=== PATIENT | female | born 1965 | race Two or more races ===

== ENCOUNTER 2020-01-09 18:14 | Outpatient (REF) | payer MEDICAID, SELFPAY | END 2020-01-09 18:15 | disposition home or self-care (01) | LOC: HO.LAB 18:14 | PROVIDERS: Visit Provider Internal Medicine | DX: Z20.828 Contact with and (suspected) exposure to other viral communicable diseases (principal) | CPT/HCPCS: C9803; U0003 ==

== ENCOUNTER 2020-01-19 16:46 | Outpatient (REF) | payer MEDICAID, SELFPAY | END 2020-01-19 16:47 | disposition home or self-care (01) | LOC: HO.LAB 16:46 | PROVIDERS: Visit Provider Internal Medicine | DX: Z20.828 Contact with and (suspected) exposure to other viral communicable diseases (principal) | CPT/HCPCS: C9803; U0003 ==

== ENCOUNTER → 2020-05-08 15:04 | Outpatient (BNVA) | payer MEDICAID, SELFPAY | PROVIDERS: Visit Provider Obstetrics & Gynecology | DX: N90.89 Other specified noninflammatory disorders of vulva and perineum (principal) | CPT/HCPCS: 99212 ==

== ENCOUNTER 2020-09-13 15:35 | Outpatient (REF) | payer MEDICAID, SELFPAY ==
--- NOTE | ~2020-09-13 | MM_ITS ---
EXAMINATION: MM SCREENING DIGITAL BREAST TOMOSYNTHESIS, BILATERAL CLINICAL INFORMATION: Screening. Asymptomatic. The lifetime risk of breast cancer based on the Tyrer-Cuzick Model is 9%. COMPARISON: Mammography: 12/23/2016, 03/29/2015, 03/20/2015 TECHNIQUE: Digital breast tomosynthesis is performed in both the craniocaudal and mediolateral oblique views along with computer-aided detection (CAD). Synthesized 2D images are generated from the tomosynthesis. Additional right MLO view is provided. FINDINGS: The breasts are heterogeneously dense, which may obscure small masses (ACR BI-RADS breast composition Category c). Breast tissue composition borders on extremely dense. Parenchymal pattern is similar to prior studies. No developing density. There are no significant masses, abnormal calcifications, or other abnormalities. No significant changes. MM/MM tomosynthesis screening BI IMPRESSION: No mammographic evidence of malignancy. ASSESSMENT: BI-RADS 1: Negative RECOMMENDATION: Routine annual mammography screening. This patient's information was entered into a reminder system with a target due date for their next mammogram.
== END 2020-09-13 15:36 | disposition home or self-care (01) ==
LOC: HO.MAMMO 15:35
PROVIDERS: Visit Provider Nurse Practitioner Family
DX: Z12.31 Encounter for screening mammogram for malignant neoplasm of breast (principal)
CPT/HCPCS: 77063; 77067

== ENCOUNTER 2022-04-09 11:44 | Emergency (ER) | payer MEDICAID, SELFPAY ==
[2022-04-09 12:33] VITALS: BP 169/86; PULSE 103; RESP 20; TEMP 36.9; O2SAT 98; BMI 33.3
--- NOTE | 2022-04-09 12:36 | ED_ITS ---
HPI - General Adult General Chief complaint: Eye Problems <Yasmani Pan - Last Filed: 04/09/22 12:36> Stated complaint: swollen/pain L eye <Yasmani Pan - Last Filed: 04/09/22 12:36> Time Seen by Provider: 04/09/22 14:34 <Yasmani Pan - Last Filed: 04/09/22 12:36> Source: patient <JAMIL Hua - Last Filed: 04/09/22 16:02> Mode of arrival: ambulatory <JAMIL Hua - Last Filed: 04/09/22 16:02> Limitations: no limitations <JAMIL Hua Last Filed: 04/09/22 16:02> History of Present Illness HPI narrative: 56 yo female presents to the ER for evaluation of left eye redness, pain, swelling x 2 days. Patient reports that she was sweeping at her brother's house and noticed later on that day her left eye became red, irritated, and painful. She denies any crusting to her eyes. She denies any eye itching. Patient reports that ever since the onset of the symptoms her left eye has become more red and irritated. She otherwise denies any visual changes, headaches, dizziness, fevers, or chills. Denies any facial pain, body pain or rashes. She does not wear contact lenses or glasses. She does not have an eye doctor. <JAMIL Hua - Last Filed: 04/09/22 16:02> MD complaint: Left eye redness/pain <JAMIL Hua - Last Filed: 04/09/22 16:02> Onset (ago): day(s) <JAMIL Hua Last Filed: 04/09/22 16:02> Location: eyes <JAMIL Hua Last Filed: 04/09/22 16:02> Radiation: non-radiation <JAMIL Hua Last Filed: 04/09/22 16:02> Severity: moderate <JAMIL Hua Last Filed: 04/09/22 16:02> Quality: aching <JAMIL Hua Last Filed: 04/09/22 16:02> Pain Consistency: constant <JAMIL Hua - Last Filed: 04/09/22 16:02> Relieving factors: none <JAMIL Hua - Last Filed: 04/09/22 16:02> Exacerbating factors: none <JAMIL Hua - Last Filed: 04/09/22 16:02> Associated symptoms: denies other symptoms <JAMIL Hua - Last Filed: 04/09/22 16:02> Treatments prior to arrival: none <JAMIL Hua - Last Filed: 04/09/22 16:02> Related Data Home medications: Home Medications Medication Instructions Recorded Confirmed amlodipine 5 mg tablet 5 mg PO DAILY 05/08/20 escitalopram oxalate 10 mg tablet 10 mg PO DAILY 05/08/20 hydrochlorothiazide 25 mg tablet 25 mg PO DAILY 05/08/20 lisinopril 40 mg tablet 40 mg PO DAILY 05/08/20 trazodone 50 mg tablet 50 mg PO BEDTIME PRN 05/08/20 Previous Rx's Medication Instructions Recorded sulfacetamide sodium 10 % eye drops 1 drp ophthalmic-Left Q3H 7 days 04/09/22 #15 mL <Yasmani Pan - Last Filed: 04/09/22 12:36> Allergies/adverse reactions: Allergies Allergy/AdvReac Type Severity Reaction Status Date / Time No Known Allergies Allergy Verified 05/08/20 15:20 <Yasmani Pan - Last Filed: 04/09/22 12:36> Review of Systems Review of Systems: Yes all other systems are reviewed and are negative <JAMIL Hua - Last Filed: 04/09/22 16:02> [facility] Past Medical History Surgical History: Surgical History History of delivery History of ovarian cystectomy History of umbilical hernia repair (~2008) <Yasmani Pan - Last Filed: 04/09/22 12:36> Family History Family History: Family History Father History of hypertension Mother History of hypertension <Yasmani Pan - Last Filed: 03/02/23 12:36> Social History Social History: Social History Advance Directives: No <Yasmani Pan - Last Filed: 04/09/22 12:36> Physical Exam ED Vital Signs: Vital Signs - 24 hr 04/09/22 12:33 04/09/22 15:23 Temperature 98.5 F Pulse Rate 103 H 86 Respiratory Rate 20 16 Blood Pressure 169/86 H 176/82 H Pulse Oximetry 98 96 Oxygen Delivery Method Room Air Room Air BMI result Body Mass Index 33.3 <Yasmani Pan - Last Filed: 04/09/22 12:36> Vital Signs - 24 hr 04/09/22 12:33 04/09/22 15:23 Temperature 98.5 F Pulse Rate 103 H 86 Respiratory Rate 20 16 Blood Pressure 169/86 H 176/82 H Pulse Oximetry 98 96 Oxygen Delivery Method Room Air Room Air BMI result Body Mass Index 33.3 <JAMIL Hua - Last Filed: 04/09/22 16:02> Appearance: Alert. Oriented X3. No acute distress. HEENT: normal inspection, left eye is conjunctiva injected, with no drainage. There is a visible 2mm oval shaped deformity noted at the 5 o'clock position overlying the edge of the iris. Fluorosceine uptake overlying this region, with 1mm black pinpoint ?foreign body easily irrigated off with saline. No dentritic lesions noted. Pupils are equal and reactive. EOMI. right eye with normal conjunctiva, no drainage. CVS: Normal heart rate and rhythm. Pulses normal. Respiratory: No respiratory distress. Skin: Skin warm and dry. Normal skin color. Normal skin turgor. No rashes. Extremities: Moving all extremities well bilaterally. Neuro: Oriented X 3. No motor deficit. No sensory deficit. <JAMIL Hua - Last Filed: 04/09/22 16:02> Course Course Course Narrative: 56-year-old female presents for 2 days of swollen, red, painful left eye. Denies getting anything in the eye, denies any history of glaucoma. There is no discharge from the eye. Patient endorses light sensitivity and blurry vision <Yasmani Pan - Last Filed: 04/09/22 12:36> Medications Administered Discontinued Medications Generic Name Dose Route Start Last Admin Trade Name Charles PRN Reason Stop Dose Admin Fluorescein Sodium 1 strip 04/09/22 14:48 04/09/22 15:04 Fluorescein Sodium Strip EYE-LEFT 04/09/22 14:49 1 strip ONCE ONE Administration Tetracaine HCl 1 drop 04/09/22 14:48 04/09/22 15:03 Tetracaine Hcl/Pf 0.5% Oph Netta 4 Ml Drops EYE-LEFT 04/09/22 14:49 1 drop ONCE ONE Administration <Yasmani Pan - Last Filed: 04/09/22 12:36> Medications Administered Discontinued Medications Generic Name Dose Route Start Last Admin Trade Name Charles PRN Reason Stop Dose Admin Fluorescein Sodium 1 strip 04/09/22 14:48 04/09/22 15:04 Fluorescein Sodium Strip EYE-LEFT 04/09/22 14:49 1 strip ONCE ONE Administration Tetracaine HCl 1 drop 04/09/22 14:48 04/09/22 15:03 Tetracaine Hcl/Pf 0.5% Oph Netta 4 Ml Drops EYE-LEFT 04/09/22 14:49 1 drop ONCE ONE Administration <JAMIL Hua - Last Filed: 04/09/22 16:02> Procedures Procedure Narrative Procedure Narrative: 2 drops of tetracaine instilled in left eye. Fluoresceine stain strip applied to left eye. +Fluoresceine uptake noted at the 5 o'clock position with black pinpoint ?foreign body, easily removed with saline irrigation. Patient tolerated procedure well without complications or concerns. <JAMIL Hua - Last Filed: 04/09/22 16:02> FB Removal Eye Time Out performed: Yes <JAMIL Hua - Last Filed: 04/09/22 16:02> Location: eye (L) <JAMIL Hua - Last Filed: 04/09/22 16:02> Topical anesthetic used: tetracaine <JAMIL Hua - Last Filed: 04/09/22 16:02> Foreign body: other (?unknown, black pinpoint object/dust) <JAMIL Hua - Last Filed: 04/09/22 16:02> Evidence of corneal penetration: Yes <JAMIL Hua - Last Filed: 04/09/22 16:02> Technique: irrigation <JAMIL Hua - Last Filed: 04/09/22 16:02> Procedure performed under: direct visualization with magnification <JAMIL Hua - Last Filed: 04/09/22 16:02> Post-procedure medication: ophthalmic antibiotic <JAMIL Hua - Last Filed: 04/09/22 16:02> Patient tolerated procedure: well <JAMIL Hua - Last Filed: 04/09/22 16:02> Medical Decision Making Medical Decision Making MDM Narrative: [id number] presenting today with complaints of left eye redness, irritation, found to have corneal abrasion in her left eye. Will cover with Bleph-10 and given referral to ophthalmology to follow up with. <JAMIL Hua - Last Filed: 04/09/22 16:02> Differential Diagnosis Differential Diagnoses: The differential diagnosis associated with the presentation includes <JAMIL Hua - Last Filed: 04/09/22 16:02> corneal abrasion, uvetitis, iritis, conjunctivitis, foreign body, corneal laceration, HSV epithelial keratitis <JAMIL Hua - Last Filed: 04/09/22 16:02> Prescription Management I considered prescription management with: Antibiotic <JAMIL Hua - Last Filed: 04/09/22 16:02> Discharge Plan Discharge Clinical Impression: Abrasion, corneal <Yasmani Pan - Last Filed: 04/09/22 12:36> Patient Disposition: Home, Self-Care <Yasmani Pan - Last Filed: 04/09/22 12:36> Instructions: Corneal Abrasion (ED) <Yasmani Pan - Last Filed: 04/09/22 12:36> Additional Instructions: Use prescribed antibiotic drop as directed for 1 week. Please follow up with Dr. Reece Webb, call today to make an appointment. If you develop new or worsening symptoms call 911 or come back to the ER for further evaluation. <Yasmani Pan - Last Filed: 04/09/22 12:36> Prescriptions: New sulfacetamide sodium 10 % drops 1 drp ophthalmic-Left Q3H 7 Days Qty: 15 0RF No Action lisinopril 40 mg tablet 40 mg PO DAILY hydrochlorothiazide 25 mg tablet 25 mg PO DAILY escitalopram oxalate 10 mg tablet 10 mg PO DAILY trazodone 50 mg tablet 50 mg PO BEDTIME PRN amlodipine 5 mg tablet 5 mg PO DAILY <Yasmani Pan - Last Filed: 04/09/22 12:36> Referrals: Moy Webb [Physician] - (corneal abrasion) <Yasmani Pan - Last Filed: 04/09/22 12:36> Interventions: ED Discharge Assessment Last Done: 04/09/22 15:50 <Yasmani Pan - Last Filed: 04/09/22 12:36> Discharge Date/Time: 04/09/22 15:51 <Yasmani Pan - Last Filed: 04/09/22 12:36>
[2022-04-09] MEDS: Tetracaine HCl/PF 0.5% Oph Sol 4 ML DROPS 1 DROP EYE-LEFT (15:03)
[2022-04-09] MEDS: Fluorescein Sodium STRIP 1 STRIP EYE-LEFT (15:04)
[2022-04-09 15:23] VITALS: BP 176/82; PULSE 86; RESP 16; O2SAT 96
== END 2022-04-09 15:51 | disposition home or self-care (01) ==
PROVIDERS: Emergency Provider Student in an Organized Health Care Education/Training Program
DX: S05.02XA Injury of conjunctiva and corneal abrasion without foreign body, left eye, initial encounter (principal); X58.XXXA Exposure to other specified factors, initial encounter; Y93.9 Activity, unspecified; Y92.9 Unspecified place or not applicable; Y99.9 Unspecified external cause status
CPT/HCPCS: 99283

== ENCOUNTER 2022-04-28 09:34 | Outpatient (REF) | payer MEDICAID, SELFPAY ==
--- NOTE | ~2022-04-28 | XR_ITS ---
EXAMINATION: XR KNEE, RIGHT CLINICAL INFORMATION: Right knee pain COMPARISON: 11/28/2011 TECHNIQUE: Four views of the right knee. FINDINGS: No fracture or joint effusion. Alignment is anatomic. Joint space narrowing and osteophyte formation is seen within the medial and lateral compartments of the femoral-tibial joint and patellofemoral joint consistent with moderate osteoarthritis. Findings increased compared to prior exam. No abnormal soft tissue calcification. XR/XR knee RT 3V IMPRESSION: Moderate tricompartmental osteoarthritis. Findings have significantly progressed compared to 2012
--- NOTE | ~2022-04-28 | XR_ITS ---
EXAMINATION: XR BILATERAL HIPS WITH AP PELVIS CLINICAL INFORMATION: Bilateral hip pain COMPARISON: 01/03/2018 TECHNIQUE: AP view of the pelvis and single views of each hip were obtained. FINDINGS: No fracture. Joint space narrowing and osteophyte formation is seen within the bilateral hip joints consistent with moderate osteoarthritis. Findings have increased compared to the prior exam. Sacroiliac joints are normal. Pubic symphysis is normal. No abnormal soft tissue calcifications. XR/XR hip BI w PEL1V IMPRESSION: Bilateral hip osteoarthritis with interval progression compared to 2018
--- NOTE | ~2022-04-28 | XR_ITS ---
EXAMINATION: XR LUMBOSACRAL SPINE CLINICAL INFORMATION: Back pain COMPARISON: None available. TECHNIQUE: Three views of the lumbosacral spine. FINDINGS: The vertebral bodies are normal in height. Severe multilevel degenerative changes with disc space narrowing and osteophyte formation is seen at L2/3, L4/5 and L5/S1. Mild to moderate degenerative disc disease is also seen at T11/12, T12/L1, L1/L2, L3/L4. Posterior facet joint arthropathy is seen at L5/S1. Posterior retrolisthesis is seen at L2/3 and L3/4. The paraspinal soft tissues are normal. XR/XR lumbar spine 2-3V IMPRESSION: Multilevel degenerative disc disease as described above
== END 2022-04-28 09:35 | disposition home or self-care (01) ==
LOC: HO.XRAY 09:34
PROVIDERS: Visit Provider Registered Nurse
DX: M54.9 Dorsalgia, unspecified (principal); M25.552 Pain in left hip; M25.551 Pain in right hip; M25.562 Pain in left knee; M25.561 Pain in right knee
CPT/HCPCS: 72100; 73521; 73562

== ENCOUNTER 2022-05-18 09:26 | Outpatient (REF) | payer MEDICAID, SELFPAY ==
--- NOTE | ~2022-05-18 | XR_ITS ---
EXAMINATION: XR KNEE AP STANDING CLINICAL INFORMATION: Pain. COMPARISON: Prior radiographs, most recently 04/28/2022. TECHNIQUE: AP bilateral standing view of the knees was obtained. FINDINGS: Bony alignment and mineralization are normal. The bilateral lateral and medial joint space compartments are well-maintained and show mild peripheral osteophyte formation. No fracture or dislocation is seen. There is no significant varus or valgus configuration. No focal soft tissue swelling, gas or foreign body is seen. XR/XR knee standing BI IMPRESSION: There is mild osteoarthritic change of the lateral and medial joint space compartments of the bilateral knees. No fracture or dislocation is seen. There is no significant varus or valgus configuration noted bilaterally.
== END 2022-05-18 09:27 | disposition home or self-care (01) ==
LOC: HO.HOSX 09:26
PROVIDERS: Visit Provider Orthopaedic Surgery
DX: M17.11 Unilateral primary osteoarthritis, right knee (principal); M16.0 Bilateral primary osteoarthritis of hip
CPT/HCPCS: 20610; 73565; 99202; J1100

== ENCOUNTER 2022-07-13 09:48 | Outpatient (REF) | payer MEDICAID, SELFPAY ==
[2022-07-13 10:14] LABS: MANUAL DIFF FLAG NO
[2022-07-13 11:28] LABS: Basophils Absolute Auto 0.1 X10*3/uL (0.0-0.2); Basophils Percent Auto 0.9 % (0-2); Eosinophils Absolute Auto 0.2 X10*3/uL (0.0-0.4); Eosinophils Percent Auto 2.8 % (0-4); Hematocrit 40.6 % (37.0-47.0); Hemoglobin 12.8 g/dl (12.0-16.0); Imm Gran Abs Auto 0.03 X10*3/uL (0.00-0.03); Imm Gran Pct Auto 0.4 % (0.0-0.4); Lymphocytes Absolute Auto 1.9 X10*3/uL (1.2-4.9); Mean Corpuscular HGB Conc 31.5 g/dl (31.0-35.0); Mean Corpuscular Hemoglobin 27.8 pg (27.0-33.0); Mean Corpuscular Volume 88.1 fL (80.0-98.0); Monocytes Absolute Auto 0.6 X10*3/uL (0.1-1.2); Monocytes Percent Auto 7.8 % (2-11); Neutrophils Absolute Auto 5.1 x10*3/uL (2.0-8.3); Neutrophils Percent Auto 64.1 % (45-73); Platelet Count 317 X10*3/uL (160-400); Red Blood Count 4.61 X10*6/uL (4.20-5.50); Red Cell Distribution Width 14.2 % (11.0-16.0); White Blood Count 7.9 X10*3/uL (4.8-10.8)
[2022-07-13 12:00] LABS: Alanine Aminotransferase 21 U/L (0-31); Albumin Level 4.5 g/dL (3.5-5.0); Alkaline Phosphatase 80 U/L (39-117); Anion Gap 15 (12-20); Aspartate Amino Transferase 16 U/L (5-31); Bilirubin Total 0.9 mg/dL (0.0-1.0); Blood Urea Nitrogen 18 mg/dL (9-16); C Reactive Protein 1.96 mg/dL (< or = 0.50); Calcium 10.3 mg/dL (8.4-10.2); Carbon Dioxide 27 mmol/L (22-29); Chloride 103 mmol/L (96-108); Estimated Glomerular Filt Rate > 60; Glucose Random 115 mg/dL (60-115); Potassium 4.4 mmol/L (3.3-5.1); Sodium 141 mmol/L (135-145); Total Protein 8.2 g/dL (6.5-8.0)
[2022-07-13 12:05] LABS: Erythrocyte Sedimentation Rate 21 MM/HR (0-20)
[2022-07-13 13:00] LABS: Creatinine Urine 124.21 mg/dL; Protein/Creatinine Ratio, Ur 0.09 (<0.2); Total Protein Urine Random 11 mg/dL (<12)
[2022-07-15 05:13] LABS: Anti DNA DS Antibody 1 IU/mL; Antibody to SS-A Antigen <1.0 NEG AI (<1.0 NEG); Antibody to SS-B Antigen <1.0 NEG AI (<1.0 NEG); SM/Ribonucleoprotein Ab <1.0 NEG AI (<1.0 NEG); Smith Protein <1.0 NEG AI (<1.0 NEG)
[2022-07-15 09:38] LABS: Complement C3 166 mg/dL (83-193)
== END 2022-07-13 09:49 | disposition home or self-care (01) ==
LOC: HO.LAB 09:48
PROVIDERS: PCP Internal Medicine Rheumatology; Visit Provider Internal Medicine Rheumatology
DX: R76.8 Other specified abnormal immunological findings in serum (principal)
CPT/HCPCS: 36415; 80053; 84156; 85025; 85652; 86140; 86160; 86225; 86235

== ENCOUNTER 2022-07-13 10:00 | Outpatient (RCR) | payer MEDICAID, SELFPAY ==
[2022-06-01 09:54] VITALS: BP 164/86; PULSE 97
== END 2022-08-13 15:39 | disposition home or self-care (01) ==
LOC: HO.PT 10:00
PROVIDERS: PCP Registered Nurse; Visit Provider Registered Nurse
DX: M17.11 Unilateral primary osteoarthritis, right knee (principal); M16.0 Bilateral primary osteoarthritis of hip
CPT/HCPCS: 97110; 97162

== ENCOUNTER 2022-07-15 08:05 | Emergency (ER) | payer MEDICAID, SELFPAY ==
[2022-07-15 08:30] VITALS: BP 165/88; PULSE 96; RESP 16; TEMP 36.6; O2SAT 97; BMI 35.1
[2022-07-15 08:41] LABS: MANUAL DIFF FLAG NO
[2022-07-15 08:44] LABS: Basophils Absolute Auto 0.1 X10*3/uL (0.0-0.2); Basophils Percent Auto 0.8 % (0-2); Eosinophils Absolute Auto 0.2 X10*3/uL (0.0-0.4); Eosinophils Percent Auto 2.8 % (0-4); Hematocrit 39.4 % (37.0-47.0); Hemoglobin 12.6 g/dl (12.0-16.0); Imm Gran Abs Auto 0.03 X10*3/uL (0.00-0.03); Imm Gran Pct Auto 0.4 % (0.0-0.4); Lymphocytes Absolute Auto 1.9 X10*3/uL (1.2-4.9); Mean Corpuscular Hemoglobin 27.9 pg (27.0-33.0); Mean Corpuscular Volume 87.4 fL (80.0-98.0); Mean Platelet Volume 10.2 fL (9.4-12.3); Monocytes Absolute Auto 0.7 X10*3/uL (0.1-1.2); Monocytes Percent Auto 9.7 % (2-11); Neutrophils Absolute Auto 4.5 x10*3/uL (2.0-8.3); Neutrophils Percent Auto 60.3 % (45-73); Platelet Count 291 X10*3/uL (160-400); Red Blood Count 4.51 X10*6/uL (4.20-5.50); White Blood Count 7.5 X10*3/uL (4.8-10.8)
[2022-07-15 09:07] LABS: Anion Gap 13 (12-20); Blood Urea Nitrogen 14 mg/dL (9-16); Calcium 10.2 mg/dL (8.4-10.2); Carbon Dioxide 26 mmol/L (22-29); Chloride 108 mmol/L (96-108); Creatinine Clr Calc Pharmacy 100.8; Estimated Glomerular Filt Rate > 60; Glucose Random 108 mg/dL (60-115); Potassium 4.6 mmol/L (3.3-5.1); Sodium 142 mmol/L (135-145)
[2022-07-15 09:09] LABS: B Type Natriuretic Peptide < 10 pg/mL (<100)
--- NOTE | 2022-07-15 09:50 | ED_ITS ---
HPI - General Adult General Chief complaint: Extremity Problem Stated complaint: swollen feet Time Seen by Provider: 07/15/22 09:48 Source: patient Mode of arrival: ambulatory Limitations: no limitations History of Present Illness HPI narrative: Patient is a 56-year-old female with history of osteoarthritis, HTN, FRANTZ positive presenting with 1 month of bilateral ankle and foot swelling, worse at night. She denies any calf pain, chest pain, dyspnea. Denies any fevers. Denies any discharge or drainage. Denies any injury or trauma. Denies known history of CHF, however, is seeing film process operator tomorrow. Denies headaches. Denies blurred vision, double vision, any other visual changes. MD complaint: Bilateral lower extremity edema Onset (ago): month(s) Location: lower extremity Radiation: non-radiation Severity scale (1-10): 7 Quality: burning Pain Consistency: constant Relieving factors: rest Exacerbating factors: movement Associated symptoms: denies other symptoms Treatments prior to arrival: none Related Data Home Medications Medication Instructions Recorded Confirmed amlodipine 5 mg tablet 5 mg PO DAILY 05/08/20 escitalopram oxalate 10 mg tablet 10 mg PO DAILY 05/08/20 hydrochlorothiazide 25 mg tablet 25 mg PO DAILY 05/08/20 lisinopril 40 mg tablet 40 mg PO DAILY 05/08/20 trazodone 50 mg tablet 50 mg PO BEDTIME PRN 05/08/20 Previous Rx's Medication Instructions Recorded sulfacetamide sodium 10 % eye drops 1 drp ophthalmic-Left Q3H 7 days 04/09/22 #15 mL Allergies Allergy/AdvReac Type Severity Reaction Status Date / Time No Known Allergies Allergy Verified 05/08/20 15:20 Review of Systems Review of Systems: As per HPI. Yes all other systems are reviewed and are negative Constitutional: Constitutional: Reports as per HPI PMF Past Medical History Surgical History History of delivery History of ovarian cystectomy History of umbilical hernia repair (~2008) Family History Family History Father History of hypertension Mother History of hypertension Social History Social History (Updated 05/18/22 @ 10:57 by Kristy Becker CMA) Advance Directives: No Advance Directives Information Provided: Yes Current occupational status: unemployed Physical Exam ED Vital Signs: Vital Signs - 24 hr 07/15/22 08:30 07/15/22 09:54 Temperature 98 F 98.6 F Pulse Rate 96 90 Respiratory Rate 16 16 Blood Pressure 165/88 H 180/94 H Pulse Oximetry 97 96 Oxygen Delivery Method Room Air Room Air BMI result Body Mass Index 35.1 Vital signs have been reviewed and appear to be correct. Blood pressure elevated. Heart rate normal. Respiratory rate normal. Temperature normal. Oxygen saturation normal. Const General: cooperative, healthy appearing and no acute distress Orientation/consciousness: oriented to person, oriented to place, oriented to time and patient oriented x3 Limitations: no limitations HENMT Head: Yes normocephalic and Yes atraumatic Ears: external ears normal General nose exam: Normal external nose present Face and sinus: Yes face symmetric Mouth: oropharynx normal and moist mucous membranes Throat: Yes uvula midline Eyes Pupils: Equal, round and reactive pupils present Neck Neck: Yes normal visual inspection and Yes supple Resp Effort & Inspection: normal respiratory effort and able to speak in complete sentences Auscultation: clear to auscultation bilaterally Cardio Rate: regular rate Rhythm: regular rhythm Heart sounds: S1 normal heart sound present and S2 normal heart sound present GI Palpation (GI): Soft to palpation and nontender Auscultation: normoactive bowel sounds General: Yes no CVA tenderness Back/Spine/Pelvis Back: no CVA tenderness Skin General skin exam: elasticity normal and turgor normal Neuro General: oriented to person, oriented to place, oriented to time, patient oriented x3, moves all extremities, no focal motor deficits and CN's II-XI intact bilaterally Cranial nerves: Yes Equal, round and reactive pupils present Cognition (Neuro): normal cognition Extrem General: Yes full ROM and Yes no calf tenderness Right upper extremity: normal to inspection, full ROM and normal capillary refill; no edema Left upper extremity: normal to inspection, full ROM and normal capillary refill; no edema Right lower extremity: full ROM, normal capillary refill, edema Details: pitting and 1+ and foot Details: vascular exam Details: dorsalis pedis pulse present and posterior tibial pulse present Left lower extremity: full ROM, normal capillary refill, edema Details: pitting and 1+, ankle Details: other (1.5cm area of erythema to medial distal lower leg without calor, dng) and foot Details: vascular exam Details: dorsalis pedis pulse present and posterior tibial pulse present Psych Mental Status: mental status grossly normal Affect: normal affect Thought process: Normal thought process present Medical Decision Making Medical Decision Making MDM Narrative: Patient is a 56-year-old female with history of osteoarthritis, HTN, FRANTZ positive presenting with 1 month of bilateral ankle and foot swelling, worse at night. On exam patient is awake, A+Ox3, hypertensive, VS otherwise WNL, LS CTA throughout, abd SNT, bilateral 1+ pitting edema to ankles and feet, 1.5cm circular area of erythema to medial aspect of distal left lower leg without fluctuance, calor, discharge or drainage. Labs unremarkable. Differential includes venous stasis dermatitis, adverse effect of amlodipine, fluid overload, acute heart failure. Unlikely DVT, low risk Wells. Instructed patient to discuss symptoms with film process operator tomorrow and PCP, as she may benefit from change in antihypertensive medication. Return precautions discussed at bedside. Differential Diagnosis Differential Diagnoses: The differential diagnosis associated with the presentation includes As above. Lab Data MDM Lab Attestation statement: I reviewed the patient's lab results. 07/15/22 08:37 07/15/22 08:37 Labs: Lab Results 07/15/22 07/15/22 07/15/22 Range/Units 08:37 08:37 08:37 WBC 7.5 (4.8-10.8) X10*3/uL RBC 4.51 (4.20-5.50) X10*6/uL Hgb 12.6 (12.0-16.0) g/dl Hct 39.4 (37.0-47.0) % MCV 87.4 (80.0-98.0) fL MCH 27.9 (27.0-33.0) pg MCHC 32.0 (31.0-35.0) g/dl RDW 14.0 (11.0-16.0) % Plt Count 291 (160-400) X10*3/uL MPV 10.2 (9.4-12.3) fL Immature Gran % (Auto) 0.4 (0.0-0.4) % Neut % (Auto) 60.3 (45-73) % Lymph % (Auto) 26.0 (20-40) % [place] % (Auto) 9.7 (2-11) % Eos % (Auto) 2.8 (0-4) % Baso % (Auto) 0.8 (0-2) % Lymph # (Auto) 1.9 (1.2-4.9) X10*3/uL [place] # (Auto) 0.7 (0.1-1.2) X10*3/uL Eos # (Auto) 0.2 (0.0-0.4) X10*3/uL Baso # (Auto) 0.1 (0.0-0.2) X10*3/uL Abs Immat Gran (auto) 0.03 (0.00-0.03) X10*3/uL Absolute Neuts (auto) 4.5 (2.0-8.3) x10*3/uL Absolute Nucleated RBC 0.000 (0.0-0.012) X10*3/uL Nucleated RBC % (auto) 0.0 (0.0-0.2) /100WBC Sodium 142 (135-145) mmol/L Potassium 4.6 (3.3-5.1) mmol/L Chloride 108 (96-108) mmol/L Carbon Dioxide 26 (22-29) mmol/L Anion Gap 13 (12-20) BUN 14 (9-16) mg/dL Creatinine 0.67 (0.5-1.4) mg/dL Estim Creat Clear Calc 100.8 Estimated GFR > 60 Random Glucose 108 (60-115) mg/dL Calcium 10.2 (8.4-10.2) mg/dL B-Natriuretic Peptide < 10 (<100) pg/mL External Record Review External record reviewed: Inpatient record, Office record and Outpatient record Chronic Conditions Patient?s care impacted by: Hypertension Discharge Plan Discharge Clinical Impression: Acute venous stasis dermatitis, Dependent edema Patient Disposition: Home, Self-Care Instructions: Peripheral Vascular Disease (ED) Additional Instructions: Please keep your appointment with cardiology tomorrow and mention your lower leg swelling while there. You should also discuss your symptoms with your primary care provider, as they may be related to your blood pressure medication, amlodipine. Prescriptions: No Action sulfacetamide sodium 10 % drops 1 drp ophthalmic-Left Q3H 7 Days Qty: 15 0RF lisinopril 40 mg tablet 40 mg PO DAILY hydrochlorothiazide 25 mg tablet 25 mg PO DAILY escitalopram oxalate 10 mg tablet 10 mg PO DAILY trazodone 50 mg tablet 50 mg PO BEDTIME PRN amlodipine 5 mg tablet 5 mg PO DAILY
[2022-07-15 09:54] VITALS: BP 180/94; PULSE 90; RESP 16; TEMP 37; O2SAT 96
--- NOTE | 2022-07-15 10:28 | PC.NURSE ---
b/l le swelling and some pain in l leg worse at night , nad, skin wpd, sr on monitor
== END 2022-07-15 13:18 | disposition home or self-care (01) ==
PROVIDERS: Emergency Provider Internal Medicine; PCP Internal Medicine Rheumatology
DX: I87.8 Other specified disorders of veins (principal); R60.0 Localized edema; I10 Essential (primary) hypertension; Z79.899 Other long term (current) drug therapy
CPT/HCPCS: 36415; 80048; 83880; 85025; 99283

== ENCOUNTER 2022-07-21 09:25 | Outpatient (REF) | payer MEDICAID, SELFPAY ==
[2022-07-21 16:23] LABS: CT PCR NOT DETECTED (Not Detect.); NG PCR NOT DETECTED (Not Detect.)
[2022-07-22 10:05] LABS: BV Int Neg Control Negative (Negative); BV Int Pos Control Positive (Positive)
[2022-07-28 22:13] LABS: HPV mRNA E6/E7 rflx Not Detected (Not Detected)
== END 2022-07-21 09:26 | disposition home or self-care (01) ==
LOC: HO.LNP 09:25
PROVIDERS: PCP Registered Nurse; Visit Provider Advanced Practice Midwife
DX: Z01.419 Encounter for gynecological examination (general) (routine) without abnormal findings (principal); Z11.51 Encounter for screening for human papillomavirus (HPV); M16.0 Bilateral primary osteoarthritis of hip; M17.11 Unilateral primary osteoarthritis, right knee; R03.0 Elevated blood-pressure reading, without diagnosis of hypertension; R60.9 Edema, unspecified
CPT/HCPCS: 0353U; 87480; 87510; 87624; 87660; 88142

== ENCOUNTER 2022-08-04 06:02 | Outpatient (REF) | payer MEDICAID, SELFPAY ==
[2022-08-04 07:41] LABS: Anion Gap 15 (12-20); Blood Urea Nitrogen 12 mg/dL (9-16); Carbon Dioxide 26 mmol/L (22-29); Chloride 105 mmol/L (96-108); Estimated Glomerular Filt Rate > 60; Glucose Random 100 mg/dL (60-115); Potassium 4.6 mmol/L (3.3-5.1); Sodium 141 mmol/L (135-145)
[2022-08-04 07:48] LABS: B Type Natriuretic Peptide 14 pg/mL (<100)
== END 2022-08-04 06:03 | disposition home or self-care (01) ==
LOC: HO.LAB 06:02
PROVIDERS: Visit Provider Internal Medicine Cardiovascular Disease
DX: R60.9 Edema, unspecified (principal)
CPT/HCPCS: 36415; 80048; 83880

== ENCOUNTER → 2022-08-17 12:38 | Outpatient (BNVA) | payer MEDICAID, SELFPAY | PROVIDERS: Visit Provider Physician Assistant Surgical ==

== ENCOUNTER 2022-08-25 12:42 | Outpatient (REF) | payer MEDICAID, SELFPAY ==
--- NOTE | ~2022-08-25 | MM_ITS ---
EXAMINATION: MM SCREENING DIGITAL BREAST TOMOSYNTHESIS, BILATERAL CLINICAL INFORMATION: Screening. Asymptomatic. The lifetime risk of breast cancer based on the Tyrer-Cuzick Model is 8.1%. COMPARISON: Mammography: 09/13/2020, 12/23/2016, and dating back to 2012. TECHNIQUE: Digital breast tomosynthesis is performed in both the craniocaudal and mediolateral oblique views along with computer-aided detection (CAD). Synthesized 2D images are generated from the tomosynthesis. FINDINGS: The breasts are heterogeneously dense, which may obscure small masses (ACR BI-RADS breast composition Category c). Within the right breast, anterior one third, slightly medial to the nipple line and best seen on the tomographic images is a 1 view asymmetry only seen on the right CC projection, without definite right MLO correlate. This is most likely superimposition artifact, however 3-D spot compression view recommended. Otherwise, no suspicious masses, calcifications, or areas of architectural distortion in either breast which can be distinguished from the heterogeneously dense breast tissue. MM/MM tomosynthesis screening BI IMPRESSION: 1 view asymmetry right breast cc view anterior one third, just medial to the nipple line, for which 3-D spot compression view recommended with scheduled breast ultrasound showed the finding persist. Would also include a full-field digital right 90 degree mediolateral view. No suspicious abnormality in the left breast. ASSESSMENT: BI-RADS BI-RADS 0 - Incomplete: Needs additional Imaging. RECOMMENDATION: 1. Additional views of the right breast as detailed. 2. Targeted ultrasound if warranted after review of the additional views. 3. Radiology department staff will contact the patient for additional imaging. Additional Imaging required
== END 2022-08-25 12:43 | disposition home or self-care (01) ==
LOC: HO.MAMMO 12:42
PROVIDERS: Visit Provider Advanced Practice Midwife
DX: Z12.31 Encounter for screening mammogram for malignant neoplasm of breast (principal)
CPT/HCPCS: 77063; 77067

== ENCOUNTER → 2022-08-25 13:00 | Outpatient (BNV) | payer MEDICAID, SELFPAY | PROVIDERS: Visit Provider Radiology Diagnostic Radiology | DX: Z12.31 Encounter for screening mammogram for malignant neoplasm of breast (principal) | CPT/HCPCS: 77063; 77067 ==

== ENCOUNTER 2022-09-10 09:20 | Outpatient (REF) | payer MEDICAID, SELFPAY ==
[2022-09-13 11:42] LABS: H Pylori Breath Test Negative (Negative)
== END 2022-09-10 09:21 | disposition home or self-care (01) ==
LOC: HO.LNP 09:20
PROVIDERS: PCP Registered Nurse; Visit Provider Physician Assistant Surgical
DX: Z11.2 Encounter for screening for other bacterial diseases (principal); E66.9 Obesity, unspecified; R03.0 Elevated blood-pressure reading, without diagnosis of hypertension
CPT/HCPCS: 83013; 99211; 99215

== ENCOUNTER 2022-09-10 09:20 | Outpatient (AMB) | payer MEDICAID, SELFPAY ==
--- NOTE | 2022-09-10 09:22 | A.OFFVIS_ITS ---
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 Her goal is to lose weight and achieve a healthy lifestyle as well as to improve, if not resolve, obesity related medical conditions, including MAYRA and HTN. She reports first being concerned about her weight over the last 5 years, highest weight to date was 200 pounds. Current weight is 196 pounds with a BMI of 35.9. Her initial weight on presentation to the [facility] [place] SWL program on 08/17/22 was 197.2 pounds with a BMI of 35.5. She has tried multiple methods of weight loss including fad diets without permanent results. She lives with her and son. She does not work. She wakes at:?6 am, and goes to bed at?10 pm. Dinner is at 6 pm. Breakfast: skip or bread or eggs, cereal AM snack: skip or granola bar Lunch: salad or leftovers PM snack: chips, chicharones Dinner: rice, beans, meat After dinner: cupcakes Other snacks: as above Liquids: 32 oz water, 2 liter coke daily, 8 oz juice daily Alcohol/marijuana/tobacco intake: rare etoh, no cannabis or tobacco Exercise: none, treadmill at home GERD score: 9 DALJIT score: 0 ESS score: 10 QOL score: 107 PFSH Surgical History History of delivery History of ovarian cystectomy History of umbilical hernia repair (~2008) Family History Father History of hypertension Mother History of hypertension Social History Alcohol intake: current Alcohol intake frequency: holidays/special occasions only Patient Tobacco Use Status: Never used Tobacco Current occupational status: unemployed Review of Systems Const All systems reviewed & are unremarkable except as noted in HPI and below Physical Exam Vital Signs: Last Vital Signs Temp 97.5 F 09/10/22 09:33 Pulse 72 09/10/22 09:33 BP 180/90 H 09/10/22 09:33 Pulse Ox 96 09/10/22 09:33 Oxygen Delivery Method Room Air 09/10/22 09:33 BMI result Body Mass Index 35.3 Const General: cooperative, healthy appearing and no acute distress Orientation/consciousness: patient oriented x3 HEENT Head: Yes normal to inspection Ears: hearing grossly normal bilaterally General nose exam: Normal external nose present Face and sinus: Yes normal facial exam Eyes General: appearance normal, both eyes and all related structures Resp Effort & Inspection: normal respiratory effort Auscultation: clear to auscultation bilaterally Cardio Rate: regular rate Rhythm: regular rhythm Heart sounds: S1 normal heart sound present and S2 normal heart sound present GI Inspection: Yes normal to inspection, No distended and Yes obesity Palpation (GI): Soft to palpation, nontender and no guarding Auscultation: normal bowel sounds Skin General skin exam: no rashes or lesions noted Neuro General: patient oriented x3 Extrem General: No edema Psych Appearance: grossly normal Mental Status: mental status grossly normal Speech and movement: Normal speech and movement present Affect: normal affect Attitude: cooperative Assessment & Plan Assessment & Plan (1) Obesity (BMI 30-39.9): Code(s): E66.9 - Obesity, unspecified Plan: This is a?56 yo female who will start our SWL program to prepare for bariatric surgery.? Blood work, h pylori , CXR, ECG, Abd US and UGI have been ordered. She is being scheduled for RD and BH initial consultations. She will start SWL clas ses and watch the first three videos before her next appointment. ? Adequate sleep of 7-8 hours per night discussed, awakening at 6 am and going to bed at 10 pm ? Purchase body composition analyzer scale (Christiano courtney or Mukund recommended) and check weight weekly. The best time to do this is first thing in the morning after going to the bathroom. 1. Nutritional counseling: Be sure to careful read the number of scoops per shake Start with 2 Premier Protein shakes ([employer], [employer], [employer]) First shake, (1 scoop in 8 oz low fat unsweetened almond milk or water) at 8am-1 0am, Second shake, (1/2 scoop in 8 oz low fat unsweetened almond milk or water) at 12pm-2pm 1 protein bar (Fulfil bars at [employer], [employer], or [employer]) at 3pm-5pm. Dinner at 6pm (8 forks of protein and 8 forks of salad/vegetables). Meal to include lean meat (beef, fish, pork, turkey, chicken), cooked vegetables or a salad with olive oil and/or fruits (berries, pears, apples, kiwi). Avoid salt, breads, potatoes, rice, pasta, desserts. Another shake with 1/2 scoop in 8 oz unsweetened almond milk at 8pm-10pm. Try to drink 64 oz of water daily and avoid soda and juices. ?2. Each shake would be drunk slowly, like coffee in a period of 2 hours. ?3. Cut each bar in 4 pieces and eat each piece in 30 min ?to make each bar last 2 hours. ?4. I emphasized the importance of measuring accurately the food portion and measure it carefully when serving the food on the plate ?5. The meal portions include 8 full-size forks of meat and 8 full-size forks of salad. You always eat the meat portion but you can replace up to half of the forks of salad/vegetables with rice, potatoes or pasta, or a fruit ?if you like. The less you do it the better weight loss will be. ?6. One full-size fork is what can be scooped on the fork without falling aside and not what can be bit with the fork. Use regular forks like those you find in a typical restaurant. ?7.? Please send me weight measurements as soon as possible and then once a week. Always include your diet and exercise plan. Alternatively come weekly at the office for weight checks and send me the measurements. ?8. Exercise counseling: Begin by watching a stretching for beginners video. Start slowly and begin to stretch your muscles. You should do this before and after each exercise session to prevent injury. Please join [facility] gym near your home. Ask the artist manager or one of the trainers how to use the machines if you are unfamiliar with them. Start elliptical with a resistance of 2. Increase resistance by 1 every 3 min to your most comfortable resistance with a max resistance of 8. Reduce the resistance by 1 every 3 minutes back down to 2 and repeat cycles for 300 calories. Alternatively, start treadmill in your home with a speed of 3.0 and incline of 0, increasing incline by 1 every 3 minutes to the highest comfortable level (max 6 for now) then decrease in the same fashion. Repeat process to a goal of 300 calories. Goal of 2000 calories burned or more weekly. You may also consider use of the stationary bike. The easiest would be to chose the fat-burn or interval training program on the machine and do this until you reach the 300 calorie goal. Alternatively, you can manually adjust the resistance in a similar fashion as mentioned above, (resistance of 2-8 with a goal speed of 12 mph). Tracking calories is essential. 9. Alternatively start walking outside daily, tracking calories with a goal of 300 calories per day, daily. You can download the mae [employer] which can track your time, distance and calories while walking outside. You press start in the mae when you start and then stop when you are finished. 10.? It is important to communicate by text weekly your weight and if you are having an 11. Please get labs, EKG and chest X-Ray within 1 week. 12. Discussed and answered all questions regarding?obtained consent to participate in the [facility]?Registry. 13. Please follow the diet plan exactly, without any change. If you do not like something about the plan or you feel hungry, you need to communicate with me so I can help you revise the plan. You should not change the plan yourself. Text me at [phone] 14. Goal is to lose at least 12 pounds in the first month 15. Goal is to lose 10% of your weight before surgery, which is about 19 lbs. Ultimate weight goal: 177 lbs before surgery Patient is morbidly obese and is not considered stable at this time.?I spent a total of 70 minutes reviewing/updating records, examining the patient and counseling the patient on weight management as detailed above. Orders: Orders Vitamin B12 and Folate Today E66.9 - Obesity, unspecified, R03.0 - Elevated blood-pressure reading, without diagnosis of hypertension Comprehensive Met. Panel Today E66.9 - Obesity, unspecified, R03.0 - Elevated blood-pressure reading, without diagnosis of hypertension C Reactive Protein Today E66.9 - Obesity, unspecified, R03.0 - Elevated blood- pressure reading, without diagnosis of hypertension Ferritin Today E66.9 - Obesity, unspecified, R03.0 - Elevated blood-pressure reading, without diagnosis of hypertension Hemoglobin A1c Today E66.9 - Obesity, unspecified, R03.0 - Elevated blood- pressure reading, without diagnosis of hypertension Insulin Today E66.9 - Obesity, unspecified, R03.0 - Elevated blood-pressure reading, without diagnosis of hypertension IRON PROFILE Today E66.9 - Obesity, unspecified, R03.0 - Elevated blood-pressure reading, without diagnosis of hypertension Lipid Panel Today E66.9 - Obesity, unspecified, R03.0 - Elevated blood-pressure reading, without diagnosis of hypertension PTHI Today E66.9 - Obesity, unspecified, R03.0 - Elevated blood-pressure reading, without diagnosis of hypertension TSH reflex Free T4 Today E66.9 - Obesity, unspecified, R03.0 - Elevated blood- pressure reading, without diagnosis of hypertension Vitamin A Today E66.9 - Obesity, unspecified, R03.0 - Elevated blood-pressure reading, without diagnosis of hypertension Vitamin B1 Today E66.9 - Obesity, unspecified, R03.0 - Elevated blood-pressure reading, without diagnosis of hypertension Vitamin D 25-OH Total Today E66.9 - Obesity, unspecified, R03.0 - Elevated blood-pressure reading, without diagnosis of hypertension Zinc Today E66.9 - Obesity, unspecified, R03.0 - Elevated blood-pressure reading, without diagnosis of hypertension ECG 12 lead EKG Today E66.9 - Obesity, unspecified, R03.0 - Elevated blood- pressure reading, without diagnosis of hypertension FL upper GI w air Today E66.9 - Obesity, unspecified, R03.0 - Elevated blood- pressure reading, without diagnosis of hypertension Complete Blood Count Auto Diff Today E66.9 - Obesity, unspecified, R03.0 - Elevated blood-pressure reading, without diagnosis of hypertension H Pylori Breath Test Today E66.9 - Obesity, unspecified, R03.0 - Elevated blood- pressure reading, without diagnosis of hypertension US abdomen comp w elastography Today E66.9 - Obesity, unspecified, R03.0 - Elevated blood-pressure reading, without diagnosis of hypertension XR chest 2V Today E66.9 - Obesity, unspecified, R03.0 - Elevated blood-pressure reading, without diagnosis of hypertension Referrals Behavioral Health Referral E66.9 - Obesity, unspecified, R03.0 - Elevated blood-pressure reading, without diagnosis of hypertension Nutrition/Dietitian Referral E66.9 - Obesity, unspecified, R03.0 - Elevated blood-pressure reading, without diagnosis of hypertension Coding Level of Care Code New Pt Level 5 (45574) Diagnoses Obesity (BMI 30-39.9) E66.9 Time Spent (min) 70
[2022-09-10 09:33] VITALS: BP 180/90; PULSE 72; TEMP 36.4; O2SAT 96; BMI 35.3
== END 2022-09-10 11:07 | disposition home or self-care (01) ==
PROVIDERS: PCP Registered Nurse; Visit Provider Physician Assistant Surgical
DX: E66.9 Obesity, unspecified (principal)
CPT/HCPCS: 99215

== ENCOUNTER 2022-09-29 12:13 | Outpatient (REF) | payer MEDICAID, SELFPAY ==
--- NOTE | ~2022-09-29 | MM_ITS ---
EXAMINATION: MM DIAGNOSTIC DIGITAL BREAST TOMOSYNTHESIS, RIGHT CLINICAL INFORMATION: Follow-up one view asymmetry right breast seen on CC projection only. COMPARISON: Mammography: 08/25/2022. TECHNIQUE: Digital breast tomosynthesis is performed. 2D images are generated from the tomosynthesis. The following views are obtained: Full-field digital 3-D right mediolateral view, full field 3-D digital right CC rolled lateral and rolled medial views, as well as a 3-D right spot compression CC view. FINDINGS: The breasts are heterogeneously dense, which may obscure small masses (ACR BI-RADS breast composition Category c). The 1 view asymmetry completely effaces on rolled views, as well as spot compression view, consistent with superimposition artifact of normal overlapping breast tissue. No persistent mass or suspicious abnormality. MM/MM tomosynthesis added views R IMPRESSION: No mammographic evidence of malignancy. Findings consistent with superimposition artifact of normal tissues. Recommend the patient resume routine annual screening. ASSESSMENT: BI-RADS BI-RADS 1 - Negative RECOMMENDATION: 1 year F/U Results were provided to the patient at time of visit by the technologist. This patient's information was entered into a reminder system with a target due date for their next mammogram.
== END 2022-09-29 12:14 | disposition home or self-care (01) ==
LOC: HO.MAMMO 12:13
PROVIDERS: PCP Registered Nurse; Visit Provider Advanced Practice Midwife
DX: N64.89 Other specified disorders of breast (principal)
CPT/HCPCS: 77061; 77065

== ENCOUNTER → 2022-09-29 12:30 | Outpatient (BNV) | payer MEDICAID, SELFPAY | PROVIDERS: PCP Registered Nurse; Visit Provider Radiology Diagnostic Radiology | DX: R92.8 Other abnormal and inconclusive findings on diagnostic imaging of breast (principal) | CPT/HCPCS: 77065 ==

== ENCOUNTER 2022-10-01 13:39 | Outpatient (AMB) | payer MEDICAID, SELFPAY ==
--- NOTE | 2022-10-01 13:08 | A.OFFVIS_ITS ---
Intake Intake Visit Reasons: (TV) Initial Nutrition SWL Desktop Publishing Associate Required: Yes Desktop Publishing Associate Name: Racheal [id number] Information Interpreted: non-clinical & clinical Allergies No Known Allergies Allergy (Verified 09/10/22 09:28) HPI Nutrition Presentation Reason for consult elevated BMI Diet Assmnt Details 2 Premier protein premade shakes 2 protein bars fullfill Dinner: eats mostly hamburger, lettuce, potatoes. last night ate salad with chicken , prepared herself . dressing olive oil and vinegar Exercise: none Dietary counseling reduction Meal frequency regular: snacks and irregular: breakfast (very sporadic eating schedule ), lunch and dinner Lifestyle Eating out 1-3 times/week Reads food labels No Exercise No Food frequency Dairy: daily (does not drink milk . eats cheese, yogurt ), Frui t: daily, Vegetables: daily, Grains/pasta/breads/cereal (carbs): daily, Meats/poultry/fish (protein): daily, Meat substitutes/nuts/seeds/legumes: daily, Water: daily, Soda: daily, Juice: daily and Coffee: several times weekly ([employer] iced coffee ) Diagnosis Nutrition problem #1 overweight/obesity As related to (etiology) #1 excess energy intake and physical inactivity As evidenced by (sign/symptom) #1 high BMI Monitoring/Goals Nutrition problem monitoring total energy intake, level of knowledge/skill, total PRO intake, total CHO intake and weight Outcome progress progressing Learning/Education Readiness to learn good Stages of change action Educational materials provided Yes (MD recipes, macros, labels, post op expectations ) Most Recent Diabetes Results: Creatinine 0.66 mg/dL (0.5-1.4) 08/04/22 Blood Urea Nitrogen 12 mg/dL (9-16) 08/04/22 Sodium 141 mmol/L (135-145) 08/04/22 Potassium 4.6 mmol/L (3.3-5.1) 08/04/22 Chloride 105 mmol/L (96-108) 08/04/22 Carbon Dioxide 26 mmol/L (22-29) 08/04/22 Calcium 10.0 mg/dL (8.4-10.2) 08/04/22 [facility] Surgical History History of delivery History of ovarian cystectomy History of umbilical hernia repair (~2008) Family History Father History of hypertension Mother History of hypertension Social History Alcohol intake: current Alcohol intake frequency: holidays/special occasions only Patient Tobacco Use Status: Never used Tobacco Current occupational status: unemployed Assessment & Plan Assessment & Plan (1) Obesity (BMI 30-39.9): Code(s): E66.9 - Obesity, unspecified Patient Instructions: At this point, it seems as though pt is not interested in having bariatric surgery anymore. She thought she would be coming to the program for weight loss with diet and lifestyle intervention, not surgical intervention. Will have office staff confirm this with patient. If she is not interested in SWL, recommend referral to [facility] Telehealth Telehealth Location of provider rendering services: practice address Location of patient: address on file Patient Identification confirmed using: Name, : Yes Telehealth method: voice only Patient verbally consented to treatment: Yes Patient verbally consented to billing insurance company: Yes Patient informed of any privacy concerns related to visit: Yes Minutes spent on Phone/Video with Pt.: 45 Coding Level of Care Code Nutr Indiv Intake (81216) Diagnoses Obesity (BMI 30-39.9) E66.9 Time Spent (min) 45
== END 2022-10-01 13:43 | disposition home or self-care (01) ==
LOC: HO.HBS 13:39
PROVIDERS: PCP Registered Nurse; Visit Provider Dietitian, Registered
DX: E66.9 Obesity, unspecified (principal)

== ENCOUNTER → 2022-10-01 13:39 | Outpatient (BNVA) | payer MEDICAID, SELFPAY | PROVIDERS: PCP Registered Nurse; Visit Provider Dietitian, Registered | DX: E66.9 Obesity, unspecified (principal) | CPT/HCPCS: 97802 ==

== ENCOUNTER 2022-10-05 10:53 | Outpatient (AMB) | payer MEDICAID, SELFPAY ==
--- NOTE | 2022-10-05 11:08 | MHC.OFFVIS ---
Intake Vital Signs 10/05/22 11:09 Height 5 ft 2.5 in Weight 193 lb 1.999 oz BMI 34.8 BP 166/92 H Blood Pressure Location Rt brachial Position Sitting Pulse 60 Pulse Source Pulse Oximeter Temp 97.3 F Temp Source Skin Pulse Oximetry (%) 96 Oxygen Delivery Method Room Air Intake Visit Reasons: polyarthralgia Intake Note: New patient here for polyarthralgia. 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 c/o jennifer hand finger swelling Board Finisher Required: Yes Board Finisher Language: Bulgarian Information Interpreted: clinical only Accompanied by: Self / Same As Patient Allergies No Known Allergies Allergy (Verified 10/05/22 11:09) Medication List - Last Reconciled 10/05/22 by Juancho Prabhakar MD celecoxib 200 mg PO BID escitalopram oxalate 10 mg PO DAILY hydrochlorothiazide 25 mg PO DAILY lisinopril 40 mg PO DAILY trazodone 50 mg PO BEDTIME PRN HPI HPI Comments History of Present Illness Details The patient presents for evaluation of multiple areas of pain and a positive FRANTZ. Winnie, our associate medical director assists with the visit through translating. Patient believe she has had these pains for 5-10 years. Areas of pain include the knees, hips, feet, hands, and neck. She notes most of the pain on the radial side of the wrist at the base of the thumbs. Those pains are worse with more physical activity. She does not recall any injury to the hands. There is also some stiffness in the fingers, more so in the right hand. She gets lower back pain and neck pain. These are worse with more physical activity. She has the lower back pain that radiates to the lateral hips and groin area. She has known osteoarthritis in the hips and is planning surgery on them later on this fall. She also has been told she has bad knees and they are more painful on the right with more standing or walking. The feet hurt over the 1st MTP joints. She is on Celebrex and sometimes supplements this with acetaminophen or topical analgesics. These are somewhat helpful. [facility] Surgical History History of delivery History of ovarian cystectomy History of umbilical hernia repair (~2008) Family History (Updated 10/05/22 @ 11:15 by YAW Lamb) Father History of hypertension Mother History of hypertension Rheumatoid arthritis Social History (Updated 10/05/22 @ 11:15 by YAW Lamb) Household Members: Significant Other and Children Alcohol intake: current Alcohol intake frequency: holidays/special occasions only Patient Tobacco Use Status: Never used Tobacco Current occupational status: unemployed Review of Systems Const Details: Negative for appetite change, weight change, fever, chills, malaise and fatigue Eyes Details: Some ocular dryness and itching. She uses some [id number] eyedrops they are helpful. There is occasional headache. Negative for vision change and dizziness ENT Details: Negative for hearing change, tinnitus, oral ulcer, nose bleeds and oral dryness. Card Details: She has fleeting, nonexertional chest pains. She says cardiac workup in the past was negative. Negative palpitations, edema and syncope Resp Details: Negative for SOB, cough and wheezing GI Details: Some constipation at times. Negative indigestion/heartburn, nausea, abdominal pain, bowel changes, diarrhea and bloody stool. Details: Nocturia x1. Negative for dysuria, hematuria, decreased force/flow and genital discharge Skin/Breast Details: Some hair thinning but no scalp rashes. Negative for itching, rash, hives, Raynaud's symptoms, sun sensitivity, and skin cancer Neuro Details: Occasional tingling in the fingers. She was once told she needed cervical disc surgery for neck pain that radiated to the arms but decided against it. Negative for epilepsy, palsy, stroke, changes in speech, and weakness Psych Details: Negative for anxiety, depression and stress Endo Details: Negative for polyuria and polydypsia Dima/Lymph Details: Negative for excessive bruising or bleeding. Physical Exam Vital Signs: Last Vital Signs Temp 97.3 F 10/05/22 11:09 Pulse 60 10/05/22 11:09 BP 166/92 H 10/05/22 11:09 Pulse Ox 96 10/05/22 11:09 Oxygen Delivery Method Room Air 10/05/22 11:09 BMI result Body Mass Index 34.8 APPEARANCE: Patient in no acute distress EYES no redness, pupils equal and reactive to light, eyelids normal. No temporal artery tenderness, redness or swelling EARS: External ear normal, canal clear and tympanic membrane normal. NOSE/SINUS: Airflow through both nares, no nasal discharge, no bleeding THROAT: Oral mucosa moist, no ulcerations NECK: No thyromegaly or masses, no adenopathy, trachea midline. HEART: Regulrar rhythm, S1-S2 heard, no murmurs, rubs or gallops. LUNG: Clear to percussion and auscultation ABD: Normal bowel sounds, no organomegaly, masses or tenderness. EXTREMITIES: No edema, no calf tenderness, normal peripheral pulses. NEURO: Oriented and alert x3. No focal weakness. Reflexes symmetric. Gait normal. SKIN: No inflammatory or neoplastic lesions. Normal color and turgor JOINT EXAM:?? Cervical Spine: Mild pain with lateral rotation at 45 degrees of lateral flexion at 15 degrees. There is some mild cervical muscle tenderness. Thoracic Spine:.? No scoliosis.? No tenderness on palpation. Lumbar Spine:.? Alignment normal.? Lumbar pain with flexion at 60 degrees with some paraspinal muscle tenderness. Chest Wall:.? No tenderness, swelling, increased warmth or erythema. Hands: Right: There is mild tenderness without swelling at the base of the thumb. There is no MCP swelling or tenderness. There is some nontender bony enlargement at the thumb IP and the 2nd 3rd PIP joints have mild tenderness with mild bony enlargement. No thenar atrophy or sensory loss. Left: No swelling or tenderness in the thumb CMC or MCP joints. Slight bony enlargement at the 2nd 3rd PIP without tenderness. Elsewhere no swelling or tenderness. No thenar atrophy or sensory loss.? Wrists:.? Right: Normal pain-free range of motion without tenderness, swelling, increased warmth or erythema. Negative Phalen's and Tinel signs. Left: Mild pain with 80 degrees flexion extension and mild dorsal tenderness but no swelling. Negative Phalen's and Tinel signs. Elbows:. Normal pain-free range of motion without tenderness, swelling, increased warmth or erythema. Shoulders:.?? Full range of motion without pain. No tenderness, weakness, swelling, increased warmth or erythema. Hips: Right: There is groin and lateral pain with more than 10 degrees of internal rotation or 15 degrees of external rotation and abduction. Left: She has similar groin and lateral pain with 5-10 degrees of internal or 10 degrees of external rotation. Hip bursa:.? Slight trochanteric tenderness. Knees:.??Mild pains with extremes of normal flexion or extension. There is mild patellofemoral crepitus and medial compartment tenderness bilaterally, a bit more tenderness is evident on the right. No effusion, redness or warmth. No popliteal swelling or tenderness. Ankles:.? Normal pain-free range of motion without tenderness, swelling, increased warmth or erythema. Feet:.? Both feet have some mild instep tenderness but no soft tissue swelling or redness. There is 1st MTP bony enlargement and mild tenderness. No soft tissue swelling, increased warmth or erythema. Tender points:.? Mild tenderness to digital palpation at the trapezius, icondyle, knees, greater trochanterl area bilaterally. ? Results Reviewed Results Reviewed: Laboratory Tests 07/13/22 07/13/22 07/15/22 10:12 10:12 08:37 WBC 7.5 Hgb 12.6 ESR 21 H Creatinine AST 16 ALT 21 C-Reactive Protein 1.96 H 08/04/22 06:17 WBC Hgb ESR Creatinine 0.66 AST ALT C-Reactive Protein Laboratory Tests 07/13/22 10:12 SS-A/Ro Antibody <1.0 NEG SS-B/La Antibody <1.0 NEG Sm ([place]) Antibody <1.0 NEG SM/LANDSCAPE ARTIST IgG Antibody <1.0 NEG Double Strand DNA Ab 1 Complement C3 166 Complement C4 16 Laboratory Tests 03/08/18 16:36 Urine Protein NEG [address] [address] XRay Report Signed Patient: Winnie Ramirez MR#: [id number] : 1965 Acct:[id number] Age/Sex: 56 / F ADM Date: 04/28/[address]: Elizabeth OLVERA Ordering Physician: Elizabeth Hanna Date of Service: 04/28/22 Procedure(s): XR knee RT 3V Accession Number(s): [id number] cc: Elizabeth Hanna~ EXAMINATION: XR KNEE, RIGHT? CLINICAL INFORMATION: Right knee pain? COMPARISON: 11/28/2011? TECHNIQUE: Four views of the right knee. FINDINGS: No fracture or joint effusion. Alignment is anatomic. Joint space narrowing and osteophyte formation is seen within the medial and lateral compartments of the femoral-tibial joint and patellofemoral joint consistent with moderate osteoarthritis. Findings increased compared to prior exam. No abnormal soft tissue calcification.? XR/XR knee RT 3V IMPRESSION: Moderate tricompartmental osteoarthritis. Findings have significantly progressed compared to 2012 ? Dictated By: Joshua Benjamin MD [address] [address] XRay Report Signed Patient: Winnie Ramirez MR#: [id number] : 1965 Acct:[id number] Age/Sex: 56 / F ADM Date: 04/28/[address]: Elizabeth OLVERA Ordering Physician: Elizabeth Hanna Date of Service: 04/28/22 Procedure(s): XR hip BI w PEL1V Accession Number(s): [id number] cc: Elizabeth Hanna~ EXAMINATION: XR BILATERAL HIPS WITH AP PELVIS CLINICAL INFORMATION: Bilateral hip pain COMPARISON: 01/03/2018 TECHNIQUE: AP view of the pelvis and single views of each hip were obtained. FINDINGS: No fracture. Joint space narrowing and osteophyte formation is seen within the bilateral hip joints consistent with moderate osteoarthritis. Findings have increased compared to the prior exam. Sacroiliac joints are normal. Pubic symphysis is normal. No abnormal soft tissue calcifications. XR/XR hip BI w PEL1V IMPRESSION: Bilateral hip osteoarthritis with interval progression compared to 2018 Dictated By: Joshua Benjamin MD Assessment & Plan Assessment & Plan (1) FRANTZ positive: Code(s): R76.8 - Other specified abnormal immunological findings in serum (2) Bilateral primary osteoarthritis of hip: Code(s): M16.0 - Bilateral primary osteoarthritis of hip (3) Osteoarthritis of right knee: Code(s): M17.11 - Unilateral primary osteoarthritis, right knee (4) Foot pain, bilateral: Code(s): M79.671 - Pain in right foot; M79.672 - Pain in left foot (5) Bilateral hand pain: Code(s): M79.641 - Pain in right hand; M79.642 - Pain in left hand Plan The patient has low titer positive FRANTZ but no signs on exam of an active inflammatory arthritis. Other serologies including rheumatoid factor, Sjogren's antibodies, anti VITALY and anti DNA antibody were all negative. I think it is most likely she has some osteoarthritis in the hands and feet. This is in conjunction with the known osteoarthritis she has in the cervical spine, lumbar spine, hips, and knees. Symptomatic measures were reviewed with her. We will check some hand and foot x-rays to see if alternative pathology is evident. She is encouraged to follow through with the hip replacement as planned. She may need other joint replacement surgeries in the future. At this point I do not think further rheumatology follow-up is needed. Orders: Orders XR hand LT min 3V Today M79.641 - Pain in right hand, M79.642 - Pain in left hand XR hand RT min 3V Today M79.641 - Pain in right hand, M79.642 - Pain in left hand XR foot LT min 3V Today M79.671 - Pain in right foot, M79.672 - Pain in left foot XR foot RT min 3V Today M79.671 - Pain in right foot, M79.672 - Pain in left foot Coding Level of Care Code New Pt Level 3 (74393) Diagnoses FRANTZ positive R76.8 Bilateral primary osteoarthritis of hip M16.0 Osteoarthritis of right knee M17.11 Foot pain, bilateral M79.671; M79.672 Bilateral hand pain M79.641; M79.642
[2022-10-05 11:09] VITALS: BP 166/92; PULSE 60; TEMP 36.3; O2SAT 96; BMI 34.8
== END 2022-10-05 12:28 | disposition home or self-care (01) ==
PROVIDERS: PCP Registered Nurse; Visit Provider Internal Medicine Rheumatology
DX: R76.8 Other specified abnormal immunological findings in serum (principal); M16.0 Bilateral primary osteoarthritis of hip; M17.11 Unilateral primary osteoarthritis, right knee; M79.671 Pain in right foot; M79.672 Pain in left foot; M79.641 Pain in right hand; M79.642 Pain in left hand
CPT/HCPCS: 99203

== ENCOUNTER → 2022-10-05 10:53 | Outpatient (BNVA) | payer MEDICAID, SELFPAY | PROVIDERS: PCP Registered Nurse; Visit Provider Internal Medicine Rheumatology | DX: R76.8 Other specified abnormal immunological findings in serum (principal); M16.0 Bilateral primary osteoarthritis of hip; M17.11 Unilateral primary osteoarthritis, right knee; M79.671 Pain in right foot; M79.672 Pain in left foot; M79.641 Pain in right hand; M79.642 Pain in left hand | CPT/HCPCS: 99202 ==

== ENCOUNTER 2022-10-27 09:49 | Outpatient (REF) | payer MEDICAID, SELFPAY ==
--- NOTE | ~2022-10-27 | XR_ITS ---
EXAMINATION: XR HANDS, BILATERAL XR FEET, BILATERAL CLINICAL INFORMATION: Pain in bilateral hands and feet. COMPARISON: None available. TECHNIQUE: 3 views of each hand. 3 views of each foot. FINDINGS: Right Hand: Advanced degenerative changes 1st carpometacarpal joint with joint space narrowing and hypertrophic change. Mild degenerative changes with hypertrophic change in scattered interphalangeal joints, most notable in the 2nd and 3rd DIP joints. Left Hand: Advanced degenerative changes 1st carpometacarpal joint with joint space narrowing and hypertrophic change. Mild degenerative changes with hypertrophic change in scattered interphalangeal joints, most notable in the DIP joints. Right Foot: Small plantar calcaneal spur. Degenerative change with hypertrophic change at the tarsometatarsal joints. Moderate degenerative changes 1st metatarsophalangeal joint with metatarsus adductus, hallux valgus and medial soft tissue bunion. No displaced fracture. Recommend followup imaging in 10-14 days if fracture is suspected. Left Foot: Small plantar calcaneal spur. Degenerative change with hypertrophic change at the tarsometatarsal joints. Moderate degenerative changes 1st metatarsophalangeal joint with metatarsus adductus, hallux valgus and medial soft tissue bunion. XR/XR foot RT min 3V IMPRESSION: 1. Advanced degenerative changes in the bilateral 1st carpometacarpal joints. 2. Mild degenerative changes in scattered bilateral distal interphalangeal joints. 3. Moderate degenerative changes in the bilateral feet. 4. No displaced fracture. Recommend followup imaging in 10-14 days if fracture is suspected. Additional imaging with CT scan or MRI should be considered for better visualization as these modalities are much more sensitive for detection of fracture or other underlying pathology.
--- NOTE | ~2022-10-27 | XR_ITS ---
EXAMINATION: XR HANDS, BILATERAL XR FEET, BILATERAL CLINICAL INFORMATION: Pain in bilateral hands and feet. COMPARISON: None available. TECHNIQUE: 3 views of each hand. 3 views of each foot. FINDINGS: Right Hand: Advanced degenerative changes 1st carpometacarpal joint with joint space narrowing and hypertrophic change. Mild degenerative changes with hypertrophic change in scattered interphalangeal joints, most notable in the 2nd and 3rd DIP joints. Left Hand: Advanced degenerative changes 1st carpometacarpal joint with joint space narrowing and hypertrophic change. Mild degenerative changes with hypertrophic change in scattered interphalangeal joints, most notable in the DIP joints. Right Foot: Small plantar calcaneal spur. Degenerative change with hypertrophic change at the tarsometatarsal joints. Moderate degenerative changes 1st metatarsophalangeal joint with metatarsus adductus, hallux valgus and medial soft tissue bunion. No displaced fracture. Recommend followup imaging in 10-14 days if fracture is suspected. Left Foot: Small plantar calcaneal spur. Degenerative change with hypertrophic change at the tarsometatarsal joints. Moderate degenerative changes 1st metatarsophalangeal joint with metatarsus adductus, hallux valgus and medial soft tissue bunion. XR/XR hand LT min 3V IMPRESSION: 1. Advanced degenerative changes in the bilateral 1st carpometacarpal joints. 2. Mild degenerative changes in scattered bilateral distal interphalangeal joints. 3. Moderate degenerative changes in the bilateral feet. 4. No displaced fracture. Recommend followup imaging in 10-14 days if fracture is suspected. Additional imaging with CT scan or MRI should be considered for better visualization as these modalities are much more sensitive for detection of fracture or other underlying pathology.
--- NOTE | ~2022-10-27 | XR_ITS ---
EXAMINATION: XR HANDS, BILATERAL XR FEET, BILATERAL CLINICAL INFORMATION: Pain in bilateral hands and feet. COMPARISON: None available. TECHNIQUE: 3 views of each hand. 3 views of each foot. FINDINGS: Right Hand: Advanced degenerative changes 1st carpometacarpal joint with joint space narrowing and hypertrophic change. Mild degenerative changes with hypertrophic change in scattered interphalangeal joints, most notable in the 2nd and 3rd DIP joints. Left Hand: Advanced degenerative changes 1st carpometacarpal joint with joint space narrowing and hypertrophic change. Mild degenerative changes with hypertrophic change in scattered interphalangeal joints, most notable in the DIP joints. Right Foot: Small plantar calcaneal spur. Degenerative change with hypertrophic change at the tarsometatarsal joints. Moderate degenerative changes 1st metatarsophalangeal joint with metatarsus adductus, hallux valgus and medial soft tissue bunion. No displaced fracture. Recommend followup imaging in 10-14 days if fracture is suspected. Left Foot: Small plantar calcaneal spur. Degenerative change with hypertrophic change at the tarsometatarsal joints. Moderate degenerative changes 1st metatarsophalangeal joint with metatarsus adductus, hallux valgus and medial soft tissue bunion. XR/XR foot LT min 3V IMPRESSION: 1. Advanced degenerative changes in the bilateral 1st carpometacarpal joints. 2. Mild degenerative changes in scattered bilateral distal interphalangeal joints. 3. Moderate degenerative changes in the bilateral feet. 4. No displaced fracture. Recommend followup imaging in 10-14 days if fracture is suspected. Additional imaging with CT scan or MRI should be considered for better visualization as these modalities are much more sensitive for detection of fracture or other underlying pathology.
--- NOTE | ~2022-10-27 | XR_ITS ---
EXAMINATION: XR HANDS, BILATERAL XR FEET, BILATERAL CLINICAL INFORMATION: Pain in bilateral hands and feet. COMPARISON: None available. TECHNIQUE: 3 views of each hand. 3 views of each foot. FINDINGS: Right Hand: Advanced degenerative changes 1st carpometacarpal joint with joint space narrowing and hypertrophic change. Mild degenerative changes with hypertrophic change in scattered interphalangeal joints, most notable in the 2nd and 3rd DIP joints. Left Hand: Advanced degenerative changes 1st carpometacarpal joint with joint space narrowing and hypertrophic change. Mild degenerative changes with hypertrophic change in scattered interphalangeal joints, most notable in the DIP joints. Right Foot: Small plantar calcaneal spur. Degenerative change with hypertrophic change at the tarsometatarsal joints. Moderate degenerative changes 1st metatarsophalangeal joint with metatarsus adductus, hallux valgus and medial soft tissue bunion. No displaced fracture. Recommend followup imaging in 10-14 days if fracture is suspected. Left Foot: Small plantar calcaneal spur. Degenerative change with hypertrophic change at the tarsometatarsal joints. Moderate degenerative changes 1st metatarsophalangeal joint with metatarsus adductus, hallux valgus and medial soft tissue bunion. XR/XR hand RT min 3V IMPRESSION: 1. Advanced degenerative changes in the bilateral 1st carpometacarpal joints. 2. Mild degenerative changes in scattered bilateral distal interphalangeal joints. 3. Moderate degenerative changes in the bilateral feet. 4. No displaced fracture. Recommend followup imaging in 10-14 days if fracture is suspected. Additional imaging with CT scan or MRI should be considered for better visualization as these modalities are much more sensitive for detection of fracture or other underlying pathology.
== END 2022-10-27 09:50 | disposition home or self-care (01) ==
LOC: HO.XRAY 09:49
PROVIDERS: PCP Registered Nurse; Visit Provider Internal Medicine Rheumatology
DX: M79.641 Pain in right hand (principal); M79.642 Pain in left hand; M79.671 Pain in right foot; M79.672 Pain in left foot
CPT/HCPCS: 73130; 73630

== ENCOUNTER 2023-01-04 08:38 | Outpatient (REF) | payer MEDICAID, SELFPAY ==
[2023-01-04 11:44] LABS: Alanine Aminotransferase 18 U/L (0-31); Albumin Level 4.1 g/dL (3.5-5.0); Alkaline Phosphatase 64 U/L (39-117); Anion Gap 11 (12-20); Aspartate Amino Transferase 16 U/L (5-31); Bilirubin Total 0.5 mg/dL (0.0-1.0); Blood Urea Nitrogen 18 mg/dL (9-16); Carbon Dioxide 29 mmol/L (22-29); Chloride 105 mmol/L (96-108); Cholesterol 190 mg/dL (<200); Estimated Glomerular Filt Rate > 60; Glucose Random 107 mg/dL (60-115); HDL Cholesterol 59 mg/dL (>40); LDL Cholesterol Calculated 115 mg/dL (<100); Sodium 141 mmol/L (135-145); Total Protein 8.1 g/dL (6.5-8.0); Triglycerides 84 mg/dL (<150)
[2023-01-04 11:59] LABS: HIV AB/AG Nonreactive (Nonreactive); HIV Num 1 0.07 S/CO (0.00-0.99)
[2023-01-04 13:11] LABS: CT PCR NOT DETECTED (Not Detect.); NG PCR NOT DETECTED (Not Detect.)
[2023-01-05 13:43] LABS: HCV Log PCR <1.18 NOT DETECTED Log IU/mL (NOT DETECTED); HepC Viral Load <15 NOT DETECTED IU/mL (NOT DETECTED)
[2023-01-05 16:28] LABS: RPR Rapid Plasma Reagin NON-REACTIVE (NON-REACTIVE)
== END 2023-01-04 08:39 | disposition home or self-care (01) ==
LOC: HO.HHCL 08:38
PROVIDERS: Visit Provider Registered Nurse
DX: Z00.00 Encounter for general adult medical examination without abnormal findings (principal)
CPT/HCPCS: 0353U; 36415; 80053; 80061; 86592; 87389; 87522

== ENCOUNTER 2023-06-09 11:45 | Outpatient (REF) | payer MEDICAID, SELFPAY ==
[2023-06-09 13:19] LABS: C Reactive Protein 1.75 mg/dL (< or = 0.50)
[2023-06-09 13:21] LABS: Rheumatoid Factor < 13.0 IU/mL (<15.0)
[2023-06-09 13:44] LABS: Erythrocyte Sedimentation Rate 21 MM/HR (0-20)
[2023-06-14 12:38] LABS: Anti Nuclear Antibody Screen POSITIVE (NEGATIVE)
== END 2023-06-09 11:46 | disposition home or self-care (01) ==
LOC: HO.HHCL 11:45
PROVIDERS: Visit Provider Registered Nurse
DX: M25.50 Pain in unspecified joint (principal)
CPT/HCPCS: 36415; 85652; 86038; 86039; 86140; 86431

== ENCOUNTER 2023-07-26 09:13 | Outpatient (REF) | payer MEDICAID, SELFPAY ==
[2023-07-26 11:43] LABS: Basophils Absolute Auto 0.1 X10*3/uL (0.0-0.2); Basophils Percent Auto 0.7 % (0-2); Eosinophils Absolute Auto 0.2 X10*3/uL (0.0-0.4); Eosinophils Percent Auto 2.4 % (0-4); Hematocrit 40.9 % (37.0-47.0); Hemoglobin 13.5 g/dl (12.0-16.0); Imm Gran Abs Auto 0.01 X10*3/uL (0.00-0.03); Imm Gran Pct Auto 0.1 % (0.0-0.4); Lymphocytes Absolute Auto 1.6 X10*3/uL (1.2-4.9); Lymphocytes Percent Auto 22.3 % (20-40); Mean Corpuscular Volume 84.9 fL (80.0-98.0); Mean Platelet Volume 11.4 fL (9.4-12.3); Monocytes Absolute Auto 0.7 X10*3/uL (0.1-1.2); Monocytes Percent Auto 9.7 % (2-11); NRBC Pct Auto 0.3 /100WBC (0.0-0.2); Neutrophils Absolute Auto 4.6 x10*3/uL (2.0-8.3); Neutrophils Percent Auto 64.8 % (45-73); Platelet Count 261 X10*3/uL (160-400); Red Blood Count 4.82 X10*6/uL (4.20-5.50); Red Cell Distribution Width 14.6 % (11.0-16.0)
[2023-07-26 12:11] LABS: Erythrocyte Sedimentation Rate 15 MM/HR (0-20)
[2023-07-26 12:15] LABS: Alanine Aminotransferase 16 U/L (0-31); Albumin Level 4.3 g/dL (3.5-5.0); Alkaline Phosphatase 63 U/L (39-117); Anion Gap 10 (12-20); Aspartate Amino Transferase 15 U/L (5-31); Bilirubin Total 0.6 mg/dL (0.0-1.0); Blood Urea Nitrogen 16 mg/dL (9-16); C Reactive Protein 2.05 mg/dL (< or = 0.50); Calcium 10.1 mg/dL (8.4-10.2); Carbon Dioxide 29 mmol/L (22-29); Chloride 106 mmol/L (96-108); Estimated Glomerular Filt Rate > 60; Glucose Random 95 mg/dL (60-115); Potassium 3.9 mmol/L (3.3-5.1); Sodium 141 mmol/L (135-145); Total Protein 8.1 g/dL (6.5-8.0)
[2023-07-28 14:33] LABS: Cyclic Citrullinated Peptide <16 UNITS
[2023-07-29 01:53] LABS: TS Negative Control Passed; TS Panel A 3; TS Panel B 1; TS Positive Control Passed; TSpotTB Negative (Negative)
== END 2023-07-26 09:14 | disposition home or self-care (01) ==
LOC: HO.LAB 09:13
PROVIDERS: Absent Provider Physician Assistant Surgical; PCP Registered Nurse; Visit Provider Student in an Organized Health Care Education/Training Program
DX: M06.9 Rheumatoid arthritis, unspecified (principal); Z11.7 Encounter for testing for latent tuberculosis infection
CPT/HCPCS: 36415; 80053; 85025; 85652; 86140; 86200; 86481; 99212

== ENCOUNTER 2023-07-26 09:13 | Outpatient (AMB) | payer MEDICAID, SELFPAY ==
[2023-07-26 09:15] VITALS: BP 140/88; PULSE 90; O2SAT 97; BMI 34.1
--- NOTE | 2023-07-26 09:15 | MHC.OFFVIS ---
Vital Signs 07/26/23 09:15 Height 5 ft 2.5 in Weight 189 lb 9.561 oz BMI 34.1 BP 140/88 H Blood Pressure Location Rt brachial Position Sitting Pulse 90 Pulse Source Pulse Oximeter Pulse Oximetry (%) 97 Oxygen Delivery Method Room Air Intake Visit Reasons: polyarthralgia Intake Note: Patient last seen 10/05/[address] Prabhakar, presents today for follow up and test results. 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 She states that over the last few months she has been having more pain and swelling of her hands, shoulders, feet, morning stiffness lasts 1-2 hours. She takes Celebrex Twice daily. She mentions that her mother had rheumatoid arthritis Most recent history by Dr. Prabhakar 09/2022: The patient presents for evaluation of multiple areas of pain and a positive FRANTZ. Winnie, our hospital medical assistant assists with the visit through translating. Patient believe she has had these pains for 5-10 years. Areas of pain include the knees, hips, feet, hands, and neck. She notes most of the pain on the radial side of the wrist at the base of the thumbs. Those pains are worse with more physical activity. She does not recall any injury to the hands. There is also some stiffness in the fingers, more so in the right hand. She gets lower back pain and neck pain. These are worse with more physical activity. She has the lower back pain that radiates to the lateral hips and groin area. She has known osteoarthritis in the hips and is planning surgery on them later on this fall. She also has been told she has bad knees and they are more painful on the right with more standing or walking. The feet hurt over the 1st MTP joints. She is on Celebrex and sometimes supplements this with acetaminophen or topical analgesics. These are somewhat helpful. [facility]LY [facility], [facility] Surgical History History of delivery History of ovarian cystectomy History of umbilical hernia repair (~2008) Family History (Updated 10/05/22 @ 11:15 by YAW Garnett) Father History of hypertension Mother History of hypertension Rheumatoid arthritis Social History (Updated 10/05/22 @ 11:15 by YAW Garnett) Household Members: Significant Other and Children Alcohol intake: current Alcohol intake frequency: holidays/special occasions only Patient Tobacco Use Status: Never used Tobacco Current occupational status: unemployed Female Reproductive History Menstrual Total pregnancies: 3 Number of Living Children: 2 Ab spontaneous: 1 Date of last pap smear: 11/01/19 (WNL) History of abnormal pap smear: Yes (2016 ANA I) Review of Systems Const Reports weight gain Musc Reports arthralgias, Reports joint swelling and Reports stiffness Physical Exam Vital Signs: Last Vital Signs Pulse 90 07/26/23 09:15 BP 140/88 H 07/26/23 09:15 Pulse Ox 97 07/26/23 09:15 Oxygen Delivery Method Room Air 07/26/23 09:15 BMI result Body Mass Index 34.1 Const General: cooperative, healthy appearing and comfortable Nutritional Appearance: obese Orientation/consciousness: patient oriented x3 Limitations: no limitations HEENT Head: Yes normocephalic and Yes atraumatic Mouth: moist mucous membranes Resp Effort & Inspection: normal respiratory effort and able to speak in complete sentences Skin General skin exam: no rashes or lesions noted Neuro General: patient oriented x3 Extrem Other: Bilateral wrist tenderness and pain with flexion and extension Multiple swollen MCPs and fingers bilaterally Multiple tender MCPs, PIP is bilaterally Normal range of motion of shoulders painful Bilateral knee pain with full flexion-extension Bilateral diffusely tender MTPs Bilateral ankle tenderness without swelling Results Reviewed Results Reviewed: Laboratory Tests 07/13/22 07/13/22 07/15/22 10:12 10:12 08:37 WBC 7.5 Hgb 12.6 ESR 21 H Creatinine AST 16 ALT 21 C-Reactive Protein 1.96 H 08/04/22 06:17 WBC Hgb ESR Creatinine 0.66 AST ALT C-Reactive Protein Laboratory Tests 07/13/22 10:12 SS-A/Ro Antibody <1.0 NEG SS-B/La Antibody <1.0 NEG Sm (Townsend) Antibody <1.0 NEG SM/MARKETING GRAPHICS SPECIALIST IgG Antibody <1.0 NEG Double Strand DNA Ab 1 Complement C3 166 Complement C4 16 Laboratory Tests 03/08/18 16:36 Urine Protein NEG [address] [address] XRay Report Signed Patient: Winnie Ramirez MR#: [id number] : 1965 Acct:[id number] Age/Sex: 56 / F ADM Date: 04/28/[address]: Elizabeth OLVERA Ordering Physician: Elizabeth Hanna Date of Service: 04/28/22 Procedure(s): XR knee RT 3V Accession Number(s): [id number] cc: Elizabeth Hanna~ EXAMINATION: XR KNEE, RIGHT? CLINICAL INFORMATION: Right knee pain? COMPARISON: 11/28/2011? TECHNIQUE: Four views of the right knee. FINDINGS: No fracture or joint effusion. Alignment is anatomic. Joint space narrowing and osteophyte formation is seen within the medial and lateral compartments of the femoral-tibial joint and patellofemoral joint consistent with moderate osteoarthritis. Findings increased compared to prior exam. No abnormal soft tissue calcification.? XR/XR knee RT 3V IMPRESSION: Moderate tricompartmental osteoarthritis. Findings have significantly progressed compared to 2011 ? Dictated By: Joshua Benjamin MD [address] [address] XRay Report Signed Patient: Winnie Ramirez MR#: [id number] : 1965 Acct:[id number] Age/Sex: 56 / F ADM Date: 04/28/[address]: Elizabeth OLVERA Ordering Physician: Elizabeth Hanna Date of Service: 04/28/22 Procedure(s): XR hip BI w PEL1V Accession Number(s): [id number] cc: Elizabeth Hanna~ EXAMINATION: XR BILATERAL HIPS WITH AP PELVIS CLINICAL INFORMATION: Bilateral hip pain COMPARISON: 01/03/2018 TECHNIQUE: AP view of the pelvis and single views of each hip were obtained. FINDINGS: No fracture. Joint space narrowing and osteophyte formation is seen within the bilateral hip joints consistent with moderate osteoarthritis. Findings have increased compared to the prior exam. Sacroiliac joints are normal. Pubic symphysis is normal. No abnormal soft tissue calcifications. XR/XR hip BI w PEL1V IMPRESSION: Bilateral hip osteoarthritis with interval progression compared to 2018 Dictated By: Joshua Benjamin MD XR HANDS, BILATERAL XR FEET, BILATERAL CLINICAL INFORMATION: Pain in bilateral hands and feet. COMPARISON: None available. TECHNIQUE: 3 views of each hand. 3 views of each foot. FINDINGS: Right Hand: Advanced degenerative changes 1st carpometacarpal joint with joint space narrowing and hypertrophic change. Mild degenerative changes with hypertrophic change in scattered interphalangeal joints, most notable in the 2nd and 3rd DIP joints. Left Hand: Advanced degenerative changes 1st carpometacarpal joint with joint space narrowing and hypertrophic change. Mild degenerative changes with hypertrophic change in scattered interphalangeal joints, most notable in the DIP joints. Right Foot: Small plantar calcaneal spur. Degenerative change with hypertrophic change at the tarsometatarsal joints. Moderate degenerative changes 1st metatarsophalangeal joint with metatarsus adductus, hallux valgus and medial soft tissue bunion. No displaced fracture. Recommend followup imaging in 10-14 days if fracture is suspected. Left Foot: Small plantar calcaneal spur. Degenerative change with hypertrophic change at the tarsometatarsal joints. Moderate degenerative changes 1st metatarsophalangeal joint with metatarsus adductus, hallux valgus and medial soft tissue bunion. XR/XR hand LT min 3V IMPRESSION: 1. Advanced degenerative changes in the bilateral 1st carpometacarpal joints. 2. Mild degenerative changes in scattered bilateral distal interphalangeal joints. 3. Moderate degenerative changes in the bilateral feet. 4. No displaced fracture. Recommend followup imaging in 10-14 days if fracture is suspected. Assessment & Plan Assessment & Plan (1) Rheumatoid arthritis: Code(s): M06.9 - Rheumatoid arthritis, unspecified Category: Medical Qualifiers: Rheumatoid arthritis location: multiple sites Rheumatoid factor presence: without rheumatoid factor Qualified Code(s): M06.09 - Rheumatoid arthritis without rheumatoid factor, multiple sites Plan: This is a 57-year-old female presents for follow-up. She was evaluated previously by Rheumatology and no evidence of an autoimmune rheumatic disease was found. On exam today patient has multiple swollen and tender joints. Her mother has RA. Clinical picture consistent with rheumatoid arthritis. Discussed with patient that we will need to do further blood testing, check an anti CCP antibody, repeat inflammatory markers, start prednisone for a few weeks discussed DMARDs next visit in a few weeks. Patient states that she has doubts about my diagnosis. Advised patient to return to clinic as needed Plan I spent 21 minutes reviewing patient's chart, evaluating patient, ordering diagnostic workup, counseling patient and documenting in the chart Orders: Orders Complete Blood Count Auto Diff Today M06.9 - Rheumatoid arthritis, unspecified Comprehensive Met. Panel Today M06.9 - Rheumatoid arthritis, unspecified Erythrocyte Sedimentation Rate Today M06.9 - Rheumatoid arthritis, unspecified Cyclic Citrullinated Peptide Today M06.9 - Rheumatoid arthritis, unspecified C Reactive Protein Today M06.9 - Rheumatoid arthritis, unspecified T Spot TB Today Z11.7 - Encounter for testing for latent tuberculosis infection Coding Level of Care Code Est Pt Level 3 (00748) Diagnoses Rheumatoid arthritis of multiple sites with negative rheumatoid factor M06.09 Rheumatoid arthritis location: multiple sites Rheumatoid factor presence: without rheumatoid factor
== END 2023-07-26 09:34 | disposition home or self-care (01) ==
LOC: HO.RHE 09:13
PROVIDERS: PCP Registered Nurse; Referring Provider Registered Nurse; Visit Provider Student in an Organized Health Care Education/Training Program
DX: M06.09 Rheumatoid arthritis without rheumatoid factor, multiple sites (principal)
CPT/HCPCS: 99213

== ENCOUNTER 2023-08-31 08:20 | Outpatient (AMB) | payer MEDICAID, SELFPAY ==
[2023-08-31 08:26] VITALS: BP 138/84; PULSE 84; BMI 34.7
--- NOTE | 2023-08-31 08:26 | MHC.OFFVIS ---
Vital Signs 08/31/23 08:26 Height 5 ft 2.5 in Weight 192 lb 10.944 oz BMI 34.7 BP 138/84 Blood Pressure Location Lt brachial Position Sitting Pulse 84 Pulse Source Pulse Oximeter Intake Visit Reasons: RA/cm Intake Note: Patient last seen on 07/26/23 presents today for follow up and test results. Vein Access Technician Required: No Vein Access Technician Services: Vein Access Technician Offered & Declined Accompanied by: Spouse Allergies No Known Allergies Allergy (Verified 08/31/23 08:29) Medication List - Last Reconciled 08/31/23 by Walt Liu MD celecoxib 200 mg PO BID duloxetine 30 mg PO DAILY escitalopram oxalate 10 mg PO DAILY hydrochlorothiazide 25 mg PO DAILY lisinopril 40 mg PO DAILY prednisone Take 4 tabs daily for 1 week, 3 tabs daily for 1 week, 2 tabs daily for 1 week, 1 tab daily for 1 week then stop trazodone 50 mg PO BEDTIME PRN HPI Comments Details: 57-year-old female with new onset inflammatory arthritis returns for follow-up. She took prednisone taper as prescribed and she stated that it provided if can not relief. She ran out a few days ago. She presents today with her . FORMERLY [facility], [facility] Surgical History History of umbilical hernia repair (~2008) History of ovarian cystectomy History of delivery Family History Father History of hypertension Mother History of hypertension Rheumatoid arthritis Social History Household Members: Significant Other and Children Alcohol intake: current Alcohol intake frequency: holidays/special occasions only Patient Tobacco Use Status: Never used Tobacco Current occupational status: unemployed Review of Systems [facility] Reports arthralgias, Reports joint swelling and Reports stiffness Physical Exam Vital Signs: BMI result Body Mass Index 34.7 Const General: cooperative, healthy appearing and comfortable Nutritional Appearance: obese Orientation/consciousness: patient oriented x3 Limitations: no limitations HEENT Head: Yes normocephalic and Yes atraumatic Mouth: moist mucous membranes Resp Effort & Inspection: normal respiratory effort and able to speak in complete sentences Skin General skin exam: no rashes or lesions noted Neuro General: patient oriented x3 Extrem Other: No wrist tenderness or pain with flexion and extension bilaterally Puffiness of MCPs bilaterally but no tenderness today Right index [place] node tender Results Reviewed Results Reviewed: Laboratory Tests 07/13/22 07/13/22 07/15/22 10:12 10:12 08:37 WBC 7.5 Hgb 12.6 ESR 21 H Creatinine AST 16 ALT 21 C-Reactive Protein 1.96 H 08/04/22 06:17 WBC Hgb ESR Creatinine 0.66 AST ALT C-Reactive Protein Laboratory Tests 07/13/22 10:12 SS-A/Ro Antibody <1.0 NEG SS-B/La Antibody <1.0 NEG Sm (Townsend) Antibody <1.0 NEG SM/ENGINEER INTERNSHIP IgG Antibody <1.0 NEG Double Strand DNA Ab 1 Complement C3 166 Complement C4 16 Laboratory Tests 03/08/18 16:36 Urine Protein NEG [address] [address] XRay Report Signed Patient: Winnie Ramirez MR#: [id number] : 1965 Acct:[id number] Age/Sex: 56 / F ADM Date: 04/28/[address]: Elizabeth OLVERA Ordering Physician: Elizabeth Hanna Date of Service: 04/28/22 Procedure(s): XR knee RT 3V Accession Number(s): [id number] cc: Elizabeth Hanna~ EXAMINATION: XR KNEE, RIGHT? CLINICAL INFORMATION: Right knee pain? COMPARISON: 11/28/2011? TECHNIQUE: Four views of the right knee. FINDINGS: No fracture or joint effusion. Alignment is anatomic. Joint space narrowing and osteophyte formation is seen within the medial and lateral compartments of the femoral-tibial joint and patellofemoral joint consistent with moderate osteoarthritis. Findings increased compared to prior exam. No abnormal soft tissue calcification.? XR/XR knee RT 3V IMPRESSION: Moderate tricompartmental osteoarthritis. Findings have significantly progressed compared to 2011 ? Dictated By: Joshua Benjamin MD [address] [address] XRay Report Signed Patient: Winnie Ramirez MR#: [id number] : 1965 Acct:[id number] Age/Sex: 56 / F ADM Date: 04/28/[address]: Elizabeth OLVERA Ordering Physician: Elizabeth Hanna Date of Service: 04/28/22 Procedure(s): XR hip BI w PEL1V Accession Number(s): [id number] cc: Elizabeth Hanna~ EXAMINATION: XR BILATERAL HIPS WITH AP PELVIS CLINICAL INFORMATION: Bilateral hip pain COMPARISON: 01/03/2018 TECHNIQUE: AP view of the pelvis and single views of each hip were obtained. FINDINGS: No fracture. Joint space narrowing and osteophyte formation is seen within the bilateral hip joints consistent with moderate osteoarthritis. Findings have increased compared to the prior exam. Sacroiliac joints are normal. Pubic symphysis is normal. No abnormal soft tissue calcifications. XR/XR hip BI w PEL1V IMPRESSION: Bilateral hip osteoarthritis with interval progression compared to 2018 Dictated By: Joshua Benjamin MD XR HANDS, BILATERAL XR FEET, BILATERAL CLINICAL INFORMATION: Pain in bilateral hands and feet. COMPARISON: None available. TECHNIQUE: 3 views of each hand. 3 views of each foot. FINDINGS: Right Hand: Advanced degenerative changes 1st carpometacarpal joint with joint space narrowing and hypertrophic change. Mild degenerative changes with hypertrophic change in scattered interphalangeal joints, most notable in the 2nd and 3rd DIP joints. Left Hand: Advanced degenerative changes 1st carpometacarpal joint with joint space narrowing and hypertrophic change. Mild degenerative changes with hypertrophic change in scattered interphalangeal joints, most notable in the DIP joints. Right Foot: Small plantar calcaneal spur. Degenerative change with hypertrophic change at the tarsometatarsal joints. Moderate degenerative changes 1st metatarsophalangeal joint with metatarsus adductus, hallux valgus and medial soft tissue bunion. No displaced fracture. Recommend followup imaging in 10-14 days if fracture is suspected. Left Foot: Small plantar calcaneal spur. Degenerative change with hypertrophic change at the tarsometatarsal joints. Moderate degenerative changes 1st metatarsophalangeal joint with metatarsus adductus, hallux valgus and medial soft tissue bunion. XR/XR hand LT min 3V IMPRESSION: 1. Advanced degenerative changes in the bilateral 1st carpometacarpal joints. 2. Mild degenerative changes in scattered bilateral distal interphalangeal joints. 3. Moderate degenerative changes in the bilateral feet. 4. No displaced fracture. Recommend followup imaging in 10-14 days if fracture is suspected. Assessment & Plan Assessment & Plan (1) Rheumatoid arthritis: Comment: -ve RF -ve CCP dx 08/2023 Code(s): M06.9 - Rheumatoid arthritis, unspecified Category: Medical Qualifiers: Rheumatoid arthritis location: multiple sites Rheumatoid factor presence: without rheumatoid factor Qualified Code(s): M06.09 - Rheumatoid arthritis without rheumatoid factor, multiple sites Plan: This is a 57-year-old female with new onset seronegative RA who presents for follow-up. Prednisone taper provided good relief. We will need to start DMARDs Discussed risks and benefits of methotrexate. Patient agreed to proceed. 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 Patient drinks 1-2 folic beverages per week (3) FRANTZ positive: Code(s): R76.8 - Other specified abnormal immunological findings in serum Category: Medical Plan: With negative sub serologies. Can be seen in RA Plan I spent 25 minutes reviewing patient's chart, evaluating patient, ordering diagnostic workup, counseling patient & and documenting in the chart Orders: Orders Complete Blood Count Auto Diff 2 Months M06.09 - Rheumatoid arthritis without rheumatoid factor, multiple sites Comprehensive Met. Panel 2 Months M06.09 - Rheumatoid arthritis without rheumatoid factor, multiple sites C Reactive Protein 2 Months M06.09 - Rheumatoid arthritis without rheumatoid factor, multiple sites Erythrocyte Sedimentation Rate 2 Months M06.09 - Rheumatoid arthritis without rheumatoid factor, multiple sites Hepatitis B Core Antibody 2 Months Z11.59 - Encounter for screening for other viral diseases Hepatitis B Surface Antibody 2 Months Z11.59 - Encounter for screening for other viral diseases Hepatitis B Surface Antigen 2 Months Z11.59 - Encounter for screening for other viral diseases Medications: New methotrexate sodium take 6 tabs by mouth once weekly for 2 weeks then 8 tabs once weekly 64 tabs 0RF celecoxib 200 mg PO BID 30 caps 1RF folic acid 1 mg PO DAILY 90 tabs 1RF Changed From prednisone Take 4 tabs daily for 1 week, 3 tabs daily for 1 week, 2 tabs daily for 1 week, 1 tab daily for 1 week then stop 70 tabs 0RF To prednisone 5 - 10 mg (1 - 2 x 5 mg) PO DAILY PRN 30 tabs 1RF pain Coding Level of Care Code Est Pt Level 4 (95513) Diagnoses Rheumatoid arthritis of multiple sites with negative rheumatoid factor M06.09 Rheumatoid arthritis location: multiple sites Rheumatoid factor presence: without rheumatoid factor [facility] methotrexate user Z79.631 FRANTZ positive R76.8
== END 2023-08-31 09:00 | disposition home or self-care (01) ==
PROVIDERS: PCP Registered Nurse; Referring Provider Registered Nurse; Visit Provider Student in an Organized Health Care Education/Training Program
DX: M06.09 Rheumatoid arthritis without rheumatoid factor, multiple sites (principal); Z79.631 Long term (current) use of antimetabolite agent; R76.8 Other specified abnormal immunological findings in serum
CPT/HCPCS: 99214

== ENCOUNTER 2023-08-31 12:25 | Outpatient (REF) | payer MEDICAID, SELFPAY ==
--- NOTE | ~2023-08-31 | MM_ITS ---
EXAMINATION: BONE DENSITOMETRY CLINICAL INDICATION: Encounter for screening for osteoporosis. COMPARISON: This is the patient's baseline examination. TECHNIQUE: Using a [employer] DXA System (software version: 13.1) manufactured by [employer], dual-energy x-ray absorptiometry was performed of the lumbar spine and left hip. The images are of good technical quality. Summary results are attached. FINDINGS: LEFT FEMUR, NECK: BMD 1.088 g/cm2, Z-score 0.9, T-score 0.4, normal. LEFT FEMUR, TOTAL: BMD 1.113 g/cm2, Z-score 1.0, T-score 0.8, normal. AP SPINE L1-L4: BMD 1.374 g/cm2, Z-score 1.7, T-score 1.6, normal. IDENTIFIED RISK FACTORS: Menopause, rheumatoid arthritis. HISTORY OF FRACTURE: None listed. MEDICATIONS: None listed. MM/XR DEXA axial skeleton IMPRESSION: 1. DIAGNOSIS: Normal bone density based on the lowest T-score value of 0.4 in the femoral neck applying World Health Organization criteria. 2. 10-YEAR FRACTURE RISK PREDICTION, FRAX: According to the guidelines, FRAX calculation should only be performed on patients in the osteopenia bone density category. Therefore, FRAX was not performed on this patient. 3. Treatment Recommendations: NOF guidelines recommend consideration for treatment in postmenopausal women and men age 50 and older presenting with the following: -A hip or vertebral (clinical or morphometric) fracture. -T-score less than or equal to -2.5 at the femoral neck or spine after appropriate evaluation to exclude secondary causes. -Low bone mass at the hip or spine and a 10-year fracture probability by FRAX of greater than or equal to 3% for hip fracture or greater than or equal to 20% for major osteoporotic fracture based on the [place] adapted WHO algorithm. 4. Other Recommendations: All treatment decisions require clinical judgment and consideration of individual patient factors, including patient preferences, comorbidities, previous drug use, risk factors not captured in the FRAX model (e.g. frailty, falls, vitamin D deficiency, increased bone turnover, interval significant decline in bone density) and possible under or overestimation of fracture risk by FRAX. FUTURE SCAN RECOMMENDATION: People with diagnosed cases of osteoporosis or at high risk for fracture should have regular bone mineral density tests. For patients eligible for Medicare, routine testing is allowed once every 2 years. The testing frequency can be increased to one year for patients who have rapidly progressing disease, those who are receiving or discontinuing medical therapy to restore bone mass, or have additional risk factors.
--- NOTE | ~2023-08-31 | MM_ITS ---
EXAMINATION: MM SCREENING DIGITAL BREAST TOMOSYNTHESIS, BILATERAL CLINICAL INFORMATION: Screening. Asymptomatic. COMPARISON: Mammography: This study is compared with prior exams dating back to 2020. TECHNIQUE: Digital breast tomosynthesis is performed in both the craniocaudal and mediolateral oblique views along with computer-aided detection (CAD). Synthesized 2D images are generated from the tomosynthesis. FINDINGS: The breasts are heterogeneously dense, which may obscure small masses (ACR BI-RADS breast composition Category c). There are no significant masses, abnormal calcifications, or other abnormalities. MM/MM tomosynthesis screening BI IMPRESSION: No mammographic evidence of malignancy. ASSESSMENT: BI-RADS BI-RADS 1 - Negative RECOMMENDATION: Routine annual mammography screening. 1 year F/U This examination should not preclude the clinical evaluation of a suspicious palpable abnormality. This patient's information was entered into a reminder system with a target due date for their next mammogram.
== END 2023-08-31 12:26 | disposition home or self-care (01) ==
LOC: HO.MAMMO 12:25
PROVIDERS: PCP Registered Nurse; Visit Provider Registered Nurse
DX: Z12.31 Encounter for screening mammogram for malignant neoplasm of breast (principal); Z13.820 Encounter for screening for osteoporosis; Z78.0 Asymptomatic menopausal state
CPT/HCPCS: 77063; 77067; 77080; 99212

== ENCOUNTER → 2023-08-31 12:45 | Outpatient (BNV) | payer MEDICAID, SELFPAY | PROVIDERS: PCP Registered Nurse; Visit Provider Radiology Diagnostic Radiology | DX: Z12.31 Encounter for screening mammogram for malignant neoplasm of breast (principal) | CPT/HCPCS: 77063; 77067 ==

== ENCOUNTER 2023-10-25 09:01 | Outpatient (REF) | payer MEDICAID, SELFPAY ==
[2023-10-25 09:20] LABS: MANUAL DIFF FLAG NO
[2023-10-25 09:46] LABS: Basophils Absolute Auto 0.1 X10*3/uL (0.0-0.2); Basophils Percent Auto 0.9 % (0-2); Eosinophils Absolute Auto 0.3 X10*3/uL (0.0-0.4); Eosinophils Percent Auto 3.6 % (0-4); Hematocrit 39.2 % (37.0-47.0); Imm Gran Abs Auto 0.03 X10*3/uL (0.00-0.03); Imm Gran Pct Auto 0.4 % (0.0-0.4); Lymphocytes Absolute Auto 2.2 X10*3/uL (1.2-4.9); Lymphocytes Percent Auto 32.2 % (20-40); Mean Corpuscular HGB Conc 33.2 g/dl (31.0-35.0); Mean Corpuscular Hemoglobin 28.5 pg (27.0-33.0); Mean Platelet Volume 10.5 fL (9.4-12.3); Monocytes Absolute Auto 0.7 X10*3/uL (0.1-1.2); Monocytes Percent Auto 10.1 % (2-11); Neutrophils Absolute Auto 3.6 x10*3/uL (2.0-8.3); Neutrophils Percent Auto 52.8 % (45-73); Platelet Count 269 X10*3/uL (160-400); Red Blood Count 4.56 X10*6/uL (4.20-5.50); Red Cell Distribution Width 14.8 % (11.0-16.0); White Blood Count 6.9 X10*3/uL (4.8-10.8)
[2023-10-25 10:28] LABS: Erythrocyte Sedimentation Rate 17 MM/HR (0-20)
[2023-10-25 10:29] LABS: Alanine Aminotransferase 16 U/L (0-31); Albumin Level 4.2 g/dL (3.5-5.0); Alkaline Phosphatase 64 U/L (39-117); Anion Gap 10 (12-20); Aspartate Amino Transferase 13 U/L (5-31); Bilirubin Total 0.5 mg/dL (0.0-1.0); Blood Urea Nitrogen 14 mg/dL (9-16); C Reactive Protein 1.44 mg/dL (< or = 0.50); Calcium 10.2 mg/dL (8.4-10.2); Carbon Dioxide 28 mmol/L (22-29); Chloride 105 mmol/L (96-108); Estimated Glomerular Filt Rate > 60; Glucose Random 102 mg/dL (60-115); Potassium 4.4 mmol/L (3.3-5.1); Sodium 139 mmol/L (135-145); Total Protein 7.8 g/dL (6.5-8.0)
[2023-10-25 13:36] LABS: HBS Num1 0.15 mIU/mL (0-7.99); HBc Num1 0.23 S/CO (0.00-0.79); HBsAGNum1 0.33 S/CO (0.00-0.99); Hepatitis B Core Antibody Nonreactive (Nonreactive); Hepatitis B Surface Antigen Negative (Negative); ~Hepatitis B Surface Antibody NONREACTIVE (Nonreactive)
== END 2023-10-25 09:02 | disposition home or self-care (01) ==
LOC: HO.LAB 09:01
PROVIDERS: PCP Registered Nurse; Visit Provider Student in an Organized Health Care Education/Training Program
DX: M06.09 Rheumatoid arthritis without rheumatoid factor, multiple sites (principal); Z11.59 Encounter for screening for other viral diseases
CPT/HCPCS: 36415; 80053; 85025; 85652; 86140; 86704; 86706; 87340

== ENCOUNTER 2023-10-26 11:13 | Outpatient (AMB) | payer MEDICAID, SELFPAY ==
[2023-10-26 11:21] VITALS: BP 136/84; PULSE 76; O2SAT 97; BMI 34.5
--- NOTE | 2023-10-26 11:21 | A.OFFVIS_ITS ---
Vital Signs 10/26/23 11:21 Height 5 ft 3 in Weight 194 lb 14.218 oz BMI 34.5 BP 136/84 Blood Pressure Location Rt brachial Position Sitting Pulse 76 Pulse Source Pulse Oximeter Pulse Oximetry (%) 97 Oxygen Delivery Method Room Air Intake Visit Reasons: Colonoscopy screening Intake Note: Winnie presents in office today for a scheduled colo consult CC; Pt reports that this will be her first colonoscopy. Pt reports family hx of lung and breast cancer, no colon cancer. Pt reports that they have been taking new medications for RA over the course of the last month. Pt has been having some GI upset as a result. Pt is taking methotrexate and prednisone. Title Clerk Required: Yes Title Clerk Name: [facility] [place] Title Clerk Information Interpreted: non-clinical & clinical Accompanied by: Self / Same As Patient Allergies No Known Allergies Allergy (Verified 10/26/23 11:23) HPI HPI Colonoscopy screening: Details: 57 year old? female with past medical history of MAYRA, hypertension, rheumatoid arthritis, obesity, hypertension is here today for pre colonoscopy screening.? Patient was sent to us by her PCP.? This is her first colonoscopy screening.? Patient denies any gastrointestinal symptoms in the past or at present.? Denies any personal or family history of gastrointestinal disease, colon polyps, or CRC.? Denies history of difficulty with sedation or anesthesia in the past.? Negative for history of sleep apnea.? Denies any history of cardiac, renal, pulmonary, or hepatic disease.?? No history of infectious? diseases like hepatitis A, B, C, HIV or tuberculosis.? Patient is not on any anticoagulation [facility] Surgical History History of umbilical hernia repair (~2008) History of ovarian cystectomy History of delivery Family History (Updated 10/26/23 @ 11:26 by ALICE Pepe) Father History of hypertension Mother History of hypertension Rheumatoid arthritis Lung cancer Breast cancer Social History Household Members: Significant Other and Children Alcohol intake: current Alcohol intake frequency: holidays/special occasions only Patient Tobacco Use Status: Never used Tobacco Current occupational status: unemployed Review of Systems Const Denies weight gain and Denies weight loss ENT Reports no additional complaints, Denies dysphagia and Denies odynophagia Card Reports no additional complaints Resp Reports no additional complaints GI Denies abdominal pain, Denies belching, Denies melena, Denies bloating, Denies change in bowel habits, Reports constipation, Denies dysphagia, Denies excessive flatus, Denies dyspepsia, Reports heartburn, Denies diarrhea, Denies loose stools, Denies nausea, Denies odynophagia and Denies vomiting Reports no additional complaints Musc Reports no additional complaints Neuro Reports no additional complaints Psych Reports no additional complaints Endo Reports no additional complaints Physical Exam Vital Signs: Last Vital Signs Pulse 76 10/26/23 11:21 BP 136/84 10/26/23 11:21 Pulse Ox 97 10/26/23 11:21 Oxygen Delivery Method Room Air 10/26/23 11:21 BMI result Body Mass Index 34.5 Const General: healthy appearing and no acute distress Nutritional Appearance: obese Orientation/consciousness: patient oriented x3 Resp Effort & Inspection: normal respiratory effort, able to speak in complete sentences, no tracheal deviation and symmetric chest movement Auscultation: clear to auscultation bilaterally Cardio Rate: regular rate GI Inspection: Yes normal to inspection, No distended and Yes obesity Palpation (GI): Soft to palpation, not firm, nontender and No hepatosplenomegaly present Auscultation: normal bowel sounds General: Yes no CVA tenderness Back/Spine/Pelvis Back: no CVA tenderness Skin General skin exam: elasticity normal, turgor normal and dry skin Neuro General: patient oriented x3 Psych Appearance: grossly normal Mental Status: mental status grossly normal Assessment & Plan Assessment & Plan (1) Screen for colon cancer: Code(s): Z12.11 - Encounter for screening for malignant neoplasm of colon (2) Constipation: Code(s): K59.00 - Constipation, unspecified Qualifiers: Constipation type: slow transit constipation Qualified Code(s): K59.01 - Slow transit constipation (3) GERD (gastroesophageal reflux disease): Code(s): K21.9 - Gastro-esophageal reflux disease without esophagitis Qualifiers: Esophagitis presence: esophagitis presence not specified Qualified Code(s): K21.9 - Gastro-esophageal reflux disease without esophagitis Plan Patient denies any GI, cardiac or respiratory symptoms.? Denies any issues with anesthesia in the past.? History of sleep apnea on CPAP very good unless just going? No history infectious diseases in the past or present.? Not on any anticoagulation therapy.? No family or personal history of colon cancer or polyps.? Patient denies melena, hematochezia, unintentional weight loss or ribbon like stools.? Discussed at length the pre-procedure,? prep, diet & medications as well as what to expect prior, during and after the procedure.?? Stressed the importance of good bowel prep.? Recommended the use of Vaseline or Calmoseptine OTC & baby wipes with bowel movements to promote comfort.? ? Patient will return in 3 months to make sure that she is moving his bowels better. Patient will start taking Metamucil in the morning and senna in the evening. Symptoms of acid reflux in the past few months. Patient will start taking omeprazole in the morning. Patient is agreeable to plan of care and verbalizes understanding of instructions. She was given the opportunity to ask questions and all questions answered. Medications: New bisacodyl (Dulcolax (bisacodyl)) take 4 tabs at noon the day before your colonoscopy 20 mg (4 x 5 mg) PO ONCE 4 tabs 0RF 1 day Z12.11 - Encounter for screening for malignant neoplasm of colon sennosides (Natural Senna Laxative) 17.2 mg (2 x 8.6 mg) PO BEDTIME 60 tabs 3RF constipation K59.00 - Constipation, unspecified omeprazole 20 mg PO DAILY 30 caps 3RF K21.9 - Gastro-esophageal reflux disease without esophagitis polyethylene glycol 3350 (Miralax) As directed by gastroenterology department at [facility] 238 grams PO ONCE 238 grams 0RF Z12.11 - Encounter for screening for malignant neoplasm of colon psyllium husk 0.52 grams PO DAILY 30 caps 4RF K59.00 - Constipation, unspecified Coding Level of Care Code New Pt Level 3 (21929) Diagnoses Screen for colon cancer Z12.11 Slow transit constipation K59.01 Constipation type: slow transit constipation Gastroesophageal reflux disease, unspecified whether esophagitis present K21.9 Esophagitis presence: esophagitis presence not specified Time Spent (min) 40 Comment 30 minutes spent with patient and additional 10 minutes spent reviewing her records
== END 2023-10-26 12:30 | disposition home or self-care (01) ==
PROVIDERS: PCP Registered Nurse; Visit Provider Nurse Practitioner Family
DX: Z12.11 Encounter for screening for malignant neoplasm of colon (principal); K59.01 Slow transit constipation; K21.9 Gastro-esophageal reflux disease without esophagitis; Z01.818 Encounter for other preprocedural examination
CPT/HCPCS: 99203

== ENCOUNTER → 2023-10-26 11:13 | Outpatient (BNVA) | payer MEDICAID, SELFPAY | PROVIDERS: PCP Registered Nurse; Visit Provider Nurse Practitioner Family | DX: Z01.818 Encounter for other preprocedural examination (principal); K59.01 Slow transit constipation; K21.9 Gastro-esophageal reflux disease without esophagitis | CPT/HCPCS: 99212 ==

== ENCOUNTER 2023-11-01 11:20 | Outpatient (AMB) | payer MEDICAID, SELFPAY ==
[2023-11-01 11:24] VITALS: BP 130/80; PULSE 80; O2SAT 96; BMI 34.3
--- NOTE | 2023-11-01 11:24 | A.OFFVIS_ITS ---
Vital Signs 11/01/23 11:24 Height 5 ft 3 in Weight 193 lb 12.581 oz BMI 34.3 BP 130/80 Blood Pressure Location Lt brachial Position Sitting Pulse 80 Pulse Source Pulse Oximeter Pulse Oximetry (%) 96 Oxygen Delivery Method Room Air Intake Visit Reasons: RA Intake Note: Patient last seen by Doctor Walt Liu on 08/31/23. Patient presents today for RA follow up and test results. 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 Allergies methotrexate Adverse Reaction (Intermediate, Verified 11/01/23 12:35) gerd Medication List - Last Reconciled 11/01/23 by Walt Liu MD bisacodyl (Dulcolax (bisacodyl)) 20 mg (4 x 5 mg) PO ONCE 1 day celecoxib 200 mg PO BID duloxetine 30 mg PO DAILY escitalopram oxalate 10 mg PO DAILY hydrochlorothiazide 25 mg PO DAILY lisinopril 40 mg PO DAILY omeprazole 20 mg PO DAILY polyethylene glycol 3350 (Miralax) 238 grams PO ONCE prednisone 5 - 10 mg (1 - 2 x 5 mg) PO DAILY PRN psyllium husk 0.52 grams PO DAILY sennosides (Natural Senna Laxative) 17.2 mg (2 x 8.6 mg) PO BEDTIME trazodone 50 mg PO BEDTIME PRN HPI Comments Details: 57-year-old female with seronegative RA who returns for follow-up. She has been taking methotrexate 20 mg weekly regularly for the last 2 months without relief. She continues to take prednisone 5-10 mg daily. About 4 days a week she takes 10 mg daily. She states that methotrexate causes GI upset and GERD the day after she she takes it. [facility] Surgical History History of umbilical hernia repair (~2008) History of ovarian cystectomy History of delivery Family History Father History of hypertension Mother History of hypertension Rheumatoid arthritis Lung cancer Breast cancer Social History Household Members: Significant Other and Children Alcohol intake: current Alcohol intake frequency: holidays/special occasions only Patient Tobacco Use Status: Never used Tobacco Current occupational status: unemployed Female Reproductive History Menstrual Total pregnancies: 3 Number of Living Children: 2 Ab spontaneous: 1 Date of last pap smear: 11/01/19 (WNL) History of abnormal pap smear: Yes (2016 ANA I) Review of Systems [facility] [place] arthralgias, Reports joint swelling and Reports stiffness Physical Exam Vital Signs: Last Vital Signs Pulse 80 11/01/23 11:24 BP 130/80 11/01/23 11:24 Pulse Ox 96 11/01/23 11:24 Oxygen Delivery Method Room Air 11/01/23 11:24 BMI result Body Mass Index 34.3 Const General: cooperative, healthy appearing and comfortable Nutritional Appearance: obese Orientation/consciousness: patient oriented x3 Limitations: no limitations HEENT Head: Yes normocephalic and Yes atraumatic Mouth: moist mucous membranes Resp Effort & Inspection: normal respiratory effort and able to speak in complete sentences Skin General skin exam: no rashes or lesions noted Neuro General: patient oriented x3 Extrem Other: No wrist swelling or tenderness but pain with flexion and extension bilaterally Right 3rd and 4th MCP swelling and tenderness Right 2nd 3rd and 4th PIP tenderness Left 3rd and 4th MCP tenderness Left 3rd and 4th PIP tenderness Bilateral dorsal foot swelling and tenderness Multiple tender MTPs bilaterally Assessment & Plan Assessment & Plan (1) Rheumatoid arthritis: Comment: -ve RF -ve CCP dx 08/2023 MTX 08/2023 DC 10/2023 ineffective and caused GERD Code(s): M06.9 - Rheumatoid arthritis, unspecified Category: Medical Qualifiers: Rheumatoid arthritis location: multiple sites Rheumatoid factor presence: without rheumatoid factor Qualified Code(s): M06.09 - Rheumatoid arthritis without rheumatoid factor, multiple sites Plan: This is a 57-year-old female with seronegative RA who presents for follow-up. She has been taking methotrexate 20 mg once weekly regularly for the last 2 months without relief. Also caused significant GI upset and GERD symptoms. On exam she continues to have multiple swollen and tender joints. Inflammatory markers remain elevated. Continues to require prednisone 10 mg daily. We will need to change DMARDs. Discussed risks and benefits of TNF inhibitors. Patient agreed to proceed. Will start prior authorization for Enbrel Can use prednisone 5-10 mg once daily as needed for pains Labs before next visit in 2 months (2) FRANTZ positive: Code(s): R76.8 - Other specified abnormal immunological findings in serum Category: Medical Plan: With negative sub serologies. 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 Patient fully aware. Advised patient to seek medical care CLYDE if patient has an infection and advised patient to stop the medication until the infection is resolved. Plan I spent 25 minutes reviewing patient's chart, evaluating patient, ordering diagnostic workup, counseling patient and documenting in the chart Medications: Discontinued methotrexate sodium Discontinued Reason: Doctor's Order 20 mg (8 x 2.5 mg) PO QWEEK 96 tabs 0RF folic acid Discontinued Reason: Duplicate 1 mg PO DAILY 90 tabs 1RF Coding Level of Care Code Est Pt Level 4 (91247) Diagnoses Rheumatoid arthritis of multiple sites with negative rheumatoid factor M06.09 Rheumatoid arthritis location: multiple sites Rheumatoid factor presence: without rheumatoid factor FRANTZ positive R76.8 High risk medication use Z79.899
== END 2023-11-01 12:37 | disposition home or self-care (01) ==
PROVIDERS: PCP Registered Nurse; Referring Provider Registered Nurse; Visit Provider Student in an Organized Health Care Education/Training Program
DX: M06.09 Rheumatoid arthritis without rheumatoid factor, multiple sites (principal); R76.8 Other specified abnormal immunological findings in serum; Z79.899 Other long term (current) drug therapy
CPT/HCPCS: 99214

== ENCOUNTER → 2023-11-01 11:20 | Outpatient (BNVA) | payer MEDICAID, SELFPAY | PROVIDERS: PCP Registered Nurse; Visit Provider Student in an Organized Health Care Education/Training Program | DX: M06.09 Rheumatoid arthritis without rheumatoid factor, multiple sites (principal); R76.8 Other specified abnormal immunological findings in serum; Z79.899 Other long term (current) drug therapy | CPT/HCPCS: 99212 ==

== ENCOUNTER 2023-12-03 13:47 | Outpatient (REF) | payer MEDICAID, SELFPAY ==
--- NOTE | 2023-12-03 13:53 | EMG_ITS ---
Chief complaint: Bilateral hand numbness, especially in the morning. History of RA. Reason for referral: Evaluate for Carpal Tunnel Syndrome Referred by: Dr. Liu Procedure done: Bilateral upper extremities NCS/EMG Precautions and/or limitations: None The limb temperature was monitored continuously and remained between 32-36 degrees C during the performance of the NCS. Nerve Conduction Studies Anti Sensory Summary Table ?Stim Site NR Onset (ms) Norm Onset (ms) Peak (ms) Norm Peak (ms) O-P Amp (?V) Norm O-P Amp Site1 Site2 Delta-0 (ms) Dist (cm) Gurwinder (m/s) Norm Gurwinder (m/s) Left Median Anti Sensory (2nd Digit) Wrist ? 3.5 4.4 <3.6 37.9 >10 Wrist 2nd Digit 3.5 14.0 40 Right Median Anti Sensory (2nd Digit) Wrist ? 3.3 4.5 <3.6 36.2 >10 Wrist 2nd Digit 3.3 14.0 42 Right Radial Anti Sensory (Thumb) Forearm ? 1.5 1.9 <3.1 11.6 Forearm Thumb 1.5 0.0 Left Ulnar Anti Sensory (5th Digit) Wrist ? 2.3 3.1 <3.7 24.2 >15.0 Wrist 5th Digit 2.3 14.0 61 Right Ulnar Anti Sensory (5th Digit) Wrist ? 2.2 3.0 <3.7 30.7 >15.0 Wrist 5th Digit 2.2 14.0 64 Motor Summary Table ?Stim Site NR Onset (ms) Norm Onset (ms) O-P Amp (mV) Norm O-P Amp iAmp (mV) Amp (1st) (%) Site1 Site2 Delta-0 (ms) Dist (cm) Gurwinder (m/s) Norm Gurwinder (m/s) Left Median Motor (Abd Poll Brev) Wrist ? 5.5 <3.9 9.5 >4.5 11.4 100.0 Elbow Wrist 3.9 21.0 54 >45 Elbow ? 9.4 9.0 10.7 94.7 Right Median Motor (Abd Poll Brev) Wrist ? 4.8 <3.9 9.4 >4.5 10.8 100.0 Elbow Wrist 3.6 20.5 57 >45 Elbow ? 8.4 8.7 10.1 92.6 Left Ulnar Motor (Abd Dig Minimi) Wrist ? 2.4 <3.0 12.4 >5 14.4 100.0 B Elbow Wrist 3.0 18.0 60 >45 B Elbow ? 5.4 11.9 13.9 96.0 A Elbow B Elbow 1.6 10.0 63 >45 A Elbow ? 7.0 9.9 11.5 79.8 Right Ulnar Motor (Abd Dig Minimi) Wrist ? 2.4 <3.0 12.4 >5 13.9 100.0 B Elbow Wrist 3.1 19.0 61 >45 B Elbow ? 5.5 11.8 13.8 95.2 A Elbow B Elbow 1.2 10.0 83 >45 A Elbow ? 6.7 11.2 13.1 90.3 EMG ?Side Muscle Nerve Root Ins Act Fibs Psw Amp Dur Poly Recrt Int Pat Comment Right 1stDorInt Ulnar C8-T1 Nml Nml Nml Nml Nml 0 Nml Complete Right FlexCarRad Median C6-7 Nml Nml Nml Nml Nml 0 Nml Complete Right Biceps Musculocut C5-6 Nml Nml Nml Nml Nml 0 Nml Complete Right Triceps Radial C6-7-8 Nml Nml Nml Nml Nml 0 Nml Complete Right Deltoid Axillary C5-6 Nml Nml Nml Nml Nml 0 Nml Complete Left 1stDorInt Ulnar C8-T1 Nml Nml Nml Nml Nml 0 Nml Complete Left FlexCarRad Median C6-7 Nml Nml Nml Nml Nml 0 Nml Complete Left Biceps Musculocut C5-6 Nml Nml Nml Nml Nml 0 Nml Complete Left Triceps Radial C6-7-8 Nml Nml Nml Nml Nml 0 Nml Complete Left Deltoid Axillary C5-6 Nml Nml Nml Nml Nml 0 Nml Complete FINDINGS: Bilateral median motor nerves showed prolonged distal latency, normal amplitude and normal conduction velocity. Bilateral median sensory nerves showed prolonged peak latency. All other nerves tested were within normal. Concentric needle EMG was performed in selected muscles of the bilateral upper extremities. Study did not reveal signs of electric abnormalities as shown in the table above. IMPRESSION: 1. This is an abnormal study. 2. There is electrodiagnostic evidence for bilateral moderate-severe median neuropathy at the wrist, consistent with carpal tunnel syndrome. 3. There is no electrodiagnostic evidence for ulnar neuropathy, brachial plexopathy, or cervical radiculopathy. Thank you for your kind referral. Kita Allen MD, CALVIN Board Certified, [place] [employer] and [employer] (ABPMR) Board Certified, [place] Board of Electrodiagnostic Medicine (ABEM) CODIN [phone] x 2 MTDD
== END 2023-12-03 13:48 | disposition home or self-care (01) ==
LOC: HO.NEURO 13:47
PROVIDERS: PCP Registered Nurse; Visit Provider Student in an Organized Health Care Education/Training Program
DX: R20.0 Anesthesia of skin (principal)
CPT/HCPCS: 95886; 95911

== ENCOUNTER → 2023-12-03 13:53 | Outpatient (BNV) | payer MEDICAID, SELFPAY | PROVIDERS: PCP Registered Nurse; Visit Provider Physical Medicine & Rehabilitation | DX: G56.03 Carpal tunnel syndrome, bilateral upper limbs (principal) | CPT/HCPCS: 95886; 95911 ==

== ENCOUNTER 2023-12-17 10:44 | Outpatient (AMB) | payer MEDICAID, SELFPAY ==
--- NOTE | 2023-12-17 10:46 | MHC.OFFVIS ---
Vital Signs 12/17/23 10:52 Height 5 ft 3 in Weight 192 lb 7.417 oz BMI 34.1 BP 134/82 Blood Pressure Location Rt brachial Position Sitting Pulse 66 Pulse Source Pulse Oximeter Pulse Oximetry (%) 97 Oxygen Delivery Method Room Air Intake Visit Reasons: RA/cm Intake Note: Patient presents for RA. 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 Operator Present Sewage Screen Operator Name: Consuelo [id number] Information Interpreted: non-clinical & clinical Allergies methotrexate Adverse Reaction (Intermediate, Verified 12/17/23 10:52) gerd Medication List - Last Reconciled 12/17/23 by Walt Liu MD bisacodyl (Dulcolax (bisacodyl)) 20 mg (4 x 5 mg) PO ONCE 1 day celecoxib 200 mg PO BID PRN duloxetine 30 mg PO DAILY Enbrel SureClick (etanercept) 50 mg subcut QWEEK NS escitalopram oxalate 10 mg PO DAILY hydrochlorothiazide 25 mg PO DAILY lisinopril 40 mg PO DAILY omeprazole 20 mg PO DAILY polyethylene glycol 3350 (Miralax) 238 grams PO ONCE psyllium husk 0.52 grams PO DAILY sennosides (Natural Senna Laxative) 17.2 mg (2 x 8.6 mg) PO BEDTIME trazodone 50 mg PO BEDTIME PRN [wrist splint wear nightly and as much as possible throughout the day] HPI Comments Details: 57-year-old female with seronegative RA who returns for follow-up. Enbrel was approved. Patient was worried about starting it due to tingling and numbness in her hands. I ordered bilateral upper extremity EMG/NCV and it showed bilateral carpal tunnel syndrome. I referred patient to hand surgeon. Patient states that she continues to have alternating and migratory joint pain, mostly at night, involving her hands, wrists, knees and feet. She takes prednisone once daily 2 to 3 times a week. It provides some relief. She states that Celebrex was more helpful as prednisone causes some generalized swelling. [facility] Surgical History History of umbilical hernia repair (~2008) History of ovarian cystectomy History of delivery Family History Father History of hypertension Mother History of hypertension Rheumatoid arthritis Lung cancer Breast cancer Social History Household Members: Significant Other and Children Alcohol intake: current Alcohol intake frequency: holidays/special occasions only Patient Tobacco Use Status: Never used Tobacco Current occupational status: unemployed Female Reproductive History Menstrual Total pregnancies: 3 Number of Living Children: 2 Ab spontaneous: 1 Review of Systems Musc Reports arthralgias, Reports joint swelling and Reports stiffness Physical Exam Vital Signs: Last Vital Signs Pulse 66 12/17/23 10:52 BP 134/82 12/17/23 10:52 Pulse Ox 97 12/17/23 10:52 Oxygen Delivery Method Room Air 12/17/23 10:52 BMI result Body Mass Index 34.1 Const General: cooperative, healthy appearing and comfortable Nutritional Appearance: obese Orientation/consciousness: patient oriented x3 Limitations: no limitations HEENT Head: Yes normocephalic and Yes atraumatic Mouth: moist mucous membranes Resp Effort & Inspection: normal respiratory effort and able to speak in complete sentences Skin General skin exam: no rashes or lesions noted Neuro General: patient oriented x3 Extrem Other: No wrist swelling or tenderness but pain with flexion and extension bilaterally Multiple tender MCPs and PIP is bilaterally. No significant swelling today Right elbow pain with full extension Able to fully abduct her shoulders but with significant stiffness Bilateral knee crepitus and pain with full flexion and extension No knee warmth or swelling today Prominent Right foot bunion Assessment & Plan Assessment & Plan (1) Rheumatoid arthritis: Comment: -ve RF -ve CCP dx 08/2023 MTX 08/2023 DC 10/2023 ineffective and caused GERD Code(s): M06.9 - Rheumatoid arthritis, unspecified Category: Medical Qualifiers: Rheumatoid arthritis location: multiple sites Rheumatoid factor presence: without rheumatoid factor Qualified Code(s): M06.09 - Rheumatoid arthritis without rheumatoid factor, multiple sites Plan: This is a 57-year-old female with seronegative RA who presents for follow-up. Enbrel was approved. Patient that no want to started as she was having tingling and numbness in her hands. Bilateral upper extremity EMG/NCV confirmed bilateral carpal tunnel syndrome. Advised patient start her Enbrel. Celebrex more helpful than prednisone as prednisone caused some generalized swelling Celebrex refilled. Advised patient to try not to take it every day Labs before next visit in 3 months (2) FRANTZ positive: Code(s): R76.8 - Other specified abnormal immunological findings in serum Category: Medical Plan: With negative sub serologies. Can be seen in RA (3) High risk medication use: Code(s): Z79.899 - Other terminal carman (current) drug therapy Category: Medical Plan: Side effects of Enbrel were discussed with the patient in detail including increased risk of infection, demyelinating disease, reactivation of latent TB, possible increased risk of solid and skin tumors. Patient fully aware. Advised patient to seek medical care CLYDE if patient has an infection and advised patient to stop the medication until the infection is resolved. (4) Bilateral carpal tunnel syndrome: Code(s): G56.03 - Carpal tunnel syndrome, bilateral upper limbs Category: Medical Plan: Ordered bilateral wrist splints. Patient has an appointment with hand surgeon next month Plan I spent 25 minutes reviewing patient's chart, evaluating patient, ordering diagnostic workup, counseling patient and documenting in the chart Orders: Orders Complete Blood Count Auto Diff 3 Months M06.09 - Rheumatoid arthritis without rheumatoid factor, multiple sites Comprehensive Met. Panel 3 Months M06.09 - Rheumatoid arthritis without rheumatoid factor, multiple sites C Reactive Protein 3 Months M06.09 - Rheumatoid arthritis without rheumatoid factor, multiple sites Erythrocyte Sedimentation Rate 3 Months M06.09 - Rheumatoid arthritis without rheumatoid factor, multiple sites Medications: New [wrist splint] wear nightly and as much as possible throughout the day 2 ea 0RF G56.03 - Carpal tunnel syndrome, bilateral upper limbs Changed From celecoxib 200 mg PO BID 30 caps 1RF To celecoxib 200 mg PO BID PRN 30 caps 1RF pain Discontinued prednisone Discontinued Reason: Doctor's Order 5 - 10 mg (1 - 2 x 5 mg) PO DAILY PRN 30 tabs 1RF pain Coding Level of Care Code Est Pt Level 4 (68920) Complex EM visit Add On G2211 Diagnoses Rheumatoid arthritis of multiple sites with negative rheumatoid factor M06.09 Rheumatoid arthritis location: multiple sites Rheumatoid factor presence: without rheumatoid factor FRANTZ positive R76.8 High risk medication use Z79.899 Bilateral carpal tunnel syndrome G56.03
[2023-12-17 10:52] VITALS: BP 134/82; PULSE 66; O2SAT 97; BMI 34.1
== END 2023-12-17 11:09 | disposition home or self-care (01) ==
PROVIDERS: PCP Registered Nurse; Visit Provider Student in an Organized Health Care Education/Training Program
DX: M06.09 Rheumatoid arthritis without rheumatoid factor, multiple sites (principal); R76.8 Other specified abnormal immunological findings in serum; Z79.899 Other long term (current) drug therapy; G56.03 Carpal tunnel syndrome, bilateral upper limbs
CPT/HCPCS: 99214

== ENCOUNTER → 2023-12-17 10:44 | Outpatient (BNVA) | payer MEDICAID, SELFPAY | PROVIDERS: PCP Registered Nurse; Visit Provider Student in an Organized Health Care Education/Training Program | DX: M06.09 Rheumatoid arthritis without rheumatoid factor, multiple sites (principal); R76.8 Other specified abnormal immunological findings in serum; G56.03 Carpal tunnel syndrome, bilateral upper limbs; Z79.899 Other long term (current) drug therapy | CPT/HCPCS: 99212 ==

== ENCOUNTER 2023-12-29 09:10 | Outpatient (REF) | payer MEDICAID, SELFPAY ==
[2023-12-29] MEDS: gadobutroL 10 ML VIAL IVPUSH (10:01)
== END 2023-12-29 09:11 | disposition home or self-care (01) ==
LOC: HO.MRI 09:10
PROVIDERS: PCP Registered Nurse; Visit Provider Registered Nurse
DX: M25.50 Pain in unspecified joint (principal); G72.9 Myopathy, unspecified; R68.89 Other general symptoms and signs
CPT/HCPCS: 70553; A9585

== ENCOUNTER 2024-01-11 10:43 | Outpatient (AMB) | payer MEDICAID, SELFPAY ==
[2024-01-11 11:02] VITALS: BMI 34.0
--- NOTE | 2024-01-11 11:02 | MHC.OFFVIS ---
Vital Signs 01/11/24 11:02 Height 5 ft 3 in Weight 192 lb BMI 34.0 Intake Visit Reasons: New prob- B/L hand CTS, EMG done 12/02 Intake Note: Winnie is a 58 year old right hand dominant Chinese speaking female who presents today with a new problem of bilateral carpal tunnel syndrome. States her right is worse. Patient reports numbness and tingling that occurs daily especially in the morning or when she is holding her phone for too long. Symptoms are constant. She has difficulty picking up a gallon of milk due to weakness feeling in hands. Denies finger locking. She is also having locking of her right index finger that has worsen over time. Denies injuries or surgeries to the hands. EMG done. Hx of RA-takes medication and also sees her rhuematologist. States she is not sure if she would like to have surgical intervention if needed at this time. 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 She complains of numbness in the median nerve distribution bilaterally, R>L. Symptoms intermittent, but daily, worse at night, and becoming more constant. She also complains of weakness in her hands and says she drops objects. She also complains of some pain in the right index finger PIP joint. She thinks that she might get some locking, but also reports that she has rheumatoid arthritis. She takes Enbrel and methotrexate for her rheumatoid arthritis. She has RA and follows with Dr. Liu. 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 Review of Systems Const All systems reviewed & are unremarkable except as noted in HPI and below Physical Exam Vital Signs: BMI result Body Mass Index 34.0 Const General: cooperative, healthy appearing and no acute distress Orientation/consciousness: patient oriented x3 HEENT Head: Yes normocephalic and Yes atraumatic Eyes EOM: EOMs intact bilaterally Resp Effort & Inspection: normal respiratory effort and able to speak in complete sentences Cardio Jugular venous distension: no JVD Skin General skin exam: turgor normal Rashes: no rashes Neuro General: patient oriented x3 Extrem Other: Evaluation of Bilateral Upper Extremity: The patient is alert, oriented, and in no acute distress Neuro: Median, Ulnar, Radial nerves motor and sensory intact to the tips of all digits No thenar or intrinsic wasting Good APB muscle belly firing and good finger cross Vascular: Cap refill brisk ROM: She can make a fist and extend all her digits No locking or catching. Mild tenderness over the index finger PIP joint, but no tenderness over the A1 patsy of the index finger Skin: No lacerations or abrasions. General: No Ecchymosis. No Erythema or evidence of infection. Nerve Conduction Study: IMPRESSION: 1. This is an abnormal study. 2. There is electrodiagnostic evidence for bilateral moderate-severe median neuropathy at the wrist, consistent with carpal tunnel syndrome. 3. There is no electrodiagnostic evidence for ulnar neuropathy, brachial plexopathy, or cervical radiculopathy. Kita Allen MD, [facility] 12/03/23 Psych Appearance: grossly normal Affect: normal affect Attitude: cooperative Assessment & Plan Assessment & Plan (1) Bilateral carpal tunnel syndrome: Code(s): G56.03 - Carpal tunnel syndrome, bilateral upper limbs Category: Medical (2) Rheumatoid arthritis: Comment: -ve RF -ve CCP dx 08/2023 MTX 08/2023 DC 10/2023 ineffective and caused GERD Code(s): M06.9 - Rheumatoid arthritis, unspecified Category: Medical Qualifiers: Rheumatoid arthritis location: multiple sites Rheumatoid factor presence: without rheumatoid factor Qualified Code(s): M06.09 - Rheumatoid arthritis without rheumatoid factor, multiple sites Plan Assessment & Plan: 1. Right carpal tunnel syndrome, moderate-severe Symptoms intermittent but daily, worse at night This is her primary complaint today 2. Left carpal tunnel syndrome, moderate-severe Symptoms intermittent but daily, worse at night I educated her about this condition I discussed operative and non-operative treatment options The patient would like to proceed with surgery, beginning with her right hand. We can discuss treatment for her left hand when she has recovered from surgery The risks and benefits of operative treatment were discussed with the patient and the patient wishes to proceed with surgery. These risks include, but are not limited to risk of damage to blood vessels, nerves, tendons, infection, recurrence, incomplete relief of preoperative symptoms, persistent pain, possible need for further surgery and the risks associated with regional blocks and anesthesia. The plan is to take the patient to the operating room sometime in the next few weeks for the following procedures: 1. Right carpal tunnel release, under local All of the preoperative paperwork including the consent was reviewed today. All the patient's questions were answered. The patient understands that they will be contacted by our home health scheduler soon to schedule this procedure She denies Diabetes, blood thinners, asthma, heart, lung, kidney issues She has Rheumatoid arthritis and is on Enbrel. She follows with Dr. Liu, and she will need to speak with Dr. Liu concerning when she needs to stop taking her Enbrel prior to surgery. Restarting this medication should wait until after her 1st postop visit. Scribed for Shayy Miranda MD by Hamilton Sutherland, medical sales associate, on 01/11/24 at 11:20 AM, EST. Coding Level of Care Code New Pt Level 4 (63293) Diagnoses Bilateral carpal tunnel syndrome G56.03 Rheumatoid arthritis of multiple sites with negative rheumatoid factor M06.09 Rheumatoid arthritis location: multiple sites Rheumatoid factor presence: without rheumatoid factor
== END 2024-01-11 11:44 | disposition home or self-care (01) ==
PROVIDERS: PCP Registered Nurse; Visit Provider Orthopaedic Surgery
DX: G56.03 Carpal tunnel syndrome, bilateral upper limbs (principal); M06.09 Rheumatoid arthritis without rheumatoid factor, multiple sites
CPT/HCPCS: 99204

== ENCOUNTER → 2024-01-11 10:43 | Outpatient (BNVA) | payer MEDICAID, SELFPAY | PROVIDERS: PCP Registered Nurse; Visit Provider Orthopaedic Surgery | DX: G56.03 Carpal tunnel syndrome, bilateral upper limbs (principal); M06.09 Rheumatoid arthritis without rheumatoid factor, multiple sites | CPT/HCPCS: 99202 ==

== ENCOUNTER 2024-01-26 12:55 | Outpatient (AMB) | payer MEDICAID, SELFPAY ==
--- NOTE | 2024-01-26 13:09 | A.OFFVIS_ITS ---
Vital Signs 01/26/24 13:10 Height 5 ft 3 in Weight 192 lb BMI 34.0 BP 158/90 H Blood Pressure Location Lt brachial Position Sitting Pulse 84 Intake Visit Reasons: 3 months f/u Intake Note: Patient 3 month follow up Constipation Patient cc: constipation is better with new medication, some diarrhea, abdominal pain with bloating, acid reflex with burning sensation. Denies any other GI issues. Burrer Hand Required: Yes Burrer Hand Name: Drea Keith [id number] Accompanied by: Self / Same As Patient Allergies methotrexate Adverse Reaction (Intermediate, Verified 01/26/24 13:08) gerd HPI HPI 3 months f/u: Details: LAST VISIT: Screen for colon cancer Constipation GERD (gastroesophageal reflux disease) Plan Patient denies any GI, cardiac or respiratory symptoms.? Denies any issues with anesthesia in the past.? History of sleep apnea on CPAP very good unless just going? No history infectious diseases in the past or present.? Not on any anticoagulation therapy.? No family or personal history of colon cancer or polyps.? Patient denies melena, hematochezia, unintentional weight loss or ribbon like stools.? Discussed at length the pre-procedure,? prep, diet & medications as well as what to expect prior, during and after the procedure.?? Stressed the importance of good bowel prep.? Recommended the use of Vaseline or Calmoseptine OTC & baby wipes with bowel movements to promote comfort.? ? Patient will return in 3 months to make sure that she is moving his bowels better. Patient will start taking Metamucil in the morning and senna in the evening. Symptoms of acid reflux in the past few months. Patient will start taking omeprazole in the morning. Patient is agreeable to plan of care and verbalizes understanding of instructions. She was given the opportunity to ask questions and all questions answered. Medications New bisacodyl (Dulcolax (bisacodyl)) take 4 tabs at noon the day before your colonoscopy 20 mg (4 x 5 mg) PO ONCE 4 tabs 0RF 1 day Z12.11 sennosides (Natural Senna Laxative) 17.2 mg (2 x 8.6 mg) PO BEDTIME 60 tabs 3RF constipation K59.00 omeprazole 20 mg PO DAILY 30 caps 3RF K21.9 polyethylene glycol 3350 (Miralax) As directed by gastroenterology department at [facility] 238 grams PO ONCE 238 grams 0RF Z12.11 psyllium husk 0.52 grams PO DAILY 30 caps 4RF K59.00 TODAY'S VISIT Patient is here today for follow-up and to discuss prep. Colonoscopy scheduled for 02/24/2024. Patient reports that she is currently moving her bowels better now that she is taking Senokot. Patient states that her symptoms of acid reflux have improved, however she continues to have acid reflux occasionally. Currently taking omeprazole. Patient states that she is trying to avoid dietary triggers. Patient is going for orthopedic surgery in March and will have her Enbrel held. We probably should hold that for 1 week before procedure just in case we will be doing biopsy. Patient denies any melena, hematochezia, unintentional weight loss or ribbon like stools. 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 Review of Systems Const Denies weight gain and Denies weight loss ENT Reports no additional complaints, Denies dysphagia and Denies odynophagia Card Reports no additional complaints Resp Reports no additional complaints GI Denies abdominal pain, Denies belching, Denies melena, Denies bloating, Denies change in bowel habits, Reports constipation (Improved), Denies dysphagia, Denies excessive flatus, Denies dyspepsia, Reports heartburn (Improved), Denies diarrhea, Denies loose stools, Denies nausea, Denies odynophagia and Denies vomiting Reports no additional complaints Musc Reports no additional complaints Neuro Reports no additional complaints Psych Reports no additional complaints Endo Reports no additional complaints Physical Exam Vital Signs: Last Vital Signs Pulse 84 01/26/24 13:10 BP 158/90 H 01/26/24 13:10 BMI result Body Mass Index 34.0 Const General: healthy appearing and no acute distress Nutritional Appearance: obese Orientation/consciousness: patient oriented x3 Resp Effort & Inspection: normal respiratory effort, able to speak in complete sentences, no tracheal deviation and symmetric chest movement Auscultation: clear to auscultation bilaterally Cardio Rate: regular rate GI Inspection: Yes normal to inspection, No distended and Yes obesity Palpation (GI): Soft to palpation, not firm, nontender and No hepatosplenomegaly present Auscultation: normal bowel sounds General: Yes no CVA tenderness Back/Spine/Pelvis Back: no CVA tenderness Skin General skin exam: elasticity normal, turgor normal and dry skin Neuro General: patient oriented x3 Psych Appearance: grossly normal Mental Status: mental status grossly normal Assessment & Plan Assessment & Plan (1) Screen for colon cancer: Code(s): Z12.11 - Encounter for screening for malignant neoplasm of colon (2) Constipation: Code(s): K59.00 - Constipation, unspecified Qualifiers: Constipation type: slow transit constipation Qualified Code(s): K59.01 - Slow transit constipation (3) GERD (gastroesophageal reflux disease): Code(s): K21.9 - Gastro-esophageal reflux disease without esophagitis Qualifiers: Esophagitis presence: esophagitis presence not specified Qualified Code(s): K21.9 - Gastro-esophageal reflux disease without esophagitis Plan Will change PPI to pantoprazole. Patient was also encouraged to avoid dietary triggers and late night snacking. Will send patient for upper endoscopy to rule out gastritis, esophagitis, duodenitis, gastric or peptic ulcer, Tolliver's, H pylori. Patient reports that she has her instructions at home, however went over the instructions again. The importance of good bowel prep discussed with patient. Stressed following clear liquid diet day before procedure. Patient should probably hold Enbrel 1 week before procedure to prevent infections. Message sent to Cinthya TRIPATHI to follow-up with patient on this. Patient has appointment with us after the procedure. She is agreeable to current plan of care and verbalizes understanding of instructions. She was given the opportunity to ask questions and all questions answered. Thank you for allowing me to participate in her care Medications: New pantoprazole take one tablet half an hour before breakfast 40 mg PO DAILY 30 tabs 2RF K21.9 - Gastro-esophageal reflux disease without esophagitis Refilled bisacodyl (Dulcolax (bisacodyl)) take 4 tabs at noon the day before your colonoscopy 20 mg (4 x 5 mg) PO ONCE 1 day 4 tabs 0RF Z12.11 - Encounter for screening for malignant neoplasm of colon polyethylene glycol 3350 (Miralax) As directed by gastroenterology department at [facility] 238 grams PO ONCE 238 grams 0RF Z12.11 - Encounter for screening for malignant neoplasm of colon Discontinued omeprazole Discontinued Reason: Doctor's Order 20 mg PO DAILY 90 caps 1RF K21.9 - Gastro-esophageal reflux disease without esophagitis Coding Level of Care Code Est Pt Level 3 (77968) Diagnoses Screen for colon cancer Z12.11 Slow transit constipation K59.01 Constipation type: slow transit constipation Gastroesophageal reflux disease, unspecified whether esophagitis present K21.9 Esophagitis presence: esophagitis presence not specified Time Spent (min) 30 Comment 20 minutes spent with patient and additional 10 minutes spent reviewing her records
[2024-01-26 13:10] VITALS: BP 158/90; PULSE 84; BMI 34.0
== END 2024-01-26 14:22 | disposition home or self-care (01) ==
PROVIDERS: PCP Registered Nurse; Visit Provider Nurse Practitioner Family
DX: K21.9 Gastro-esophageal reflux disease without esophagitis (principal); Z12.11 Encounter for screening for malignant neoplasm of colon; K59.01 Slow transit constipation
CPT/HCPCS: 99213

== ENCOUNTER → 2024-01-26 12:55 | Outpatient (BNVA) | payer MEDICAID, SELFPAY | PROVIDERS: PCP Registered Nurse; Visit Provider Nurse Practitioner Family | DX: Z12.11 Encounter for screening for malignant neoplasm of colon (principal); K59.01 Slow transit constipation; K21.9 Gastro-esophageal reflux disease without esophagitis | CPT/HCPCS: 99212 ==

== ENCOUNTER 2024-02-24 08:08 | Day surgery (SDC) | payer MEDICAID, SELFPAY ==
[2024-02-22 15:12] VITALS: BMI 35.1
--- NOTE | 2024-02-23 09:46 | HO.ANESPROP2 ---
Documented by User: Shawna Martines NP 02/23/24 09:47 HPI - Anesthesia Eval Consult details Narrative: 58yo F for Upper Endoscopy and Colonoscopy [facility] Active Problems Active Problems: All Active Problems Bilateral carpal tunnel syndrome (Acute) High risk medication use (Acute) Rheumatoid arthritis (Acute) Foot pain, bilateral (Acute) Bilateral hand pain (Acute) MAYRA (obstructive sleep apnea) (Acute) Obesity (BMI 30-39.9) (Acute) Hx of abnormal cervical Pap smear (Acute) Edema (Acute) Obesity (BMI 35.0-39.9 without comorbidity) (Acute) Elevated blood pressure reading (Acute) FRANTZ positive (Acute) Bilateral primary osteoarthritis of hip (Acute) Osteoarthritis of right knee (Acute) Family History Family History Father History of hypertension Mother History of hypertension Rheumatoid arthritis Lung cancer Breast cancer Surgical History Surgical History History of umbilical hernia repair (~2008) History of ovarian cystectomy History of delivery Social History Social History (Updated 02/22/24 @ 15:14 by Delfina Lerner RN) Household Members: Significant Other and Children Alcohol intake: current Alcohol intake frequency: does not drink Patient Tobacco Use Status: Never used Tobacco e-Cigarette/Vaping Use: Never Used Use of substances other than those prescribed or required for medical reasons: No Have you been hit, kicked, punched, or otherwise hurt by someone within the past year? 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 Meds Allergies Allergy/AdvReac Type Severity Reaction Status Date / Time methotrexate AdvReac Intermediate gerd Verified 01/26/24 13:08 Home Medications ?Medication ?Instructions ?Recorded ?Confirmed ?Last Taken ?Type escitalopram oxalate 10 mg tablet 10 mg PO DAILY 05/08/20 02/22/24 Unknown History hydrochlorothiazide 25 mg tablet 25 mg PO DAILY 05/08/20 02/22/24 Unknown History lisinopril 40 mg tablet 40 mg PO DAILY 05/08/20 02/22/24 Unknown History trazodone 50 mg tablet 50 mg PO BEDTIME PRN Insomnia 05/08/20 02/22/24 Unknown History duloxetine 30 mg capsule,delayed 30 mg PO DAILY 07/26/23 02/22/24 Unknown History release Exam Height,Weight and Vital Signs: Height 5 ft 3 in Weight 89.811 kg Assessment and Plan Assessment Anesthesia Assessment: Chart Reviewed Documented by User: Shmuel Hooper MD 02/24/24 10:54 PMFSH Family History Family History Father History of hypertension Mother History of hypertension Rheumatoid arthritis Lung cancer Breast cancer Family history of problems with anesthesia: No Surgical History Surgical History History of umbilical hernia repair (~2008) History of ovarian cystectomy History of delivery History of Problems with Anesthesia: No Social History Social History (Updated 02/22/24 @ 15:14 by Delfina Lerner RN) Household Members: Significant Other and Children Alcohol intake: current Alcohol intake frequency: does not drink Patient Tobacco Use Status: Never used Tobacco e-Cigarette/Vaping Use: Never Used Use of substances other than those prescribed or required for medical reasons: No Have you been hit, kicked, punched, or otherwise hurt by someone within the past year? 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 Meds Allergies Allergy/AdvReac Type Severity Reaction Status Date / Time methotrexate AdvReac Intermediate gerd Verified 01/26/24 13:08 Home Medications ?Medication ?Instructions ?Recorded ?Confirmed ?Last Taken ?Type escitalopram oxalate 10 mg tablet 10 mg PO DAILY 05/08/20 02/22/24 Unknown History hydrochlorothiazide 25 mg tablet 25 mg PO DAILY 05/08/20 02/22/24 Unknown History lisinopril 40 mg tablet 40 mg PO DAILY 05/08/20 02/22/24 Unknown History trazodone 50 mg tablet 50 mg PO BEDTIME PRN Insomnia 05/08/20 02/22/24 Unknown History duloxetine 30 mg capsule,delayed 30 mg PO DAILY 07/26/23 02/22/24 Unknown History release Exam Airway Mallampati Class: III TM Dist: >3cm Neck ROM: Full Assessment and Plan Assessment Anesthesia Assessment: Anesthesia Plan Discussed Final Anesthetic Review Family History of Problems with Anesthesia: No History of Problems with Anesthesia: No NPO: Yes ASA Class: III Final Preanesthetic Review: No Changes in Pt Med Stat, Meds/Allgs Chart Reviewed, Consent Obtained/Reviewed, Anes Risks/Benef Reviewed and DNR Form (If Appl.) Patient Risk: Intermediate Procedure Risk: Low Anesthetic Plan Anesthetic Plan: TIVA Disposition: Standard PACU
[2024-02-24 08:39] VITALS: BP 177/92; PULSE 78; RESP 19; TEMP 36.1; O2SAT 98
[2024-02-24] MEDS: Lactated Ringers 1,000 ML 100 ML IVCONT (08:55)
--- NOTE | 2024-02-24 09:24 | MHC.SHP ---
Pre-Procedural Eval Section A - 24 Hr Update-Section A only Date of Service: 02/24/24 Section B - Complete if H&P > 30 days Chief Complaint: Gastro-esophageal reflux disease without esophagit Details of Present Illness: colon screening Relevant Family History (Specify if Yes): No Relevant Social History: None Present Medications: see Short Stay Collaborative assessment Medical History: Significant History (carlos, RA, obesity, OA) History of Previous Operations: Relevant previous surgery/procedure and date(s) (History of umbilical hernia repair (~2008) History of ovarian cystectomy History of delivery) Allergies: Allergies Allergy/AdvReac Type Severity Reaction Status Date / Time methotrexate AdvReac Intermediate gerd Verified 01/26/24 13:08 Review of Systems Sugical H&P ROS: Negative: Constitution, Cardiovascular, Respiratory, Neurological, Psychiatric, Hem-Onc, Allergic/Immunologic, Gastrointestinal, Genitourinary, Musculoskeletal, Integumentary, Endocrine and Eyes/Ears/Nose/Throat Exam Surgical H&P Exam: Normal: HEENT, Normal: Heart, Normal: Lungs, Normal: Extremities, Normal: Abdomen, Normal: Skin and Normal: Neurological Plan Diagnosis/Plan: Unchanged I have reviewed the history and physical and performed a pertinent physical examination on my patient. No changes have occurred unless specified. Time Spent With Patient Time: Total time managing care of this patient today ____ minutes.
--- NOTE | 2024-02-24 10:43 | P.OPN-COLO_ITS ---
Colonoscopy Operative Note Operative Note Date of Service: 02/24/24 Narrative: Operative Information Procedure Description: EGD, Colonoscopy Indication: GERD and colon screening Anesthesia: MAC FLEXIBLE TRANSORAL UPPER GASTROINTESTINAL ENDOSCOPY AND COLONOSCOPY PROCEDURE NOTE UPPER ENDOSCOPY Consent: Indications for the procedure and potential complications of bleeding, perforation, reaction to medications and missed diagnosis were discussed with the patient and informed consent was obtained. Instrument: Olympus GIF H 190 J mid size upper endoscope Monitoring: Vital signs and clinical assessment, continuous EKG monitoring, Pulse oximetry, Carbon Dioxide monitoring and blood pressure monitoring were done throughout the procedure. Procedure: The patient was placed in the left lateral decubitis position and pre-procedure medications were administered and a bite block was placed. The endoscope was inserted into the mouth and advanced under direct vision to the third part of duodenum. A careful inspection was made as the upper endoscope was withdrawn including a retroflexed examination of the proximal stomach; Findings and interventions are described below. Findings: Larynx:normal Esophagus: GE junction at 35 cm, diaphragm hiatus at 37 cm, consistent with 2 cm sliding hiatal hernia, boggy mucosa with friable tissue, bx taken but due to persistent oozing x 2 clips applied. Schatzki ring noted as well, bx from distal and proximal esophagus as well, slightly nodular tissue in the distal esophagus Stomach: Patchy erythema and atrophy. Biopsies were obtained. Grade 2 flap valve on retroflexed examination of the cardia. Duodenum: bulbar duodenitis, bx taken Intervention: Biopsies as noted above, clips applied COLONOSCOPY Instrument: Olympus variable stiffness pediatric scope 190L Colonoscopy Monitoring: Vital signs and clinical assessment, continuous EKG monitoring, Pulse oximetry, Carbon Dioxide monitoring and blood pressure monitoring were done throughout the procedure. Colon withdrawal time was 9 minutes. Procedure: The patient was placed in the left lateral decubitis position and pre-procedure medications were administered. After a digital rectal examination of the ano-rectum, the video colonoscope was inserted into the rectum and advanced through the colon to the cecum/TI. The colonoscope was slowly withdrawn in a retrograde panoramic fashion and the colon mucosa was carefully examined including a retroflexed view of the rectum. Findings and interventions are described below. Procedure Difficulty:moderate Findings: Terminal Ileum-not intubated Cecum:normal Ascending Colon: 7-8 mm sessile polyp removed with cold snare Transverse Colon -normal Descending Colon:normal Sigmoid Colon: mild diverticulosis Rectum: Retroflexion with small internal hemorrhoids, grade I, 4-5 mm sessile polyp removed with cold forceps Anorectum - normal Colon preparation: [place] Bowel Preparation Scale Right colon; 2 Transverse colon: 2 Left colon; 2 (0 = Unprepared colon segment with mucosa not seen due to solid stool that cannot be cleared. 1 = Portion of mucosa of the colon segment seen, but other areas of the colon segment not well seen due to staining, residual stool and/or opaque liquid. 2 = Minor amount of residual staining, small fragments of stool and/or opaque liquid, but mucosa of colon segment seen well. 3 = Entire mucosa of colon segment seen well with no residual staining, small fragments of stool or opaque liquid) Impression and Post Procedure Diagnosis: Endoscopy Findings: gastritis hiatal hernia duodenitis esophagitis Colonoscopy Findings: diverticulosis colon polyps internal hemorrhoids Plan: Await Pathology results Repeat Colonoscopy in 5 years due to polyps or earlier if clinically indicated High fiber diet leaflet avoid straining at stool, epsom salts and sitz bath, anusol supps or cream if h pylori pos then treat Above findings were reviewed with the patient and relevant handouts were provided if indicated.
[2024-02-24 10:53] VITALS: BP 134/69; PULSE 102; RESP 18; TEMP 36.6; O2SAT 98
[2024-02-24 11:08] VITALS: BP 126/67; PULSE 92; RESP 16; O2SAT 98
[2024-02-24 11:24] VITALS: BP 156/71; PULSE 88; RESP 16; O2SAT 98
[2024-02-24 11:39] VITALS: BP 150/109; PULSE 81; RESP 16; O2SAT 98
[2024-02-24] MEDS: Acetaminophen 325 MG TABLET 975 MG PO (11:44)
[2024-02-24 12:00] VITALS: BP 153/85; PULSE 88; RESP 16; TEMP 36.6; O2SAT 98
== END 2024-02-24 12:24 | disposition home or self-care (01) ==
PROVIDERS: PCP Registered Nurse; Visit Provider Internal Medicine Gastroenterology
PROC: (CPT 45385; principal; 2024-02-24 10:50)
DX: Z12.11 Encounter for screening for malignant neoplasm of colon (principal); D12.2 Benign neoplasm of ascending colon; K62.1 Rectal polyp; K57.30 Diverticulosis of large intestine without perforation or abscess without bleeding; K64.0 First degree hemorrhoids; K59.01 Slow transit constipation; K21.9 Gastro-esophageal reflux disease without esophagitis; K29.80 Duodenitis without bleeding; K20.80 Other esophagitis without bleeding; K29.50 Unspecified chronic gastritis without bleeding; K22.2 Esophageal obstruction; K44.9 Diaphragmatic hernia without obstruction or gangrene; M06.9 Rheumatoid arthritis, unspecified; G47.33 Obstructive sleep apnea (adult) (pediatric); M19.90 Unspecified osteoarthritis, unspecified site; E66.9 Obesity, unspecified; Z68.34 Body mass index [BMI] 34.0-34.9, adult; Z79.899 Other long term (current) drug therapy; Z99.89 Dependence on other enabling machines and devices; Z88.8 Allergy status to other drugs, medicaments and biological substances; Z98.890 Other specified postprocedural states; Z56.0 Unemployment, unspecified
CPT/HCPCS: 45385; 45380; 43239; 88305; 88313; 88342

== ENCOUNTER → 2024-02-24 08:08 | Outpatient (BNV) | payer MEDICAID, SELFPAY | PROVIDERS: PCP Registered Nurse; Visit Provider Internal Medicine Gastroenterology | DX: Z12.11 Encounter for screening for malignant neoplasm of colon (principal); D12.2 Benign neoplasm of ascending colon; K62.1 Rectal polyp; K64.0 First degree hemorrhoids; K21.9 Gastro-esophageal reflux disease without esophagitis; K29.80 Duodenitis without bleeding; K22.2 Esophageal obstruction | CPT/HCPCS: 43239; 45380; 45385 ==

== ENCOUNTER 2024-03-06 13:14 | Outpatient (AMB) | payer MEDICAID, SELFPAY ==
[2024-03-06 13:19] VITALS: BP 152/84; PULSE 74; O2SAT 97; BMI 34.6
--- NOTE | 2024-03-06 13:19 | MHC.OFFVIS ---
Vital Signs 03/06/24 13:19 Height 5 ft 3 in Weight 195 lb 5.273 oz BMI 34.6 BP 152/84 H Blood Pressure Location Lt brachial Position Sitting Pulse 74 Pulse Source Pulse Oximeter Pulse Oximetry (%) 97 Oxygen Delivery Method Room Air Intake Visit Reasons: s/p egd/colon Intake Note: ESTABLISHED PATIENT Reason; s/p duo. Changes/concerns? No new concerns at this time. Chamfering Machine Operator Required: Yes Chamfering Machine Operator Services: Chamfering Machine Operator Present Chamfering Machine Operator Name: Jeannette Fernandez [id number] Information Interpreted: non-clinical & clinical Accompanied by: Self / Same As Patient Allergies methotrexate Adverse Reaction (Intermediate, Verified 03/06/24 13:19) gerd HPI HPI s/p egd/colon: Details: LAST VISIT: Screen for colon cancer Constipation GERD (gastroesophageal reflux disease) Plan Will change PPI to pantoprazole. Patient was also encouraged to avoid dietary triggers and late night snacking. Will send patient for upper endoscopy to rule out gastritis, esophagitis, duodenitis, gastric or peptic ulcer, Tolliver's, H pylori. Patient reports that she has her instructions at home, however went over the instructions again. The importance of good bowel prep discussed with patient. Stressed following clear liquid diet day before procedure. Patient should probably hold Enbrel 1 week before procedure to prevent infections. Message sent to Cinthya TRIPATHI to follow-up with patient on this. Patient has appointment with us after the procedure. She is agreeable to current plan of care and verbalizes understanding of instructions. She was given the opportunity to ask questions and all questions answered. ? Thank you for allowing me to participate in her care Medications New pantoprazole take one tablet half an hour before breakfast 40 mg PO DAILY 30 tabs 2RF K21.9 Refilled bisacodyl (Dulcolax (bisacodyl)) take 4 tabs at noon the day before your colonoscopy 20 mg (4 x 5 mg) PO ONCE 1 day 4 tabs 0RF Z12.11 polyethylene glycol 3350 (Miralax) As directed by gastroenterology department at [facility] 238 grams PO ONCE 238 grams 0RF Z12.11 Discontinued omeprazole Discontinued Reason: Doctor's Order 20 mg PO DAILY 90 caps 1RF K21.9 UPPER ENDOSCOPY AND COLONOSCOPY Findings: Larynx:normal Esophagus: GE junction at 35 cm, diaphragm hiatus at 37 cm, consistent with 2 cm sliding hiatal hernia, boggy mucosa with friable tissue, bx taken but due to persistent oozing x 2 clips applied. Schatzki ring noted as well, bx from distal and proximal esophagus as well, slightly nodular tissue in the distal esophagus Stomach: Patchy erythema and atrophy. Biopsies were obtained. Grade 2 flap valve on retroflexed examination of the cardia. Duodenum: bulbar duodenitis, bx taken Intervention: Biopsies as noted above, clips applied COLONOSCOPY Instrument: Olympus variable stiffness pediatric scope 190L Colonoscopy Monitoring: Vital signs and clinical assessment, continuous EKG monitoring, Pulse oximetry, Carbon Dioxide monitoring and blood pressure monitoring were done throughout the procedure. Colon withdrawal time was 9 minutes. Procedure: The patient was placed in the left lateral decubitis position and pre-procedure medications were administered. After a digital rectal examination of the ano-rectum, the video colonoscope was inserted into the rectum and advanced through the colon to the cecum/TI. The colonoscope was slowly withdrawn in a retrograde panoramic fashion and the colon mucosa was carefully examined including a retroflexed view of the rectum. Findings and interventions are described below. Procedure Difficulty:moderate Findings: Terminal Ileum-not intubated Cecum:normal Ascending Colon: 7-8 mm sessile polyp removed with cold snare Transverse Colon -normal Descending Colon:normal Sigmoid Colon: mild diverticulosis Rectum: Retroflexion with small internal hemorrhoids, grade I, 4-5 mm sessile polyp removed with cold forceps Anorectum - normal Colon preparation: [place] Bowel Preparation Scale Right colon; 2 Transverse colon: 2 Left colon; 2 (0 = Unprepared colon segment with mucosa not seen due to solid stool that cannot be cleared. 1 = Portion of mucosa of the colon segment seen, but other areas of the colon segment not well seen due to staining, residual stool and/or opaque liquid. 2 = Minor amount of residual staining, small fragments of stool and/or opaque liquid, but mucosa of colon segment seen well. 3 = Entire mucosa of colon segment seen well with no residual staining, small fragments of stool or opaque liquid) Impression and Post Procedure Diagnosis: Endoscopy Findings: gastritis hiatal hernia duodenitis esophagitis Colonoscopy Findings: diverticulosis colon polyps internal hemorrhoids Plan: Await Pathology results Repeat Colonoscopy in 5 years due to polyps or earlier if clinically indicated High fiber diet leaflet avoid straining at stool, epsom salts and sitz bath, anusol supps or cream if h pylori pos then treat PATHOLOGY RESULTS Diagnosis A. Duodenum biopsy: Chronic inactive duodenitis. B. Stomach, biopsy: Oxyntic mucosa with mild chronic inactive inflammation; no Helicobacter organisms seen. C. GE junction, biopsy: - Cardiofundic-type mucosa with moderate chronic active inflammation; no intestinal metaplasia seen. - Active erosive esophagitis (few neutrophils and eosinophils). D. Esophagus, distal, biopsy: - Cardiac-type mucosa with moderate chronic inactive inflammation; no intestinal metaplasia seen. - Active esophagitis (maximum eosinophil count 3 per high powered field). E. Esophagus, proximal, biopsy: Squamous epithelium within normal limits; no inflammation seen. F. Colon, ascending, polypectomy: Tubular adenoma; negative for high-grade dysplasia or carcinoma. G. Rectum, polypectomy: Hyperplastic mucosal polyp. TODAY'S VISIT Patient is here today for follow-up and to discuss upper endoscopy and colonoscopy results. Patient denies any ill effects from the prep, anesthesia or procedure itself. Patient reports that she has been doing well. Upper endoscopy showed chronic inactive duodenitis mild chronic inflammation in the stomach and active esophagitis. Patient reports that she has been doing well office started taking pantoprazole. Patient reports that her acid reflux is suppressed for the most part. Patient also changed some of the food that she is eating. Patient denies any melena, hematochezia. Denies dyspepsia, dysphagia or odynophagia colonoscopy showed tubular adenoma without high-grade dysplasia or carcinoma. Colonoscopy recommended in 5 years. Patient reports that she has been feeling fairly well denies any abdominal pain or discomfort. Denies any GI concerning symptoms today. [facility] Medical History (Updated 03/06/24 @ 19:38 by Mary Unger [facility]-) Erosive esophagitis Tubular adenoma of colon Surgical History History of umbilical hernia repair (~2008) History of ovarian cystectomy History of delivery Family History Father History of hypertension Mother History of hypertension Rheumatoid arthritis Lung cancer Breast cancer Social History Household Members: Significant Other and Children Alcohol intake: current Alcohol intake frequency: does not drink Patient Tobacco Use Status: Never used Tobacco e-Cigarette/Vaping Use: Never Used Current occupational status: unemployed 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 Review of Systems Const Denies weight gain and Denies weight loss ENT Reports no additional complaints, Denies dysphagia and Denies odynophagia Card Reports no additional complaints Resp Reports no additional complaints GI Denies abdominal pain, Denies belching, Denies melena, Denies bloating, Denies change in bowel habits, Denies dysphagia, Denies excessive flatus, Denies dyspepsia, Denies heartburn, Denies diarrhea, Denies loose stools, Denies nausea, Denies odynophagia and Denies vomiting Musc Reports no additional complaints Neuro Reports no additional complaints Psych Reports no additional complaints Endo Reports no additional complaints Physical Exam Vital Signs: Last Vital Signs Pulse 74 03/06/24 13:19 BP 152/84 H 03/06/24 13:19 Pulse Ox 97 03/06/24 13:19 Oxygen Delivery Method Room Air 03/06/24 13:19 BMI result Body Mass Index 34.6 Const General: healthy appearing and no acute distress Nutritional Appearance: obese Orientation/consciousness: patient oriented x3 Resp Effort & Inspection: normal respiratory effort, able to speak in complete sentences, no tracheal deviation and symmetric chest movement Auscultation: clear to auscultation bilaterally Cardio Rate: regular rate GI Inspection: Yes normal to inspection, No distended and Yes obesity Palpation (GI): Soft to palpation, not firm, nontender and No hepatosplenomegaly present Auscultation: normal bowel sounds General: Yes no CVA tenderness Back/Spine/Pelvis Back: no CVA tenderness Skin General skin exam: elasticity normal, turgor normal and dry skin Neuro General: patient oriented x3 Psych Appearance: grossly normal Mental Status: mental status grossly normal Assessment & Plan Assessment & Plan (1) Tubular adenoma of colon: Code(s): D12.6 - Benign neoplasm of colon, unspecified Category: Medical (2) Erosive esophagitis: Code(s): K22.10 - Ulcer of esophagus without bleeding Category: Medical (3) Constipation: Code(s): K59.00 - Constipation, unspecified Qualifiers: Constipation type: slow transit constipation Qualified Code(s): K59.01 - Slow transit constipation (4) GERD (gastroesophageal reflux disease): Code(s): K21.9 - Gastro-esophageal reflux disease without esophagitis Qualifiers: Esophagitis presence: with esophagitis Esophagitis bleeding: without hemorrhage Qualified Code(s): K21.00 - Gastro-esophageal reflux disease with esophagitis, without bleeding (5) Diverticulosis: Code(s): K57.90 - Diverticulosis of intestine, part unspecified, without perforation or abscess without bleeding Plan Continue pantoprazole daily. Avoid dietary triggers and late night snacking. Staying upright for minimum 3 hours after meals discussed with patient. Patient reports occasional postprandial abdominal bloating depending on what she eats. Low FODMAP diet discussed with patient. List of food recommended as well as list of food to avoid given to patient. Increase fluid intake and activity to promote better bowel motility. Colonoscopy in 5 years, sooner if clinically necessary. Follow-up in 6 months, sooner on as needed basis. Patient is agreeable to this plan and verbalizes understanding of instructions. She was given the opportunity to ask questions and all questions answered. Thank you for allowing me to participate in her care Coding Level of Care Code Est Pt Level 3 (56898) Diagnoses Tubular adenoma of colon D12.6 Erosive esophagitis K22.10 Slow transit constipation K59.01 Constipation type: slow transit constipation Gastroesophageal reflux disease with esophagitis without hemorrhage K21.00 Esophagitis presence: with esophagitis Esophagitis bleeding: without hemorrhage Diverticulosis K57.90 Time Spent (min) 30 Comment 20 minutes spent with patient and additional 10 minutes spent reviewing her records
--- OUTSIDE RECORDS SUMMARY | 2024-03-06 17:55 | XMS_ITS | Encounter Summary ---
Author Organization [employer] Address [address] [place] [address] Care Team Providers Care Operations Controller Name Role Phone Elizabeth Hanna Primary Care Provider [phone] Kalpana Liu MD Unavailable Good Sinclair MD Unavailable [phone] Mary Unger Unavailable James Hull Unavailable Reason for Visit * Reason Onset Date Comments Nurse Triage 02/11/2024 Encounter Details Date Type Department Care Team (Late st Contact Info) Description 02/11/2024 Telephone [facility] [address] [place] [address] Elizabeth Hanna FNP [address] [place], [place] [id number] Nurse Triage Social History Tobacco Use Types Packs/Day Years Used Date Smoking Tobacco: Never Smokeless Tobacco: Never Alcohol Use Standard Drinks/Week Comments Yes 0 (1 standard drink = 0.6 oz pur e alcohol) occasionally Depression Answer Date Recorded Patient Health Questionnaire-9 Score 8 12/23/2022 Patient Health Questionnaire-9 Score 8 12/23/2022 Last PHQ-9: Questionnaire Data Not on file 1 02/22/2022 Housing Stability Answer Date Recorded What is your housing situation today? I have scott preciado 12/07/[address] you li ve. Do you have problems with any of the following? None of the above 12/07/2022 Food Insecurity Answer Date Recorded Within the past 12 months, y ou worried that your food would run out before you got money to buy more: Never True 12/07/2022 Within the past 12 months,th e food you bought just didn't last and you didn't have enough money to get more: Never True Transportation Answer Date Recorded In the past 12 months, has l ack of transportation kept you from medical appts, meetings, work or from getting things needed for daily living? No 12/07/2022 Utilities Answer Date Recorded In the past 12 months, has t he electric, gas, oil or water company threatened to shut off services in your home? I am not sure 12/23/2022 Depression Answer Date Recorded Patient Health Questionnaire-2 Score 2 12/23/2022 Comments Unknown Sex and Gender Information Value Date Recorded Sex Assigned at Female 12/08/2021 10:20 AM EDT Legal Sex Female 10:20 AM EDT Gender Identity Female 12/08/2021 10:20 AM EDT Sexual Orientation Straight 12/08/2021 10 :20 AM EDT documented as of this encounter Miscellaneous Notes * Telephone Encounter - Seble Cox RN - 02/11/2024 11:21 AM EST Called pt. She states that she has been having a hoarse cough x 5-6 days. Pt sounds hoarse on phon.Pt states cough worse at night. Pt has low immune system and states I just got an Enbrel injectionand that lowers my immune system. No fever noted. Cough congested but gets stuck in throat. Protocol Used: Cough (Adult) Protocol-Based Disposition: See in Office or Video Visit Today or Tomorrow-appt. Setup for 340pm ion [facility]. Uber ride provided for pt to be picked up at 320pm. Video visit not offered Positive Triage Questions: * Continuous (nonstop) coughing interferes with work or school and no improvement using cough treatment per Care Advice * Patient wants to be seen * All higher-acuity triage questions were negative Care Advice Discussed: * Reassurance and Education - Cough * Cough Medicines * Coughing Spells * Prevent Dehydration * Avoid Tobacco Smoke * Humidifier * Telephone Encounter - Sundeep Melendez - 02/11/2024 10:54 AM EST Symptom: Cough Outcome: Talk to a nurse or provider within 15 minutes Reason: Any trouble breathing through the mouth The caller accepted this outcome. documented in this encounter Plan of Treatment Not on file documented as of this encounter Visit Diagnoses Not on filedocumented in this encounter Additional Health Concerns Assessment Noted Time PHQ-9 Depression Total Score: 8 12/24/19 23 9:19 AM EST documented as of this encounter Care Teams Operations Controller Relationship Specialty Start Date End Date Elizabeth Hanna FNP [address] [place] [address] PCP - General Family Medicine 08/12/21 Kalpana Liu MD [address] [place] [address] Rheumatology 12/15/23 Good Sinclair MD [address] [place] [address] Cardiology 12/15/23 Mary Unger [address] [place] [address] [address] [place], [place] Gastroenterology 12/15/23 James Hull [address] [facility] [address] [place] [address] Sleep Medicine 12/21/23 documented as of this encounter
--- OUTSIDE RECORDS SUMMARY | 2024-03-06 17:55 | XMS_ITS | Encounter Summary ---
Author Organization [employer] Address 75 [facility] 7t [place] [address] Care Team Providers Care Cdl Team Truck Driver Name Role Phone Elizabeth Hanna DOT ETCHER Primary Care Provider [phone] Kalpana Liu MD Unavailable Good Sinclair MD Unavailable [phone] Mary Unger Unavailable James Hull Unavailable Reason for Visit * Reason Comments Cough Encounter Details Date Type Department Care Team (Late st Contact Info) Description 02/11/2024 3:40 PM EST Office Visit [facility] [address] [place], [place] [id number] Elsa Saavedra MD [address] [place], [place] [phone] Laryngitis (Primary Dx); Sinus congestion Social History Tobacco Use Types Packs/Day Years [...] the past 12 months, has t he [employer], gas, oil or water company threatened to [...] AM EDT documented as of this encounter Last Filed Vital Signs Vital Sign Reading Time Taken Comments Blood Pressure 142/70 02/11/2024 3:47 PM EST Pulse 100 02/11/2024 3:47 PM EST Temperature 36.1 ??C (97 ??F) 02/11/2024 3:47 PM EST Respiratory Rate 20 02/11/2024 3:47 PM EST Oxygen Saturation 98% 02/11/2024 3:47 PM EST Inhaled Oxygen Concentration - - Weight 89.8 kg (198 lb) 02/11/2024 3:47 PM EST Height 160 cm (5' 3 ) 02/11/2024 3:47 PM EST Body Mass Index 35.07 02/11/2024 3:47 PM EST documented in this encounter Progress Notes * Elsa Saavedra MD - 02/11/2024 3:40 PM EST Subjective Patient ID: Winnie Shields is a 58 y.o. female who presents for Cough. Cough This is a new problem. The current episode started 1 to 4 weeks ago. The cough is Non-productive. Pertinent negatives include no chest pain, chills, ear congestion, ear pain, fever, headaches, heartburn, hemoptysis, myalgias, nasal congestion, postnasal drip, rash, rhinorrhea, sore throat, shortness of breath, sweats, weight loss or wheezing. Complaining of a cough for over 1 week associated with nasal congestion and hoarseness. Home remedies have been ineffective in controlling the symptoms. Patient Active Problem List Diagnosis Anxiety state Essential hypertension Migraine Obesity Obstructive sleep apnea syndrome Recurrent major depression in partial remission ([facility]) Vitamin D deficiency Cervical myopathy TIA (transient ischemic attack) Palpitations Heart murmur, systolic Lumbar radiculopathy Polyarthralgia Skin lesion Healthcare maintenance Constipation Pure hypercholesterolemia Rheumatoid arthritis of multiple sites with negative rheumatoid factor ([facility]) GERD (gastroesophageal reflux disease) Current Outpatient Medications on File Prior to Visit Medication Sig Dispense Refill Calcium Carb-Cholecalciferol (Calcium+D3) 600-20 MG-MCG tablet Take 1 tablet by mouth Once daily. 90 tablet 3 chlorthalidone (Hygroton) 25 MG tablet TAKE 1 TABLET (25 MG) BY MOUTH ONCE DAILY. (FOR BLOOD PRESSURE) 90 tablet 3 cholecalciferol (Vitamin D-3) 25 MCG (1000 UT) tablet Take 1 tablet (25 mcg) by mouth Once per day.90 tablet 3 Diclofenac Sodium 1 % gel APPLY ONCE A DAY TO AFFECTED JOINT 100 g 3 escitalopram (Lexapro) 10 MG tablet Take 10 mg by mouth in the morning. [facility] provider famotidine (Famotidine Orig St) 10 MG tablet TAKE 1-2 TABLETS BY ORAL ROUTE EVERY 12 HOURS NEEDED FOR ACID REFLUX 360 tablet 1 lisinopril 20 MG tablet TAKE 1 TABLET BY MOUTH EVERY DAY IN THE MORNING 90 tablet 3 lisinopril 40 MG tablet Take 1 tablet (40 mg) by mouth Once per day. 90 tablet 3 metoprolol succinate XL (Toprol XL) 25 MG 24 hr tablet Take 1 tablet (25 mg) by mouth in the morning. Do not crush or chew. 30 tablet 11 SUMAtriptan (Imitrex) 50 MG tablet take 1 Tablet by oral route once with fluids as early as possible after the onset of a migraine attack topiramate (Topamax) 25 MG tablet Take 1 tablet (25 mg) by mouth at bedtime. (For Migraines) 90 tablet 3 traZODone (Desyrel) 50 MG tablet Take by mouth at bedtime. N Provider No current facility-administered medications on file prior to visit. Review of Systems Constitutional: Negative for chills, fever and weight loss. HENT: Negative for ear pain, postnasal drip, rhinorrhea and sore throat. Respiratory: Positive for cough. Negative for hemoptysis, shortness of breath and wheezing. Cardiovascular: Negative for chest pain. Gastrointestinal: Negative for heartburn. Musculoskeletal: Negative for myalgias. Skin: Negative for rash. Neurological: Negative for headaches. Objective BP (!) 142/70 (BP Location: Left arm, Patient Position: Sitting, BP Cuff Size: Adult) Pulse 100 Temp 97 ??F (36.1 ??C) (Oral) Resp 20 Ht 5' 3 (1.6 m) Wt 198 lb (89.8 kg) SpO2 98% BMI 35.07 kg/m?? Physical Exam Constitutional: General: She is not in acute distress. Appearance: Normal appearance. She is obese. She is not ill-appearing, toxic- appearing or diaphoretic. HENT: Nose: Congestion present. Mouth/Throat: Pharynx: Posterior oropharyngeal erythema present. Cardiovascular: Rate and Rhythm: Normal rate. Pulmonary: Effort: Pulmonary effort is normal. Neurological: Mental Status: She is alert. Assessment/Plan Diagnoses and all orders for this visit: Laryngitis Comments: Advised to avoid talking Medication as recommendedGargle with warm salt water Call the office if no improvement in the next week or so. Orders: - dextromethorphan-guaiFENesin (Tussin DM) 10-100 MG/5ML liquid; Take 5 mL by mouth every 4 (four) hours if needed for cough for up to 10 days. - amoxicillin-clavulanate (Augmentin) 875-125 MG tablet; Take 1 tablet by mouth 2 times daily for 10 days. - predniSONE (Deltasone) 20 MG tablet; Take 1 tablet (20 mg) by mouth Once per day for 3 doses. Sinus congestion Comments: Supportive care Meds as recommended Advised to increase fluid intake Orders: - POCT Rapid Influenza A OSOM - POCT Rapid Influenza B OSOM - POCT Rapid Covid-19 BinaxNOW - POCT Rapid Strep A OSOM - dextromethorphan-guaiFENesin (Tussin DM) 10-100 MG/5ML liquid; Take 5 mL by mouth every 4 (four) hours if needed for cough for up to 10 days. - amoxicillin-clavulanate (Augmentin) 875-125 MG tablet; Take 1 tablet by mouth 2 times daily for 10 days. - predniSONE (Deltasone) 20 MG tablet; Take 1 tablet (20 mg) by mouth Once per day for 3 doses. Has elevated blood pressure. Advised to continue with the low sodium diet and her current medication and to follow-up with PCP as scheduled documented in this encounter Plan of Treatment Not on file documented as of this encounter Procedures Procedure Name Priority Date/Time Associated Diagnosis Comments POCT RAPID COVID ANTIGEN Routine 02/11/2024 4:04 PM EST Sinus congestion POCT RAPID STREP A Routine 02/11/2024 4: 04 PM EST Sinus congestion POCT INFLUENZA B Routine 02/11/2024 4:03 PM EST Sinus congestion POCT INFLUENZA A Routine 02/11/2024 4:02 PM EST Sinus congestion documented in this encounter Results * POCT Rapid Strep A OSOM (02/11/2024 4:04 PM EST) Pathologist [facility] Rapid Strep A Screen Negative Negative, None Detected QC Media Lot # [id number] Lot# Expiration Date [id number] Swab 02/11/2024 4:04 PM EST Elsa Saavedra MD POINT OF CARE TEST ENTER/ED IT ORDERABLES Final Result * POCT Rapid Covid-19 BinaxNOW (02/11/2024 4:04 PM EST) Pathologist [facility] Rapid COVID Ag Negative QC Media Lot # [id number] Lot# Expiration Date [id number] Swab 02/11/2024 4:04 PM EST Elsa Saavedra MD POINT OF CARE TEST ENTER/ED IT ORDERABLES Final Result * POCT Rapid Influenza B OSOM (02/11/2024 4:03 PM EST) Rapid Influenza B Ag Negative Negative, Indeterminate QC Media Lot # [id number] Lot# Expiration Date Swab 02/11/2024 4:03 PM EST Elsa Saavedra MD POINT OF CARE TEST ENTER/ED IT ORDERABLES Final Result * POCT Rapid Influenza A OSOM (02/11/2024 4:02 PM EST) Rapid Influenza A Ag Negative Negative, Indeterminate QC Media Lot # [id number] Lot# Expiration Date Swab Nasopharyngeal structure / Unknown 02/11/2024 4:02 PM EST Elsa Saavedra MD POINT OF CARE TEST ENTER/ED IT ORDERABLES Final Result documented in this encounter Visit Diagnoses Diagnosis Laryngitis- Primary Acute laryngitis, without mention of obstruction Sinus congestion Other diseases of nasal cavity and sinuses documented in this encounter Additional Health Concerns Assessment Noted Time PHQ-9 Depression Total Score: 8 12/24/19 23 9:19 AM EST documented as of this encounter Care Teams Cdl Team Truck Driver Relationship Specialty Start Date End Date Elizabeth Hanna FNP [address] [place] [address] PCP - General Family Medicine 08/12/21 Kalpana Liu MD [address] [place] [address] Rheumatology 12/15/23 Good Sinclair MD [address] [place] [address] Cardiology 12/15/23 Mary Unger [address] [place] [address] Dr 3rd Floor [place], [place] Gastroenterology 12/15/23 James Hull [address] [address] Sleep Medicine 12/21/23 documented as of this encounter
--- OUTSIDE RECORDS SUMMARY | 2024-03-06 17:55 | XMS_ITS | Encounter Summary ---
Author Organization [employer] Address 75 [facility] 7t [place] [address] Care Team Providers Care Dental Coordinator Name Role Phone Elizabeth Hanna MAY Primary Care Provider [phone] Kalpana Liu MD Unavailable Good Sinclair MD Unavailable [phone] Mary Unger Unavailable James Hull Unavailable Encounter Details Date Type Department Care Team (Late st Contact Info) Description 02/24/2024 Orders Only GENERIC EXTERNAL DATA DEPARTMENT Provider, Generic External Data Social History Tobacco Use Types Packs/Day Years [...] AM EDT documented as of this encounter Plan of Treatment Not on file documented as of this encounter Procedures Procedure Name Priority Date/Time Associated Diagnosis Comments HEMATOXYLIN AND EOSIN STAIN Routine 02/24/2024 10:11 AM EST documented in this encounter Results * Hematoxylin and Eosin Stain (02/24/2024 10:11 AM EST) 02/24/2024 10:1 1 AM EST 02/24/2024 11:02 AM EST [facility] - 02/28/2024 12:01 PM EST ----- ------- Name: Winnie Ramirez ? Age/Sex: 58/F ? : 1965 Unit#: [id number] ?? Attend Dr: Giovanny Nuñez MD ?Re02/24/24 ?Status: DEP [facility] ? Location: HO.SSS ?Disch: ? ----- ------- SPEC : [id number] ?RECD: 02/24/24-2 ? STATUS: ??SOUT ? REQ NUM: [id number] ? BRIE: 02/24/24-1011 ? SUBM DR: Giovanny Nuñez MD ? ENTERED: ??02/24/24-1112 ?SP TYPE: Surgical ? OTHR DR: Elizabeth Hanna BUILDING CLEANING SUPERVISOR ? ORDERED: ??HE Stain/21, Gross Micro L4/7, IHC, Special st. 2/3, H. pylori, AB/PAS/3 ? Diagnosis ?? A. ??Duodenum biopsy: ??Chronic inactive duodenitis. ? B. ??Stomach, biopsy: ??Oxyntic mucosa with mild chronic inactive inflammation; no ?? Helicobacter organisms seen. ? C. ??GE junction, biopsy: ?- Cardiofundic-type mucosa with moderate chronic active inflammation; no intestinal ?? metaplasia seen. ?- Active erosive esophagitis (few neutrophils and eosinophils). ? D. ??Esophagus, distal, biopsy: ?- Cardiac-type mucosa with moderate chronic inactive inflammation; no intestinal ?? metaplasia seen. ?- Active esophagitis (maximum eosinophil count 3 per high powered field). ? E. ??Esophagus, proximal, biopsy: ??Squamous epithelium within normal limits; no ?? inflammation seen. ? F. ??Colon, ascending, polypectomy: ??Tubular adenoma; negative for high- grade dysplasia or ?? carcinoma. ? G. ??Rectum, polypectomy: ??Hyperplastic mucosal polyp. ?Clinical History Pre-Op Dx: ??Gastro-esophageal reflux disease without esophagitis Post-Op Dx: Esophagitis; duodenitis; gastritis; hiatal hernia; Schatzki's ring; colon polyp; diverticulosis; hemorrhoids. ?Microscopic Description A-G. ??Microscopic sections examined. ??No metaplastic changes are seen, supported by AB/PAS stains (B, C and D); no Helicobacter organisms are seen, supported by H. pylori immunostain (B). ? Material Received ?? A. Duodenal bx ?? B. Stomach bx ?? C. TO junction bx ?? D. Distal esophagus ?? E. Proximal esophagus ? CONTINUED ON NEXT PAGE ----- ------- Name: Winnie Ramirez ? Age/Sex: 58/F ? : 1965 Unit#: [id number] ?? Attend Dr: Giovanny Nuñez MD ?Re02/24/24 ?Status: DEP [facility] ? Location: HO.SSS ?Disch: ? ----- ------- SPEC : [id number] ?RECD: 02/24/24-1101 ? STATUS: ??SOUT ? REQ NUM: [id number] ? BRIE: 02/24/24-1011 ? SUBM DR: Giovanny Nuñez MD ? ENTERED: ??02/24/24-1111 ?SP TYPE: Surgical ? OTHR DR: Elizabeth Hanna BUILDING CLEANING SUPERVISOR ? ORDERED: ??HE Stain/21, Gross Micro L4/7, IHC, Special st. 2/3, H. pylori, AB/PAS/3 ? Material Received ?(Continued) ?? F. Ascending colon polyp ?? G. Rectal polyp ? Gross Description Received in seven parts. Part A: ??Received in formalin labeled ?duodenal bx? are 3 stern-pink irregular tissue fragments ranging from 0.2-0.25 cm, submitted in toto in a cassette labeled A. Part B: ??Received in formalin labeled ?stomach bx? are 3 stern-white and stern-pink irregular tissue fragments ranging from 0.1 to 0.25 cm, submitted in toto in a cassette labeled B. Part C: ??Received in formalin labeled ?EG junction bx? are 2 stern-pink irregular tissue fragments measuring 0.25 and 0.3 cm, submitted in toto in a cassette labeled C. Part D: ??Received in formalin labeled ?distal esophagus bx? are 3 goetz-pink irregular tissue fragments ranging from 0.1-0.2 cm, submitted in toto in a cassette labeled D. Part E: ??Received in formalin labeled ?proximal esophagus bx? are 3 goetz-white irregular tissue fragments ranging from minute to 0.15 cm, submitted in toto in a cassette labeled E. Part F: ??Received in formalin labeled ?ascending colon polyp? is a 0.3 cm stern-pink papular tissue fragment, submitted in toto in a cassette labeled F. Part G: ??Received in formalin labeled ?rectal polyp? is a 0.2 cm stern- pink irregular tissue fragment, submitted in toto in a cassette labeled G. ??CEDS Special studies ordered and performed: Immunostain for H. pylori on B; AB/PAS stains on B, C and G Copies To: ?? Giovanny Nuñez MD ?? [facility] ?? [address] ?? [place] [address] ?? [phone] ?? Elizabeth Hanna [facility] ?? [address] [facility] ?? [place] [address] ?? [phone] ? CONTINUED ON NEXT PAGE ----- ------- Name: Winnie Ramirez ? Age/Sex: 58/F ? : 1965 Unit#: [id number] ?? Attend Dr: Giovanny Nuñez MD ?Re02/24/24 ?Status: DEP [facility] ? Location: HO.SSS ?Disch: ? ----- ------- SPEC : [id number] ?RECD: 02/24/24-2 ? STATUS: ??SOUT ? REQ NUM: [id number] ? BRIE: 02/24/24-1011 ? SUBM DR: Giovanny Nuñez MD ? ENTERED: ??02/24/24-1112 ?SP TYPE: Surgical ? OTHR DR: Elizabeth Hanna ? ORDERED: ??HE /21, Gross Micro L4/7, IHC, Special st. 2/3, H. pylori, AB/PAS/3 ? ----- ------- Signed (signature on file) Alvaro Carrasco MD 02/28/24 1201 ? ----- ------- ? END OF REPORT ? us Generic External Data Provider LAB BLOOD ORDERAB LES Final Result [facility] [address] [place] [address] [phone] documented in this encounter Visit Diagnoses Not on filedocumented in this encounter Additional Health Concerns Assessment Noted Time PHQ-9 Depression Total Score: 8 12/24/19 23 9:19 AM EST documented as of this encounter Care Teams Dental Coordinator Relationship Specialty Start Date End Date Elizabeth Hanna FNP [address] [place] [address] PCP - General Family Medicine 08/12/21 Kalpana Liu MD [address] [place] [address] Rheumatology 12/15/23 Good Sinclair MD [address] [place] [address] Cardiology 12/15/23 Mary Unger [address] [place] [address] 3rd Floor [place], [place] Gastroenterology 12/15/23 James Hull [address] [address] Sleep Medicine 12/21/23 documented as of this encounter
--- OUTSIDE RECORDS SUMMARY | 2024-03-06 17:55 | XMS_ITS | Encounter Summary ---
Author Organization [employer] Address 75 [facility] 7t [place] [address] Care Team Providers Care Power Plant Supervisor Name Role Phone Elizabeth Hanna Primary Care Provider Kalpana Liu MD Unavailable Good Sinclair MD Unavailable [phone] Mary Unger Unavailable James Hull Unavailable Encounter Details Date Type Department Care Team (Late st Contact Info) Description 03/20/2022 Telephone [facility] [address] [place] [address] Elizabeth Hanna FNP [address] [place] [address] Social History Tobacco Use Types Packs/Day Years Used Date Smoking Tobacco: Never Assessed Comments Unknown Sex and Gender Information Value Date Recorded Sex Assigned at Female 12/08/2021 10:20 AM EDT Legal Sex Female 10:20 AM EDT Gender Identity Female 12/08/2021 10:20 AM EDT Sexual Orientation Straight 12/08/2021 10 :20 AM EDT COVID-19 Exposure Response Date Recorded In the last 10 days, have yo u been in contact with someone who was confirmed or suspected to have Coronavirus/COVID-19? No / Unsure 03/18/2022 1:23 PM EST documented as of this encounter Miscellaneous Notes * Telephone Encounter - Manuela Henry - 03/20/2022 1:58 PM EST Tc from pt would like update on referral for cardiology . documented in this encounter Plan of Treatment Not on file documented as of this encounter Visit Diagnoses Not on filedocumented in this encounter Care Teams Power Plant Supervisor Relationship Specialty Start Date End Date Elizabeth Hanna FNP [address] [place] [address] PCP - General Family Medicine 08/12/21 Kalpana Liu MD [address] [place] [address] Rheumatology 12/15/23 Good Sinclair MD [address] [place] [address] Cardiology 12/15/23 Mary Unger [address] [place] [address] 3rd Floor [place], [place] Gastroenterology 12/15/23 James Hull [address] [facility] [address] [place] [address] Sleep Medicine 12/21/23 documented as of this encounter
--- OUTSIDE RECORDS SUMMARY | 2024-03-06 17:55 | XMS_ITS | Encounter Summary ---
Author Organization [employer] [facility] Address 75 [facility] 7t [place] [address] Care Team Providers Care Weather Algorithm Scientist Name Role Phone Elizabeth Hanna Primary Care Provider [phone] Kalpana Liu MD Unavailable Good Sinclair MD Unavailable [phone] Mary Unger Unavailable James Hull Unavailable Reason for Visit * Reason Onset Date Comments triage 07/02/2022 Encounter Details Date Type Department Care Team (Late st Contact Info) Description 07/02/2022 Telephone [facility] [address] [place] [address] Elizabeth Hanna FNP [address] [place], [place] [phone] triage Social History Tobacco Use Types Packs/Day Years Used Date Smoking Tobacco: Never Smokeless Tobacco: Never Alcohol Use Standard Drinks/Week Comments Yes 0 (1 standard drink = 0.6 oz pur e alcohol) Rarely Comments Unknown Sex and Gender Information Value [...] suspected to have Coronavirus/COVID-19? No / Unsure 06/04/2022 1:46 PM EDT documented as of this encounter Miscellaneous Notes * Telephone Encounter - Malena Garcia RN - 07/02/2022 2:48 PM EDT Triage call with [place] Patient Account Liaison ID [id number] Pt reports feet, ankles, hands get swollen and has increased more and more. Pt reports dx of RA. Ptreports difficulty walking and has a 2 story house, bedrooms are on the second story. Pt denies difficulty breathing. Pt reports it is difficult to climb the stairs due to foot and ankle pain. Pt hasbeen going to PT as ordered. Pt has a preop apt 07/31 for future hip surgery. Apt with Dr. Mcfarland 07/07@ 1100am and Home care concerns reviewed. Protocol Used: Leg Swelling and Edema (Adult) Protocol-Based Disposition: See in Office or Video Visit within 2 Weeks Video visit not offered Positive Triage Question: * Mild swelling of both ankles and chronic (unchanged) * All higher-acuity triage questions were negative Care Advice Discussed: * Reasons To Call Back - Swelling becomes worse - Swelling becomes red or painful to the touch - Calf pain occurs and becomes constant - You become worse * Telephone Encounter - Manuela Henry - 07/02/2022 1:27 PM EDT Symptom: Foot or Ankle Swelling Outcome: Schedule an urgent appointment (within 4 hours) or talk to a nurse or provider soon Reason: Getting worse The caller accepted this outcome documented in this encounter Plan of Treatment Not on file documented as of this encounter Visit Diagnoses Not on filedocumented in this encounter Care Teams Weather Algorithm Scientist Relationship Specialty Start Date End Date Elizabeth Hanna FNP [address] [place] [address] PCP - General Family Medicine 08/12/21 Kalpana Liu MD [address] [place] [address] [address] [place] [address] Rheumatology 12/15/23 Good Sinclair MD [address] [place] [address] Cardiology 12/15/23 Mary Unger [address] [place] [address] [address] [place], [place] Gastroenterology 12/15/23 James Hull [address] [address] Sleep Medicine 12/21/23 documented as of this encounter
--- OUTSIDE RECORDS SUMMARY | 2024-03-06 17:55 | XMS_ITS | Encounter Summary ---
Author Organization [employer] Address [address] [facility] [address] 7t [place] [address] Care Team Providers Care Java Swing Developer Name Role Phone Elizabeth Hanna MAY Primary Care Provider [phone] Kalpana Liu MD Unavailable Good Sinclair MD Unavailable [phone] Mary Unger Unavailable James Hull Unavailable Encounter Details Date Type Department Care Team (Latest Contact Info) Description 02/14/2024 Travel Social History Tobacco Use Types Packs/Day Years [...] documented as of this encounter Care Teams Java Swing Developer Relationship Specialty Start Date End Date Elizabeth Hanna FNP 230 [place] [address] PCP - General Family Medicine 08/12/21 Kalpana Liu MD [address] [place] [address] Rheumatology 12/15/23 Good Sinclair MD 5[address] [place] [address] Cardiology 12/15/23 Mary Unger [address] [place] [address] Dr 3rd Floor [place], [place] Gastroenterology 12/15/23 James Hull 22 [facility] [address] [place] [address] Sleep Medicine 12/21/23 documented as of this encounter
--- OUTSIDE RECORDS SUMMARY | 2024-03-06 17:55 | XMS_ITS | Encounter Summary ---
Author Organization [employer] Address 75 [facility] 7t [place] [address] Care Team Providers Care Net Mvc Developer Name Role Phone Elizabeth Hanna MAY Primary Care Provider Kalpana Liu MD Unavailable Good Sinclair MD Unavailable [phone] Mary Unger Unavailable James Hull Unavailable Encounter Details Date Type Department Care Team (Late st Contact Info) Description 06/17/2023 Orders Only [facility] [address] [place] [address] [place], [place] [address] [address] Social History Tobacco Use Types Packs/Day Years [...] Procedure Name Priority Date/Time Associated Diagnosis Comments MAMMOGRAPHY SCREENING Routine 09/29/2022 2:52 PM EDT documented in this encounter Results * MAMMOGRAPHY SCREENING (09/29/2022 2:52 PM EDT) Anatomical Region Laterality Modality Breast Left Mammography [place] IMG BI PROCEDURES Final Result documented in this encounter Visit Diagnoses Not on filedocumented in this encounter Additional Health Concerns Assessment Noted Time PHQ-9 Depression Total Score: 8 12/24/19 23 9:19 AM EST documented as of this encounter Care Teams Net Mvc Developer Relationship Specialty Start Date End Date Elizabeth Hanna FNP [address] [place] [address] PCP - General Family Medicine 08/12/21 Kalpana Liu MD [address] [address] Rheumatology 12/15/23 Good Sinclair MD [address] [place] [address] Cardiology 12/15/23 Mary Unger [address] [place] [address] Dr 3rd Floor [place] Gastroenterology 12/15/23 James Hull [address] [address] Sleep Medicine 12/21/23 documented as of this encounter
--- OUTSIDE RECORDS SUMMARY | 2024-03-06 17:55 | XMS_ITS | Encounter Summary ---
Author Organization [employer] Address [address] [facility] 7t [place] [address] Care Team Providers Care Corporate Director Talent Assessment Name Role Phone Elizabeth Hanna Primary Care Provider Kalpana Liu MD Unavailable Good Sinclair MD Unavailable [phone] Mary Unger Unavailable James Hull Unavailable Reason for Visit * Reason Onset Date Comments Referral 03/26/2022 Encounter Details Date Type Department Care Team (Late st Contact Info) Description 03/26/2022 Telephone [facility] MEDICINE [address] [place] [address] Elizabeth Hanna FNP [address] [place], [place] [phone] Referral Social History Tobacco Use Types Packs/Day Years Used Date Smoking Tobacco: Never Assessed Depression Answer Date Recorded Patient Health Questionnaire-9 Score 8 12/23/2022 Patient Health Questionnaire-9 Score 8 12/23/2022 Last PHQ-9: Questionnaire Data Not on file 1 02/22/2022 Housing Stability Answer Date Recorded What is your housing situation today? I have scottsilvio preciado 12/07/[address] you [...] suspected to have Coronavirus/COVID-19? 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 Please contact at [phone] documented in this encounter Plan of Treatment Not on file documented as of this encounter Visit Diagnoses Not on filedocumented in this encounter Care Teams Corporate Director Talent Assessment Relationship Specialty Start Date End Date Elizabeth Hanna FNP [address] [place] [address] PCP - General Family Medicine 08/12/21 Kalpana Liu MD [address] [place] [address] Rheumatology 12/15/23 Good Sinclair MD [address] [place] [address] Cardiology 12/15/23 Mary nUger [address] [place] [address] Dr 3rd Floor [place] Gastroenterology 12/15/23 James Hull [address] [address] Sleep Medicine 12/21/23 documented as of this encounter
--- OUTSIDE RECORDS SUMMARY | 2024-03-06 17:55 | XMS_ITS | Encounter Summary ---
Author Organization [employer] Address [address] [facility] 7t [place] [address] Care Team Providers Care Prison Guard Name Role Phone Elizabeth Hanna Primary Care Provider [phone] Kalpana Liu MD Unavailable Good Sinclair MD Unavailable [phone] Mary Unger Unavailable James Hull Unavailable Reason for Visit * Reason Onset Date Comments Referral 07/10/2022 rheumatology Encounter Details Date Type Department Care Team (Late st Contact Info) Description 07/10/2022 Telephone [facility] MEDICINE [address] [place] [address] Elizabeth Hanna FNP [address] [place], [place] [phone] Referral (rheumatology) Social History Tobacco Use Types Packs/Day Years Used Date Smoking Tobacco: Never Smokeless Tobacco: Never Alcohol Use Standard Drinks/Week Comments Yes 0 (1 standard drink = 0.6 oz pur e alcohol) occasionally Depression Answer Date Recorded Patient Health Questionnaire-9 Score 0 07/07/2022 Depression Answer Date Recorded Patient Health Questionnaire-2 Score 0 07/07/2022 Comments Unknown Sex and Gender Information Value [...] suspected to have Coronavirus/COVID-19? No / Unsure 07/07/2022 10:37 AM EDT documented as of this encounter Miscellaneous Notes * Telephone Encounter - Scarlett Sullivan - 07/14/2022 2:49 PM EDT Line Walker printed and refaxed referral, notes, and labs and faxed it to [facility] Rheumatology. Line Walker called and spoke with pt and informed her. She stated she was given an appt for October 05 and felt it was to late. Line Walker explained she could be placed on a wait list incase there is a cancellation. Pt agreed to call and ask to be placed on a waitlist. * Telephone Encounter - Celeste More - 07/10/2022 12:13 PM EDT Tc from patient calling on the status of rheumatology referral. Patient states office states they have the referral but not the notes for referral. documented in this encounter Plan of Treatment Not on file documented as of this encounter Visit Diagnoses Not on filedocumented in this encounter Additional Health Concerns Assessment Noted Time PHQ-9 Depression Total Score: 0 07/08/19 23 10:51 AM EDT documented as of this encounter Care Teams Prison Guard Relationship Specialty Start Date End Date Elizabeth Hanna FNP [address] [place] [address] PCP - General Family Medicine 08/12/21 Kalpana Liu MD [address] [address] Rheumatology 12/15/23 Good Sinclair MD [address] [place] [address] Cardiology 12/15/23 Mary Unger [address] [place] [address] Dr 3rd Floor [place] Gastroenterology 12/15/23 James Hull [address] [address] Sleep Medicine 12/21/23 documented as of this encounter
--- OUTSIDE RECORDS SUMMARY | 2024-03-06 17:55 | XMS_ITS | Encounter Summary ---
Author Organization [employer] Address [address] [facility] 7t [place] [address] Care Team Providers Care Senior Game Designer Name Role Phone Elizabeth Hanna Primary Care Provider [phone] Kalpana Liu MD Unavailable Good Sinclair MD Unavailable [phone] Mary Unger Unavailable James Hull Unavailable Encounter Details Date Type Department Care Team (Late st Contact Info) Description 02/14/2024 11:00 AM EST Telemedicine [facility] MED & PEDS [address] [place], [place] [phone] Elizabeth Hanna FNP [address] [place], [place] [phone] Brain fog (Primary Dx); Essential hypertension Social History Tobacco Use Types Packs/Day Years [...] AM EDT documented as of this encounter Progress Notes * Elizabeth Hanna, MAY - 02/14/2024 11:00 AM EST Subjective: Winnie Shields is a 58 y.o. female w/ PMH hypertension, GERD, seronegative RA, and migraines who presents via telehealth to review results of MRI imaging. Interim History: Last PCP visit: 12/15/23 01/11/24: [facility] Ortho - Dr. Miranda. Plan for surgery right hand for carpal tunnel syndrome. Scheduled for upcoming colonoscopy/EGD on 02/24/24 at [facility] HPI: - MRI brain w/ and w/o contrast completed on 12/29/23 for further eval of brain fog, heat sensitivity, memory disturbance, and new diagnosis of seronegative RA: FINDINGS: No focal restricted diffusion is demonstrated to suggest acute or subacute cerebral ischemia. No evidence of acute or chronic hemorrhagic products on heme-sensitive imaging. Few nonspecific scattered foci of T2 FLAIR hyperintensity within the frontoparietal lobes. No additionalparenchymal signal abnormalities. The ventricles are normal in morphology and size. No abnormal mass effect. No midline shift. Normal appearance of the pituitary gland. Normal positioning of the cerebellar tonsils. Normal arterial and venous vascular flow voids are present. No abnormal contrast enhancement. Normal, homogeneous marrow signal. Mild mucosal thickening of the paranasal sinuses. No signal abnormalities within the mastoids. MR/MR head/brain wo/w con IMPRESSION: 1. No acute intracranial abnormalities. No abnormal intracranial enhancement. 2. Minimal nonspecific white matter changes. Telehealth: Patient gave verbal consent to be seen in this manner. A complete assessment and plan is detailed in the note, all of which were conducted remotely using virtual technology. Patient identity was verbally confirmed with 2 identifiers at the start of the visit. Patient verbalized being located in the [facility] during the televisit. Provider was located in an Ambulatory examroom/outside the office at a secure location during the visits. Patient Care Team: MAY Weiner as PCP - General (Family Medicine) Kalpana Liu MD (Rheumatology) Good Sinclair MD (Cardiology) aMry Unger (Gastroenterology) James Hull (Sleep Medicine) Review of Systems Constitutional: Negative for chills and fever. Respiratory: Negative for cough and wheezing. Cardiovascular: Negative for chest pain and palpitations. Gastrointestinal: Negative for diarrhea, nausea and vomiting. Neurological: Negative for dizziness and syncope. No Known Allergies Objective: Telehealth - No Physical Exam Psych: Alert & oriented x 3. Normal mood and affect. Assessment/Plan: Problem List Items Addressed This Visit Circulatory Essential hypertension Overview Established with [facility] (Dr. Sinclair) Echo 05/22/22: EF 60-65%, mild pulm hypertension Echo 05/25/23: EF 65-70%, trace mitral regurg and mild pulm hypertension Med regimen: Lisinopril 40 mg daily Metoprolol 25 mg nightly Chlorthalidone 25 mg daily Previous med trials: -Amlodipine discontinued due to leg swelling. -Losartan discontinued due to palpitation -hydrochlorothiazide discontinued excessive urination Relevant Medications metoprolol succinate XL (Toprol XL) 25 MG 24 hr tablet Other Visit Diagnoses Brain fog - Primary - Reviewed results with Ms. Easton - No acutely concerning findings on brain MRI - Suspect may be related to RA or KRISTIE - Encouraged to follow-up with any worsening or persistence of symptoms Follow up: 2-3 months, sooner as needed documented in this encounter Plan of Treatment Not on file documented as of this encounter Visit Diagnoses Diagnosis Brain fog- Primary Essential hypertension Unspecified essential hypertension documented in this encounter Additional Health Concerns Assessment Noted Time PHQ-9 Depression Total Score: 8 12/24/19 23 9:19 AM EST documented as of this encounter Care Teams Senior Game Designer Relationship Specialty Start Date End Date Elizabeth Hanna FNP [address] [place] [address] PCP - General Family Medicine 08/12/21 Kalpana Liu MD [address] [place] [address] Rheumatology 12/15/23 Good Sinclair MD [address] [place] [address] Cardiology 12/15/23 Mary Unger [address] [place] [address] 3rd Floor [place], [place] Gastroenterology 12/15/23 James Hull 22 [facility] [address] [place] [address] Sleep Medicine 12/21/23 documented as of this encounter
--- OUTSIDE RECORDS SUMMARY | 2024-03-06 17:55 | XMS_ITS | Encounter Summary ---
Author Organization [employer] Address 75 [facility] 7t [place] [address] Care Team Providers Care Global Account Manager Name Role Phone Elizabeth Hanna Primary Care Provider [phone] Kalpana Liu MD Unavailable DottieGood larsen MD Unavailable [phone] Mary Unger Unavailable James Hull Unavailable Reason for Visit * Reason Comments Med Refill Encounter Details Date Type Department Care Team (Late st Contact Info) Description 08/04/2022 Refill [facility] MEDICINE [address] [place] [address] Elizabeth Hanna FNP [address] [place], [place] [phone] Social History Tobacco Use Types Packs/Day Years [...] Time PHQ-9 Depression Total Score: 0 07/08/19 10:51 AM EDT documented as of this encounter Care Teams Global Account Manager Relationship Specialty Start Date End Date Elizabeth Hanna FNP [address] [place] [address] PCP - General Family Medicine 08/12/21 Kalpana Liu MD [address] [place] [address] Rheumatology 12/15/23 Good Sinclair MD 5[address] [place] [address] Cardiology 12/15/23 Mary Unger [address] [place] [address] 3rd Floor [place], [place] Gastroenterology 12/15/23 James Hull 22 [facility] [address] [place] [address] Sleep Medicine 12/21/23 documented as of this encounter
--- OUTSIDE RECORDS SUMMARY | 2024-03-06 17:55 | XMS_ITS | Encounter Summary ---
Author Organization [employer] Address [address] [facility] [address] 7t [place] [address] Care Team Providers Care Spouting Installer Name Role Phone Elizabeth Hanna MAY Primary Care Provider [phone] Kalpana Liu MD Unavailable DottieGood larsen MD Unavailable [phone] Mary Unger Unavailable James Hull Unavailable Reason for Visit * Reason Onset Date Comments Chart Prep 02/10/2024 Encounter Details Date Type Department Care Team (Late st Contact Info) Description 02/10/2024 Telephone [facility] MED & PEDS [address] [place], [place] [phone] Arely Wray MA Chart Prep Social History Tobacco Use Types Packs/Day Years [...] encounter Miscellaneous Notes * Telephone Encounter - Arely Hayes [place] - 02/10/2024 10:37 AM EST Chart Prep Labs: done Images: done Vaccines due: yes Referrals: complete Screenings: colonoscopy Overdue care gaps: Sbirt, SDOH, PHQ-9 documented in this encounter Plan of Treatment Not on file documented as of this encounter Visit Diagnoses Not on filedocumented in this encounter Additional Health Concerns Assessment Noted Time PHQ-9 Depression Total Score: 8 12/24/19 23 9:19 AM EST documented as of this encounter Care Teams Spouting Installer Relationship Specialty Start Date End Date Elizabeth Hanna FNP [address] [place] [address] PCP - General Family Medicine 08/12/21 Kalpana Liu MD [address] [place] [address] Rheumatology 12/15/23 Good Sinclair MD [address] [place] [address] Cardiology 12/15/23 Mary Unger [address] [place] [address] Dr 3rd Floor [place] Gastroenterology 12/15/23 James Hull [address] [address] Sleep Medicine 12/21/23 documented as of this encounter
--- OUTSIDE RECORDS SUMMARY | 2024-03-06 17:55 | XMS_ITS | Encounter Summary ---
Author Organization [employer] Address [address] [facility] [address] 7t [place] [address] Care Team Providers Care Zipper Setter Lockstitch Name Role Phone Elizabeth Hanna MAY Primary Care Provider [phone] Kalpana Liu MD Unavailable Good Sinclair MD Unavailable [phone] Mary Unger Unavailable James Hull Unavailable Encounter Details Date Type Department Care Team (Latest Contact Info) Description 02/11/2024 Travel Social History Tobacco Use Types Packs/Day [...] documented as of this encounter Care Teams Zipper Setter Lockstitch Relationship Specialty Start Date End Date Elizabeth Hanna FNP [address] [place] [address] PCP - General Family Medicine 08/12/21 Kalpana Liu MD [address] [place] [address] Rheumatology 12/15/23 Good Sinclair MD 596 [place] [address] Cardiology 12/15/23 Mary Unger [address] [place] [address] Dr 3rd Floor [place], [place] Gastroenterology 12/15/23 James Hull 22 [facility] [address] [place] [address] Sleep Medicine 12/21/23 documented as of this encounter
--- OUTSIDE RECORDS SUMMARY | 2024-03-06 17:55 | XMS_ITS | Clinical Summary ---
Author Organization [employer] Address [address] [facility] [address] [place] [address] Care Team Providers Care Regional Production Manager Name Role Phone Elizabeth Hanna MAY Primary Care Provider [phone] Kalpana Liu MD Unavailable DottieGood larsen MD Unavailable [phone] Mary Unger Unavailable James Hull Unavailable Allergies No known active allergies Medications SUMAtriptan (Imitrex) 50 MG tablet take 1 Tablet by oral route once with fluids as early as possible after the onset of a migraine attack 05/06/19 22 Active escitalopram (Lexapro) 10 MG tablet Take 10 mg by mouth in the morning. N provider Active traZODone (Desyrel) 50 MG tablet Take by mouth at bedtime. BANNER Provider Active Diclofenac Sodium 1 % gel APPLY ONCE A DAY TO AFFECTED JOINT 100 g 3 01/08/20 23 Active topiramate (Topamax) 25 MG tabletIndication s:Chronic migraine without aura without status migrainosus, not intractable Take 1 tablet (25 mg) by mouth at bedtime. (For Migraines) 90 tablet 3 01/14/20 23 Active chlorthalidone (Hygroton) 25 MG tabletIndication s:Essential hypertension TAKE 1 TABLET (25 MG) BY MOUTH ONCE DAILY. (FOR BLOOD PRESSURE) 90 tablet 3 03/22/19 24 025 Active lisinopril 20 MG tablet TAKE 1 TABLET BY MOUTH EVERY DAY IN THE MORNING 90 tablet 3 06/07/19 24 Active famotidine (Famotidine Orig St) 10 MG tabletIndication s:Gastroesophage al reflux disease, unspecified whether esophagitis present TAKE 1-2 TABLETS BY ORAL ROUTE EVERY 12 HOURS NEEDED FOR ACID REFLUX 360 tablet 1 09/13/19 24 Active lisinopril 40 MG tablet Take 1 tablet (40 mg) by mouth Once per day. 90 tablet 3 12/15/19 24 025 Active cholecalciferol (Vitamin D-3) 25 MCG (1000 UT) tablet Take 1 tablet (25 mcg) by mouth Once per day. 90 tablet 3 12/15/19 24 Active Calcium Carb-Cholecalcif cata (Calcium+D3) 600-20 MG-MCG tabletIndication s:Vitamin D deficiency Take 1 tablet by mouth Once daily. 90 tablet 3 12/15/19 24 Active metoprolol succinate XL (Toprol XL) 25 MG 24 hr tabletIndication s:Essential hypertension Take 1 tablet (25 mg) by mouth Once per day. Do not crush or chew. 90 tablet 3 02/13/19 25 026 Active metoprolol succinate XL (Toprol XL) 25 MG 24 hr tablet Take 1 tablet (25 mg) by mouth in the morning. Do not crush or chew. 30 tablet 11 09/24/19 23 025 Discontinued(Re order (will not trigger notification to Pharmacy)) dextromethorphan -guaiFENesin (Tussin DM) 10-100 MG/5ML liquidIndication s:Sinus congestion,Laryn gitis Take 5 mL by mouth every 4 (four) hours if needed for cough for up to 10 days. 180 mL 02/10/19 25 025 amoxicillin-clav ulanate (Augmentin) 875-125 MG tabletIndication s:Sinus congestion,Laryn gitis Take 1 tablet by mouth 2 times daily for 10 days. 20 tablet 02/10/19 25 025 Discontinued( erapy completed) predniSONE (Deltasone) 20 MG tabletIndication s:Sinus congestion,Laryn gitis Take 1 tablet (20 mg) by mouth Once per day for 3 doses. 3 tablet 02/10/19 25 025 Discontinued(Th erapy completed) Active Problems Problem Noted Date Diagnosed Date Rheumatoid arthritis of the [facility] sites with negative rheumatoid factor 12/15/2023 Overview (12/21/2023): Diagnosed 2023 - seronegative RA. Following with [facility] Rheum - Dr. Liu August 2023: Methotrexate started, folic acid daily Oct 2023: Methotrexate DC d/t lack of response and SE. PA for Enbrel initiated through Rheum. Dec 2023: Enbrel approved GERD (gastroesophageal reflux disease) Overview (12/15/2023): Followed by [facility] GI - DRILLER HELPER Cornel Omeprazole PRN Constipation 01/13/2023 Overview (12/21/2023): [facility] GI consult Sep 2023 Cont metamucil in the morning Cont senna in the evening Assessment & Plan (12/21/2023 5:34 PM EST): Well controlled with current regimen Pure hypercholesterolemia 01/13/2023 Overview (01/13/2023): Lab Results Component Value Date TRIG 84 01/04/2023 TRIG 83 04/28/2022 CHOL 190 01/04/2023 LDLCHOLCAL 115 (H) 01/04/2023 HDL 59 01/04/2023 -ASCVD risk 2.1% (PCE '18) Dec 2022 -Pharmacotherapy intervention not recommended at this time -Encouraged lifestyle modifications Healthcare maintenance 12/23/2022 Overview (12/21/2023): Pap: 07/21/22 by [facility] CNM NILM HPV neg. Hx of abnormal. Following with specialist Mammo: BIRADS 1 in August 2023 Colonoscopy: scheduled Feb 2024 at [facility] Last PE: 12/23/22 ASCVD Risk: 2.1% (PCE '18) Dec 2022 Bone density: normal August 2023 Skin lesion 09/23/2022 Assessment & Plan (09/23/2022 10:48 AM EDT): Non painful new onset skin lesion, unclear how long it has been there. It may have been an abcess that exploded leaving a scar but given Hx and characteristic need to rule out neoplasm. Pt already scheduled with dermatology 10/23/22 for a seperate lesion on her left leg. Polyarthralgia 08/24/2022 Overview (12/21/2023): Component Date Value FRANTZ Screen, IFA 06/04/2022 POSITIVE (A) Sed Rate By Modified Scott* 06/04/2022 31 (H) C-Reactive Protein 06/04/2022 22.0 (H) RHEUMATOID FACTOR 06/04/2022 <14 FRANTZ Titer 06/04/2022 1:40 (H) FRANTZ Pattern 06/04/2022 Cytoplasmic, Reticular/AMA (A) Office Visit on 06/09/2023 Component Date Value Anti Nuclear Antibody Sc* 06/09/2023 POSITIVE (A) FRANTZ Titer 06/09/2023 1:80 (A) FRANTZ Pattern 06/09/2023 (A) FRANTZ TITER 2 (REF LAB) 06/09/2023 TNP FRANTZ Pattern 2 06/09/2023 TNP FRANTZ TITER 3 06/09/2023 TNP FRANTZ PATTERN 3 06/09/2023 TNP C Reactive Protein 06/09/2023 1.75 (H) Erythrocyte Sedimentatio* 06/09/2023 21 (H) Rheumatoid Factor 06/09/2023 <13.0 Med trials: Celebrex, ibuprofen, topical voltaren Initial [facility] Rhuem consult Sep 2022, suspected OA. July 2023: Eval for diagnosis of seronegative RA Assessment & Plan (07/18/2023 5:25 PM EDT): - Ddx: autoimmune (rheum) vs fibromyalgia vs RF vs other - Start cymbalta 30mg nightly, reviewed med safety and SE. Pt will plan to hold SSRI and trazodone as she had only been using sporadically Assessment & Plan (06/09/2023 4:29 PM EDT): - Recent flare of symptoms - Ddx: autoimmune (rheum) vs fibromyalgia vs RF vs other - Plan to repeat lab work to see if labs stable - Start cymbalta 30mg nightly, reviewed med safety and SE. Pt will plan to hold SSRI and trazodone as she had only been using sporadically Assessment & Plan (12/23/2022 6:37 AM EST): -Per Rheum consult, suspected OA in hands and feet, plan to check XR hands and feet Lumbar radiculopathy 03/22/2022 Palpitations 03/20/2022 Assessment & Plan (12/21/2023 5:36 PM EST): Holter completed fall 2023 through Cards w/o significant findings Consult note from Dr. Sinclair Nov 2023: less than half a percent of PACs and PVCs Heart murmur, systolic 03/20/2022 Overview (12/15/2023): [facility] - Dr. Sinclair. Holter completed in fall 2023 - no significant findings per consult note Plan: annual echo through Cards Cervical myopathy 03/18/2022 Overview (03/18/2022): Evaluated Neurosurgery 03/14/2018, recommended surgery due to disc pathology and spinal cord compression, Unclear if surgery was performed TIA (transient ischemic attack) 03/18/2022 Overview (03/18/2022): TIA per patient report around 2007 in [place] Also mentioned as possible hx in Cardiology note from 2011 with potential carotid artery dissection Obesity 04/14/2021 Overview (12/24/2022): ?? Previously following with [facility] Weight Management (H. Pylori breath test negat 09/10/22) ?? Referral to RD 12/24/22 w/o goal for bariatric surgery at this time ?? Cont lifestyle interventions Wt Readings from Last 5 Encounters: 12/23/22 184 lb (83.5 kg) 09/28/22 194 lb 2 oz (88.1 kg) 09/23/22 196 lb (88.9 kg) 08/24/22 200 lb 6 oz (90.9 kg) 07/31/22 197 lb 3.2 oz (89.4 kg) Assessment & Plan (12/24/2022 11:14 AM EST): Pt has lost approx 15 lbs over the past 4 months through intentional changes in healthy lifestyle interventions Essential hypertension 08/16/2017 Overview (07/14/2023): Established with H[facility] (Dr. Sinclair) Echo 05/22/22: EF 60-65%, mild pulm hypertension Echo 05/25/23: EF 65-70%, trace mitral regurg and mild pulm hypertension Med regimen: Lisinopril 40 mg daily Metoprolol 25 mg nightly Chlorthalidone 25 mg daily Previous med trials: -Amlodipine discontinued due to leg swelling. -Losartan discontinued due to palpitation -hydrochlorothiazide discontinued excessive urination Assessment & Plan (12/21/2023 5:42 PM EST): -Elevated in office, although reports home BP readings well controlled (<140/90 mmHg) -Cont checking home BP readings, follow up parameters reviewed -Encouraged lifestyle interventions Assessment & Plan (07/18/2023 5:28 PM EDT): -Elevated in office, although reports home BP readings well controlled -Cont checking home BP readings, follow up parameters reviewed -Encouraged lifestyle interventions Assessment & Plan (01/13/2023 7:45 PM EST): -Elevated in office, unclear home BP numbers -Plan to start checking home BP readings, follow up parameters reviewed -Encouraged lifestyle interventions Assessment & Plan (12/24/2022 11:22 AM EST): -Reports home readings with diastolic BP elevated in the 90s-low 100s. Asymptomatic. Not always taking hydrochlorothiazide as makes her urinate frequently. -STOP hydrochlorothiazide -START chlorthalidone 25mg daily. Reviewed med safety and SE -Lifestyle interventions recommended -Follow up precautions Assessment & Plan (09/28/2022 7:55 PM EDT): -Continue with current regimen -Lifestyle interventions recommended -Follow up precautions Assessment & Plan (09/23/2022 10:48 AM EDT): Although Pt did not take hydrochlorothiazide today she reports her BP is still not at goal at home with lisinopril and hydrochlorothiazide, she is agreeable to add medications today. -Continue lisinopril. -Continue hydrochlorothiazide -Amlodipine discontinued due to leg swelling. -Losartan discontinued due to palpitation. -Metoprolol 25mg daily started 09/23/2022. -Pt has a follow up scheduled for BP 09/28/2022. Assessment & Plan (08/24/2022 5:08 PM EDT): Initial and repeat BP elevated in office BP goal <140/90 mmHg, variable control at home Multiple recent med changes, plan to continue with regimen above, monitor BP readings at home With 3+ readings above goal, plan to increase lisinopril to 40mg daily. Reviewed lifestyle interventions including low salt diet and routine physical activity Assessment & Plan (07/31/2022 9:43 AM EDT): Will discontinue amlodipine 10 mg d/t leg swelling Due to increased BP at home and at clinic today will change Lisinopril 20 mg to Olmesartan 20 mg for better BP control. Followup with PCP PRN Assessment & Plan (04/26/2022 5:33 PM EDT): -BP elevated in office, 150s/90s on initial and repeat -Reports better controlled at home, no home readings available. Asymptomatic -BP log provided to record readings over the next 2 weeks and bring to follow up appt (with PCP or [employer]) -ED precautions reviewed Follow up in 2-4 weeks for HTN, sooner as needed. Will also need TP. Pt in agreement with plan. Obstructive sleep apnea syndrome 08/16/2017 Vitamin D deficiency 07/02/2016 Overview (01/13/2023): ?? Vit D 04/28/22: 11ng/mL ?? Initiated on ergocalciferol 50,000 units weekly x 8 weeks starting 06/04/22 ?? Repeat Vit D 40ng/mL on 07/31/22 ?? Cont daily prevention dose of Calcium 600mg + Vit D 20 mcg (800 units) Assessment & Plan (07/31/2022 9:41 AM EDT): Will check Vit D level again today 07/31/22 If still low, will continue daily supplementation Followup PRN Assessment & Plan (06/14/2022 9:22 AM EDT): ?? Vit D 04/28/22: 11ng/mL ?? Initiated on ergocalciferol 50,000 units weekly x 8 weeks starting 06/04/22 Recurrent major depression in partial remission 12/27/2014 Migraine 09/12/2014 Overview (12/24/2022): -Cont Topamax 25mg 1 tablet nightly for migraine prevention -Well controlled Anxiety state 04/13/2014 Encounters Date Type Department Care Team Description 02/24/2024 Orders Only GENERIC EXTERNAL DATA DEPARTMENT Provider, Generic External Data 02/14/2024 11:00 AM EST Telemedicine [facility] [address] [place] [address] Elizabeth Hanna FNP Brain fog (Primary Dx); Essential hypertension 02/14/2024 Travel 02/11/2024 3:40 PM EST Office Visit [facility] [address] [place] [address] Elsa Saavedra MD Laryngitis (Primary Dx); Sinus congestion 02/11/2024 Travel 02/11/2024 Telephone [facility] [address] [place] [phone] Elizabeth Hanna FNP Nurse Triage 02/10/2024 Telephone [facility] [address] [place] [address] Arely Wray MA Chart Prep 02/01/2024 Telephone [facility] [address] [place] [address] Elizabeth Hanna FNP Appointment 12/15/2023 9:45 AM EST Office Visit [facility] [address] [place] [address] Elizabeth Hanna FNP Rheumatoid arthritis of multiple sites with negative rheumatoid factor (CMS/HCC) (Primary Dx); Healthcare maintenance; Gastroesophageal reflux disease, unspecified whether esophagitis present; Heart murmur, systolic; Palpitations; Encounter for immunization; Vitamin D deficiency; Polyarthralgia; Cervical myopathy; Sensitivity to heat; Constipation, unspecified constipation type; Essential hypertension; Memory disturbance 12/15/2023 Travel 12/14/2023 Telephone [facility] [address] [place] [address] Arely Wray MA Chart Prep from Last 3 Months Immunizations Name Administration Dates Next Due Hep B, adult 12/15/2023 Influenza injectable quadriv alent IIV4 with preservative 12/27/2014 Influenza injectable quadrivalent preservative f ree 05/02/2020 Influenza, IIV3, injectable 12/19/2013 Influenza, Split (incl. purified surface antigen ) 12/09/2012 Influenza, seasonal, injectable, preservative fr ee 12/15/2023 TD (adult), 2 Lf tetanus tox oid, preservative free, adsorbed 09/28/2022 Tdap 07/20/2012 Family History Medical History Relation Name Comments Arrhythmia Brother Hypertension Father chronic kidney disease Father Heart attack Mother Heart disease Mother Rheum arthritis Mother Lung cancer Mother's Brother Skin cancer Mother's Sister Relation Name Status Comments Brother Father Mother Mother's Brother Mother's Sister Social History Tobacco Use Types Packs/Day Years Used Date Smoking Tobacco: Never Smokeless Tobacco: Never Tobacco Cessation:Counseling Given: Not Answered Alcohol Use Standard Drinks/Week Comments Yes 0 [...] Orientation Straight 12/08/2021 10 :20 AM EDT Last Filed Vital Signs Vital Sign Reading [...] Mass Index 35.07 02/11/2024 3:47 PM EST Plan of Treatment Health Maintenance Due Date Last Done Comments CT Colonography 1965 Colonoscopy 1965 Colorectal Cancer Screening 1965 FIT DNA/Cologuard 1965 FIT 1965 FOBT 1965 Sigmoidoscopy 1965 Alcohol/Substance Use Screening 1978 Zoster Vaccines (1 of 2) 2016 COVID-19 Vaccine ( season) 2023 11/13/2020, 10/23/2020 Depression Screening 12/24/2023 12/23/2022, 12/24/19 23 SDOH Screening 12/24/2023 12/23/2022 Hepatitis B Vaccines (2 of 3 - 19+ 3-dose series) 01/12/2024 12/15/2023 Mammogram 08/30/2024 08/31/2023, 09/13/2020 Tobacco Screening 02/13/2025 02/14/2024 Cervical Cancer Screening 07/22/2027 HPV/Cotest 07/22/2027 07/21/2022, 04/09, 12/18/2016 Pap Smear 07/22/2027 07/21/2022 Lipid Panel 01/05/2028 01/04/2023, 04/09, 04/10/2021, Additional history exists DTaP/Tdap/Td Vaccines (3 - Td or Tdap) 09/28/2032 09/28/2022, 07/20/2012 RSV Patients and Patients Aged 60 years or older (1 - 1-dose 75+ series) 2041 HIV Screening Completed 01/04/2023, 04/28/2022 Hepatitis C Screening Completed 01/04/2023, 023 Influenza Vaccine Completed 12/15/2023, , 12/27/2014, Additional history exists HIB Vaccines Aged Out No longer eligi ble based on patient's age to complete this topic HPV Vaccines Aged Out No longer eligi ble based on patient's age to complete this topic Hepatitis A Vaccines Aged Out No long er eligible based on patient's age to complete this topic IPV Vaccines Aged Out No longer eligi ble based on patient's age to complete this topic Meningococcal Vaccine Aged Out No arabella to eligible based on patient's age to complete this topic Pneumococcal Vaccine: Pediatrics (0 to 5 Years) and At-Risk Patients (6 to 64 Years) Aged Out No longer eligible based on patient's age to complete this topic RSV under 20 months Aged Out No longe r eligible based on patient's age to complete this topic Rotavirus Vaccines Aged Out No longer eligible based on patient's age to complete this topic Procedures Procedure Name Priority Date/Time Associated Diagnosis Comments HEMATOXYLIN AND EOSIN STAIN Routine 02/24/2024 10:11 AM EST POCT RAPID STREP A Routine 02/11/2024 4: 04 PM EST Sinus congestion POCT RAPID COVID ANTIGEN Routine 02/11/2024 4:04 PM EST Sinus congestion POCT INFLUENZA B Routine 02/11/2024 4:03 PM EST Sinus congestion POCT INFLUENZA A Routine 02/11/2024 4:02 PM EST Sinus congestion MR BRAIN W AND WO CONTRAST Routine 12/29/2023 9:30 AM EST Polyarthralgia Cervical myopathy Sensitivity to heat BI MAMMOGRAM SCREENING TOMOSYNTHESIS BILATERAL Routine 08/31/2023 12:55 PM EDT HEPATITIS C VIRAL RNA, QUANTITATIVE, REAL-TIME PCR Routine 01/04/2023 8:42 AM EST Encounter for routine history and physical examination of adult HIV 1/2 ANTIGEN/ANTIBODY, FOURTH GENERATION W/RFL Routine 01/04/2023 8:42 AM EST Encounter for routine history and physical examination of adult LIPID PANEL, STANDARD Routine 01/04/2023 8:42 AM EST Encounter for routine history and physical examination of adult HPV MRNA E6/E7 REFLEX TO HPV 16, 18/45 Routine 07/21/2022 10:20 AM EDT PAP SMEAR Routine 07/21/2022 10:20 AM EDT from Last 3 Months or Most Recently Relevant to Health Maintenance Results * Hematoxylin and Eosin Stain (02/24/2024 10:11 AM EST) 02/24/2024 10:1 1 AM EST 02/24/2024 11:02 AM EST [facility] - 02/28/2024 12:01 PM EST ----- ------- Name: Rustam ShieldsWinnie ? Age/Sex: 58/F ? : 1965 Unit#: [id number] ?? Attend Dr: Giovanny Nuñez MD ?Re02/24/24 ?Status: DEP SDC ? Location: HO.SSS ?Disch: ? ----- ------- SPEC : [id number] ?RECD: 02/24/24-2 ? STATUS: ??SOUT ? REQ NUM: [id number] ? BRIE: 02/24/24-1011 ? SUBM DR: Giovanny Nuñez MD ? ENTERED: ??02/24/24-1112 ?SP TYPE: Surgical ? OTHR DR: Elizabeth HannaP ? ORDERED: ??HE Stain/21, Gross Micro L4/7, [...] ? Age/Sex: 58/F ? : 1965 Unit#: [id number] ?? Attend Dr: Giovanny Nuñez MD ?Re02/24/24 ?Status: DEP SDC ? Location: HO.SSS ?Disch: ? ----- ------- SPEC : [id number] ?RECD: 02/24/24-2 ? STATUS: ??SOUT ? REQ NUM: [id number] ? BRIE: 02/24/24-1011 ? SUBM DR: Giovanny Nuñez MD ? ENTERED: ??02/24/24-1112 ?SP TYPE: Surgical ? OTHR DR: Elizabeth Hanna PLASTIC FRAME INSERTER ? ORDERED: ??HE Stain/21, Gross Micro L4/7, [...] Copies To: ?? Giovanny Nuñez MD ?? [facility] ?? [address] ?? [place] ?? [phone] ?? Elizabeth HannaP ?? [address] ?? [place] ?? [phone] ? CONTINUED ON NEXT PAGE ----- ------- Name: Winnie Ramirez ? Age/Sex: 58/F ? : 1965 Unit#: [id number] ?? Attend Dr: Giovanny Nuñez MD ?Re02/24/24 ?Status: DEP SDC ? Location: HO.SSS ?Disch: ? ----- ------- SPEC : [id number] ?RECD: 02/24/24-1101 ? STATUS: ??SOUT ? REQ NUM: [id number] ? BRIE: 02/24/24-1011 ? SUBM DR: Giovanny Nuñez MD ? ENTERED: ??02/24/24-1112 ?SP TYPE: Surgical ? OTHR DR: Elizabeth HannaP ? ORDERED: ??HE Stain/21, Gross Micro L4/7, IHC, Special st. 2/3, H. pylori, AB/PAS/3 ? ----- ------- Signed (signature on file) Alvaro Carrasco MD 02/28/24 1202 ? ----- ------- ? END OF REPORT ? us Generic External Data Provider LAB BLOOD ORDERAB LES Final Result [facility] [address] [place] [phone] * POCT Rapid Covid-19 BinaxNOW (02/11/2024 4:04 PM EST) Rapid COVID Ag Negative QC Media Lot # [id number] Lot# Expiration Date [id number] Swab 02/11/2024 4:04 PM EST us Elsa Saavedra MD POINT OF CARE TEST ENTER/ED IT ORDERABLES Final Result * POCT Rapid Strep A OSOM (02/11/2024 4:04 PM EST) Pathologist [facility] Rapid Strep A Screen Negative Negative, None Detected QC Media Lot # [id number] Lot# Expiration Date Swab 02/11/2024 4:04 PM EST Elsa Saavedra MD POINT OF CARE TEST ENTER/ED IT ORDERABLES Final Result * POCT Rapid Influenza B OSOM (02/11/2024 4:03 PM EST) [facility] Rapid Influenza B Ag Negative Negative, Indeterminate QC Media Lot # [id number] Lot# Expiration Date Swab 02/11/2024 4:03 PM EST Elsa Saavedra MD POINT OF CARE TEST ENTER/ED IT ORDERABLES Final Result * POCT Rapid Influenza A OSOM (02/11/2024 4:02 PM EST) [facility] Rapid Influenza A Ag Negative Negative, Indeterminate QC Media Lot # [id number] Lot# Expiration Date Swab Nasopharyngeal structure / Unknown 02/11/2024 4:02 PM EST Elsa Saavedra MD POINT OF CARE TEST ENTER/ED IT ORDERABLES Final Result * Mr Brain w/ and w/o Contrast (12/29/2023 9:30 AM EST) Anatomical Region Laterality Modality Brain Magnetic Resonan ce 12/29/2023 9:30 AM EST Narrative 01/23/2024 5:45 PM EST ? [facility] ?[address] ?[place] [address] ? Magnetic Resonance Report ? Signed ? Patient: Rustam Shields,Winnie ?MR#: [id number] ?? [id number] ? : 1965 ?Acct:[id number] ? Age/Sex: 57 / F ?ADM Date: 11/20/24 ? Loc: HO.MRI ? Attending Dr: Elizabeth OLVERA ? Ordering Physician: Elizabeth Hanna ?? Date of Service: 12/29/23 ?? Procedure(s): MR head/brain wo/w con ?? Accession Number(s): [id number] ? cc: Elizabeth Hanna ? EXAMINATION: ?? MR BRAIN WITHOUT AND WITH CONTRAST ? CLINICAL INFORMATION: ?? Polyarthralgia. Intermittent numbness and tingling. ? COMPARISON: ?? None available. ? TECHNIQUE: ?? MRI of the brain was obtained using routine sequences without and ?? following the administration of 9 mL of Gadavist intravenous contrast. ? FINDINGS: ?? No focal restricted diffusion is demonstrated to suggest acute or ?? subacute cerebral ischemia. No evidence of acute or chronic hemorrhagic ?? products on heme-sensitive imaging. Few nonspecific scattered foci of ?? T2 FLAIR hyperintensity within the frontoparietal lobes. No additional ?? parenchymal signal abnormalities. The ventricles are normal in ?? morphology and size. No abnormal mass effect. No midline shift. ? Normal appearance of the pituitary gland. Normal positioning of the ?? cerebellar tonsils. Normal arterial and venous vascular flow voids are ?? present. No abnormal contrast enhancement. ? Normal, homogeneous marrow signal. Mild mucosal thickening of the ?? paranasal sinuses. No signal abnormalities within the mastoids. ? MR/MR head/brain wo/w con ?? IMPRESSION: ?? 1. ??No acute intracranial abnormalities. No abnormal intracranial ?? enhancement. ?? 2. ??Minimal nonspecific white matter changes. ? Electronically signed by: ??Tayo Hernandez DO ??01/23/2024 05:42 PM EST RP ? Dictated By: ?Daniel Hernandez DO ? Signed By: ?<Electronically signed by Daniel Hernandez, DO in OV> ? 01/23/24 1742 ? DD/ 0930 ? TD/TT: 12/29/23 0952 ? Senior Controller: JL ? Procedure Note Ab Tovar - 01/23/[address] [address] Magnetic Resonance Report Signed Patient: Winnie Ramirez#: [id number] : 1965Acct:[id number] Age/Sex: 57 / FADM Date: 12/29/23 Loc: HO.MRI Attending Dr: Elizabeth OLVERA Ordering Physician: Elizabeth Hanna Date of Service: 12/29/23 Procedure(s): MR head/brain wo/w con Accession Number(s): [id number] cc: Elizabeth Hanna EXAMINATION: MR BRAIN WITHOUT AND WITH CONTRAST CLINICAL INFORMATION: Polyarthralgia. Intermittent numbness and tingling. COMPARISON: None available. TECHNIQUE: MRI of the brain was obtained using routine sequences without and following the administration of 9 mL of Gadavist intravenous contrast. FINDINGS: No focal restricted diffusion is demonstrated to suggest acute or subacute cerebral ischemia. No evidence of acute or chronic hemorrhagic products on heme-sensitive imaging. Few nonspecific scattered foci of T2 FLAIR hyperintensity within the frontoparietal lobes. No additional parenchymal signal abnormalities. The ventricles are normal in [...] enhancement. 2. Minimal nonspecific white matter changes. Electronically signed by: Tayo Hernandez DO 01/23/2024 05:42 PM [facility] Dictated By: Daniel Hernandez DO Signed By: <Electronically signed by Daniel Hernandez DO in OV> 01/23/24 1742 DD/ 0930 TD/TT: 12/29/23 0952 Senior Controller: LUPILLO Elizabeth OLVERA IM MRI PROCEDURES Edited Resu lt - Final * BI Mammogram Screening Tomosynthesis Bilateral (08/31/2023 12:55 PM EDT) Anatomical Region Laterality Modality Breast Bilateral Mammography 08/31/2023 12:5 5 PM EDT Narrative 09/22/2023 10:57 PM EDT ? [facility] ? [address] ?[place] [address] ? Mammography Report ? Signed ? Patient: Rustam Shields,Winnie ?MR#: [id number] ?? [id number] ? : 1965 ?Acct:[id number] ? Age/Sex: 57 / F ?ADM Date: 08/31/23 ? Loc: HO.MAMMO ? Attending Dr: Elizabeth Hanna PLASTIC FRAME INSERTER ? Ordering Physician: Elizabeth Hanna PLASTIC FRAME INSERTER ?Results: 1Negat ?? charlene ? Date of Service: 08/31/23 ?Follow Up: 1 Year From Orig ?? inal Mammogram ? Procedure(s): MM tomosynthesis screening BI ?? Accession Number(s): [id number] ? cc: Elizabeth Hanna PLASTIC FRAME INSERTER ? EXAMINATION: ?? MM SCREENING DIGITAL BREAST TOMOSYNTHESIS, BILATERAL ? CLINICAL INFORMATION: ? Screening. Asymptomatic. ? COMPARISON: ?? Mammography: This study is compared with prior exams dating back to ?? 2020. ? TECHNIQUE: ?? Digital breast tomosynthesis is performed in both the craniocaudal and ?? mediolateral oblique views along with computer-aided detection (CAD). ?? Synthesized 2D images are generated from the tomosynthesis. ? FINDINGS: ?? The breasts are heterogeneously dense, which may obscure small masses ?? (ACR BI-RADS breast composition Category c). ? There are no significant masses, abnormal calcifications, or other ?? abnormalities. ? MM/MM tomosynthesis screening BI ?? IMPRESSION: ?? No mammographic evidence of malignancy. ? ASSESSMENT: ? BI-RADS BI-RADS 1 - Negative ? RECOMMENDATION: ?? Routine annual mammography screening. ? 1 year F/U ? This examination should not preclude the clinical evaluation of a ?? suspicious palpable abnormality. ? This patient's information was entered into a reminder system with a ?? target due date for their next mammogram. ? Dictated By: ?Vivian Emmanuel MD ? Signed By: ?<Electronically signed by Vivian Emmanuel MD in OV> ? 09/22/23 2254 ? DD/ 1255 ? TD/TT: ? Senior Controller: ? Procedure Note Donotmartinezter, Image - 09/22/2023 [facility] [address] [place] [address] Mammography Report Signed Patient: Winnie RamirezMR#: [id number] : 1965Acct:[id number] Age/Sex: 57 / FADM Date: 08/31/23 Loc: [facility] Attending Dr: Elizabeth OLVERA Ordering Physician: Elizabeth HannaPResults: 1Negat charlene Date of Service: 08/31/23Follow Up: 1 Year From Orig inal Mammogram Procedure(s): MM tomosynthesis screening BI Accession Number(s): [id number] cc: Elizabeth Hanna EXAMINATION: MM SCREENING DIGITAL BREAST TOMOSYNTHESIS, BILATERAL CLINICAL INFORMATION: Screening. Asymptomatic. COMPARISON: Mammography: This study is compared with prior exams dating back to 2020. TECHNIQUE: Digital breast tomosynthesis is performed in both the craniocaudal and mediolateral oblique views along with computer-aided detection (CAD). Synthesized 2D images are generated from the tomosynthesis. FINDINGS: The breasts are heterogeneously dense, which may obscure small masses (ACR BI-RADS breast composition Category c). There are no significant masses, abnormal calcifications, or other abnormalities. MM/MM tomosynthesis screening BI IMPRESSION: No mammographic evidence of malignancy. ASSESSMENT: BI-RADS BI-RADS 1 - Negative RECOMMENDATION: Routine annual mammography screening. 1 year F/U This examination should not preclude the clinical evaluation of a suspicious palpable abnormality. This patient's information was entered into a reminder system with a target due date for their next mammogram. Dictated By: Vivian Emmanuel MD Signed By: <Electronically signed by Vivian Emmanuel MD in OV> 09/22/23 3862 DD/ 1252 TD/TT: Senior Controller: Elizabeth OLVERA IMG BI PROCEDURES Final Result * Hepatitis C Viral RNA, Quantitative, Real-Time PCR (01/04/2023 8:42 AM EST) Hepatitis C Viral Load <15 NOT DETECTED NOT DETECTED IU/mL [facility] HCV Log PCR <1.18 NOT DETECTED NOT DETECTED Log IU/mL [facility] Comment:This test was perfor med using Real-Time Polymerase ChainReaction.Reportable Range: 15 IU/mL to 100,000,000 IU/mL(1.18 Log IU/mL to 8.00 Log IU/mL).The analytical performance characteristics of thisassay have been determined by [facility].The modifications have not been cleared or approved bythe FDA. This assay has been validated pursuant to theCLIA regulations and is used for clinical purposes.For more information on this test, go to:http://education.Xcalia/faq/OSM40g8(This link is being provided for informational/educational purposes only.)THIS TEST WAS PERFORMED AT:[facility] [place] [id number] BARTH MD Blood 01/04/2023 8:42 AM EST 01/04/2023 11:07 AM EST us Elizabeth OLVERA LAB BLOOD ORDERABLES Final Res ult [facility] [address] [place] [phone] * HIV-1/2 Antigen and Antibodies, Fourth Generation, with Reflexes (01/04/2023 8:42 AM EST) Pathologist [facility] HIV AB/AG Nonreactive Nonreactive [facility] Comment:HIV-1 p24 Ag and/or HIV-1/HIV-2 Ab not detected.A test result that is nonreactive does not exclude thepossibility of exposure to or infection with HIV-1 and/orHIV-2. Nonreactive results in this assay for individualswith prior exposure to HIV-1 and/or HIV-2 may be due toantigen and antibody levels that are below the limit ofdetection of this assay.The [employer]ER[employer] assistant[employer]Pageflakes HIV Ag/Ab Combo assay result andsupplemental assay results should be interpreted inconjunction with the patient's clinical presentation,history and other laboratory results. If the results areinconsistent with clinical evidence, additional testing issuggested to confirm the result. Blood Venous blood specimen / Unknown 01/04/2023 8:42 AM EST 01/04/2023 11:07 AM EST us Elizabeth Hanna [facility] LAB BLOOD ORDERABLES Final Res ult [facility] [address] [place] [address] [phone] * (ABNORMAL) Lipid Panel, Standard (01/04/2023 8:42 AM EST) Pathologist [facility] Triglycerides 84 <150 mg/dL [facility] Comment:Desirable Triglyceri de: less than 150 mg/dLBorderline High Triglyceride 150-199 mg/dLHigh Triglyceride: 200-499 mg/dLVery High Triglyceride: greater than or equal to 5OO mg/dL Cholesterol 190 <200 mg/dL [facility] Comment:Desirable Cholestero l: less than 200 mg/dLBorderline High Cholesterol: 200-239 mg/dLHigh Cholesterol: greater than 239 mg/dL LDL Cholesterol Calculated 115(H) <100 mg/dL [facility] Comment:Desirable LDL: less than 100 mg/dLNear Optimal/Above Optimal LDL: 110- 129 mg/dLBorderline High LDL: 130-159 mg/dLHigh LDL: 160-189 mg/dLVery High LDL: greater than or equal to 190 mg/dL HDL Cholesterol 59 >40 mg/dL [facility] Comment:Desirable HDL: great er than 40 mg/dL Note: This HDL assay may give artificially low results in patients with liver disease. Blood Venous blood specimen / Unknown 01/04/2023 8:42 AM EST 01/04/2023 11:07 AM EST us Elizabeth Ángelamanda PLASTIC FRAME INSERTER LAB BLOOD ORDERABLES Final Res ult Performing Organization Address City/State/[facility] Co de Phone Number [facility] [address] [place] [phone] * Pap Smear (07/21/2022 10:20 AM EDT) 07/21/2022 10:2 0 AM EDT 07/23/2022 8:00 AM EDT Narrative [facility] - 08/07/2022 8:50 AM EDT ----- ------- Name: Winnie Ramirez ? Age/Sex: 56/F ? : 1965 Unit#: [id number] ?? Attend Dr: Gail Sam CNM ?Re07/21/22 ?Status: DEP REF ? Location: HO.LNP ?Disch: ? ----- ------- SPEC : [id number] ? RECD: 07/23/22 ? STATUS: ??SOUT ? REQ NUM: [id number] ? BRIE: 07/21/22 ? SUBM DR: Gail Sam CNM ? ENTERED: ??07/24/22 ?SP TYPE: Pap Smr ?OTHR DR: Elizabeth Hanna PLASTIC FRAME INSERTER ? ORDERED: ??Pap Smear ? Interpretation ?? Satisfactory for evaluation. ?? No endocervical cells seen. ?? Negative for intraepithelial lesion or malignancy. ?HPV mRNA E6/E7: ?NOT DETECTED ? This assay detects E6/E7 viral messenger RNA (mRNA) from 14 high-risk HPV types (16, 18, ?? 31, 33, 35, 39, 45, 51, 52, 56, 58, 59, 66, 68) ?? HPV testing performed by [facility], [place], [place]. ??See reference laboratory ?? pion of the EMR for entire report. ?Clinical Information LMP: Postmenopausal Previous PAP test: 11/01/19, Abnormal Other history: 2016, ANA I ? Material Received ?? ThinPrep-Cervical Copies To: ?? Gail Sam CNM ?? [address] ?? [place] [address] ?? [phone] ?? Elizabeth Hanna PLASTIC FRAME INSERTER ?? [address] [facility] ?? [place] ?? [phone] ----- ------- Signed (signature on file) TETE Carvajal (ASCP) 08/07/22 0850 ? ----- ------- ? END OF REPORT ? us [facility] External Provider LAB [facility] OLSHIVA ORDERABLES Final Result [facility] [address] [facility] [place] [address] [phone] from Last 3 Months or Most Recently Relevant to Health Maintenance [place] [address] [place] [address] C3 Care Teams Regional Production Manager Relationship Specialty Start Date End Date Elizabeth Hanna FNP [address] [place] [address] PCP - General Family Medicine 08/12/21 Kalpana Liu MD [address] [place] [phone] Rheumatology 12/15/23 Good Sinclair MD [address] [place] [address] Cardiology 12/15/23 Mary Unger [address] [place] [address] [address] [place], [place] Gastroenterology 12/15/23 James Hull [address] [address] Sleep Medicine 12/21/23
== END 2024-03-06 18:35 ==
PROVIDERS: PCP Registered Nurse; Visit Provider Nurse Practitioner Family
DX: D12.6 Benign neoplasm of colon, unspecified (principal); K22.10 Ulcer of esophagus without bleeding; K59.01 Slow transit constipation; K21.00 Gastro-esophageal reflux disease with esophagitis, without bleeding; K57.90 Diverticulosis of intestine, part unspecified, without perforation or abscess without bleeding
CPT/HCPCS: 99213

== ENCOUNTER → 2024-03-06 13:14 | Outpatient (BNVA) | payer MEDICAID, SELFPAY | PROVIDERS: PCP Registered Nurse; Visit Provider Nurse Practitioner Family | DX: K21.9 Gastro-esophageal reflux disease without esophagitis (principal); D12.6 Benign neoplasm of colon, unspecified; K22.10 Ulcer of esophagus without bleeding; K21.00 Gastro-esophageal reflux disease with esophagitis, without bleeding; K59.01 Slow transit constipation; K57.90 Diverticulosis of intestine, part unspecified, without perforation or abscess without bleeding | CPT/HCPCS: 99212 ==

== ENCOUNTER 2024-03-24 10:44 | Outpatient (REF) | payer MEDICAID, SELFPAY ==
[2024-03-24 11:47] LABS: MANUAL DIFF FLAG NO
[2024-03-24 11:59] LABS: Basophils Absolute Auto 0.1 X10*3/uL (0.0-0.2); Basophils Percent Auto 0.7 % (0-2); Eosinophils Absolute Auto 0.2 X10*3/uL (0.0-0.4); Eosinophils Percent Auto 2.7 % (0-4); Hematocrit 43.1 % (37.0-47.0); Hemoglobin 14.1 g/dl (12.0-16.0); Imm Gran Abs Auto 0.02 X10*3/uL (0.00-0.03); Imm Gran Pct Auto 0.3 % (0.0-0.4); Lymphocytes Absolute Auto 2.1 X10*3/uL (1.2-4.9); Lymphocytes Percent Auto 28.6 % (20-40); Mean Corpuscular HGB Conc 32.7 g/dl (31.0-35.0); Mean Corpuscular Hemoglobin 27.4 pg (27.0-33.0); Mean Corpuscular Volume 83.7 fL (80.0-98.0); Mean Platelet Volume 10.2 fL (9.4-12.3); Monocytes Absolute Auto 0.6 X10*3/uL (0.1-1.2); Monocytes Percent Auto 7.9 % (2-11); Neutrophils Absolute Auto 4.5 x10*3/uL (2.0-8.3); Neutrophils Percent Auto 59.8 % (45-73); Platelet Count 308 X10*3/uL (160-400); Red Blood Count 5.15 X10*6/uL (4.20-5.50); Red Cell Distribution Width 13.3 % (11.0-16.0); White Blood Count 7.5 X10*3/uL (4.8-10.8)
--- OUTSIDE RECORDS SUMMARY | 2024-03-24 12:19 | XMS_ITS | Encounter Summary ---
Author Organization [facility] Address 75 [facility] 7t [place] [address] Care Team Providers Care Reacher Name Role Phone Elizabeth Hanna Primary Care Provider [phone] Kalpana Liu MD Unavailable Good Sinclair MD Unavailable [phone] Mary Unger Unavailable James Hull Unavailable Reason for Visit * Reason Onset Date Comments triage 07/02/2022 Encounter Details Date Type Department Care Team (Late st Contact Info) Description 07/02/2022 Telephone [facility] MEDICINE 230 [place] [address] Elizabeth Hanna FNP [address] [place], [place] [phone] triage Social History Tobacco Use Types Packs/Day [...] 07/02/2022 2:48 PM EDT Triage call with [facility] Director [place] [id number] Pt reports feet, ankles, hands get swollen [...] on filedocumented in this encounter Care Teams Reacher Relationship Specialty Start Date End Date Elizabeth Hanna FNP 230 [place] [address] PCP - General Family Medicine 08/12/21 Kalpana Liu MD [address] [place] [address] [address] [place] [address] Rheumatology 12/15/23 Good Sinclair MD 596 [place] [address] Cardiology 12/15/23 Mary Unger [address] [place] [address] 3rd [place], [place] Gastroenterology 12/15/23 James Hull [address] [address] Sleep Medicine 12/21/23 documented as of this encounter
--- OUTSIDE RECORDS SUMMARY | 2024-03-24 12:19 | XMS_ITS | Encounter Summary ---
Author Organization [employer] Address 75 [facility] 7t [place] [address] Care Team Providers Care Agricultural Education Professor Name Role Phone Elizabeth Hanna MAY Primary Care Provider [phone] Kalpana Liu MD Unavailable Good Sinclair MD Unavailable [phone] Mary Unger Unavailable James Hull Unavailable Encounter Details Date Type Department Care Team (Late st Contact Info) Description 06/17/2023 Orders Only [facility] 230 [place] [address] [place], [place] [address] [address] Social History Tobacco Use Types Packs/Day Years [...] Region Laterality Modality Breast Left Mammography G[place] IMG BI PROCEDURES Final Result documented in this encounter Visit Diagnoses Not on filedocumented in this encounter Additional Health Concerns Assessment Noted Time PHQ-9 Depression Total Score: 8 12/24/19 23 9:19 AM EST documented as of this encounter Care Teams Agricultural Education Professor Relationship Specialty Start Date End Date Elizabeth aHnna FNP 230 [place] [address] PCP - General Family Medicine 08/12/21 Kalpana Liu MD [address] [address] Rheumatology 12/15/23 Good Sinclair MD [address] [place] [address] Cardiology 12/15/23 Mary Unger [address] [place] [address] Dr 3rd Floor [place] Gastroenterology 12/15/23 James Hull [address] [address] Sleep Medicine 12/21/23 documented as of this encounter
--- OUTSIDE RECORDS SUMMARY | 2024-03-24 12:19 | XMS_ITS | Encounter Summary ---
Author Organization [employer] Address [address] [facility] [address] 7t [place] [address] Care Team Providers Care Painter Chassis Name Role Phone Elizabeth Hanna Primary Care Provider [phone] Kalpana Liu MD Unavailable Good Sinclair MD Unavailable [phone] Mary Unger Unavailable James Hull Unavailable Reason for Visit * Reason Onset Date Comments Referral 03/26/2022 Encounter Details Date Type Department Care Team (Late st Contact Info) Description 03/26/2022 Telephone [facility] MEDICINE 230 [place] [address] Elizabeth Hanna FNP [address] [place], [place] [phone] Referral Social History Tobacco Use Types Packs/Day [...] Tc from pt requesting status update on portfolio management marketing referral. Please contact at [phone] documented in this encounter Plan of Treatment Not on file documented as of this encounter Visit Diagnoses Not on filedocumented in this encounter Care Teams Painter Chassis Relationship Specialty Start Date End Date Elizabeth Hanna FNP 230 [place] [address] PCP - General Family Medicine 08/12/21 Kalpana Liu MD [address] [place] [address] Rheumatology 12/15/23 Good Sinclair MD [address] [place] [address] Cardiology 12/15/23 Mary Unger [address] [place] [address] Dr 3rd Floor [place] Gastroenterology 12/15/23 James Hull [address] [address] Sleep Medicine 12/21/23 documented as of this encounter
--- OUTSIDE RECORDS SUMMARY | 2024-03-24 12:19 | XMS_ITS | Encounter Summary ---
Author Organization [employer] Address 75 [facility] 7t [place] [address] Care Team Providers Care Emts Name Role Phone Elizabeth Hanna Primary Care Provider Kalpana Liu MD Unavailable Good Sinclair MD Unavailable [phone] Mary Unger Unavailable James Hull Unavailable Reason for Visit * Reason Onset Date Comments Referral 07/10/2022 rheumatology Encounter Details Date Type Department Care Team (Late st Contact Info) Description 07/10/2022 Telephone [facility] MEDICINE 230 [place] [address] Elizabeth Hanna FNP 505 [place], [place] [phone] Referral (rheumatology) Social History Tobacco Use Types [...] Scarlett Sullivan - 07/14/2022 2:49 PM EDT Manager Heavy Equipment printed and refaxed referral, notes, and labs and faxed it to [facility] Rheumatology. Manager Heavy Equipment called and spoke with pt and informed her. She stated she was given an appt for October 05 and felt it was to late. Manager Heavy Equipment explained she could be placed on a [...] documented as of this encounter Care Teams Emts Relationship Specialty Start Date End Date Elizabeth Hanna FNP 230 [place] [address] PCP - General Family Medicine 08/12/21 Kalpana Liu MD [address] [address] Rheumatology 12/15/23 Good Sinclair MD 596 [place] [address] Cardiology 12/15/23 Mary Unger [address] [place] [address] Dr 3rd Floor [place] Gastroenterology 12/15/23 James Hull [address] [address] Sleep Medicine 12/21/23 documented as of this encounter
--- OUTSIDE RECORDS SUMMARY | 2024-03-24 12:19 | XMS_ITS | Encounter Summary ---
Author Organization [employer] Address 75 [facility] 7t [place] [address] Care Team Providers Care Cow Rider Name Role Phone Elizabeth Hanna MAY Primary Care Provider [phone] Kalpana Liu MD Unavailable Good Sinclair MD Unavailable [phone] Mary Unger Unavailable James Hull Unavailable Encounter Details Date Type Department Care Team (Late st Contact Info) Description 03/24/2024 Orders Only GENERIC EXTERNAL DATA DEPARTMENT Provider, [...] Procedure Name Priority Date/Time Associated Diagnosis Comments CBC WITH AUTO DIFFERENTIAL Routine 03/24/2024 11:45 AM EST documented in this encounter Results * CBC auto differential (03/24/2024 11:45 AM EST) White Blood Count 7.5 4.8 - 10.8 X10*3/uL [facility] Red Blood Count 5.15 4.20 - 5.50 X10*6/uL [facility] Hemoglobin 14.1 12.0 - 16.0 g/dl [facility] Hematocrit 43.1 37.0 - 47.0 % [facility] Mean Corpuscular Volume 83.7 80.0 - 98.0 fL [facility] Mean Corpuscular Hemoglobin 27.4 27.0 - 33.0 pg [facility] Mean Corpuscular HGB Conc 32.7 31.0 - 35.0 g/dl [facility] Red Cell Distribution Width 13.3 11.0 - 16.0 % [facility] Platelet Count 308 160 - 400 X10*3/uL [facility] Mean Platelet Volume 10.2 9.4 - 12.3 fL [facility] Neutrophils Percent Auto 59.8 45 - 73 % [facility] Imm Gran Pct Auto 0.3 0.0 - 0.4 % [facility] Lymphocytes Percent Auto 28.6 20 - 40 % [facility] Monocytes Percent Auto 7.9 2 - 11 % [facility] Eosinophils Percent Auto 2.7 0 - 4 % [facility] Basophils Percent Auto 0.7 0 - 2 % [facility] NRBC Pct Auto 0.0 0.0 - 0.2 /100WBC [facility] Neutrophils Absolute Auto 4.5 2.0 - 8.3 x10*3/uL [facility] Imm Gran Abs Auto 0.02 0.00 - 0.03 X10*3/uL [facility] Lymphocytes Absolute Auto 2.1 1.2 - 4.9 X10*3/uL [facility] Monocytes Absolute Auto 0.6 0.1 - 1.2 X10*3/uL [facility] Eosinophils Absolute Auto 0.2 0.0 - 0.4 X10*3/uL [facility] Basophils Absolute Auto 0.1 0.0 - 0.2 X10*3/uL [facility] NRBC Abs Auto 0.000 0.0 - 0.012 X10*3/uL [facility] 03/24/2024 11:4 5 AM EST 03/24/2024 11:45 AM EST us Generic External Data Provider LAB BLOOD ORDERAB LES Final Result [facility] [address] [place] [address] [phone] documented in this encounter Visit Diagnoses Not on filedocumented in this encounter Additional Health Concerns Assessment Noted Time PHQ-9 Depression Total Score: 8 12/24/19 23 9:19 AM EST documented as of this encounter Care Teams Cow Rider Relationship Specialty Start Date End Date Elizabeth Hanna FNP 230 [place] [address] PCP - General Family Medicine 08/12/21 Kalpana Liu MD [address] [place] [address] [address] [place] [address] Rheumatology 12/15/23 Good Sinclair MD 596 [place] [address] Cardiology 12/15/23 Mary Unger [address] [place] [address] Dr 3rd Floor [place], [place] Gastroenterology 12/15/23 James Hull [address] [address] Sleep Medicine 12/21/23 documented as of this encounter
--- OUTSIDE RECORDS SUMMARY | 2024-03-24 12:19 | XMS_ITS | Encounter Summary ---
Author Organization [employer] Address 75 [facility] 7t [place] [address] Care Team Providers Care Community Service Officer Coordinator Name Role Phone Elizabeth Hanna Primary Care Provider [phone] Kalpana Liu MD Unavailable DottieGood larsen MD Unavailable [phone] Mary Unger Unavailable James Hull Unavailable Reason for Visit * Reason Comments Med Refill Encounter Details Date Type Department Care Team (Late st Contact Info) Description 08/04/2022 Refill [facility] MED[facility] 230 [place] [address] Elizabeth Hanna FNP [address] [place], [place] [phone] Social History Tobacco Use Types Packs/Day Years [...] documented as of this encounter Care Teams Community Service Officer Coordinator Relationship Specialty Start Date End Date Elizabeth Hanna FNP 230 [place] [address] PCP - General Family Medicine 08/12/21 Kalpana Liu MD [address] [place] [address] Rheumatology 12/15/23 Good Sinclair MD 596 [place] [address] Cardiology 12/15/23 Mary Unger [address] [place] [address] 3rd Floor [place], [place] Gastroenterology 12/15/23 James Hull 22 [facility] [address] [place] [address] Sleep Medicine 12/21/23 documented as of this encounter
--- OUTSIDE RECORDS SUMMARY | 2024-03-24 12:19 | XMS_ITS | Encounter Summary ---
Author Organization [employer] Address 75 [facility] 7t [place] [address] Care Team Providers Care Safety And Security Officer Name Role Phone Elizabeth Hanna Primary Care Provider Kalpana Liu MD Unavailable Good Sinclair MD Unavailable [phone] Mary Unger Unavailable James Hull Unavailable Reason for Visit * Reason Comments Med Refill Encounter Details Date Type Department Care Team (Late st Contact Info) Description 03/18/2024 Refill [facility] MED & PEDS 505 [place], [place] [phone] Elizabeth Hanna FNP 505 [place], [place] [phone] Essential hypertension Social History Tobacco Use Types [...] documented as of this encounter Care Teams Safety And Security Officer Relationship Specialty Start Date End Date Elizabeth Hanna FNP 230 [place] [address] PCP - General Family Medicine 08/12/21 Kalpana Liu MD [address] [place] [address] Rheumatology 12/15/23 Good Sinclair MD 596 [place] [address] Cardiology 12/15/23 Mary Unger [address] [place] [address] Dr 3rd Floor [place], [place] Gastroenterology 12/15/23 James Hull [address] [address] Sleep Medicine 12/21/23 documented as of this encounter
--- OUTSIDE RECORDS SUMMARY | 2024-03-24 12:19 | XMS_ITS | Clinical Summary ---
Author Organization [employer] Address [address] [facility] 7t [place] [address] Care Team Providers Care Airline Mechanic Name Role Phone Elizabeth Hanna MAY Primary Care Provider [phone] Kalpana Liu MD Unavailable DottieGood larsen MD Unavailable [phone] Mary Unger Unavailable James Hull Unavailable Allergies [...] MG tablet Take by mouth at bedtime. [facility] Provider Active Diclofenac Sodium 1 [...] Noted Date Diagnosed Date Rheumatoid arthritis of [facility] sites with negative rheumatoid factor 12/15/2023 Overview (12/21/2023): Diagnosed 2023 - seronegative RA. Following with [facility] Rheum - Dr. Liu August 2023: Methotrexate started, folic acid daily Oct 2023: Methotrexate DC d/t lack of response and SE. PA for Enbrel initiated through Rheum. Dec 2023: Enbrel approved GERD (gastroesophageal reflux disease) Overview (12/15/2023): Followed by [facility] GI - C T TECH Cornel Omeprazole PRN Constipation 01/13/2023 Overview (12/21/2023): [facility] GI consult Sep 2023 Cont metamucil [...] maintenance 12/23/2022 Overview (12/21/2023): Pap: 07/21/22 by [facility] CNM NILM HPV neg. Hx of abnormal. Following with specialist Mammo: BIRADS 1 in August 2023 Colonoscopy: scheduled Feb 2024 at [facility] Last PE: 12/23/22 ASCVD Risk: 2.1% [...] Med trials: Celebrex, ibuprofen, topical voltaren Initial [facility] Rhuem consult Sep 2022, suspected OA. [...] murmur, systolic 03/20/2022 Overview (12/15/2023): [facility] - Dr. Sinclair. Holter completed in fall 2023 - no significant findings per consult note Plan: annual echo through Cards Cervical myopathy 03/18/2022 Overview (03/18/2022): Evaluated Neurosurgery 03/14/2018, recommended surgery due to disc pathology and spinal cord compression, Unclear if surgery was performed TIA (transient ischemic attack) 03/18/2022 Overview (03/18/2022): TIA per patient report around 2007 in [place] Also mentioned as possible hx in Cardiology note from 2011 with potential carotid artery dissection Obesity 04/14/2021 Overview (12/24/2022): ?? Previously following with [facility] Weight Management (H. Pylori breath test [...] to follow up appt (with PCP or Residential Door Unit Installer) -ED precautions reviewed Follow up in 2-4 [...] Encounters Date Type Department Care Team Description 03/24/2024 Orders Only GENERIC EXTERNAL DATA DEPARTMENT Provider, Generic External Data 03/18/2024 Refill [facility] [address] [place] [address] Elizabeth Hanna FNP Essential hypertension 03/12/2024 Refill [facility] [address] [place] [address] Elizabeth Hanna FNP Gastroesophageal reflux disease, unspecified whether esophagitis present 02/24/2024 Orders Only GENERIC EXTERNAL DATA DEPARTMENT Provider, Generic External Data 02/14/2024 11:00 AM EST Telemedicine [facility] [address] [place] [address] Elizabeth Hanna FNP Brain fog (Primary Dx); Essential hypertension 02/14/2024 Travel 02/11/2024 3:40 PM EST Office Visit [facility] [address] [place] [address] Elsa Saavedra MD Laryngitis (Primary Dx); Sinus congestion 02/11/2024 Travel 02/11/2024 Telephone [facility] [address] [place] [address] Elizabeth Hanna FNP Nurse Triage 02/10/2024 Telephone [facility] [address] [place] [address] Arely Wray MA Chart Prep 02/01/2024 Telephone [facility] [address] [place] [address] Elizabeth Hanna FNP Appointment from Last 3 [...] AUTO DIFFERENTIAL Routine 03/24/2024 11:45 AM EST HEMATOXYLIN AND EOSIN STAIN Routine 02/24/2024 10:11 [...] Recently Relevant to Health Maintenance Results * CBC auto differential (03/24/2024 11:45 AM EST) White Blood Count 7.5 4.8 - 10.8 X10*3/uL [facility] Red Blood Count 5.15 4.20 - 5.50 X10*6/uL [facility] Hemoglobin 14.1 12.0 - 16.0 g/dl [facility] Hematocrit 43.1 37.0 - 47.0 % [facility] Mean Corpuscular Volume 83.7 80.0 - 98.[address] [facility] Mean Corpuscular Hemoglobin 27.4 27.0 - 33.[address] [facility] Mean Corpuscular HGB Conc 32.7 31.0 - 35.0 g/dl [facility] Red Cell Distribution Width 13.3 11.0 - 16.0 % [facility] Platelet Count 308 160 - 400 X10*3/uL [facility] Mean Platelet Volume 10.2 9.4 - 12.[address] [facility] Neutrophils Percent Auto 59.8 45 - 73 % [facility] Imm Gran Pct Auto 0.3 0.0 - 0.4 % [facility] Lymphocytes Percent Auto 28.6 20 - 40 % [facility] Monocytes Percent Auto 7.9 2 - 11 % [facility] Eosinophils Percent Auto 2.7 0 - 4 % [facility] Basophils Percent Auto 0.7 0 - 2 % [facility] NRBC Pct Auto 0.0 0.0 - 0.2 /100WBC [facility] Neutrophils Absolute Auto 4.5 2.0 - 8.3 x10*3/uL [facility] Imm Gran Abs Auto 0.02 0.00 - 0.03 X10*3/uL [facility] Lymphocytes Absolute Auto 2.1 1.2 - 4.9 X10*3/uL [facility] Monocytes Absolute Auto 0.6 0.1 - 1.2 X10*3/uL [facility] Eosinophils Absolute Auto 0.2 0.0 - 0.4 X10*3/uL [facility] Basophils Absolute Auto 0.1 0.0 - 0.2 X10*3/uL [facility] NRBC Abs Auto 0.000 0.0 - 0.012 X10*3/uL [facility] 03/24/2024 11:4 5 AM EST 03/24/2024 11:45 AM EST us Generic External Data Provider LAB BLOOD ORDERAB LES Final Result Performing Organization Address [facility]/State/[facility] Co de Phone Number [facility] [address] [place] [phone] * Hematoxylin and Eosin Stain (02/24/2024 10:11 AM EST) 02/24/2024 10:1 1 AM EST 02/24/2024 11:02 AM EST Narrative [facility] - 02/28/2024 12:01 PM EST ----- ------- Name: Winnie Ramirez ? Age/Sex: 58/F ? : 1965 Unit#: [id number] ?? Attend Dr: Giovanny Nuñez MD ?Re02/24/24 ?Status: DEP SDC ? Location: HO.SSS ?Disch: ? ----- ------- SPEC : [id number] ?RECD: 02/24/24-1102 ? STATUS: ??SOUT ? REQ NUM: [id number] ? BRIE: 02/24/24-1011 ? SUBM DR: Giovanny Nuñez MD ? ENTERED: ??02/24/24-1112 ?SP TYPE: Surgical ? OTHR DR: Elizabeth Hanna ANESTHESIOLOGY PHYSICIAN ASSISTANT ? ORDERED: ??HE Stain/21, Gross Micro L4/7, [...] ? Age/Sex: 58/F ? : 1965 Unit#: [id number] ?? Attend Dr: Giovanny Nuñez MD ?Re02/24/24 ?Status: DEP SDC ? Location: HO.SSS ?Disch: ? ----- ------- SPEC : [id number] ?RECD: 02/24/24-1102 ? STATUS: ??SOUT ? REQ NUM: [id number] ? BRIE: 02/24/24-1011 ? SUBM DR: Giovanny Nuñez MD ? ENTERED: ??02/24/24-1112 ?SP TYPE: Surgical ? OTHR DR: Elizabeth Hanna ANESTHESIOLOGY PHYSICIAN ASSISTANT ? ORDERED: ??HE Stain/21, Gross Micro L4/7, [...] Copies To: ?? Giovanny Nuñez MD ?? [facility] Gastroenterology Services ?? [address] ?? [place] [address] ?? [phone] ?? Elizabeth Hanna ?? [address] [facility] ?? [place] [address] ?? [phone] ? CONTINUED ON NEXT PAGE ----- ------- Name: Winnie Ramirez ? Age/Sex: 58/F ? : 1965 Unit#: [id number] ?? Attend Dr: Giovanny Nuñez MD ?Re02/24/24 ?Status: DEP SDC ? Location: HO.SSS ?Disch: ? ----- ------- SPEC : [id number] ?RECD: 02/24/24-1101 ? STATUS: ??SOUT ? REQ NUM: [id number] ? BRIE: 02/24/24-1011 ? SUBM DR: Giovanny Nuñez MD ? ENTERED: ??02/24/24-1111 ?SP TYPE: Surgical ? OTHR DR: Elizabeth Hanna ANESTHESIOLOGY PHYSICIAN ASSISTANT ? ORDERED: ??HE /21, Gross Micro L4/7, IHC, Special st. 2/3, H. pylori, AB/PAS/3 ? ----- ------- Signed (signature on file) Alvaro Carrasco MD 02/28/24 1201 ? ----- ------- ? END OF REPORT ? us Generic External Data Provider LAB BLOOD ORDERAB LES Final Result [facility] [address] [place], [place] [phone] * POCT Rapid Covid-19 BinaxNOW (02/11/2024 4:04 PM EST) [facility] Rapid COVID Ag Negative QC Media Lot # [id number] Lot# Expiration Date [id number] Swab 02/11/2024 4:04 PM EST us Elsa Saavedra MD POINT OF CARE TEST ENTER/ED IT ORDERABLES Final Result * POCT Rapid Strep A OSOM (02/11/2024 4:04 PM EST) [facility] Rapid Strep A Screen Negative Negative, None Detected QC Media Lot # [id number] Lot# Expiration Date [id number] Swab 02/11/2024 4:04 PM EST us Elsa Saavedra MD POINT OF CARE TEST ENTER/ED IT ORDERABLES Final Result * POCT Rapid Influenza B OSOM (02/11/2024 4:03 PM EST) Pathologist [facility] Rapid Influenza B Ag Negative Negative, Indeterminate QC Media Lot # [id number] Lot# Expiration Date ,025 Swab 02/11/2024 4:03 PM EST Elsa Saavedra MD POINT OF CARE TEST ENTER/ED IT ORDERABLES Final Result * POCT Rapid Influenza A OSOM (02/11/2024 4:02 PM EST) [facility] Rapid Influenza A Ag Negative Negative, Indeterminate QC Media Lot # [id number] Lot# Expiration Date ,025 Swab Nasopharyngeal structure / Unknown 02/11/2024 4:02 PM EST Elsa Saavedra MD POINT OF CARE TEST ENTER/ED IT ORDERABLES Final Result * Mr Brain w/ and w/o Contrast (12/29/2023 9:30 AM EST) Anatomical Region Laterality Modality Brain Magnetic Resonan ce 12/29/2023 9:30 AM EST Narrative 01/23/2024 5:45 PM EST ? [facility] ?[address] ?[place] [address] ? Magnetic Resonance Report ? Signed ? Patient: Rustam Shields,Winnie ?MR#: MM ?? [id number] ? : 1965 ?Acct:[id number] ? Age/Sex: 57 / F ?ADM Date: 11/20/24 ? Loc: HO.MRI ? Attending Dr: Elizabeth OLVERA ? Ordering Physician: Elizabeth Hanna ?? Date of Service: 12/29/23 ?? Procedure(s): MR head/brain wo/w con ?? Accession Number(s): [id number] ? cc: Elizabeth Hanna ? EXAMINATION: ?? [...] DD/ 0930 ? TD/TT: 12/29/23 0952 ? Steel Roller: JL ? Procedure Note Guy, Ab - 01/23/[address] [address] Magnetic Resonance Report Signed Patient: Jamin Ramirezbibi#: [id number] : 1965Acct:[id number] Age/Sex: 57 / FADM Date: 12/29/23 Loc: HO.MRI Attending Dr: Elizabeth Hanna ANESTHESIOLOGY PHYSICIAN ASSISTANT Ordering Physician: Elizabeth Hanna Date of Service: 12/29/23 Procedure(s): MR head/brain wo/w con Accession Number(s): [id number] cc: Elizabeth Hanna EXAMINATION: MR BRAIN WITHOUT [...] by: Tayo Hernandez DO 01/23/2024 05:42 PM [facility] Dictated By: Daniel Hernandez DO Signed By: <Electronically signed by Daniel Hernandez DO in OV> 01/23/24 1742 DD/ 0930 TD/TT: 12/29/23 0952 Steel Roller: LUPILLO [facility] PROCED[facility] Edited Resu lt - Final * BI Mammogram Screening Tomosynthesis Bilateral (08/31/2023 12:55 PM EDT) Anatomical Region Laterality Modality Breast Bilateral Mammography 08/31/2023 12:5 5 PM EDT Narrative 09/22/2023 10:57 PM EDT ? [facility] ? [address] ?[place] [address] ? Mammography Report ? Signed ? Patient: Rustam Shields,Winnie ?MR#: MM ?? [id number] ? : 1965 ?Acct:[id number] ? Age/Sex: 57 / F ?ADM Date: 07/23/24 ? Loc: HO.MAMMO ? Attending Dr: Elizabeth Hanna ANESTHESIOLOGY PHYSICIAN ASSISTANT ? Ordering Physician: Elizabeth Hanna ANESTHESIOLOGY PHYSICIAN ASSISTANT ?Results: 1Negat ?? charlene ? Date of Service: 08/31/23 ?Follow Up: 1 Year From Orig ?? inal Mammogram ? Procedure(s): MM tomosynthesis screening BI ?? Accession Number(s): [id number] ? cc: Elizabeth Hanna ANESTHESIOLOGY PHYSICIAN ASSISTANT ? EXAMINATION: ?? MM SCREENING DIGITAL BREAST [...] 09/22/232253 ? DD/ 1255 ? TD/TT: ? Steel Roller: ? Procedure Note Donmoreinterpreter, Image - 09/22/2023 [facility] [address] [place] [address] Mammography Report Signed Patient: Winnie RamirezMR#: [id number] : 1965Acct:[id number] Age/Sex: 57 / FADM Date: 08/31/23 Loc: HO.MAMMO Attending Dr: Elizabeth Hanna ANESTHESIOLOGY PHYSICIAN ASSISTANT Ordering Physician: Elizabeth HannaPResults: 1Negat charlene Date of Service: 08/31/23Follow Up: 1 Year From Orig inal Mammogram Procedure(s): MM tomosynthesis screening BI Accession Number(s): [id number] cc: Elizabeth Hanna ANESTHESIOLOGY PHYSICIAN ASSISTANT EXAMINATION: MM SCREENING DIGITAL BREAST TOMOSYNTHESIS, BILATERAL [...] by Vivian Emmanuel MD in OV> 09/22/23 2482 DD/ 1255 TD/TT: Steel Roller: Elizabeth OLVERA IMG BI PROCEDURES Final Result * Hepatitis C Viral RNA, Quantitative, Real-Time PCR (01/04/2023 8:42 AM EST) Pathologist [facility] Hepatitis C Viral Load <15 NOT DETECTED NOT DETECTED IU/mL [facility] HCV Log PCR <1.18 NOT DETECTED NOT DETECTED Log IU/mL [facility] Comment:This test was perfor med using Real-Time Polymerase ChainReaction.Reportable Range: 15 IU/mL to 100,000,000 IU/mL(1.18 Log IU/mL to 8.00 Log IU/mL).The analytical performance characteristics of thisassay have been determined by [employer].The modifications have not been cleared or approved bythe FDA. This assay has been validated pursuant to theCLIA regulations and is used for clinical purposes.For more information on this test, go to:http://education.[employer]/faq/VFZ94d2(This link is being provided for informational/educational purposes only.)THIS TEST WAS PERFORMED AT:[employer] [place] [id number] BARTH MD Blood 01/04/2023 8:42 AM EST 01/04/2023 11:07 AM EST Elizabeth OLVERA LAB BLOOD ORDERABLES Final Res ult [facility] [address] [place] [phone] * HIV-1/2 Antigen and Antibodies, Fourth Generation, with Reflexes (01/04/2023 8:42 AM EST) Pathologist [facility] HIV AB/AG Nonreactive Nonreactive [facility] Comment:HIV-1 p24 Ag and/or HIV-1/HIV-2 Ab not detected.A test result that is nonreactive does not exclude thepossibility of exposure to or infection with HIV-1 and/orHIV-2. Nonreactive results in this assay for individualswith prior exposure to HIV-1 and/or HIV-2 may be due toantigen and antibody levels that are below the limit ofdetection of this assay.The [employer] HIV Ag/Ab Combo assay result andsupplemental assay results should be interpreted inconjunction with the patient's clinical presentation,history and other laboratory results. If the results areinconsistent with clinical evidence, additional testing issuggested to confirm the result. Blood Venous blood specimen / Unknown 01/04/2023 8:42 AM EST 01/04/2023 11:07 AM EST us Elizabeth Hanna [facility] LAB BLOOD ORDERABLES Final Res ult [facility] [address] [place] [phone] * (ABNORMAL) Lipid Panel, Standard (01/04/2023 8:42 AM EST) Triglycerides 84 <150 mg/dL [facility] Comment:Desirable Triglyceri de: less than 150 mg/dLBorderline High Triglyceride 150-199 mg/dLHigh Triglyceride: 200-499 mg/dLVery High Triglyceride: greater than or equal to 5OO mg/dL Cholesterol 190 <200 mg/dL [facility] Comment:Desirable Cholestero l: less than 200 mg/dLBorderline High Cholesterol: 200-239 mg/dLHigh Cholesterol: greater than 239 mg/dL LDL Cholesterol Calculated 115(H) <100 mg/dL [facility] Comment:Desirable LDL: less than 100 mg/dLNear Optimal/Above Optimal LDL: 110- 129 mg/dLBorderline High LDL: 130-159 mg/dLHigh LDL: 160-189 mg/dLVery High LDL: greater than or equal to 190 mg/dL HDL Cholesterol 59 >40 mg/dL [facility] Comment:Desirable HDL: great er than 40 mg/dL Note: This HDL assay may give artificially low results in patients with liver disease. Blood Venous blood specimen / Unknown 01/04/2023 8:42 AM EST 01/04/2023 11:07 AM EST us Elizabeth Hanna ANESTHESIOLOGY PHYSICIAN ASSISTANT LAB BLOOD ORDERABLES Final Res ult [facility] [address] [place] [phone] * Pap Smear (07/21/2022 10:20 AM EDT) 07/21/2022 10:2 0 AM EDT 07/23/2022 8:00 AM EDT Narrative [facility] - 08/07/2022 8:50 AM EDT ----- ------- Name: Winnie Ramirez ? Age/Sex: 56/F ? : 1965 Unit#: [id number] ?? Attend Dr: Gail Sam CNM ?Re07/21/22 ?Status: DEP REF ? Location: HO.LNP ?Disch: ? ----- ------- SPEC : [id number] ? RECD: 07/23/22 ? STATUS: ??SOUT ? REQ NUM: [id number] ? BRIE: 07/21/22-1020 ? SUBM DR: Gail Sam CNM ? ENTERED: ??07/24/22 ?SP TYPE: Pap Smr ?OTHR DR: Elizabeth Hanna ANESTHESIOLOGY PHYSICIAN ASSISTANT ? ORDERED: ??Pap Smear ? Interpretation ?? Satisfactory for evaluation. ?? No endocervical cells seen. ?? Negative for intraepithelial lesion or malignancy. ?HPV mRNA E6/E7: ?NOT DETECTED ? This assay detects E6/E7 viral messenger RNA (mRNA) from 14 high-risk HPV types (16, 18, ?? 31, 33, 35, 39, 45, 51, 52, 56, 58, 59, 66, 68) ?? HPV testing performed by [employer], [place], [place]. ??See reference laboratory ?? pion of the EMR for entire report. ?Clinical Information LMP: Postmenopausal Previous PAP test: 11/01/19, Abnormal Other history: 2016, ANA I ? Material Received ?? ThinPrep-Cervical Copies To: ?? Gail Sam CNM ?? [address] [facility] [address] [facility] ?? [place] ?? [phone] ?? Elizabeth HannaP ?? [address] [facility] ?? [place] ?? [phone] ----- ------- Signed (signature on file) TETE Carvajal ([facility]) 08/07/22 0850 ? ----- ------- ? END OF REPORT ? [facility] External Provider LAB CYT OLOGY ORDERABLES Final Result [facility] [address] [place] [address] [phone] from Last 3 Months or Most Recently Relevant to Health Maintenance Insurance [employer] Care Teams Airline Mechanic Relationship Specialty Start Date End Date Elizabeth Hanna FNP [address] [place] [address] PCP - General Family Medicine 08/12/21 Kalpana Liu MD [address] [place] [address] Rheumatology 12/15/23 Good Sinclair MD [address] [place] [address] Cardiology 12/15/23 Mary Unger [address] [place] [address] Dr 3rd Floor [place], [place] Gastroenterology 12/15/23 James Hull [address] [address] Sleep Medicine 12/21/23
--- OUTSIDE RECORDS SUMMARY | 2024-03-24 12:19 | XMS_ITS | Encounter Summary ---
Author Organization [employer] Address [address] [facility] 7t [place] [address] Care Team Providers Care Director Sales And Trade Marketing Name Role Phone Elizabeth Hanna Primary Care Provider Kalpana Liu MD Unavailable Good Sinclair MD Unavailable [phone] Mary Unger Unavailable James Hull Unavailable Encounter Details Date Type Department Care Team (Late st Contact Info) Description 03/20/2022 Telephone [facility] [address] [place] [address] Elizabeth Hanna FNP [address] [place], [place] [phone] Social History Tobacco Use Types Packs/Day Years [...] on filedocumented in this encounter Care Teams Director Sales And Trade Marketing Relationship Specialty Start Date End Date Elizabeth Hanna FNP [address] [place] [address] PCP - General Family Medicine 08/12/21 Kalpana Liu MD [address] [place] [address] Rheumatology 12/15/23 Good Sinclair MD [address] [place] [address] Cardiology 12/15/23 Mary Unger [address] [place] [address] 3rd Floor [place], [place] Gastroenterology 12/15/23 James Hull [address] [facility] [address] [place] [address] Sleep Medicine 12/21/23 documented as of this encounter
--- OUTSIDE RECORDS SUMMARY | 2024-03-24 12:19 | XMS_ITS | Encounter Summary ---
Author Organization [employer] Address [address] [facility] 7t [place] [address] Care Team Providers Care Casualty Claims Supervisor Name Role Phone Elizabeth Hanna Primary Care Provider [phone] Kalpana Liu MD Unavailable Good Sinclair MD Unavailable [phone] Mary Unger Unavailable James Hull Unavailable Reason for Visit * Reason Comments Med Refill Encounter Details Date Type Department Care Team (Late st Contact Info) Description 03/12/2024 Refill [facility] [address] [place], [place] [phone] Elizabeth Hanna FNP [address] [place], [place] [phone] Gastroesophageal reflux disease, unspecified whether esophagitis present [...] documented as of this encounter Care Teams Casualty Claims Supervisor Relationship Specialty Start Date End Date Elizabeth Hanna FNP [address] [place] [address] PCP - General Family Medicine 08/12/21 Kalpana Liu MD [address] [place] [address] [place] [address] Rheumatology 12/15/23 Good Sinclair MD [address] [place] [address] Cardiology 12/15/23 Mary Unger [address] [place] [address] Dr 3rd Floor [place], [place] Gastroenterology 12/15/23 James Hull [address] [address] Sleep Medicine 12/21/23 documented as of this encounter
--- OUTSIDE RECORDS SUMMARY | 2024-03-24 12:19 | XMS_ITS | Encounter Summary ---
Author Organization [employer] Address [address] [facility] 7t [place] [address] Care Team Providers Care Pin Setter Name Role Phone Elizabeth Hanna MAY Primary Care Provider [phone] Kalpana Liu MD Unavailable Good Sinclair MD Unavailable [phone] Mary Unger Unavailable James Hull Unavailable Encounter [...] 1 AM EST 02/24/2024 11:02 AM EST [facility] - 02/28/2024 12:01 PM EST ----- ------- Name: Winnie Ramirez ? Age/Sex: 58/F ? : 1965 Unit#: [id number] ?? Attend Dr: Giovanny Nuñez MD ?Re02/24/24 ?Status: DEP [facility] ? Location: HO.SSS ?Disch: ? ----- ------- SPEC : [id number] ?RECD: 02/24/24-2 ? STATUS: ??SOUT ? REQ NUM: [id number] ? BRIE: 02/24/24-1011 ? SUBM DR: Giovanny Nuñez MD ? ENTERED: ??02/24/24-1112 ?SP TYPE: Surgical ? OTHR DR: Elizabeth Hanna GRADUATE STUDENT INSTRUCTOR ? ORDERED: ??HE Stain/21, Gross Micro L4/7, [...] ? Age/Sex: 58/F ? : 1965 Unit#: [id number] ?? Attend Dr: Giovanny Nuñez MD ?Re02/24/24 ?Status: DEP SDC ? Location: HO.SSS ?Disch: ? ----- ------- SPEC : [id number] ?RECD: 02/24/24-1101 ? STATUS: ??SOUT ? REQ NUM: [id number] ? BRIE: 02/24/24-1011 ? SUBM DR: Giovanny Nuñez MD ? ENTERED: ??02/24/24-1111 ?SP TYPE: Surgical ? OTHR DR: Elizabeth Hanna GRADUATE STUDENT INSTRUCTOR ? ORDERED: ??HE Stain/21, Gross Micro L4/7, [...] Copies To: ?? Giovanny Nuñez MD ?? [facility] Gastroenterology Services ?? [address] ?? [place] [address] ?? [phone] ?? Elizabeth Hanna [facility] ?? [address] [facility] ?? [place] [address] ?? [phone] ? CONTINUED ON NEXT PAGE ----- ------- Name: Winnie Ramirez ? Age/Sex: 58/F ? : 1965 Unit#: [id number] ?? Attend Dr: Giovanny Nuñez MD ?Re02/24/24 ?Status: DEP SDC ? Location: HO.SSS ?Disch: ? ----- ------- SPEC : [id number] ?RECD: 02/24/24-2 ? STATUS: ??SOUT ? REQ NUM: [id number] ? BRIE: 02/24/24-1011 ? SUBM DR: Giovanny [...] Provider LAB BLOOD ORDERAB LES Final Result [facility] [address] [place] [address] [phone] documented in this encounter Visit Diagnoses Not on filedocumented in this encounter Additional Health Concerns Assessment Noted Time PHQ-9 Depression Total Score: 8 12/24/19 23 9:19 AM EST documented as of this encounter Care Teams Pin Setter Relationship Specialty Start Date End Date Elizabeth Hanna FNP [address] [place] [address] PCP - General Family Medicine 08/12/21 Kalpana Liu MD [address] [place] [address] Rheumatology 12/15/23 Good Sinclair MD [address] [place] [address] Cardiology 12/15/23 Mary Unger [address] [place] [address] 3rd Floor [place], [place] Gastroenterology 12/15/23 James Hull [address] [address] Sleep Medicine 12/21/23 documented as of this encounter
[2024-03-24 12:33] LABS: Albumin Level 4.4 g/dL (3.5-5.0); Alkaline Phosphatase 70 U/L (39-117); Anion Gap 13 (12-20); Aspartate Amino Transferase 21 U/L (5-31); Bilirubin Total 0.6 mg/dL (0.0-1.0); Blood Urea Nitrogen 13 mg/dL (9-16); C Reactive Protein 1.66 mg/dL (< or = 0.50); Carbon Dioxide 27 mmol/L (22-29); Chloride 104 mmol/L (96-108); Estimated Glomerular Filt Rate > 60; Glucose Random 95 mg/dL (60-115); Sodium 140 mmol/L (135-145); Total Protein 8.9 g/dL (6.5-8.0)
[2024-03-24 12:43] LABS: Erythrocyte Sedimentation Rate 23 MM/HR (0-20)
[2024-03-24 12:44] LABS: Alanine Aminotransferase 19 U/L (0-31)
[2024-03-24 13:01] LABS: HBS Num1 0.54 mIU/mL (0-7.99); HBc Num1 0.17 S/CO (0.00-0.79); HBsAGNum1 0.27 S/CO (0.00-0.99); Hepatitis A Antibody IgM 0.21 Index (0-0.79); Hepatitis B Core Antibody Nonreactive (Nonreactive); Hepatitis B Surface Antigen Negative (Negative); ~HepC Num1 0.14 S/CO (0.00-0.79); ~Hepatitis A Antibody IgM Nonreactive (Nonreactive); ~Hepatitis B Surface Antibody NONREACTIVE (Nonreactive); ~Hepatitis C Antibody Nonreactive (Nonreactive)
[2024-03-27 08:29] LABS: TSpotTB Invalid (Negative)
== END 2024-03-24 10:45 | disposition home or self-care (01) ==
LOC: HO.LAB 10:44
PROVIDERS: PCP Registered Nurse; Visit Provider Student in an Organized Health Care Education/Training Program
DX: M06.09 Rheumatoid arthritis without rheumatoid factor, multiple sites (principal); Z79.620 Long term (current) use of immunosuppressive biologic; Z51.81 Encounter for therapeutic drug level monitoring
CPT/HCPCS: 36415; 80053; 85025; 85652; 86140; 86481; 86704; 86706; 86709; 86803; 87340; 99212

== ENCOUNTER 2024-03-24 10:44 | Outpatient (AMB) | payer MEDICAID, SELFPAY ==
--- NOTE | 2024-03-24 10:45 | MHC.OFFVIS ---
Vital Signs 03/24/24 10:49 Height 5 ft 3 in Weight 193 lb 5.526 oz BMI 34.2 BP 160/100 H Blood Pressure Location Lt brachial Position Sitting Respiration 16 Pulse 83 Pulse Source Pulse Oximeter Pulse Oximetry (%) 97 Oxygen Delivery Method Room Air Intake Visit Reasons: RA Intake Note: Patient presents for RA. Assistant Elementary Teacher Required: Yes Assistant Elementary Teacher Language: Middle School History Teacher Services: Assistant Elementary Teacher Present Assistant Elementary Teacher Name: Yamila Bay615 Information Interpreted: non-clinical & clinical Allergies methotrexate Adverse Reaction (Intermediate, Verified 03/24/24 10:49) gerd Medication List - Last Reconciled 03/24/24 by Augusta Aguilar MD duloxetine 30 mg PO DAILY Enbrel SureClick (etanercept) 50 mg subcut QWEEK NS escitalopram oxalate 10 mg PO DAILY hydrochlorothiazide 25 mg PO DAILY lisinopril 40 mg PO DAILY pantoprazole 40 mg PO DAILY psyllium husk 0.52 grams PO DAILY sennosides (Natural Senna Laxative) 17.2 mg (2 x 8.6 mg) PO BEDTIME trazodone 50 mg PO BEDTIME PRN HPI Comments Details: Patient is a 58-year-old female with hypertension, GERD complicated by erosive esophagitis, polyarticular osteoarthritis involving the hip knees, and seronegative rheumatoid arthritis here today for follow up Interval History: Patient last seen 12/17/2023. At that time she was supposed to start Enbrel but she was worried about starting it due to numbness and tingling in her hands. EMG ordered confirmed that it was bilateral carpal tunnel syndrome and she was referred to hand surgery. The exam had multiple tender MCPs and PIPs bilaterally without significant swelling. Started in December but only had enough medication for 1 months and had not been on the medication since completing 4 doses CTS release postponed due to flu Today, Still has persistent pain to her hands Rheumatologic History: -ve RF -ve CCP dx 08/2023 MTX 08/2023 DC 10/2023 ineffective and caused GERD Current Rheumatology Medication(s): Enbrel 50mg SC every week [facility] Medical History (Updated 03/24/24 @ 11:32 by Augusta Aguilar MD) Encounter for monitoring of etanercept therapy Erosive esophagitis Tubular adenoma of colon Surgical History History of umbilical hernia repair (~2008) History of ovarian cystectomy History of delivery Family History Father History of hypertension Mother History of hypertension Rheumatoid arthritis Lung cancer Breast cancer Social History Household Members: Significant Other and Children Alcohol intake: current Alcohol intake frequency: does not drink Patient Tobacco Use Status: Never used Tobacco e-Cigarette/Vaping Use: Never Used Current occupational status: unemployed 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 Review of Systems Const Details: Review of Systems Constitutional: Denies fever, chills, weight loss ENT: Denies vision changes, eye pain or eye redness, dental caries, dry mouth GI: Denies nausea, vomiting, diarrhea, abdominal pain, change in BM Pulm: Denies SOB, COLE, hemoptysis, wheezing Cards: Denies chest pain, palpitations Skin: Denies Raynaud's, rash, nail changes, photosensitivity, BREAKER MACHINE OPERATOR: Denies headaches, weakness, paresthesias, recurrent falls MSK: as per HPI All other systems reviewed and are unremarkable except noted above Physical Exam Vital Signs: Last Vital Signs Pulse 83 03/24/24 10:49 Resp 16 03/24/24 10:49 BP 160/100 H 03/24/24 10:49 Pulse Ox 97 03/24/24 10:49 Oxygen Delivery Method Room Air 03/24/24 10:49 BMI result Body Mass Index 34.2 Vital signs reviewed Physical Examination CONSTITUITIONAL Patient alert and cooperative. Well appearing and in no apparent painful distress HEENT Conjunctiva and sclera clear. Pupils equal round and reactive to light. No lymphadenopathy. CHEST/RESPIRATORY SYSTEM Normal respiratory effort and able to speak in complete sentences. Clear to auscultation bilaterally. No crackles, rales, rhonchi, wheezes heard. CARDIAC SYSTEM Regular rate and rhythm. S1 and S2 heard no murmurs. Radial pulses intact bilaterally MSK Hands: Swelling and TTP of the bilateral MCPs 2nd-4th. Hands appear swollen. and TTP to PIPs Wrists: Full range of motion at the wrists. TTP of bilateral wrists Elbows: Full range of motion without pain. No tenderness, weakness, swelling, increased warmth or erythema. Shoulders: Full range of motion without pain. No tenderness, weakness, swelling, increased warmth or erythema. Hips: Full range of motion without pain. Knees: Full range of motion. No tenderness, swelling, increased warmth or erythema.?No effusion or crepitations Ankles: Full range of motion. No tenderness, swelling, increased warmth or erythema.? Feet: Positive squeeze test bilaterally SKIN Skin intact without rashes. Results Reviewed Results Reviewed: Laboratory Tests 06/09/23 07/26/23 10/25/23 11:46 10:51 09:18 WBC 6.9 RBC 4.56 Hgb 13.0 Hct 39.2 Plt Count 269 ESR 17 Sodium 139 Potassium 4.4 Chloride 105 Carbon Dioxide 28 BUN 14 Creatinine 0.66 Calcium 10.2 Total Bilirubin 0.5 AST 13 ALT 16 Alkaline Phosphatase 64 C-Reactive Protein 2.05 H 1.44 H Total Protein 8.1 H 7.8 Albumin 4.3 4.2 Rheumatoid Factor < 13.0 Cycl Citrul Peptide IgG <16 FRANTZ Screen POSITIVE A FRANTZ Titer 1:80 H Assessment & Plan Assessment & Plan (1) Rheumatoid arthritis: Comment: -ve RF -ve CCP dx 08/2023 MTX 08/2023 DC 10/2023 ineffective and caused GERD Enbrel 12/2023 Code(s): M06.9 - Rheumatoid arthritis, unspecified Category: Medical Qualifiers: Rheumatoid arthritis location: multiple sites Rheumatoid factor presence: without rheumatoid factor Qualified Code(s): M06.09 - Rheumatoid arthritis without rheumatoid factor, multiple sites Plan: #Seronegative RA Patient is a 58-year-old female with seronegative rheumatoid arthritis currently in a flare of her disease on a background of not continuing her Enbrel. Contacted [facility] [place] [place] pharmacy who said that patient did not request refills and so she did not get a refill of her medication. Discussed that patient will need to either set up automatic refills or contact the pharmacy when she needs refills. Given that she currently has a cold I told her to wait a few days before starting the Enbrel and to continue this for the next 3 months and we will re-evaluate her and the efficacy of this treatment at that time. Plan - Enbrel 50mg SC weekly - Labs today: CBC, CMP, ESR, CRP, hepatitis panel, T spot - RTC 3 months - Labs before visit: CBC, CMP, ESR, CRP (2) Encounter for monitoring of etanercept therapy: Code(s): Z51.81 - Encounter for therapeutic drug level monitoring; Z79.620 - senior care (current) use of immunosuppressive biologic Category: Medical Plan: #Long-term Use of TNF Inhibitors: Enbrel Discussed with the patient the benefits and risks of TNF inhibitors for the management of the rheumatic condition Benefits include reduce pain, maintenance of remission and reduction of flares as well as ?progression of the disease Risks include injection sites/infusion reactions, serious infections (such as bacterial infections, opportunistic infections), malignancy, delaminating syndromes, autoimmune phenomena, CHF exacerbations, palmar plantar psoriasis and cytopenias Recommended rotating injection sites, and holding medication during and for up to 1 week after resolution of a febrile illness or open skin wound Plan I spent 45 minutes reviewing the record and labs, taking a history, examining the patient, discussing the treatment plan and documenting in the medical record Orders: Orders Comprehensive Met. Panel 3 Months M06.09 - Rheumatoid arthritis without rheumatoid factor, multiple sites, Z51.81 - Encounter for therapeutic drug level monitoring, Z79.620 - senior care (current) use of immunosuppressive biologic Erythrocyte Sedimentation Rate 3 Months M06.09 - Rheumatoid arthritis without rheumatoid factor, multiple sites, Z51.81 - Encounter for therapeutic drug level monitoring, Z79.620 - terminal block assembler (current) use of immunosuppressive biologic Hepatitis A,B,C Profile Today M06.09 - Rheumatoid arthritis without rheumatoid factor, multiple sites, Z51.81 - Encounter for therapeutic drug level monitoring, Z79.620 - senior care (current) use of immunosuppressive biologic T Spot TB Today M06.09 - Rheumatoid arthritis without rheumatoid factor, multiple sites, Z51.81 - Encounter for therapeutic drug level monitoring, Z79.620 - senior care (current) use of immunosuppressive biologic C Reactive Protein Today M06.09 - Rheumatoid arthritis without rheumatoid factor, multiple sites, Z51.81 - Encounter for therapeutic drug level monitoring, Z79.620 - terminal block assembler (current) use of immunosuppressive biologic Erythrocyte Sedimentation Rate Today M06.09 - Rheumatoid arthritis without rheumatoid factor, multiple sites, Z51.81 - Encounter for therapeutic drug level monitoring, Z79.620 - senior care (current) use of immunosuppressive biologic Complete Blood Count Auto Diff 3 Months M06.09 - Rheumatoid arthritis without rheumatoid factor, multiple sites, Z51.81 - Encounter for therapeutic drug level monitoring, Z79.620 - senior care (current) use of immunosuppressive biologic C Reactive Protein 3 Months M06.09 - Rheumatoid arthritis without rheumatoid factor, multiple sites, Z51.81 - Encounter for therapeutic drug level monitoring, Z79.620 - senior care (current) use of immunosuppressive biologic Complete Blood Count Auto Diff Today M06.09 - Rheumatoid arthritis without rheumatoid factor, multiple sites, Z51.81 - Encounter for therapeutic drug level monitoring, Z79.620 - terminal block assembler (current) use of immunosuppressive biologic Comprehensive Met. Panel Today M06.09 - Rheumatoid arthritis without rheumatoid factor, multiple sites, Z51.81 - Encounter for therapeutic drug level monitoring, Z79.620 - senior care (current) use of immunosuppressive biologic Medications: Refilled Enbrel SureClick (etanercept) 50 mg subcut QWEEK 4 mL 2RF NS M06.09 - Rheumatoid arthritis without rheumatoid factor, multiple sites, Z51.81 - Encounter for therapeutic drug level monitoring, Z79.620 - senior care (current) use of immunosuppressive biologic Coding Level of Care Code Est Pt Level 5 (23579) Complex EM visit Add On G2211 Diagnoses Rheumatoid arthritis of multiple sites with negative rheumatoid factor M06.09 Rheumatoid arthritis location: multiple sites Rheumatoid factor presence: without rheumatoid factor Encounter for monitoring of etanercept therapy Z51.81; Z79.620
[2024-03-24 10:49] VITALS: BP 160/100; PULSE 83; RESP 16; O2SAT 97; BMI 34.2
--- OUTSIDE RECORDS SUMMARY | 2024-03-24 11:32 | XMS_ITS | Clinical Summary ---
Author Organization [employer] Address [address] [facility] 7t [place] [address] Care Team Providers Care Hims Manager Name Role Phone Elizabeth Hanna MAY Primary Care Provider [phone] Kalpana Liu MD Unavailable DottieGood larsen MD Unavailable [phone] Mary Unger Unavailable James Hull Unavailable Allergies [...] MG tablet Take by mouth at bedtime. [facility] Provider Active Diclofenac Sodium 1 % gel APPLY ONCE A DAY TO AFFECTED JOINT 100 g 3 01/08/20 23 Active topiramate (Topamax) 25 MG tabletIndication s:Chronic migraine without aura without status migrainosus, not intractable Take 1 tablet (25 mg) by mouth at bedtime. (For Migraines) 90 tablet 3 01/14/20 23 Active lisinopril 20 MG tablet TAKE 1 TABLET BY MOUTH EVERY DAY IN THE MORNING 90 tablet 3 06/07/19 24 Active lisinopril 40 MG tablet Take [...] 90 tablet 3 02/13/19 25 026 Active famotidine (Heartburn Relief) 10 MG tabletIndication s:Gastroesophage al reflux disease, unspecified whether esophagitis present TAKE 1-2 TABLETS BY ORAL ROUTE EVERY 12 HOURS NEEDED FOR ACID REFLUX 360 tablet 1 03/22/19 25 Active chlorthalidone (Hygroton) 25 MG tabletIndication s:Essential hypertension TAKE 1 TABLET BY MOUTH EVERY DAY FOR BLOOD PRESSURE 90 tablet 1 03/21/19 25 Active chlorthalidone (Hygroton) 25 MG tabletIndication s:Essential hypertension TAKE 1 TABLET (25 MG) BY MOUTH ONCE DAILY. (FOR BLOOD PRESSURE) 90 tablet 3 03/22/19 24 025 Discontinued famotidine (Famotidine Orig St) 10 MG tabletIndication s:Gastroesophage al reflux disease, unspecified whether esophagitis present TAKE 1-2 TABLETS BY ORAL ROUTE EVERY 12 HOURS NEEDED FOR ACID REFLUX 360 tablet 1 09/13/19 24 025 Discontinued Active Problems Problem Noted Date Diagnosed Date Rheumatoid arthritis of [facility] sites with negative rheumatoid factor 12/15/2023 Overview (12/21/2023): Diagnosed 2023 - seronegative RA. Following with [facility] Rheum - Dr. Liu August 2023: Methotrexate started, folic acid daily Oct 2023: Methotrexate DC d/t lack of response and SE. PA for Enbrel initiated through Rheum. Dec 2023: Enbrel approved GERD (gastroesophageal reflux disease) Overview (12/15/2023): Followed by [facility] GI - OIL GAS AND PIPE TESTER Cornel Omeprazole PRN Constipation 01/13/2023 Overview (12/21/2023): [facility] GI consult Sep 2023 Cont metamucil in [...] maintenance 12/23/2022 Overview (12/21/2023): Pap: 07/21/22 by [facility] CNM NILM HPV neg. Hx of abnormal. Following with specialist Mammo: BIRADS 1 in August 2023 Colonoscopy: scheduled Feb 2024 at [facility] Last PE: 12/23/22 ASCVD Risk: 2.1% (PCE [...] 06/09/2023 TNP FRANTZ TITER 3 06/09/2023 TNP FRATNZ PATTERN 3 06/09/2023 TNP C Reactive Protein 06/09/2023 1.75 (H) Erythrocyte Sedimentatio* 06/09/2023 21 (H) Rheumatoid Factor 06/09/2023 <13.0 Med trials: Celebrex, ibuprofen, topical voltaren Initial [facility] Rhuem consult Sep 2022, suspected OA. July [...] murmur, systolic 03/20/2022 Overview (12/15/2023): [facility] Sinclair. Holter completed in fall 2023 - no significant findings per consult note Plan: annual echo through Cards Cervical myopathy 03/18/2022 Overview (03/18/2022): Evaluated Neurosurgery 03/14/2018, recommended surgery due to disc pathology and spinal cord compression, Unclear if surgery was performed TIA (transient ischemic attack) 03/18/2022 Overview (03/18/2022): TIA per patient report around 2007 in [place] Also mentioned as possible hx in Cardiology note from 2011 with potential carotid artery dissection Obesity 04/14/2021 Overview (12/24/2022): ?? Previously following with [facility] Weight Management (H. Pylori breath test negat [...] Essential hypertension 08/16/2017 Overview (07/14/2023): Established with [facility] (Dr. Sinclair) Echo 05/22/22: EF 60-65%, mild [...] to follow up appt (with PCP or Cement Mason Helper) -ED precautions reviewed Follow up in 2-4 [...] Encounters Date Type Department Care Team Description 03/18/2024 Refill [facility] [address] [place] [address] Elizabeth Hanna FNP Essential hypertension 03/12/2024 Refill [facility] [address] [place] [address] Elizabeth Hanna FNP Gastroesophageal reflux disease, unspecified whether esophagitis present 02/24/2024 Orders Only GENERIC EXTERNAL DATA DEPARTMENT Provider, Generic External Data 02/14/2024 11:00 AM EST Telemedicine [facility] [address] [place] [address] Elizabeth Hanna FNP Brain fog (Primary Dx); Essential hypertension 02/14/2024 Travel 02/11/2024 3:40 PM EST Office Visit [facility] [address] [place] [address] Elsa Saavedra MD Laryngitis (Primary Dx); Sinus congestion 02/11/2024 Travel 02/11/2024 Telephone [facility] [address] [place] [address] Elizabeth Hanna FNP Nurse Triage 02/10/2024 Telephone [facility] [address] [place] [address] rAely Wray MA Chart Prep 02/01/2024 Telephone [facility] [address] [place] [address] Elizabeth Hanna FNP Appointment from Last 3 Months Immunizations Name Administration [...] 1965 Sigmoidoscopy 1966 Alcohol/Substance Use Screening 1978 Pneumococcal Vaccine: 50+ Years (1 of 1 - PCV) 2016 Zoster Vaccines (1 of 2) 2016 COVID-19 Vaccine (3 - season) 2023 11/13/2020, 10/23/2020 Depression Screening 12/24/2023 [...] 1 AM EST 02/24/2024 11:02 AM EST [facility] - 02/28/2024 12:01 PM EST ----- ------- Name: Winnie Ramirez ? Age/Sex: 58/F ? : 1965 Unit#: [id number] ?? Attend Dr: Giovanny Nuñez MD ?Re02/24/24 ?Status: DEP [facility] ? Location: HO.SSS ?Disch: ? ----- ------- SPEC : [id number] ?RECD: 02/24/24-2 ? STATUS: ??SOUT ? REQ NUM: [id number] ? BRIE: 02/24/24-1011 ? SUBM DR: Giovanny Nuñez MD ? ENTERED: ??02/24/24-1112 ?SP TYPE: Surgical ? OTHR DR: Elizabeth Hanna ASSISTANT PROFESSOR OF ECONOMICS ? ORDERED: ??HE Stain/21, Gross Micro L4/7, [...] ? Age/Sex: 58/F ? : 1965 Unit#: [id number] ?? Attend Dr: Giovanny Nuñez MD ?Re02/24/24 ?Status: DEP SDC ? Location: HO.SSS ?Disch: ? ----- ------- SPEC : [id number] ?RECD: 02/24/24-2 ? STATUS: ??SOUT ? REQ NUM: [id number] ? BRIE: 02/24/24-1011 ? SUBM DR: Giovanny Nuñez MD ? ENTERED: ??02/24/24-1112 ?SP TYPE: Surgical ? OTHR DR: Elizabeth Hanna ASSISTANT PROFESSOR OF ECONOMICS ? ORDERED: ??HE Stain/21, Gross Micro L4/7, [...] Copies To: ?? Giovanny Nuñez MD ?? [facility] Gastroenterology Services ?? [address] ?? [place] [address] ?? [phone] ?? Elizabeth HannaP ?? [address] ?? [place] [address] ?? [phone] ? CONTINUED ON NEXT PAGE ----- ------- Name: Winnie Ramirez ? Age/Sex: 58/F ? : 1965 Unit#: [id number] ?? Attend Dr: Giovanny Nuñez MD ?Re02/24/24 ?Status: DEP [facility] ? Location: HO.SSS ?Disch: ? ----- ------- SPEC : [id number] ?RECD: 02/24/24-1101 ? STATUS: ??SOUT ? REQ NUM: [id number] ? BRIE: 02/24/24-1011 ? SUBM DR: Giovanny Nuñez MD ? ENTERED: ??02/24/24-1111 ?SP TYPE: Surgical ? OTHR DR: Elizabeth HannaP ? ORDERED: ??HE /, Gross Micro L4/7, IHC, Special st. 2/3, H. pylori, AB/PAS/3 ? ----- ------- Signed (signature on file) Alvaro Carrasco MD 02/28/24 7304 ? ----- ------- ? END OF REPORT ? Generic External Data Provider LAB BLOOD ORDERAB LES Final Result Performing Organization Address City/State/[facility] Co de Phone Number [facility] [address] [place] [phone] * POCT Rapid Covid-19 BinaxNOW (02/11/2024 4:04 PM EST) [facility] Rapid COVID Ag Negative QC Media Lot # [id number] Lot# Expiration Date [id number] Swab 02/11/2024 4:04 PM EST Result [facility] Elsa Saavedra MD POINT OF CARE TEST ENTER/ED IT ORDERABLES Final Result * POCT Rapid Strep A OSOM (02/11/2024 4:04 PM EST) [facility] Rapid Strep A Screen Negative Negative, None Detected QC Media Lot # [id number] Lot# Expiration Date , Swab 02/11/2024 4:04 PM EST Result [facility] Elsa Saavedra MD POINT OF CARE TEST ENTER/ED IT ORDERABLES Final Result * POCT Rapid Influenza B OSOM (02/11/2024 4:03 PM EST) [facility] Rapid Influenza B Ag Negative Negative, Indeterminate QC Media Lot # [id number] Lot# Expiration Date , Swab 02/11/2024 4:03 PM EST Elsa Saavedra MD POINT OF CARE TEST ENTER/ED IT ORDERABLES Final Result * POCT Rapid Influenza A OSOM (02/11/2024 4:02 PM EST) Rapid Influenza A Ag Negative Negative, Indeterminate QC Media Lot # [id number] Lot# Expiration Date , Swab Nasopharyngeal structure / Unknown 02/11/2024 4:02 PM EST us Elsa Saavedra MD POINT OF CARE TEST ENTER/ED IT ORDERABLES Final Result * Mr Brain w/ and w/o Contrast (12/29/2023 9:30 AM EST) Anatomical Region Laterality Modality Brain Magnetic Resonan ce 12/29/2023 9:30 AM EST Narrative 01/23/2024 5:45 PM EST ? [facility] ?[address] ?[place] [address] ? Magnetic Resonance Report ? Signed ? Patient: Winnie Ramirez ?MR#: MM ?? [id number] ? : 1965 ?Acct:[id number] ? Age/Sex: 57 / F ?ADM Date: 12/29/23 ? Loc: HO.MRI ? Attending Dr: Elizabeth OLVERA ? Ordering Physician: Elizabeth Hanna ?? Date of Service: 12/29/23 ?? Procedure(s): MR head/brain wo/w con ?? Accession Number(s): [id number] ? cc: Elizabeth Hanna ? EXAMINATION: ?? [...] ? Signed By: ?<Electronically signed by Daniel Hernandez DO in OV> ? 01/23/24 1742 ? DD/ 0930 ? TD/TT: 12/29/23 0952 ? Teacher Associate: JL ? Procedure Note Donotuseinterpreter, Image - 01/23/2024 [place] [address] Magnetic Resonance Report Signed Patient: Winnie Ramirez#: [id number] : 1965Acct:[id number] Age/Sex: 57 / FADM Date: 12/29/23 Loc: HO.MRI Attending Dr: Elizabeth OLVERA Ordering Physician: Elizabeth Hanna Date of Service: 12/29/23 Procedure(s): MR head/brain wo/w con Accession Number(s): [id number] cc: Elizabeth Hanna EXAMINATION: MR BRAIN WITHOUT [...] by: Tayo Hernandez DO 01/23/2024 05:42 PM EST RP Dictated By: Daniel Hernandez DO Signed By: <Electronically signed by Daniel Hernandez DO in OV> 01/23/24 1742 DD/ TD/TT: 12/29/23 0952 Teacher Associate: LUPILLO Elizabeth OLVERA IMG MRI PROCEDURES Edited Resu lt - Final * BI Mammogram Screening Tomosynthesis Bilateral (08/31/2023 12:55 PM EDT) Anatomical Region Laterality Modality Breast Bilateral Mammography 08/31/2023 12:5 5 PM EDT Narrative 09/22/2023 10:57 PM EDT ? [facility] [place] ? [address] ?[place] [address] ? Mammography Report ? Signed ? Patient: Winnie Ramirez ?MR#: MM ?? [id number] ? : 1965 ?Acct:[id number] ? Age/Sex: 57 / F ?ADM Date: 07/23/24 ? Loc: HO.MAMMO ? Attending Dr: Elizabeth Hanna ASSISTANT PROFESSOR OF ECONOMICS ? Ordering Physician: Elizabeth Hanna ASSISTANT PROFESSOR OF ECONOMICS ?Results: 1Negat ?? charlene ? Date of Service: 08/31/23 ?Follow Up: 1 Year From Orig ?? inal Mammogram ? Procedure(s): MM tomosynthesis screening BI ?? Accession Number(s): [id number] ? cc: Elizabeth Hanna ASSISTANT PROFESSOR OF ECONOMICS ? EXAMINATION: ?? MM SCREENING DIGITAL BREAST [...] by Vivian Emmanuel MD in OV> ? 09/22/232253 ? DD/ 1255 ? TD/TT: ? Teacher Associate: ? Procedure Note Guy, Image - 09/22/2023 [facility] [address] [place] [address] Dr. [place], [place] [address] Mammography Report Signed Patient: Kanika Ramirez#: [id number] : 1965Acct:[id number] Age/Sex: 57 / FADM Date: 08/31/23 Loc: HO.MAMMO Attending Dr: Elizabeth BATRESP Ordering Physician: Elizabeth HannaPResults: 1Negat charlene Date of Service: 08/31/23Follow Up: 1 Year From Orig inal Mammogram Procedure(s): MM tomosynthesis screening BI Accession Number(s): [id number] cc: Elizabeth Hanna EXAMINATION: MM SCREENING DIGITAL [...] by Vivian Emmanuel MD in OV> 09/22/23 2254 DD/ 1255 TD/TT: Teacher Associate: us Elizabeth OLVERA IMG BI PROCEDURES Final Result * Hepatitis C Viral RNA, Quantitative, Real-Time PCR (01/04/2023 8:42 AM EST) Hepatitis C Viral Load <15 NOT DETECTED NOT DETECTED IU/mL [facility] HCV Log PCR <1.18 NOT DETECTED NOT DETECTED Log IU/mL [facility] Comment:This test was perfor med using Real-Time Polymerase ChainReaction.Reportable Range: 15 IU/mL to 100,000,000 IU/mL(1.18 Log IU/mL to 8.00 Log IU/mL).The analytical performance characteristics of thisassay have been determined by [facility].The modifications have not been cleared or approved bythe FDA. This assay has been validated pursuant to theCLIA regulations and is used for clinical purposes.For more information on this test, go to:http://education.Evi/faq/KZO21f9(This link is being provided for informational/educational purposes only.)THIS TEST WAS PERFORMED AT:[facility] [place] [id number] BARTH MD Blood 01/04/2023 8:42 AM EST 01/04/2023 11:07 AM EST Elizabeth Hanna [facility] LAB BLOOD ORDERABLES Final Res ult [facility] [address] [place] [phone] * HIV-1/2 Antigen and Antibodies, Fourth Generation, with Reflexes (01/04/2023 8:42 AM EST) Pathologist [facility] HIV AB/AG Nonreactive Nonreactive [facility] Comment:HIV-1 p24 Ag and/or HIV-1/HIV-2 Ab not detected.A test result that is nonreactive does not exclude thepossibility of exposure to or infection with HIV-1 and/orHIV-2. Nonreactive results in this assay for individualswith prior exposure to HIV-1 and/or HIV-2 may be due toantigen and antibody levels that are below the limit ofdetection of this assay.The [employer] HIV Ag/Ab Combo assay result andsupplemental assay results should be interpreted inconjunction with the patient's clinical presentation,history and other laboratory results. If the results areinconsistent with clinical evidence, additional testing issuggested to confirm the result. Blood Venous blood specimen / Unknown 01/04/2023 8:42 AM EST 01/04/2023 11:07 AM EST us Elizabethfranky Hanna [facility] LAB BLOOD ORDERABLES Final Res ult Performing Organization Address City/[facility]/ZIP Co de Phone Number [facility] [address] [place] [phone] * (ABNORMAL) Lipid Panel, Standard (01/04/2023 8:42 AM EST) Triglycerides 84 <150 mg/dL [facility] Comment:Desirable Triglyceri de: less than 150 mg/dLBorderline High Triglyceride 150-199 mg/dLHigh Triglyceride: 200-499 mg/dLVery High Triglyceride: greater than or equal to 5OO mg/dL Cholesterol 190 <200 mg/dL [facility] Comment:Desirable Cholestero l: less than 200 mg/dLBorderline High Cholesterol: 200-239 mg/dLHigh Cholesterol: greater than 239 mg/dL LDL Cholesterol Calculated 115(H) <100 mg/dL [facility] Comment:Desirable LDL: less than 100 mg/dLNear Optimal/Above Optimal LDL: 110- 129 mg/dLBorderline High LDL: 130-159 mg/dLHigh LDL: 160-189 mg/dLVery High LDL: greater than or equal to 190 mg/dL HDL Cholesterol 59 >40 mg/dL [facility] Comment:Desirable HDL: great er than 40 mg/dL Note: This HDL assay may give artificially low results in patients with liver disease. Blood Venous blood specimen / Unknown 01/04/2023 8:42 AM EST 01/04/2023 11:07 AM EST us Elizabeth Hanna [facility] LAB BLOOD ORDERABLES Final Res ult [facility] [address] [place] [phone] * Pap Smear (07/21/2022 10:20 AM EDT) 07/21/2022 10:2 0 AM EDT 07/23/2022 8:00 AM EDT Narrative [facility] - 08/07/2022 8:50 AM EDT ----- ------- Name: Winnie Ramirez ? Age/Sex: 56/F ? : 1965 Unit#: [id number] ?? Attend Dr: Gail Sam CNM ?Re07/21/22 ?Status: DEP REF ? Location: HO.LNP ?Disch: ? ----- ------- SPEC : [id number] ? RECD: 07/23/22 ? STATUS: ??SOUT ? REQ NUM: [id number] ? BRIE: 07/21/22-1019 ? SUBM DR: Gail Sam CNM ? ENTERED: ??07/24/22-903 ?SP TYPE: Pap Smr ?OTHR DR: Elizabeth HannaP ? ORDERED: ??Pap Smear ? Interpretation ?? Satisfactory for evaluation. ?? No endocervical cells seen. ?? Negative for intraepithelial lesion or malignancy. ?HPV mRNA E6/E7: ?NOT DETECTED ? This assay detects E6/E7 viral messenger RNA (mRNA) from 14 high-risk HPV types (16, 18, ?? 31, 33, 35, 39, 45, 51, 52, 56, 58, 59, 66, 68) ?? HPV testing performed by [facility], [place], [place]. ??See reference laboratory ?? pion of the EMR for entire report. ?Clinical Information LMP: Postmenopausal Previous PAP test: 11/01/19, Abnormal Other history: 2016, ANA I ? Material Received ?? ThinPrep-Cervical Copies To: ?? Gail Sam CNM ?? [address] ?? [place] [address] ?? [phone] ?? Elizabeth Hanna ?? [address] ?? [place] [address] ?? [phone] ----- ------- Signed (signature on file) TETE Carvajal (ASCP) 08/07/22 0850 ? ----- ------- ? END OF REPORT ? [facility] External Provider LAB [facility] ORDER[facility]LES Final Result Performing Organization Address City/State/[facility] Co de Phone Number [facility] [address] [place] [address] [phone] from Last 3 Months or Most Recently Relevant to Health Maintenance Insurance [employer] C3 Care Teams Hims Manager Relationship Specialty Start Date End Date Elizabeth Hanna FNP [address] [place] [address] PCP - General Family Medicine 08/12/21 Kalpana Liu MD [address] [place] [address] Rheumatology 12/15/23 Good Sinclair MD [address] [place] [address] Cardiology 12/15/23 Mary Unger [address] [place] [address] Dr 3rd Floor [place], [place] Gastroenterology 12/15/23 James Hull [address] [facility] [address] [place] [address] Sleep Medicine 12/21/23
--- OUTSIDE RECORDS SUMMARY | 2024-03-24 11:32 | XMS_ITS | Encounter Summary ---
Author Organization [employer] Address [address] [facility] 7t [place] [address] Care Team Providers Care City Weighmaster Name Role Phone Elizabeth Hanna Primary Care Provider [phone] Kalpana Liu MD Unavailable DottieGood larsen MD Unavailable [phone] Mary Unger Unavailable James Hull Unavailable Reason for Visit * Reason Comments Med Refill Encounter Details Date Type Department Care Team (Late st Contact Info) Description 08/04/2022 Refill [facility] [address] [place] [address] Elizabeth Hanna FNP [address] [place], [place] [phone] Social History Tobacco Use Types Packs/Day Years [...] documented as of this encounter Care Teams City Weighmaster Relationship Specialty Start Date End Date Elizabeth Hanna FNP [address] [place] [address] PCP - General Family Medicine 08/12/21 Kalpana Liu MD [address] [place] [address] Rheumatology 12/15/23 oGod Sinclair MD [address] [place] [address] Cardiology 12/15/23 Mary Unger [address] [place] [address] 3rd Floor [place], [place] Gastroenterology 12/15/23 James Hull [address] [facility] [address] [place] [address] Sleep Medicine 12/21/23 documented as of this encounter
--- OUTSIDE RECORDS SUMMARY | 2024-03-24 11:32 | XMS_ITS | Encounter Summary ---
Author Organization [employer] Address [address] [facility] 7[address] [place] [address] Care Team Providers Care Ceo & Founder Name Role Phone Elizabeth Hanna Primary Care Provider [phone] Kalpana Liu MD Unavailable Good Sinclair MD Unavailable [phone] Mary Unger Unavailable James Hull Unavailable Encounter Details Date Type Department Care Team (Late st Contact Info) Description 03/20/2022 Telephone [facility] [address] [place] [address] Elizabeth Hanna FNP [address] [place], [place] [phone] Social History Tobacco Use Types Packs/Day Years [...] on filedocumented in this encounter Care Teams Ceo & Founder Relationship Specialty Start Date End Date Elizabeth Hanna FNP [address] [place] [address] PCP - General Family Medicine 08/12/21 Kalpana Liu MD [address] [place] [address] Rheumatology 12/15/23 Good Sinclair MD [address] [place] [address] Cardiology 12/15/23 Mary Unger [address] [place] [address] 3rd Floor [place], [place] Gastroenterology 12/15/23 James Hull [address] [facility] [address] [place] [address] Sleep Medicine 12/21/23 documented as of this encounter
--- OUTSIDE RECORDS SUMMARY | 2024-03-24 11:32 | XMS_ITS | Encounter Summary ---
Author Organization [employer] Address [address] [facility] [address]t [place] [address] Care Team Providers Care Hydraulic Spinner Name Role Phone Elizabeth Hanna Primary Care Provider [phone] Kalpana Liu MD Unavailable Good Sinclair MD Unavailable [phone] Mary Unger Unavailable aJmes Hull Unavailable Reason for Visit * Reason Comments Med Refill Encounter Details Date Type Department Care Team (Late st Contact Info) Description 03/18/2024 Refill [facility] [address] [place], [place] [phone] Elizabeth Hanna FNP [address] [place], [place] [phone] Essential hypertension Social History Tobacco Use Types [...] as of this encounter Visit Diagnoses Diagnosis Essential hypertension Unspecified essential hypertension documented in this encounter Additional Health Concerns Assessment Noted Time PHQ-9 Depression Total Score: 8 12/24/19 23 9:19 AM EST documented as of this encounter Care Teams Hydraulic Spinner Relationship Specialty Start Date End Date Elizabeth Hanna FNP [address] [place] [address] PCP - General Family Medicine 08/12/21 Kalpana Liu MD [address] [place] [address] Rheumatology 12/15/23 Good Sinclair MD [address] [place] [address] Cardiology 12/15/23 Mary Unger [address] [place] [address] Dr 3rd Floor [place], [place] Gastroenterology 12/15/23 Jamse Hull [address] [address] Sleep Medicine 12/21/23 documented as of this encounter
--- OUTSIDE RECORDS SUMMARY | 2024-03-24 11:32 | XMS_ITS | Encounter Summary ---
Author Organization [employer] [facility] Address [address] [facility] 7t [place] [address] Care Team Providers Care Heel Burnisher Name Role Phone Elizabeth Hanna Primary Care Provider [phone] Kalpana Liu MD Unavailable Good Sinclair MD Unavailable [phone] Mary Unger Unavailable James Hull Unavailable Reason for Visit * Reason Onset Date Comments triage 07/02/2022 Encounter Details Date Type Department Care Team (Late st Contact Info) Description 07/02/[address] [facility] [address] [place] [address] Elizabeth Hanna FNP [address] [place], [place] [phone] triage Social History Tobacco Use Types Packs/Day [...] 07/02/2022 2:48 PM EDT Triage call with [employer] [facility] [place] [id number] Pt reports feet, ankles, hands get swollen [...] on filedocumented in this encounter Care Teams Heel Burnisher Relationship Specialty Start Date End Date Elizabeth Hanna FNP [address] [place] [address] PCP - General Family Medicine 08/12/21 Kalpana Liu MD [address] [place] [address] [address] [place] [address] Rheumatology 12/15/23 Good Sinclair MD [address] [place] [address] Cardiology 12/15/23 Mary Unger [address] [place] [address] [address] [place], [place] Gastroenterology 12/15/23 James Hull [address] [address] Sleep Medicine 12/21/23 documented as of this encounter
--- OUTSIDE RECORDS SUMMARY | 2024-03-24 11:32 | XMS_ITS | Encounter Summary ---
Author Organization [employer] Address 75 [facility] 7t [place] [address] Care Team Providers Care Chemical Equipment Sales Engineer Name Role Phone Elizabeth Hanna MAY Primary Care Provider [phone] Kalpana Liu MD Unavailable Good Sinclair MD Unavailable [phone] Mary Unger Unavailable James Hull Unavailable Encounter Details Date Type Department Care Team (Late st Contact Info) Description 06/17/2023 Orders Only [facility] 230 [place] [address] [place], [place] [address] [address] Social History Tobacco Use Types Packs/Day Years [...] Region Laterality Modality Breast Left Mammography [place] IMG BI PROCEDURES Final Result documented in this encounter Visit Diagnoses Not on filedocumented in this encounter Additional Health Concerns Assessment Noted Time PHQ-9 Depression Total Score: 8 12/24/19 23 9:19 AM EST documented as of this encounter Care Teams Chemical Equipment Sales Engineer Relationship Specialty Start Date End Date Elizabeth Hanna FNP 230 [place] [address] PCP - General Family Medicine 08/12/21 Kalpana Liu MD [address] [address] Rheumatology 12/15/23 Good Sinclair MD [address] [place] [address] Cardiology 12/15/23 Mary Unger [address] [place] [address] Dr 3rd Floor [place] Gastroenterology 12/15/23 James Hull [address] [address] Sleep Medicine 12/21/23 documented as of this encounter
--- OUTSIDE RECORDS SUMMARY | 2024-03-24 11:32 | XMS_ITS | Encounter Summary ---
Author Organization [employer] Address 75 [facility] 7t [place] [address] Care Team Providers Care Account Support Analyst Name Role Phone Elizabeth Hanna MAY Primary Care Provider [phone] Kalpana Liu MD Unavailable Good Sinclair MD Unavailable [phone] Mary Unger Unavailable James Hull Unavailable Encounter [...] 1 AM EST 02/24/2024 11:02 AM EST [facility] - 02/28/2024 12:01 PM EST ----- ------- Name: Winnie Ramirez ? Age/Sex: 58/F ? : 1965 Unit#: [id number] ?? Attend Dr: Giovanny Nuñez MD ?Re02/24/24 ?Status: DEP [facility] ? Location: HO.SSS ?Disch: ? ----- ------- SPEC : [id number] ?RECD: 02/24/24-2 ? STATUS: ??SOUT ? REQ NUM: [id number] ? BRIE: 02/24/24-1011 ? SUBM DR: Giovanny Nuñez MD ? ENTERED: ??02/24/24-1112 ?SP TYPE: Surgical ? OTHR DR: Elizabeth Hanna KNITTING DEMONSTRATOR ? ORDERED: ??HE Stain/21, Gross Micro L4/7, [...] ? Age/Sex: 58/F ? : 1965 Unit#: [id number] ?? Attend Dr: Giovanny Nuñez MD ?Re02/24/24 ?Status: DEP SDC ? Location: HO.SSS ?Disch: ? ----- ------- SPEC : [id number] ?RECD: 02/24/24-1101 ? STATUS: ??SOUT ? REQ NUM: [id number] ? BRIE: 02/24/24-1011 ? SUBM DR: Giovanny Nuñez MD ? ENTERED: ??02/24/24-1111 ?SP TYPE: Surgical ? OTHR DR: Elizabeth Hanna KNITTING DEMONSTRATOR ? ORDERED: ??HE Stain/21, Gross Micro L4/7, [...] Copies To: ?? Giovanny Nuñez MD ?? [facility] ?? [address] ?? [place] [address] ?? [phone] ?? Elizabeth Hanna [facility] ?? [address] [facility] ?? [place] [address] ?? [phone] ? CONTINUED ON NEXT PAGE ----- ------- Name: Winnie Ramirez ? Age/Sex: 58/F ? : 1965 Unit#: [id number] ?? Attend Dr: Giovanny Nuñez MD ?Re02/24/24 ?Status: DEP [facility] ? Location: HO.SSS ?Disch: ? ----- ------- SPEC : [id number] ?RECD: 02/24/24-2 ? STATUS: ??SOUT ? REQ NUM: [id number] ? BRIE: 02/24/24-1011 ? SUBM DR: Giovanny [...] Provider LAB BLOOD ORDERAB LES Final Result [facility] 575 [place] [address] [phone] documented in this encounter Visit Diagnoses Not on filedocumented in this encounter Additional Health Concerns Assessment Noted Time PHQ-9 Depression Total Score: 8 12/24/19 23 9:19 AM EST documented as of this encounter Care Teams Account Support Analyst Relationship Specialty Start Date End Date Elizabeth Hanna FNP 230 [place] [address] PCP - General Family Medicine 08/12/21 Kalpana Liu MD [address] [place] [address] Rheumatology 12/15/23 Good Sinclair MD [address] [place] [address] Cardiology 12/15/23 Mary Unger [address] [place] [address] 3rd Floor [place], [place] Gastroenterology 12/15/23 James Hull [address] [address] Sleep Medicine 12/21/23 documented as of this encounter
--- OUTSIDE RECORDS SUMMARY | 2024-03-24 11:32 | XMS_ITS | Encounter Summary ---
Author Organization [employer] Address 75 [facility] 7t [place] [address] Care Team Providers Care Six Pack Packer Name Role Phone Elizabeth Hanna Primary Care Provider [phone] Kalpana Liu MD Unavailable Good Sinclair MD Unavailable [phone] Mary Unger Unavailable James Hull Unavailable Reason for Visit * Reason Comments Med Refill Encounter Details Date Type Department Care Team (Late st Contact Info) Description 03/12/2024 Refill [facility] MED & PEDS 505 [place], [place] [phone] Eliazbeth Hanna FNP 505 [place], [place] [phone] Gastroesophageal reflux disease, unspecified whether esophagitis present Social History Tobacco Use Types Packs/Day Years [...] as of this encounter Visit Diagnoses Diagnosis Gastroesophageal reflux disease, unspecified whether esophagitis present documented in this encounter Additional Health Concerns Assessment Noted Time PHQ-9 Depression Total Score: 8 12/24/19 23 9:19 AM EST documented as of this encounter Care Teams Six Pack Packer Relationship Specialty Start Date End Date Elizabeth Hanna FNP 230 [place] [address] PCP - General Family Medicine 08/12/21 Kalpana Liu MD [address] [place] [address] [place] [address] Rheumatology 12/15/23 Good Sinclair MD 596 [place] [address] Cardiology 12/15/23 Mary Unger [address] [place] [address] Dr 3rd Floor [place], [place] Gastroenterology 12/15/23 James Hull [address] [address] Sleep Medicine 12/21/23 documented as of this encounter
--- OUTSIDE RECORDS SUMMARY | 2024-03-24 11:32 | XMS_ITS | Encounter Summary ---
Author Organization [employer] Address 75 [facility] 7t [place] [address] Care Team Providers Care Medical Program Specialist Name Role Phone Elizabeth Hanna Primary Care Provider [phone] Kalpana Liu MD Unavailable Good Sinclair MD Unavailable [phone] Mary Unger Unavailable James Hull Unavailable Reason for Visit * Reason Onset Date Comments Referral 07/10/2022 rheumatology Encounter Details Date Type Department Care Team (Late st Contact Info) Description 07/10/2022 Telephone [facility] MEDICINE 230 [place] [address] Elizabeth Hanna FNP 505 [place], [place] [phone] Referral (rheumatology) Social History Tobacco Use Types [...] Scarlett Sullivan - 07/14/2022 2:49 PM EDT Diversified Crops Supervisor printed and refaxed referral, notes, and labs and faxed it to [facility] Rheumatology. Diversified Crops Supervisor called and spoke with pt and informed her. She stated she was given an appt for October 05 and felt it was to late. Diversified Crops Supervisor explained she could be placed on a [...] documented as of this encounter Care Teams Medical Program Specialist Relationship Specialty Start Date End Date Elizabeth Hanna FNP 230 [place] [address] PCP - General Family Medicine 08/12/21 Kalpana Liu MD [address] [address] Rheumatology 12/15/23 Good Sinclair MD 596 [place] [address] Cardiology 12/15/23 Mary Unger [address] [place] [address] Dr 3rd Floor [place] Gastroenterology 12/15/23 James Hull [address] [address] Sleep Medicine 12/21/23 documented as of this encounter
--- OUTSIDE RECORDS SUMMARY | 2024-03-24 11:32 | XMS_ITS | Encounter Summary ---
Author Organization [employer] Address [address] [facility] [address] 7t [place] [address] Care Team Providers Care Electrical Maintenance Supervisor Name Role Phone Elizabeth Hanna Primary Care Provider [phone] Kalpana Liu MD Unavailable Good Sinclair MD Unavailable [phone] Mary Unger Unavailable James Hull Unavailable Reason for Visit * Reason Onset Date Comments Referral 03/26/2022 Encounter Details Date Type Department Care Team (Late st Contact Info) Description 03/26/2022 Telephone [facility] MEDICINE 230 [place] [address] Elizabeth Hanna FNP [address] [place], [place] [phone] Referral Social History Tobacco Use Types Packs/Day [...] Tc from pt requesting status update on executive wellness programs director referral. Please contact at [phone] documented in this encounter Plan of Treatment Not on file documented as of this encounter Visit Diagnoses Not on filedocumented in this encounter Care Teams Electrical Maintenance Supervisor Relationship Specialty Start Date End Date Elizabeth Hanna FNP 230 [place] [address] PCP - General Family Medicine 08/12/21 Kalpana Liu MD [address] [place] [address] Rheumatology 12/15/23 Good Sinclair MD [address] [place] [address] Cardiology 12/15/23 Mary Unger [address] [place] [address] Dr 3rd Floor [place] Gastroenterology 12/15/23 James Hull [address] [address] Sleep Medicine 12/21/23 documented as of this encounter
== END 2024-03-24 11:34 | disposition home or self-care (01) ==
PROVIDERS: PCP Registered Nurse; Visit Provider Student in an Organized Health Care Education/Training Program
DX: M06.09 Rheumatoid arthritis without rheumatoid factor, multiple sites (principal); Z51.81 Encounter for therapeutic drug level monitoring; Z79.620 Long term (current) use of immunosuppressive biologic
CPT/HCPCS: 99215

== ENCOUNTER 2024-05-15 07:42 | Day surgery (SDC) | payer MEDICAID, SELFPAY ==
--- OUTSIDE RECORDS SUMMARY | 2024-04-05 07:50 | XMS_ITS | Encounter Summary ---
Author Organization [employer] Address [address] [facility] 7t [place] [address] Care Team Providers Care Dispatch Manager Name Role Phone Elizabeth Hanna MAY Primary Care Provider [phone] Kalpana Liu MD Unavailable Good Sinclair MD Unavailable [phone] Mary Unger Unavailable James Hull Unavailable Encounter Details Date Type Department Care Team (Late st Contact Info) Description 06/17/2023 Orders Only [facility] [address] [place] [address] [place], [place] [address] [address] Social History Tobacco Use Types Packs/Day Years [...] Region Laterality Modality Breast Left Mammography [place] IMG BI PROCEDURES Final Result documented in this encounter Visit Diagnoses Not on filedocumented in this encounter Additional Health Concerns Assessment Noted Time PHQ-9 Depression Total Score: 8 12/24/19 23 9:19 AM EST documented as of this encounter Care Teams Dispatch Manager Relationship Specialty Start Date End Date Elizabeth Hanna FNP [address] [place] [address] PCP - General Family Medicine 08/12/21 Kalpana Liu MD [address] [address] Rheumatology 12/15/23 Good Sinclair MD [address] [place] [address] Cardiology 12/15/23 Mary Unger [address] [place] [address] Dr 3rd Floor [place] Gastroenterology 12/15/23 James Hull [address] [address] Sleep Medicine 12/21/23 documented as of this encounter
--- OUTSIDE RECORDS SUMMARY | 2024-04-05 07:50 | XMS_ITS | Encounter Summary ---
Author Organization [employer] Address 75 [facility] 7t [place] [address] Care Team Providers Care Home Visits Nurse Name Role Phone Elizabeth Hanna Primary Care Provider Kalpana Liu MD Unavailable Good Sinclair MD Unavailable [phone] Mary Unger Unavailable James Hull Unavailable Encounter Details Date Type Department Care Team (Late st Contact Info) Description 03/20/2022 Telephone [facility] MEDICINE [address] [place] [address] Elizabeth Hanna FNP [address] [place] [address] Social History Tobacco Use Types Packs/Day Years [...] on filedocumented in this encounter Care Teams Home Visits Nurse Relationship Specialty Start Date End Date Elizabeth Hanna FNP [address] [place] [address] PCP - General Family Medicine 08/12/21 Kalpana Liu MD [address] [place] [address] Rheumatology 12/15/23 Good Sinclair MD [address] [place] [address] Cardiology 12/15/23 Mary Unger [address] [place] [address] 3rd Floor [place], [place] Gastroenterology 12/15/23 James Hull 22 [facility] [address] [place] [address] Sleep Medicine 12/21/23 documented as of this encounter
--- OUTSIDE RECORDS SUMMARY | 2024-04-05 07:50 | XMS_ITS | Encounter Summary ---
Author Organization [employer] Address 75 [facility] 7t [place] [address] Care Team Providers Care Senior Project Manager Engineering Name Role Phone Elizabeth Hanna Primary Care Provider [phone] Kalpana Liu MD Unavailable DottieoGod larsen MD Unavailable [phone] Mary Unger Unavailable James Hull Unavailable Reason for Visit * Reason Comments Med Refill Encounter Details Date Type Department Care Team (Late st Contact Info) Description 08/04/2022 Refill [facility] MEDICINE [address] [place] [address] Elizabeth Hanna FNP [address] [place], [place] [phone] Social History Tobacco Use Types Packs/Day Years [...] as of this encounter Care Teams Senior Project Manager Engineering Relationship Specialty Start Date End Date Elizabeth Hanna FNP [address] [place] [address] PCP - General Family Medicine 08/12/21 Kalpana Liu MD [address] [place] [address] Rheumatology 12/15/23 Good Sinclair MD 5[address] [place] [address] Cardiology 12/15/23 Mary Unger [address] [place] [address] 3rd Floor [place], [place] Gastroenterology 12/15/23 James Hull 22 [facility] [address] [place] [address] Sleep Medicine 12/21/23 documented as of this encounter
--- OUTSIDE RECORDS SUMMARY | 2024-04-05 07:50 | XMS_ITS | Encounter Summary ---
Author Organization [employer] [facility] Address 75 [facility] 7t [place] [address] Care Team Providers Care [employer] Social Science Teacher Name Role Phone Elizabeth Hanna Primary Care Provider [phone] Kalpana Liu MD Unavailable Good Sinclair MD Unavailable [phone] Mary Unger Unavailable James Hull Unavailable Reason for Visit * Reason Onset Date Comments triage 07/02/2022 Encounter Details Date Type Department Care Team (Late st Contact Info) Description 07/02/2022 Telephone [facility] MEDICINE [address] [place] [address] Elizabeth Hanna FNP [address] [place], [place] [phone] triage Social History Tobacco Use Types Packs/Day [...] 07/02/2022 2:48 PM EDT Triage call with [place] [id number] Pt reports feet, ankles, hands get swollen [...] on filedocumented in this encounter Care Teams [employer] Social Science Teacher Relationship Specialty Start Date End Date Elizabeth Hanna FNP [address] [place] [address] PCP - General Family Medicine 08/12/21 Kalpana Liu MD [address] [place] [address] [address] [place] [address] Rheumatology 12/15/23 Good Sinclair MD [address] [place] [address] Cardiology 12/15/23 Mary Unger [address] [place] [address] [address] [place], [place] Gastroenterology 12/15/23 James Hull [address] [address] Sleep Medicine 12/21/23 documented as of this encounter
--- OUTSIDE RECORDS SUMMARY | 2024-04-05 07:50 | XMS_ITS | Encounter Summary ---
Author Organization [employer] Address 75 [facility] 7t [place] [address] Care Team Providers Care Master Certified Rv Technician Name Role Phone Elizabeth Hanna Primary Care Provider [phone] Kalpana Liu MD Unavailable Good Sinclair MD Unavailable [phone] Mary Unger Unavailable James Hull Unavailable Reason for Visit * Reason Onset Date Comments Referral 07/10/2022 rheumatology Encounter Details Date Type Department Care Team (Late st Contact Info) Description 07/10/2022 Telephone [facility] MEDICINE [address] [place] [address] Elizabeth Hanna FNP [address] [place], [place] [phone] Referral (rheumatology) Social History Tobacco Use Types [...] Scarlett Sullivan - 07/14/2022 2:49 PM EDT [employer] printed and refaxed referral, notes, and labs and faxed it to [facility]. Super[employer] called and spoke with pt and informed her. She stated she was given an appt for October 05 and felt it was to late. Supervisor [employer] explained she could be placed on a [...] documented as of this encounter Care Teams Master Certified Rv Technician Relationship Specialty Start Date End Date Elizabeth Hanna FNP [address] [place] [address] PCP - General Family Medicine 08/12/21 Kalpana Liu MD [address] [address] Rheumatology 12/15/23 Good Sinclair MD [address] [place] [address] Cardiology 12/15/23 Mary Unger [address] [place] [address] Dr 3rd Floor [place] Gastroenterology 12/15/23 James Hull [address] [address] Sleep Medicine 12/21/23 documented as of this encounter
--- OUTSIDE RECORDS SUMMARY | 2024-04-05 07:50 | XMS_ITS | Clinical Summary ---
Author Organization [employer] Address [address] [facility] [address] [place] [address] Care Team Providers Care Snack Steward Name Role Phone Elizabeth Hanna MAY Primary Care Provider [phone] Kalpana Liu MD Unavailable DottieGood larsen MD Unavailable [phone] Mary Unger Unavailable James Hull Unavailable Allergies [...] MG tablet Take by mouth at bedtime. [facility] Provider Active Diclofenac Sodium 1 [...] Noted Date Diagnosed Date Rheumatoid arthritis of [facility] sites with negative rheumatoid factor 12/15/2023 Overview (12/21/2023): Diagnosed 2023 - seronegative RA. Following with [facility] Rheum - Dr. Liu August 2023: Methotrexate started, folic acid daily Oct 2023: Methotrexate DC d/t lack of response and SE. PA for Enbrel initiated through Rheum. Dec 2023: Enbrel approved GERD (gastroesophageal reflux disease) Overview (12/15/2023): Followed by [facility] GI - MAINTENANCE TECHNICIAN Cornel Omeprazole PRN Constipation 01/13/2023 Overview (12/21/2023): [facility] GI consult Sep 2023 Cont metamucil in [...] maintenance 12/23/2022 Overview (12/21/2023): Pap: 07/21/22 by [facility] CNM NILM HPV neg. Hx of abnormal. Following with specialist Mammo: BIRADS 1 in August 2023 Colonoscopy: scheduled Feb 2024 at [facility] Last PE: 12/23/22 ASCVD Risk: 2.1% (PCE [...] Med trials: Celebrex, ibuprofen, topical voltaren Initial [facility] Rhuem consult Sep 2022, suspected OA. July [...] murmur, systolic 03/20/2022 Overview (12/15/2023): [facility] Sinclair. Holter completed in fall 2023 - no significant findings per consult note Plan: annual echo through Cards Cervical myopathy 03/18/2022 Overview (03/18/2022): Evaluated Neurosurgery 03/14/2018, recommended surgery due to disc pathology and spinal cord compression, Unclear if surgery was performed TIA (transient ischemic attack) 03/18/2022 Overview (03/18/2022): TIA per patient report around 2007 in [place] Also mentioned as possible hx in Cardiology note from 2011 with potential carotid artery dissection Obesity 04/14/2021 Overview (12/24/2022): ?? Previously following with [facility] Weight Management (H. Pylori breath test negat [...] to follow up appt (with PCP or Medicaid Biller) -ED precautions reviewed Follow up in 2-4 [...] DEPARTMENT Provider, Generic External Data 03/18/2024 Refill [facility] [address] [place] [address] Elizabeth Hanna FNP Essential hypertension 03/12/2024 Refill [facility] [address] [place] [address] Elizabeth Hanna FNP Gastroesophageal reflux disease, unspecified whether esophagitis present 02/24/2024 Orders Only GENERIC EXTERNAL DATA DEPARTMENT Provider, Generic External Data 02/14/2024 11:00 AM EST Telemedicine [facility] [address] [place] [address] Elizabeth Hanna FNP Brain fog (Primary Dx); Essential hypertension 02/14/2024 Travel 02/11/2024 3:40 PM EST Office Visit [facility] [address] [place] [address] Elsa Saavedra MD Laryngitis (Primary Dx); Sinus congestion 02/11/2024 Travel 02/11/2024 Telephone [facility] [address] [place] [address] Elizabeth Hanna FNP Nurse Triage 02/10/2024 Telephone [facility] [address] [place] [address] Arely Wray MA Chart Prep 02/01/2024 Telephone [facility] [address] [place] [address] Elizabeth Hanna FNP Appointment from Last 3 [...] series) 2041 HIV Screening Completed 01/04/2023, 04/28/2022 Influenza Vaccine Completed 12/15/2023, , 12/27/2014, Additional history exists Hepatitis C Screening Completed 03/24/2024 , 01/04/2023, 04/28/2022 HIB Vaccines Aged Out No longer eligi [...] Procedure Name Priority Date/Time Associated Diagnosis Comments T-SPOT(R).TB Routine 03/24/2024 11:45 AM EST HEPATITIS PANEL, GENERAL Routine 03/24/2024 11:45 AM EST SED RATE BY MODIFIED WESTERGREN Routine 03/24/2024 11:45 AM EST C-REACTIVE PROTEIN Routine 03/24/2024 11 :45 AM EST COMPREHENSIVE METABOLIC PANEL Routine 03/24/2024 11:45 AM EST CBC WITH AUTO DIFFERENTIAL Routine 03/24/2024 11:45 AM EST HEMATOXYLIN AND EOSIN STAIN Routine 02/24/2024 10:11 AM EST POCT RAPID STREP A Routine 02/11/2024 4: 04 PM EST Sinus congestion POCT RAPID COVID ANTIGEN Routine 02/11/2024 4:04 PM EST Sinus congestion POCT INFLUENZA B Routine 02/11/2024 4:03 PM EST Sinus congestion POCT INFLUENZA A Routine 02/11/2024 4:02 PM EST Sinus congestion BI MAMMOGRAM SCREENING TOMOSYNTHESIS BILATERAL Routine 08/31/2023 12:55 PM EDT HIV 1/2 ANTIGEN/ANTIBODY, FOURTH GENERATION W/RFL Routine [...] Recently Relevant to Health Maintenance Results * T-SPOT??.TB (03/24/2024 11:45 AM EST) [facility] T Spot TB Invalid Negative [facility] Comment:The test result is i nvalid (not interpretable) due toa test control failure. Invalid results are uncommonand may be related to factors such as the immune statusof the patient, inappropriate blood storage conditions,delay in sample transport, or other technicaldifficulties. Retesting by collecting another sampleis recommended. If the test result remains invalid,consider the individual's epidemiological history,current medical status, and results of otherdiagnostic evaluations to help determine the TBinfection status of the patient.For additional information, please refer [email or web address]/faq/[email or web address](This link is being provided for informational/educational purposes only.)THIS TEST WAS PERFORMED AT:[id number] [place] [address]FLITFMRRIC AGEE MD,PHD TS PANEL A [facility] Comment:NOTIFIED CHENG OF BRANDI MAGANAER'S OFFICE FOR REORDER ANDRECOLLECT 2/18 AT 1153. TS PANEL B [facility] Comment:NOTIFIED CHENG OF [place] OVIDER'S OFFICE FOR REORDER ANDRECOLLECT 2/18 AT 1153. Negative Control TNP [facility] Comment:NOTIFIED CHENG OF [place] OVIDER'S OFFICE FOR REORDER ANDRECOLLECT 2/18 AT 1153. Positive Control TNP [facility] Comment:NOTIFIED CHENG OF [place] OVIDER'S OFFICE FOR REORDER ANDRECOLLECT 2/18 AT 1153. 03/24/2024 11:4 5 AM EST 03/24/2024 11:45 AM EST Generic External Data Provider LAB BLOOD ORDERAB LES Final Result Performing Organization Address City/[facility]/ZIP Co de Phone Number [facility] [address] [place] [phone] * Hepatitis Panel, General (03/24/2024 11:45 AM EST) Pathologist [facility] Hepatitis A IgM Nonreactive Nonreactive [facility] Comment:IgM antibodies to KIM V not detected; does not exclude earlyacute or recovered HAV infection. ~Hepatitis B Surface Antibody NONREACTIVE Nonreactive [facility] Comment:Nonreactive: < 8.00 mIU/mL Hepatitis B Core Antibody Nonreactive Nonreactive [facility] Hepatitis C Antibody Nonreactive Nonreactive [facility] Comment:Antibodies to HCV no t detected; does not exclude early acuteHCV infection. Hepatitis B Surface Ag Negative Negative [facility] 03/24/2024 11:4 5 AM EST 03/24/2024 11:45 AM EST Generic External Data Provider LAB BLOOD ORDERAB LES Final Result Performing Organization Address City/[facility]/ZIP Co de Phone Number [facility] [address] [place] [phone] * CBC auto differential (03/24/2024 11:45 AM EST) White Blood Count 7.5 4.8 - 10.8 X10*3/uL [facility] Red Blood Count 5.15 4.20 - 5.50 X10*6/uL [facility] Hemoglobin 14.1 12.0 - 16.0 g/dl [facility] Hematocrit 43.1 37.0 - 47.0 % [facility] Mean Corpuscular Volume 83.7 80.0 - 98.0 fL [facility] Mean Corpuscular Hemoglobin 27.4 27.0 - 33.0 pg [facility] Mean Corpuscular HGB Conc 32.7 31.0 - 35.0 g/dl [facility] Red Cell Distribution Width 13.3 11.0 - 16.0 % [facility] Platelet Count 308 160 - 400 X10*3/uL [facility] Mean Platelet Volume 10.2 9.4 - 12.3 fL [facility] Neutrophils Percent Auto 59.8 45 - 73 % [facility] Imm Gran Pct Auto 0.3 0.0 - 0.4 % [facility] Lymphocytes Percent Auto 28.6 20 - 40 % [facility] Monocytes Percent Auto 7.9 2 - 11 % [facility] Eosinophils Percent Auto 2.7 0 - 4 % [facility] Basophils Percent Auto 0.7 0 - 2 % [facility] NRBC Pct Auto 0.0 0.0 - 0.2 /100WBC [facility] Neutrophils Absolute Auto 4.5 2.0 - 8.3 x10*3/uL [facility] Imm Gran Abs Auto 0.02 0.00 - 0.03 X10*3/uL [facility] Lymphocytes Absolute Auto 2.1 1.2 - 4.9 X10*3/uL [facility] Monocytes Absolute Auto 0.6 0.1 - 1.2 X10*3/uL [facility] Eosinophils Absolute Auto 0.2 0.0 - 0.4 X10*3/uL [facility] Basophils Absolute Auto 0.1 0.0 - 0.2 X10*3/uL [facility] NRBC Abs Auto 0.000 0.0 - 0.012 X10*3/uL [facility] 03/24/2024 11:4 5 AM EST 03/24/2024 11:45 AM EST Generic External Data Provider LAB BLOOD ORDERAB LES Final Result Performing Organization Address [facility] de Phone Number [facility] [address] [place] [phone] * (ABNORMAL) Sed Rate by Modified Westergren (03/24/2024 11:45 AM EST) [facility] Erythrocyte Sedimentation Rate 23(H) 0 - 20 MM/HR [facility] Comment:Patients with polycy themia and many hemoglobin abnormalitiesmay have depressed sed rates whereas patients with anemiamay have elevated sed rates. 03/24/2024 11:4 5 AM EST 03/24/2024 11:45 AM EST Generic External Data Provider LAB BLOOD ORDERAB LES Final Result Performing Organization Address [facility] de Phone Number [facility] [address] [place] [address] [phone] * (ABNORMAL) C-reactive Protein (03/24/2024 11:45 AM EST) [facility] C Reactive Protein 1.66(H) < or = 0.50 mg/dL [facility] 03/24/2024 11:4 5 AM EST 03/24/2024 11:45 AM EST Generic External Data Provider LAB BLOOD ORDERAB LES Final Result Performing Organization Address [facility] de Phone Number [facility] [address] [place] [address] [phone] * (ABNORMAL) Comprehensive Metabolic Panel (03/24/2024 11:45 AM EST) [facility] Sodium 140 135 - 145 mmol/L [facility] Potassium 4.0 3.3 - 5.1 mmol/L [facility] Chloride 104 96 - 108 mmol/L [facility] Carbon Dioxide 27 22 - 29 mmol/L [facility] Anion Gap 13 12 - 20 [facility] Urea Nitrogen (BUN) 13 9 - 16 mg/dL [facility] Creatinine, Serum 0.60 0.5 - 1.4 mg/dL [facility] Estimated Glomerular Filt Rate >60 [facility] Comment:Chronic Kidney Disea se: Estimated GFR < 60 mL/min/1.54b3Gcmagb Kidney Disease: Estimated GFR < 15 mL/min/1.73m2 Glucose 95 60 - 115 mg/dL [facility] Calcium 10.0 8.4 - 10.2 mg/dL [facility] Bilirubin, Total 0.6 0.0 - 1.0 mg/dL [facility] Aspartate Amino Transferase 21 5 - 31 U/L [facility] Alanine Aminotransferase 19 0 - 31 U/L [facility] Total Protein 8.9(H) 6.5 - 8.0 g/dL [facility] Albumin Level 4.4 3.5 - 5.0 g/dL [facility] Alkaline Phosphatase 70 39 - 117 U/L [facility] 03/24/2024 11:4 5 AM EST 03/24/2024 11:45 AM EST us Generic External Data Provider LAB BLOOD ORDERAB LES Final Result Performing Organization Address City/State/[facility] Co de Phone Number [facility] [address] [place] [address] [phone] * Hematoxylin and Eosin Stain (02/24/2024 10:11 AM EST) 02/24/2024 10:1 1 AM EST 02/24/2024 11:02 AM EST Narrative [facility] - 02/28/2024 12:01 PM EST ----- ------- Name: Winnie Ramirez ? Age/Sex: 58/F ? : 1965 Unit#: [id number] ?? Attend Dr: Giovanny Nuñez MD ?Re02/24/24 ?Status: DEP SDC ? Location: HO.SSS ?Disch: ? ----- ------- SPEC : [id number] ?RECD: 02/24/24-1101 ? STATUS: ??SOUT ? REQ NUM: [id number] ? BRIE: 02/24/24-1011 ? SUBM DR: Giovanny [...] ? Age/Sex: 58/F ? : 1965 Unit#: [id number] ?? Attend Dr: Giovanny Nuñez MD ?Re02/24/24 ?Status: DEP SDC ? Location: HO.SSS ?Disch: ? ----- ------- SPEC : [id number] ?RECD: 02/24/24-1101 ? STATUS: ??SOUT ? REQ NUM: [id number] ? BRIE: 02/24/24-1011 ? SUBM DR: Giovanny [...] Copies To: ?? Giovanny Nuñez MD ?? [facility] Gastroenterology Services ?? [address] ?? [place] [address] ?? [phone] ?? Elizabeth Hanna ?? [address] ?? [place] ?? [phone] ? CONTINUED ON NEXT PAGE ----- ------- Name: Winnie Ramirez ? Age/Sex: 58/F ? : 1965 Unit#: [id number] ?? Attend Dr: Giovanny Nuñez MD ?Re02/24/24 ?Status: DEP SDC ? Location: HO.SSS ?Disch: ? ----- ------- SPEC : [id number] ?RECD: 02/24/24-1101 ? STATUS: ??SOUT ? REQ NUM: [id number] ? BRIE: 02/24/24-1011 ? SUBM DR: Giovanny Nuñez MD ? ENTERED: ??02/24/24-1112 ?SP TYPE: Surgical ? OTHR DR: Elizabeth Hanna AIRCRAFT MAINTENANCE INSTRUCTOR ? ORDERED: ??HE /21, Gross Micro L4/7, IHC, Special st. 2/3, H. pylori, AB/PAS/3 ? ----- ------- Signed (signature on file) Alvaro Carrasco MD 02/28/24 1201 ? ----- ------- ? END OF REPORT ? us Generic External Data Provider LAB BLOOD ORDERAB LES Final Result [facility] [address] [place] [address] [phone] * POCT Rapid Covid-19 BinaxNOW (02/11/2024 4:04 PM EST) Pathologist [facility] Rapid COVID Ag Negative QC Media Lot # [id number] Lot# Expiration Date [id number] Swab 02/11/2024 4:04 PM EST us Elsa Saavedra MD POINT OF CARE TEST ENTER/ED IT ORDERABLES Final Result * POCT Rapid Strep A OSOM (02/11/2024 4:04 PM EST) [facility] Rapid Strep A Screen Negative Negative, None Detected QC Media Lot # [id number] Lot# Expiration Date [id number] Swab 02/11/2024 4:04 PM EST Elsa Saavedra MD POINT OF CARE TEST ENTER/ED IT ORDERABLES Final Result * POCT Rapid Influenza B OSOM (02/11/2024 4:03 PM EST) [facility] Rapid Influenza B Ag Negative Negative, Indeterminate QC Media Lot # [id number] Lot# Expiration Date ,025 Swab 02/11/2024 4:03 PM EST Elsa Saavedra MD POINT OF CARE TEST ENTER/ED IT ORDERABLES Final Result * POCT Rapid Influenza A OSOM (02/11/2024 4:02 PM EST) [facility] Rapid Influenza A Ag Negative Negative, Indeterminate QC Media Lot # [id number] Lot# Expiration Date ,025 Swab Nasopharyngeal structure / Unknown 02/11/2024 4:02 PM EST Elsa Saavedra MD POINT OF CARE TEST ENTER/ED IT ORDERABLES Final Result * BI Mammogram Screening Tomosynthesis Bilateral (08/31/2023 12:55 PM EDT) Anatomical Region Laterality Modality Breast Bilateral Mammography 08/31/2023 12:5 5 PM EDT Narrative 09/22/2023 10:57 PM EDT ? [facility] ? [address] ?[place] [address] ? Mammography Report ? Signed ? Patient: Rustam Shields,Winnie ?MR#: [id number] ?? [id number] ? : 1965 ?Acct:[id number] ? Age/Sex: 57 / F ?ADM Date: 07/23/24 ? Loc: HO.MAMMO ? Attending Dr: Elizabeth Hanna AIRCRAFT MAINTENANCE INSTRUCTOR ? Ordering Physician: Elizabeth Hanna AIRCRAFT MAINTENANCE INSTRUCTOR ?Results: 1Negat ?? charlene ? Date of Service: 08/31/23 ?Follow Up: 1 Year From Orig ?? inal Mammogram ? Procedure(s): MM tomosynthesis screening BI ?? Accession Number(s): [id number] ? cc: Elizabeth Hanna AIRCRAFT MAINTENANCE INSTRUCTOR ? EXAMINATION: ?? MM SCREENING DIGITAL BREAST [...] 2254 ? DD/ 1255 ? TD/TT: ? Semiconductor Processor: ? Procedure Note Donchristianter, Image - 09/22/2023 [facility] [address] [place], [place] [address] Mammography Report Signed Patient: Winnie RamirezMR#: [id number] : 1965Acct:[id number] Age/Sex: 57 / FADM Date: 08/31/23 Loc: HO.MAMMO Attending Dr: Elizabeth Hanna AIRCRAFT MAINTENANCE INSTRUCTOR Ordering Physician: Elizabeth HannaPResults: 1Negat charlene Date of Service: 08/31/23Follow Up: 1 Year From Orig inal Mammogram Procedure(s): MM tomosynthesis screening BI Accession Number(s): [id number] cc: Elizabeth Hanna EXAMINATION: MM SCREENING DIGITAL [...] by Vivian Emmanuel MD in OV> 09/22/23 5495 DD/ 1255 TD/TT: Semiconductor Processor: Elizabeth BATRESP IMG BI PROCEDURES Final Result * HIV-1/2 Antigen and Antibodies, Fourth Generation, with Reflexes (01/04/2023 8:42 AM EST) HIV AB/AG Nonreactive Nonreactive [facility] Comment:HIV-1 p24 Ag and/or HIV-1/HIV-2 Ab not detected.A test result that is nonreactive does not exclude thepossibility of exposure to or infection with HIV-1 and/orHIV-2. Nonreactive results in this assay for individualswith prior exposure to HIV-1 and/or HIV-2 may be due toantigen and antibody levels that are below the limit ofdetection of this assay.The [employer]ATM HIV Ag/Ab Combo assay result andsupplemental assay results should be interpreted inconjunction with the patient's clinical presentation,history and other laboratory results. If the results areinconsistent with clinical evidence, additional testing issuggested to confirm the result. Blood Venous blood specimen / Unknown 01/04/2023 8:42 AM EST 01/04/2023 11:07 AM EST Elizabeth Hanna [facility] LAB BLOOD ORDERABLES Final Res ult [facility] [address] [place] [phone] [phone] * (ABNORMAL) Lipid Panel, Standard (01/04/2023 8:42 AM EST) Triglycerides 84 <150 mg/dL [facility] Comment:Desirable Triglyceri de: less than 150 mg/dLBorderline High Triglyceride 150-199 mg/dLHigh Triglyceride: 200-499 mg/dLVery High Triglyceride: greater than or equal to 5OO mg/dL Cholesterol 190 <200 mg/dL [facility] Comment:Desirable Cholestero l: less than 200 mg/dLBorderline High Cholesterol: 200-239 mg/dLHigh Cholesterol: greater than 239 mg/dL LDL Cholesterol Calculated 115(H) <100 mg/dL [facility] Comment:Desirable LDL: less than 100 mg/dLNear Optimal/Above Optimal LDL: 110- 129 mg/dLBorderline High LDL: 130-159 mg/dLHigh LDL: 160-189 mg/dLVery High LDL: greater than or equal to 190 mg/dL HDL Cholesterol 59 >40 mg/dL [facility] Comment:Desirable HDL: great er than 40 mg/dL Note: This HDL assay may give artificially low results in patients with liver disease. Blood Venous blood specimen / Unknown 01/04/2023 8:42 AM EST 01/04/2023 11:07 AM EST Elizabeth Hanna [facility] LAB BLOOD ORDERABLES Final Res ult [facility] [address] [place] [address] [phone] * Pap Smear (07/21/2022 10:20 AM EDT) 07/21/2022 10:2 0 AM EDT 07/23/2022 8:00 AM EDT Narrative [facility] - 08/07/2022 8:50 AM EDT ----- ------- Name: Winnie Ramriez ? Age/Sex: 56/F ? : 1965 Unit#: [id number] ?? Attend Dr: Gail Sam CNM ?Re07/21/22 ?Status: DEP REF ? Location: HO.LNP ?Disch: ? ----- ------- SPEC : [id number] ? RECD: 07/23/22 ? STATUS: ??SOUT ? REQ NUM: [id number] ? BRIE: 07/21/22-1019 ? SUBM DR: Gail Sam CNM ? ENTERED: ??07/24/22 ?SP TYPE: Pap Smr ?OTHR DR: Elizabeth Hanna AIRCRAFT MAINTENANCE INSTRUCTOR ? ORDERED: ??Pap Smear ? Interpretation ?? Satisfactory for evaluation. ?? No endocervical cells seen. ?? Negative for intraepithelial lesion or malignancy. ?HPV mRNA E6/E7: ?NOT DETECTED ? This assay detects E6/E7 viral messenger RNA (mRNA) from 14 high-risk HPV types (16, 18, ?? 31, 33, 35, 39, 45, 51, 52, 56, 58, 59, 66, 68) ?? HPV testing performed by [facility], [place], [place] ??See reference laboratory ?? pion of the EMR for entire report. ?Clinical Information LMP: Postmenopausal Previous PAP test: 11/01/19, Abnormal Other history: 2016, ANA I ? Material Received ?? ThinPrep-Cervical Copies To: ?? Gail Sam CNM ?? [address] ?? [place] [address] ?? [phone] ?? Elizabeth Hanna AIRCRAFT MAINTENANCE INSTRUCTOR ?? [address] [facility] ?? [place] [address] ?? [phone] ----- ------- Signed (signature on file) TETE Carvajal (ASCP) 08/07/22 0850 ? ----- ------- ? END OF REPORT ? [facility] External Provider LAB CYT OLOGY ORDERABLES Final Result [facility] [address] [place] [address] [phone] from Last 3 Months or Most Recently Relevant to Health Maintenance Insurance [employer] Care Teams Snack Steward Relationship Specialty Start Date End Date Elizabeth Hanna FNP [address] [place] [address] PCP - General Family Medicine 08/12/21 Kalpana Liu MD [address] [place] [address] [place] [phone] Rheumatology 12/15/23 Good Sinclair MD [address] [place] [address] Cardiology 12/15/23 Mary Unger [address] [place] [address] [address] [place], [place] Gastroenterology 12/15/23 James Hull [address] [place] [phone] Sleep Medicine 12/21/23
--- OUTSIDE RECORDS SUMMARY | 2024-04-05 07:50 | XMS_ITS | Encounter Summary ---
Author Organization [employer] Address [address] [facility] 7t [place] [address] Care Team Providers Care Lithographing Machine Operator Name Role Phone Elizabeth Hanna MAY Primary Care Provider [phone] Kalpana Liu MD Unavailable Good Sinclair MD Unavailable [phone] Mary Unger Unavailable James Hull Unavailable Encounter [...] PANEL, GENERAL Routine 03/24/2024 11:45 AM EST CBC WITH AUTO DIFFERENTIAL Routine 03/24/2024 11:45 AM EST SED RATE BY MODIFIED WESTERGREN Routine 03/24/2024 11:45 AM EST C-REACTIVE PROTEIN Routine 03/24/2024 11 :45 AM EST COMPREHENSIVE METABOLIC PANEL Routine 03/24/2024 11:45 AM EST documented in this encounter Results * T-SPOT??.TB (03/24/2024 11:45 AM EST) [facility] T Spot TB Invalid Negative [facility] Comment:The test result is i [...] of the patient.For additional information, please refer [email or web address].[employer]/faq/SYZ182(This link is being provided for informational/educational purposes only.)THIS TEST WAS PERFORMED AT:[id number] [place] [address]FLVMGUORIC AGEE MD,PHD TS PANEL A [facility] Comment:NOTIFIED [place] OF [place] [facility] OFFICE FOR REORDER ANDRECOLLECT 2/18 AT 1153. TS PANEL B [facility] Comment:NOTIFIED [place] OF [place] [facility] OFFICE FOR REORDER ANDRECOLLECT 2/18 AT 1153. Negative Control [facility] Comment:NOTIFIED [place] OF [place] [facility] OFFICE FOR REORDER ANDRECOLLECT 2/18 AT 1153. Positive Control [facility] Comment:NOTIFIED [place] OF [place] [facility] OFFICE FOR REORDER ANDRECOLLECT 2/18 AT 1153. 03/24/2024 11:4 5 AM EST 03/24/2024 11:45 AM EST us Generic External Data Provider LAB BLOOD ORDERAB LES Final Result [facility] [address] [place] [address] [phone] * Hepatitis Panel, General (03/24/2024 11:45 AM EST) Hepatitis A IgM Nonreactive Nonreactive [facility] Comment:IgM antibodies to KIM V not detected; does not exclude earlyacute or recovered HAV infection. ~Hepatitis B Surface Antibody NONREACTIVE Nonreactive [facility] Comment:Nonreactive: < 8.00 mIU/mL Hepatitis B Core Antibody Nonreactive Nonreactive [facility] Hepatitis C Antibody Nonreactive Nonreactive [facility] Comment:Antibodies to HCV no t detected; does not exclude early acuteHCV infection. Hepatitis B Surface Ag Negative Negative [facility] 03/24/2024 11:4 5 AM EST 03/24/2024 11:45 AM EST Generic External Data Provider LAB BLOOD ORDERAB LES Final Result Performing Organization Address [facility] de Phone Number [facility] [address] [place] [address] [phone] * (ABNORMAL) Sed Rate by Modified Westergren (03/24/2024 11:45 AM EST) Pathologist [facility] Erythrocyte Sedimentation Rate 23(H) 0 - 20 MM/HR [facility] Comment:Patients with polycy themia and many hemoglobin abnormalitiesmay have depressed sed rates whereas patients with anemiamay have elevated sed rates. 03/24/2024 11:4 5 AM EST 03/24/2024 11:45 AM EST Generic External Data Provider LAB BLOOD ORDERAB LES Final Result Performing Organization Address [facility] Co de Phone Number [facility] [address] [place] [phone] * (ABNORMAL) C-reactive Protein (03/24/2024 11:45 AM EST) [facility] C Reactive Protein 1.66(H) < or = 0.50 mg/dL [facility] 03/24/2024 11:4 5 AM EST 03/24/2024 11:45 AM EST Generic External Data Provider LAB BLOOD ORDERAB LES Final Result Performing Organization Address [facility] Co de Phone Number [facility] [address] [place] [phone] * (ABNORMAL) Comprehensive Metabolic Panel (03/24/2024 11:45 AM EST) [facility] Sodium 140 135 - 145 mmol/L [facility] Potassium 4.0 3.3 - 5.1 mmol/L [facility] Chloride 104 96 - 108 mmol/L [facility] Carbon Dioxide 27 22 - 29 mmol/L [facility] Anion Gap 13 12 - 20 [facility] Urea Nitrogen (BUN) 13 9 - 16 mg/dL [facility] Creatinine, Serum 0.60 0.5 - 1.4 mg/dL [facility] Estimated Glomerular Filt Rate >60 [facility] Comment:Chronic Kidney Disea se: Estimated GFR < 60 mL/min/1.99z1Ncnvfa Kidney Disease: Estimated GFR < 15 mL/min/1.73m2 Glucose 95 60 - 115 mg/dL [facility] Calcium 10.0 8.4 - 10.2 mg/dL [facility] Bilirubin, Total 0.6 0.0 - 1.0 mg/dL [facility] Aspartate Amino Transferase 21 5 - 31 U/L [facility] Alanine Aminotransferase 19 0 - 31 U/L [facility] Total Protein 8.9(H) 6.5 - 8.0 g/dL [facility] Albumin Level 4.4 3.5 - 5.0 g/dL [facility] Alkaline Phosphatase 70 39 - 117 U/L [facility] 03/24/2024 11:4 5 AM EST 03/24/2024 11:45 AM EST us Generic External Data Provider LAB BLOOD ORDERAB LES Final Result [facility] [address] [place] [address] [phone] * CBC auto differential (03/24/2024 11:45 AM EST) White Blood Count 7.5 4.8 - 10.8 X10*3/uL [facility] Red Blood Count 5.15 4.20 - 5.50 X10*6/uL [facility] Hemoglobin 14.1 12.0 - 16.0 g/dl [facility] Hematocrit 43.1 37.0 - 47.0 % [facility] Mean Corpuscular Volume 83.7 80.0 - 98.0 fL [facility] Mean Corpuscular Hemoglobin 27.4 27.0 - 33.0 pg [facility] Mean Corpuscular HGB Conc 32.7 31.0 - 35.0 g/dl [facility] Red Cell Distribution Width 13.3 11.0 - 16.0 % [facility] Platelet Count 308 160 - 400 X10*3/uL [facility] Mean Platelet Volume 10.2 9.4 - 12.3 fL [facility] Neutrophils Percent Auto 59.8 45 - 73 % [facility] Imm Gran Pct Auto 0.3 0.0 - 0.4 % [facility] Lymphocytes Percent Auto 28.6 20 - 40 % [facility] Monocytes Percent Auto 7.9 2 - 11 % [facility] Eosinophils Percent Auto 2.7 0 - 4 % [facility] Basophils Percent Auto 0.7 0 - 2 % [facility] NRBC Pct Auto 0.0 0.0 - 0.2 /100WBC [facility] Neutrophils Absolute Auto 4.5 2.0 - 8.3 x10*3/uL [facility] Imm Gran Abs Auto 0.02 0.00 - 0.03 X10*3/uL [facility] Lymphocytes Absolute Auto 2.1 1.2 - 4.9 X10*3/uL [facility] Monocytes Absolute Auto 0.6 0.1 - 1.2 X10*3/uL [facility] Eosinophils Absolute Auto 0.2 0.0 - 0.4 X10*3/uL [facility] Basophils Absolute Auto 0.1 0.0 - 0.2 X10*3/uL [facility] NRBC Abs Auto 0.000 0.0 - 0.012 X10*3/uL [facility] 03/24/2024 11:4 5 AM EST 03/24/2024 11:45 AM EST us Generic External Data Provider LAB BLOOD ORDERAB LES Final Result [facility] [address] [place] [phone] documented in this encounter Visit Diagnoses Not on filedocumented in this encounter Additional Health Concerns Assessment Noted Time PHQ-9 Depression Total Score: 8 12/24/19 23 9:19 AM EST documented as of this encounter Care Teams Lithographing Machine Operator Relationship Specialty Start Date End Date Elizabeth Hanna FNP [address] [place] [address] PCP - General Family Medicine 08/12/21 Kalpana Liu MD [address] [place] [address] Rheumatology 12/15/23 Good Sinclair MD [address] [place] [address] Cardiology 12/15/23 Mary Unger [address] [place] [address] 3rd Floor [place], [place] Gastroenterology 12/15/23 James Hull [address] [facility] [address] [place] [address] Sleep Medicine 12/21/23 documented as of this encounter
--- OUTSIDE RECORDS SUMMARY | 2024-04-05 07:50 | XMS_ITS | Encounter Summary ---
Author Organization [email or web address] Address [address] [facility] 7t [place] [address] Care Team Providers Care Room Service Associate Name Role Phone Elizabeth Hanna Primary Care Provider [phone] Kalpana Liu MD Unavailable Good Sinclair MD Unavailable [phone] Mary Unger Unavailable James Hull Unavailable Reason for Visit * Reason Comments Med Refill Encounter Details Date Type Department Care Team (Late st Contact Info) Description 03/12/2024 Refill [facility] [address] [place], [place] [phone] Elizabeth Hanna FNP [address] [place], [place] [phone] Gastroesophageal reflux disease, unspecified whether esophagitis present [...] documented as of this encounter Care Teams Room Service Associate Relationship Specialty Start Date End Date Elizabeth Hanna FNP [address] [place] [address] PCP - General Family Medicine 08/12/21 Kalpana Liu MD [address] [place] [address] [place] [address] Rheumatology 12/15/23 Good Sinclair MD [address] [place] [address] Cardiology 12/15/23 Mary Unger [address] [place] [address] Dr 3rd Floor [place], [place] Gastroenterology 12/15/23 James Hull [address] [address] Sleep Medicine 12/21/23 documented as of this encounter
--- OUTSIDE RECORDS SUMMARY | 2024-04-05 07:50 | XMS_ITS | Encounter Summary ---
Author Organization [employer] Address [address] [facility] 7t [place] [address] Care Team Providers Care Vest Finisher Name Role Phone Elizabeth Hanna Primary Care Provider [phone] Kalpana Liu MD Unavailable Good Sinclair MD Unavailable [phone] Mary Unger Unavailable James Hull Unavailable Reason for Visit * Reason Comments Med Refill Encounter Details Date Type Department Care Team (Late st Contact Info) Description 03/18/2024 Refill [facility] [address] [place], [place] [phone] Elizabeth Hanna FNP [address] [place], [place] [phone] Essential hypertension Social History Tobacco Use Types [...] documented as of this encounter Care Teams Vest Finisher Relationship Specialty Start Date End Date Elizabeth Hanna FNP [address] [place] [address] PCP - General Family Medicine 08/12/21 Kalpana Liu MD [address] [place] [address] Rheumatology 12/15/23 Good Sinclair MD [address] [place] [address] Cardiology 12/15/23 Mary Unger [address] [place] [address] Dr 3rd Floor [place], [place] Gastroenterology 12/15/23 James Hull [address] [address] Sleep Medicine 12/21/23 documented as of this encounter
[2024-05-15 08:21] VITALS: BP 173/91; PULSE 77; RESP 16; TEMP 36.8; O2SAT 98; BMI 34.2
--- NOTE | 2024-05-15 09:34 | MHC.SHP ---
Pre-Procedural Eval Section A - 24 Hr Update-Section A only Date of Service: 05/15/24 Section B - Complete if H&P > 30 days Chief Complaint: Carpal tunnel syndrome, left upper limb Allergies: Allergies Allergy/AdvReac Type Severity Reaction Status Date / Time methotrexate AdvReac Intermediate gerd Verified 03/24/24 10:49 Plan Diagnosis/Plan: Change I have reviewed the history and physical and performed a pertinent physical examination on my patient. No changes have occurred unless specified. Assessment and plan: Patient with bilateral carpal tunnel syndrome. The patient was originally signed up for a right carpal tunnel release but called and requested that her procedure be changed to a left carpal tunnel release. We have therefore changed everything to go ahead and perform a left carpal tunnel release today. Time Spent With Patient Time: Total time managing care of this patient today ____ minutes.
--- NOTE | 2024-05-15 09:35 | W.PM.OPN ---
Operative Note Operative Note Date of Service: 05/15/24 Narrative: Preop diagnosis: 1. Left Carpal tunnel syndrome Postop diagnosis: same Procedure: 1. Left Carpal tunnel release Surgeon: Shayy Miranda MD Receiving Dock Checker: None Anesthesia: local block using 1% lidocaine with epinephrine Findings: Thickened transverse carpal ligament. EBL: Less than 5 mL Specimens: None Complications: None Disposition: Brought to recovery room in stable condition Plan: Follow-up for 10-14 days for wound check and suture removal Indications: The patient is 58 years old, with left carpal tunnel syndrome that has been unresponsive to nonoperative management. The risks and benefits of operative treatment including but not limited to risk of damage to blood vessels, nerves, tendons, infection, persistent pain, persistent symptoms, or possible need for additional surgery were discussed with the patient and the patient wishes to proceed with surgery. Procedure: Once consent was obtained a local block was performed using a combination of 1% lidocaine with epinephrine. The patient was then brought back to the operating suite and placed on the operative table in supine position. The left upper extremity was prepped and draped in a standard surgical fashion. Once assured that we had a good block, a 2.0 cm longitudinal incision was made centered over the carpal tunnel. The incision was made through the skin to the subcutaneous tissues using a #15 blade. Dissection was made down to the level of the transverse carpal ligament with care being taken to protect the palmar cutaneous nerve. Once the transverse carpal ligament was clearly visualized, a longitudinal incision was made in the transverse carpal ligament 1st using a #15 blade, then using tenotomy scissors under direct visualization. Care was taken to look for and protect the motor branch of the median nerve when seen in this area. Once satisfied with our carpal tunnel release the wound was copiously irrigated with normal saline and hemostasis was obtained with a brief period of local pressure. The skin edges were reapproximated with some 5.0 nylon suture material and a sterile dressing was applied. The patient appears to have tolerated the procedure well and with no complications. All digits were well vascularized at the conclusion of the case.
[2024-05-15 11:02] VITALS: BP 170/86; PULSE 75; RESP 18; O2SAT 96
== END 2024-05-15 11:03 | disposition home or self-care (01) ==
PROVIDERS: PCP Registered Nurse; Visit Provider Orthopaedic Surgery
PROC: (CPT 64721; principal; 2024-05-15 10:30)
DX: G56.02 Carpal tunnel syndrome, left upper limb (principal); R20.0 Anesthesia of skin; R20.2 Paresthesia of skin; M06.09 Rheumatoid arthritis without rheumatoid factor, multiple sites; Z79.899 Other long term (current) drug therapy; Z88.8 Allergy status to other drugs, medicaments and biological substances; Z98.890 Other specified postprocedural states; Z56.0 Unemployment, unspecified
CPT/HCPCS: 64721; J0171; J2003

== ENCOUNTER → 2024-05-15 07:42 | Outpatient (BNV) | payer MEDICAID, SELFPAY | PROVIDERS: PCP Registered Nurse; Visit Provider Orthopaedic Surgery | DX: G56.02 Carpal tunnel syndrome, left upper limb (principal) | CPT/HCPCS: 64721 ==

== ENCOUNTER 2024-05-25 15:05 | Outpatient (REF) | payer MEDICAID, SELFPAY ==
--- NOTE | ~2024-05-25 | XR_ITS ---
EXAMINATION: XR CHEST CLINICAL INFORMATION: cough 10 days with wheeze COMPARISON: None available. TECHNIQUE: 2 views of the chest were obtained. FINDINGS: No significant abnormality is noted involving the heart, lungs, mediastinum, bony thorax or soft tissues. XR/XR chest 2V IMPRESSION: Unremarkable chest examination. Electronically signed by: Sal Herrera MD 05/25/2024 03:59 PM EDT RP
== END 2024-05-25 15:06 | disposition home or self-care (01) ==
LOC: HO.HHCX 15:05
PROVIDERS: Visit Provider Family Medicine
DX: J06.9 Acute upper respiratory infection, unspecified (principal); R06.2 Wheezing
CPT/HCPCS: 71046

== ENCOUNTER → 2024-05-25 15:06 | Outpatient (BNV) | payer MEDICAID, SELFPAY | PROVIDERS: Visit Provider Radiology Diagnostic Radiology | DX: R05.9 Cough, unspecified (principal) | CPT/HCPCS: 71046 ==

== ENCOUNTER 2024-05-31 13:06 | Outpatient (AMB) | payer MEDICAID, SELFPAY ==
--- NOTE | 2024-05-31 13:21 | MHC.OFFVIS ---
Intake Visit Reasons: PO LT CTR 05/15/24 AR Intake Note: Winnie is a 58 year old right hand dominant Cymraes speaking female who presents today for a post operative visit s/p right carpal tunnel release DOS: 05/15/[address] Shayy Miranda. Patient reports she no longer feels numbness and tingling. She reports some tenderness on her palm area near her incision. Denies any discharge. Sutures removed and steri strips applied. Sterile Processing Technician Required: Yes Sterile Processing Technician Language: Beef Ribber Name: Hiwot JENKINS/GRIFFIN Allergies methotrexate Adverse Reaction (Intermediate, Verified 05/31/24 13:42) gerd HPI HPI PO LT CTR 05/15/24 AR: Details: Winnie is a 58 year old right hand dominant [place]ymra[place] speaking female who presents today for a post operative visit s/p right carpal tunnel release DOS: 05/15/[address] Shayy Miranda. Patient reports she no longer feels numbness and tingling. She reports some tenderness on her palm area near her incision. Denies any discharge. Denies redness. Sutures removed and steri strips applied. [facility] Medical History (Updated 05/31/24 @ 13:42 by ALICE Hendrix) Bilateral carpal tunnel syndrome Encounter for monitoring of etanercept therapy Erosive esophagitis Tubular adenoma of colon Surgical History History of umbilical hernia repair (~2008) History of ovarian cystectomy History of delivery Family History Father History of hypertension Mother History of hypertension Rheumatoid arthritis Lung cancer Breast cancer Social History Household Members: Significant Other and Children Alcohol intake: current Alcohol intake frequency: does not drink Comment: counts correct Patient Tobacco Use Status: Never used Tobacco e-Cigarette/Vaping Use: Never Used Current occupational status: unemployed 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 Neuro: Normal sensation of the tips of all digits of the left hand at this time Vascular: Cap refill brisk Pain: Mild tenderness to palpation about incision site No pain with range of motion ROM: Patient is able to make a closed fist and extend all digits of the left hand fully and without difficulty Skin: Well approximated and well healing incision site noted on the volar left wrist No lacerations or abrasions. General: No ecchymosis, erythema, or evidence of infection. Psych: Appears grossly normal Affect normal Attitude cooperative Assessment & Plan Assessment & Plan (1) Bilateral carpal tunnel syndrome: Code(s): G56.03 - Carpal tunnel syndrome, bilateral upper limbs Category: Medical Plan 1. Status post left carpal tunnel release DOS 05/15/2024 Symptoms resolved since surgery Patient appears to be recovering well postoperatively Patient is educated about the typical recovery course At this time, patient was she will informed she will require no acute follow-up with us, as she appears to be recovering fairly well postoperatively Patient was amenable to this plan 2. Right carpal tunnel syndrome Intermittent, daily, worse at night Patient would like to hold off on any operative intervention at this time, as she states that she is very busy during the summer Patient states she would like to pursue operative intervention around October Due to this, patient was booked for a follow-up appointment in August to book her surgical date for right carpal tunnel release Patient was amenable to this plan Coding Level of Care Code Global (87816) Diagnoses Bilateral carpal tunnel syndrome G56.03
--- OUTSIDE RECORDS SUMMARY | 2024-05-31 15:30 | XMS_ITS | Encounter Summary ---
Author Organization [employer] Address 75 [facility] 7t [place] [address] Care Team Providers Care Assistant Produce Manager Name Role Phone Elizabeth Hanna Primary Care Provider [phone] Kalpana Liu MD Unavailable Good Sinclair MD Unavailable [phone] Mary Unger Unavailable James Hull Unavailable Reason for Visit * Reason Onset Date Comments Rosey recall 05/30/2024 Encounter Details Date Type Department Care Team (Late st Contact Info) Description 05/30/2024 Telephone [facility] [address] [place] [address] Elizabeth Hanna FNP [address] [place], [place] [phone] May recall Social History Tobacco Use Types Packs/Day Years [...] Telephone Encounter - Arely Hayes [place] - 05/30/2024 1:58 PM EDT Telephone call to patient to schedule the following recall: Visit type: Follow up Appointment notes: Chronic conditions Patient agree to appointment on 07/12/2024 at 9:00 AM with Cyndi . documented in this encounter Plan of Treatment Upcoming Encounters Date Type Department Care Team ([facility] st Contact Info) Description 07/12/2024 9:00 AM EDT Office Visit [facility] [address] [place] [address] Elizabeth Hanna FNP [address] [place] [address] documented as of this encounter Visit Diagnoses Not on filedocumented in this encounter Additional Health Concerns Assessment Noted Time PHQ-9 Depression Total Score: 8 12/24/19 23 9:19 AM EST documented as of this encounter Care Teams Assistant Produce Manager Relationship Specialty Start Date End Date Elizabeth Hanna FNP [address] [place] [address] PCP - General Family Medicine 08/12/21 Kalpana Liu MD [address] [place] [address] Rheumatology 12/15/23 Good Sinclair MD [address] [place] [address] Cardiology 12/15/23 Mary Unger [address] [place] [address] Dr 3[address] Floor [place], [place] Gastroenterology 12/15/23 Jaems Hull 22 [facility] [address] [place] [address] Sleep Medicine 12/21/23 documented as of this encounter
--- OUTSIDE RECORDS SUMMARY | 2024-05-31 15:30 | XMS_ITS | Encounter Summary ---
Author Organization [facility] Address 75 [facility] 7t [place] [address] Care Team Providers Care Associate Dentist Name Role Phone Elizabeth Hanna Primary Care Provider [phone] Kalpana Liu MD Unavailable Good Sinclair MD Unavailable [phone] Mary Unger Unavailable James Hull Unavailable Reason for Visit * Reason Onset Date Comments triage 07/02/2022 Encounter Details Date Type Department Care Team (Late st Contact Info) Description 07/02/2022 Telephone [facility] MED[facility]INE [address] [place] [address] Elizabeth Hanna FNP [address] [place], [place] [phone] triage Social History Tobacco Use Types Packs/Day [...] 07/02/2022 2:48 PM EDT Triage call with [place] [employer] Relations Director [place] [id number] Pt reports feet, ankles, hands get swollen [...] Upcoming Encounters Date Type Department Care Team (Late st Contact Info) Description 07/12/2024 9:00 AM EDT Office Visit [facility] MED[facility] [address] [place] [address] Elizabeth Hanna FNP [address] [place] [address] documented as of this encounter Visit Diagnoses Not on filedocumented in this encounter Care Teams Associate Dentist Relationship Specialty Start Date End Date Elizabeth Hanna FNP [address] [place] [address] PCP - General Family Medicine 08/12/21 Kalpana Liu MD [address] [place] [address] Rheumatology 12/15/23 Good Sinclair MD [address] [place] [address] Cardiology 12/15/23 Mary Unger [address] [place] [address] 3rd Floor [place], [place] Gastroenterology 12/15/23 James Hull 22 [facility] [address] [place] [address] Sleep Medicine 12/21/23 documented as of this encounter
--- OUTSIDE RECORDS SUMMARY | 2024-05-31 15:30 | XMS_ITS | Clinical Summary ---
Author Organization [employer] Address [address] [facility] [address] [place] [address] Care Team Providers Care Rcis Name Role Phone Elizabeth Hanna MAY Primary Care Provider Kalpana Liu MD Unavailable DottieGood larsen MD Unavailable [phone] Mary Unger Unavailable James Hull Unavailable Allergies No known active allergies Medications SUMAtriptan (Imitrex) 50 MG tablet take 1 Tablet by oral route once with fluids as early as possible after the onset of a migraine attack 2 Active escitalopram (Lexapro) 10 MG tablet Take 10 mg by mouth in the morning. N provider Active traZODone (Desyrel) 50 MG tablet Take by mouth at bedtime. [facility] Provider Active Diclofenac Sodium 1 % gel APPLY ONCE A DAY TO AFFECTED JOINT 100 g 3 3 Active topiramate (Topamax) 25 MG tabletIndications :Chronic migraine without aura without status migrainosus, not intractable Take 1 tablet (25 mg) by mouth at bedtime. (For Migraines) 90 tablet 3 3 Active lisinopril 20 MG tablet TAKE 1 TABLET BY MOUTH EVERY DAY IN THE MORNING 90 tablet 3 4 Active lisinopril 40 MG tablet Take 1 tablet (40 mg) by mouth Once per day. 90 tablet 3 4 12/15/19 25 Active cholecalciferol (Vitamin D-3) 25 MCG (1000 UT) tablet Take 1 tablet (25 mcg) by mouth Once per day. 90 tablet 3 4 Active Calcium Carb-Cholecalcife rol (Calcium+D3) 600-20 MG-MCG tabletIndications :Vitamin D deficiency Take 1 tablet by mouth Once daily. 90 tablet 3 4 Active metoprolol succinate XL (Toprol XL) 25 MG 24 hr tabletIndications :Essential hypertension Take 1 tablet (25 mg) by mouth Once per day. Do not crush or chew. 90 tablet 3 5 02/13/19 26 Active famotidine (Heartburn Relief) 10 MG tabletIndications :Gastroesophageal reflux disease, unspecified whether esophagitis present TAKE 1-2 TABLETS BY ORAL ROUTE EVERY 12 HOURS NEEDED FOR ACID REFLUX 360 tablet 1 5 Active chlorthalidone (Hygroton) 25 MG tabletIndications :Essential hypertension TAKE 1 TABLET BY MOUTH EVERY DAY FOR BLOOD PRESSURE 90 tablet 1 5 Active predniSONE (Deltasone) 20 MG tabletIndications :Acute upper respiratory infection,Wheeze 2 tabs po daily for 5 days 10 tablet 5 Active albuterol 108 (90 Base) MCG/ACT inhalerIndication s:Acute upper respiratory infection,Wheeze Inhale 2 puffs every 4 (four) hours if needed for wheezing. 18 g 5 05/26/19 26 Active benzonatate (Tessalon Perles) 100 MG capsuleIndication s:Acute URI Take 1 capsule (100 mg) by mouth if needed in the morning, at noon, and at bedtime for cough for up to 7 days. Do not crush or chew. 20 capsule 5 05/27/19 25 azithromycin (Zithromax) 250 MG tabletIndications :Acute upper respiratory infection,Wheeze Take 2 tablets (500 mg) by mouth Once per day for 1 day, THEN 1 tablet (250 mg) Once per day for 4 days. 6 tablet 5 05/30/19 25 Hospital, Clinic, or Other Facility Administered Medication Ordered Dose Route Frequency Start Date End Date Status albuterol (2.5 MG/3ML) 0.083% nebulizer solution 2.5 mgIndications:Wheeze 2.5 mg NEBULIZATION Once 05/25/2024 05/25/2024 En ded Active Problems Problem Noted Date Diagnosed Date Acute upper respiratory infection 05/25/2024 Assessment & Plan (05/25/2024 2:34 PM EDT): Worsening symptoms of congestion and cough x10 day. Wheezing today on exam today. Suspect bronchitis versus atypical pneumonia. -ordered CXR 05/25/24 -prescribed azithromycin (Zithromax) 250 MG, will change if CXR shows consolidation -prescribed lbuterol 108 (90 Base) MCG/ACT inhaler -prescribed predniSONE (Deltasone) 20 MG Wheeze 05/25/2024 Assessment & Plan (05/25/2024 2:34 PM EDT): Diffuse wheezing on exam. Given albuterol treatment in clinic. Pt improved after treatment with faint residual wheeze. -prescribed lbuterol 108 (90 Base) MCG/ACT inhaler -prescribed predniSONE (Deltasone) 20 MG -ordered CXR Rheumatoid arthritis of [facility] sites with negative rheumatoid factor 12/15/2023 Overview (12/21/2023): Diagnosed 2023 - seronegative RA. [place] [facility] [place] [place]. Liu August 2023: Methotrexate started, folic acid daily Oct 2023: Methotrexate DC d/t lack of response and SE. PA for Enbrel initiated through Rheum. 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 Hx of abnormal. Following with specialist Mammo: BIRADS 1 in August 2023 Colonoscopy: scheduled Feb 2024 [place] [facility] Last PE: 12/23/22 ASCVD [...] Med trials: Celebrex, ibuprofen, topical voltaren Initial [facility] Rhuem consult Sep 2022, [...] murmur, systolic 03/20/2022 Overview (12/15/2023): [facility] Sinclair. Holter completed in fall 2023 - no significant findings per consult note Plan: annual echo through Cards Cervical myopathy 03/18/2022 Overview (03/18/2022): Evaluated Neurosurgery 03/14/2018, recommended surgery due to disc pathology and spinal cord compression, Unclear if surgery was performed TIA (transient ischemic attack) 03/18/2022 Overview (03/18/2022): TIA per patient report around 2007 in [place] Also mentioned as possible hx in Cardiology note from 2011 with potential carotid artery dissection Obesity 04/14/2021 Overview (12/24/2022): ?? Previously following [place] [facility] Weight Management (H. Pylori [...] Essential hypertension 08/16/2017 Overview (07/14/2023): Established with [facility] (Dr. Sinclair) Echo 05/22/22: [...] to follow up appt (with PCP or [facility]) -ED precautions reviewed Follow up in 2-4 [...] Encounters Date Type Department Care Team Description 05/30/2024 Telephone [facility] [address] [place] [address] Elizabeth Hanna FNP May05/30/2024 Travel 05/26/2024 Telephone [facility] [address] [place] [address] Varsha Duque MD Results 05/25/2024 2:20 PM EDT Office Visit [facility] [address] [place] [address] Varsha Duque MD Acute upper respiratory infection (Primary Dx); Wheeze 05/25/2024 Travel 05/25/2024 Telephone [facility] [address] [place] [address] Elizabeth Hanna FNP Nurse Triage 05/19/2024 11:20 AM EDT Office Visit [facility] [address] [place] [address] Guero Mendes MD Acute URI 05/19/2024 Travel 05/19/2024 Telephone [facility] [address] [place] [address] Elizabeth Hanna FNP Nurse Triage 03/24/2024 Orders Only GENERIC EXTERNAL DATA DEPARTMENT Provider, Generic External Data 03/18/2024 Refill [facility] [address] [place] [address], [place] [phone] Elizabeth Hanna FNP Essential hypertension 03/12/2024 Refill [facility] [address] [place] [address], [place] [phone] Elizabeth Hanna FNP Gastroesophageal reflux disease, unspecified whether esophagitis present from Last 3 Months Immunizations Name Administration [...] Sign Reading Time Taken Comments Blood Pressure 144/92 05/25/2024 1:36 PM EDT Pulse 96 05/25/2024 1:36 PM EDT Temperature 36.8 ??C (98.3 ??F) 05/25/2024 1:36 PM ED T Respiratory Rate 17 05/25/2024 1:36 PM EDT Oxygen Saturation 98% 05/25/2024 1:36 PM EDT Inhaled Oxygen Concentration - - Weight 90.4 kg (199 lb 6.4 oz) 05/25/2024 1:36 P M EDT Height 160 cm (5' 3 ) 05/25/2024 1:36 PM EDT Body Mass Index 35.32 05/25/2024 1:36 PM EDT Plan of Treatment Upcoming Encounters Date Type Department Care Team (Late st Contact Info) Description 07/12/2024 9:00 AM EDT Office Visit [facility] [address] [place] [address] Cyndi Elizabeth, BUYING INTERN [address] [place] [address] Health Maintenance Due Date Last Done Comments [...] 12/15/2023 Mammogram 08/30/2024 08/31/2023, 09/13/2020 Tobacco Screening 05/25/2025 05/25/2024 Cervical Cancer Screening 07/22/2027 HPV/Cotest 07/22/2027 07/21/2022, [...] topic Meningococcal Vaccine Aged Out No arabella rafal eligible based on patient's age to complete this topic RSV under 20 months Aged Out No longe r eligible based on patient's age to complete this topic Rotavirus Vaccines Aged Out No longer eligible based on patient's age to complete this topic Procedures Procedure Name Priority Date/Time Associated Diagnosis Comments XR CHEST 2 VIEWS Routine 05/25/2024 3:06 PM EDT Acute upper respiratory infection Wheeze POCT INFLUENZA B (ID NOW RAPID MOLECULAR) Routine 05/25/2024 1:58 PM EDT Acute upper respiratory infection POCT INFLUENZA A (ID NOW RAPID MOLECULAR) Routine 05/25/2024 1:58 PM EDT Acute upper respiratory infection POCT RAPID COVID ANTIGEN Routine 05/25/2024 1:45 PM EDT Acute upper respiratory infection POCT INFLUENZA B (ID NOW RAPID MOLECULAR) Routine 05/19/2024 11:37 AM EDT Acute URI POCT INFLUENZA A (ID NOW RAPID MOLECULAR) Routine 05/19/2024 11:37 AM EDT Acute URI POCT RAPID COVID ANTIGEN Routine 05/19/2024 11:37 AM EDT Acute URI T-SPOT(R).TB Routine 03/24/2024 11:45 AM EST HEPATITIS PANEL, GENERAL Routine 03/24/2024 11:45 AM EST SED RATE BY MODIFIED WESTERGREN Routine 03/24/2024 11:45 AM EST C-REACTIVE PROTEIN Routine 03/24/2024 11 :45 AM EST COMPREHENSIVE METABOLIC PANEL Routine 03/24/2024 11:45 AM EST CBC WITH AUTO DIFFERENTIAL Routine 03/24/2024 11:45 AM EST BI MAMMOGRAM SCREENING TOMOSYNTHESIS BILATERAL Routine 08/31/2023 [...] Recently Relevant to Health Maintenance Results * XR Chest 2 Views (05/25/2024 3:06 PM EDT) Anatomical Region Laterality Modality Chest Radiographic Pili ging 05/25/2024 3:06 PM EDT Narrative 05/25/2024 4:01 PM EDT ?[facility] ?[address] ?[place] [address] ?XRay Report ? Signed ? Patient: Rustam Shields,Winnie ?MR#: MM ?? [id number] ? : 1965 ?Acct:[id number] ? Age/Sex: 58 / F ?ADM Date: 04/17/25 ? Loc: HO.HHCX ? Attending Dr: Varsha Duque MD ? Ordering Physician: Varsha Duque MD ?? Date of Service: 05/25/24 ?? Procedure(s): XR chest 2V ?? Accession Number(s): [id number] ? cc: Varsha Duque MD ? EXAMINATION: ?? XR CHEST ? CLINICAL INFORMATION: ?? cough 10 days with wheeze ? COMPARISON: ?? None available. ? TECHNIQUE: ?? 2 views of the chest were obtained. ? FINDINGS: ?? No significant abnormality is noted involving the heart, lungs, ?? mediastinum, bony thorax or soft tissues. ? XR/XR chest 2V ?? IMPRESSION: ?? Unremarkable chest examination. ? Electronically signed by: ??Sal Herrera MD ??05/25/2024 03:59 PM EDT RP ? Dictated By: ?Sal Herrera MD ? Signed By: ?<Electronically signed by Sal Herrera MD in OV> ?05/25/24 1559 ? DD/ 1506 ? TD/TT: 05/25/24 1506 ? Sawyer Cork Slabs: MSM ? Procedure Note Dontrever Image - 05/25/[address] [address] XRay Report Signed Patient: Winnie RamirezMR#: [id number] : 1965Acct:[id number] Age/Sex: 58 / FADM Date: 05/25/24 Loc: HO.HHCX Attending Dr: Varsha Duque MD Ordering Physician: Varsha Duque MD Date of Service: 05/25/24 Procedure(s): XR chest 2V Accession Number(s): [id number] cc: Varsha Duque MD EXAMINATION: XR CHEST CLINICAL INFORMATION: cough 10 days with wheeze COMPARISON: None available. TECHNIQUE: 2 views of the chest were obtained. FINDINGS: No significant abnormality is noted involving the heart, lungs, mediastinum, bony thorax or soft tissues. XR/XR chest 2V IMPRESSION: Unremarkable chest examination. Electronically signed by: Sal Herrera MD 05/25/2024 03:59 PM EDT Dictated By: Sal Herrera MD Signed By: <Electronically signed by Sal Herrera MD in OV> 05/25/24 1559 DD/ 1506 TD/TT: 05/25/24 1506 Saw[facility] Slabs: LUIS FERNANDO Varsha Duque MD IMG XR PROCEDURES Final Re sult * Influenza B (ID NOW Rapid Molecular) (05/25/2024 1:58 PM EDT) Only the most recent of2 resultswithin the time period is included. Influenza B Negative Negative, Indeterminate [facility] Swab 05/25/2024 1:58 PM EDT Varsha Duque MD POINT OF CARE TEST ENTER/E DIT ORDERABLES Final Result Performing Organization Address [facility] Co de Phone Number [facility] [address] [place] [phone] * Influenza A (ID NOW Rapid Molecular) (05/25/2024 1:58 PM EDT) Only the most recent of2 resultswithin the time period is included. Influenza A Negative Negative, Indeterminate [facility] Swab 05/25/2024 1:58 PM EDT Varsha Duque MD POINT OF CARE TEST ENTER/E DIT ORDERABLES Final Result Performing Organization Address [facility] Co de Phone Number [facility] [address] [place] [phone] * POCT Rapid COVID Ag (05/25/2024 1:45 PM EDT) Only the most recent of2 resultswithin the time period is included. Rapid COVID Ag Negative Swab 05/25/2024 1:45 PM EDT us Varsha Duque MD POINT OF CARE TEST ENTER/E DIT ORDERABLES Final Result * T-SPOT??.TB (03/24/2024 11:45 AM EST) T Spot TB Invalid Negative [facility] Comment:The test result is i nvalid [...] of the patient.For additional information, please refer tohttp://education.[employer]/faq/GHU915(This link is being provided for informational/educational purposes only.)THIS TEST WAS PERFORMED AT:[employer] [id number] [place] [address]ZASKUBLRIC AGEE MD,PHD TS PANEL A [facility] Comment:NOTIFIED CHENG OF [place] OVIDER'S OFFICE FOR REORDER ANDRECOLLECT 2/18 AT 1153. TS PANEL B [facility] Comment:NOTIFIED [facility]ENG OF [place] [facility]ER'S OFFICE FOR REORDER ANDRECOLLECT 2/18 AT 1153. Negative Control [facility] Comment:NOTIFIED [facility]ENG OF [place] [facility]IDER'S OFFICE FOR REORDER ANDRECOLLECT 2/18 AT 1153. Positive Control [facility] Comment:NOTIFIED [facility]ENG OF [place] [facility]IDER'S OFFICE FOR REORDER ANDRECOLLECT 2/18 AT 1153. 03/24/2024 11:4 5 AM EST 03/24/2024 11:45 AM EST us Generic External Data Provider LAB BLOOD ORDERAB LES Final Result [facility] [address] [place] [phone] * Hepatitis Panel, General (03/24/2024 11:45 AM EST) Pathologist [facility] Hepatitis A IgM Nonreactive Nonreactive [facility] Comment:IgM antibodies to KIM V not detected; does not exclude earlyacute or recovered HAV infection. ~Hepatitis B Surface Antibody NONREACTIVE Nonreactive [facility] Comment:Nonreactive: < 8.00 mIU/mL Hepatitis B Core Antibody Nonreactive Nonreactive [facility] Hepatitis C Antibody Nonreactive Nonreactive [facility] Comment:Antibodies to HCV no t detected; does not exclude early acuteHCV infection. Hepatitis B Surface Ag Negative Negative [facility] 03/24/2024 11:4 5 AM EST 03/24/2024 11:45 AM EST us Generic External Data Provider LAB BLOOD ORDERAB LES Final Result [facility] [address] [place] [phone] * CBC auto differential (03/24/2024 11:45 AM EST) White Blood Count 7.5 4.8 - 10.8 X10*3/uL [facility] Red Blood Count 5.15 4.20 - 5.50 X10*6/uL [facility] Hemoglobin 14.1 12.0 - 16.0 g/dl [facility] Hematocrit 43.1 37.0 - 47.0 % [facility] Mean Corpuscular Volume 83.7 80.0 - 98.0 fL [facility] Mean Corpuscular Hemoglobin 27.4 27.0 - 33.0 pg [facility] Mean Corpuscular HGB Conc 32.7 31.0 - 35.0 g/dl [facility] Red Cell Distribution Width 13.3 11.0 - 16.0 % [facility] Platelet Count 308 160 - 400 X10*3/uL [facility] Mean Platelet Volume 10.2 9.4 - 12.3 fL [facility] Neutrophils Percent Auto 59.8 45 - 73 % [facility] Imm Gran Pct Auto 0.3 0.0 - 0.4 % [facility] Lymphocytes Percent Auto 28.6 20 - 40 % [facility] Monocytes Percent Auto 7.9 2 - 11 % [facility] Eosinophils Percent Auto 2.7 0 - 4 % [facility] Basophils Percent Auto 0.7 0 - 2 % [facility] NRBC Pct Auto 0.0 0.0 - 0.2 /100WBC [facility] Neutrophils Absolute Auto 4.5 2.0 - 8.3 x10*3/uL [facility] Imm Gran Abs Auto 0.02 0.00 - 0.03 X10*3/uL [facility] Lymphocytes Absolute Auto 2.1 1.2 - 4.9 X10*3/uL [facility] Monocytes Absolute Auto 0.6 0.1 - 1.2 X10*3/uL [facility] Eosinophils Absolute Auto 0.2 0.0 - 0.4 X10*3/uL [facility] Basophils Absolute Auto 0.1 0.0 - 0.2 X10*3/uL [facility] NRBC Abs Auto 0.000 0.0 - 0.012 X10*3/uL [facility] 03/24/2024 11:4 5 AM EST 03/24/2024 11:45 AM EST us Generic External Data Provider LAB BLOOD ORDERAB LES Final Result Performing Organization Address [facility] Co de Phone Number [facility] [address] [place] [address] [phone] * (ABNORMAL) Sed Rate by Modified Ashren (03/24/2024 11:45 AM EST) Erythrocyte Sedimentation Rate 23(H) 0 - 20 MM/HR [facility] Comment:Patients with polycy themia and many hemoglobin abnormalitiesmay have depressed sed rates whereas patients with anemiamay have elevated sed rates. 03/24/2024 11:4 5 AM EST 03/24/2024 11:45 AM EST us Generic External Data Provider LAB BLOOD ORDERAB LES Final Result Performing Organization Address City/[facility]/ZIP Co de Phone Number [facility] [address] [place] [phone] [phone] * (ABNORMAL) C-reactive Protein (03/24/2024 11:45 AM EST) Pathologist [facility] C Reactive Protein 1.66(H) < or = 0.50 mg/dL [facility] 03/24/2024 11:4 5 AM EST 03/24/2024 11:45 AM EST Generic External Data Provider LAB BLOOD ORDERAB LES Final Result Performing Organization Address [facility] de Phone Number [facility] [address] [place] [phone] * (ABNORMAL) Comprehensive Metabolic Panel (03/24/2024 11:45 AM EST) Pathologist [facility] Sodium 140 135 - 145 mmol/L [facility] Potassium 4.0 3.3 - 5.1 mmol/L [facility] Chloride 104 96 - 108 mmol/L [facility] Carbon Dioxide 27 22 - 29 mmol/L [facility] Anion Gap 13 12 - 20 [facility] Urea Nitrogen (BUN) 13 9 - 16 mg/dL [facility] Creatinine, Serum 0.60 0.5 - 1.4 mg/dL [facility] Estimated Glomerular Filt Rate >60 [facility] Comment:Chronic Kidney Disea se: Estimated GFR < 60 mL/min/1.75b5Imyepb Kidney Disease: Estimated GFR < 15 mL/min/1.73m2 Glucose 95 60 - 115 mg/dL [facility] Calcium 10.0 8.4 - 10.2 mg/dL [facility] Bilirubin, Total 0.6 0.0 - 1.0 mg/dL [facility] Aspartate Amino Transferase 21 5 - 31 U/L [facility] Alanine Aminotransferase 19 0 - 31 U/L [facility] Total Protein 8.9(H) 6.5 - 8.0 g/dL [facility] Albumin Level 4.4 3.5 - 5.0 g/dL [facility] Alkaline Phosphatase 70 39 - 117 U/L [facility] 03/24/2024 11:4 5 AM EST 03/24/2024 11:45 AM EST us Generic External Data Provider LAB BLOOD ORDERAB LES Final Result [facility] [address] [facility] [place] [phone] * BI Mammogram Screening Tomosynthesis Bilateral (08/31/2023 12:55 PM EDT) Anatomical Region Laterality Modality Breast Bilateral Mammography 08/31/2023 12:5 5 PM EDT Narrative 09/22/2023 10:57 PM EDT ? [facility] ? [address] ?[place] [address] ? Mammography Report ? Signed ? Patient: Rustam Shields,Winnie ?MR#: MM ?? [id number] ? : 1965 ?Acct:[id number] ? Age/Sex: 57 / F ?ADM Date: //24 ? Loc: HO.MAMMO ? Attending Dr: Elizabeth Hanna BUYING INTERN ? Ordering Physician: Cyndi,Elizabeth BUYING INTERN ?Results: 1Negat ?? charlene ? Date of Service: 08/30/24 ?Follow Up: 1 Year From Orig ?? inal Mammogram ? Procedure(s): MM tomosynthesis screening BI ?? Accession Number(s): [id number] ? cc: Elizabeth Hanna BUYING INTERN ? EXAMINATION: ?? MM SCREENING DIGITAL BREAST [...] 2254 ? DD/ 1255 ? TD/TT: ? Sawyer Cork Slabs: ? Procedure Note Ab Tovar - 09/22/2023 [facility] [address] [place] [address] Dr. [place], [place] [address] Mammography Report Signed Patient: Winnie Ramirez#: [id number] : 1965Acct:[id number] Age/Sex: 57 / FADM Date: 08/31/23 Loc: HO.MAMMO Attending Dr: Elizabeth OLVERA Ordering Physician: Elizabeth HannaPResults: 1Negat charlene Date of Service: 08/31/23Follow Up: 1 Year From Orig ina Mammogram Procedure(s): MM tomosynthesis screening BI Accession Number(s): [id number] cc: Elizabeth Hanna EXAMINATION: MM SCREENING DIGITAL [...] in OV> 09/22/23 2254 DD/ 1255 TD/TT: Sawyer Cork Slabs: Elizabeth [facility]ED[facility] Final Result * HIV-1/2 Antigen and Antibodies, Fourth Generation, with Reflexes (01/04/2023 8:42 AM EST) HIV AB/AG Nonreactive Nonreactive [facility] Comment:HIV-1 p24 Ag and/or HIV-1/HIV-2 Ab not detected.A test result that is nonreactive does not exclude thepossibility of exposure to or infection with HIV-1 and/orHIV-2. Nonreactive results in this assay for individualswith prior exposure to HIV-1 and/or HIV-2 may be due toantigen and antibody levels that are below the limit ofdetection of this assay.The [employer] HIV Ag/Ab Combo assay result andsupplemental assay results should be interpreted inconjunction with the patient's clinical presentation,history and other laboratory results. If the results areinconsistent with clinical evidence, additional testing issuggested to confirm the result. Blood Venous blood specimen / Unknown 01/04/2023 8:42 AM EST 01/04/2023 11:07 AM EST Elizabeth Hanna BUYING INTERN LAB BLOOD ORDERABLES Final Res ult [facility] [address] [place] [phone] * (ABNORMAL) Lipid Panel, Standard (01/04/2023 8:42 AM EST) Triglycerides 84 <150 mg/dL [facility] Comment:Desirable Triglyceri de: less than 150 mg/dLBorderline High Triglyceride 150-199 mg/dLHigh Triglyceride: 200-499 mg/dLVery High Triglyceride: greater than or equal to 5OO mg/dL Cholesterol 190 <200 mg/dL [facility] Comment:Desirable Cholestero l: less than 200 mg/dLBorderline High Cholesterol: 200-239 mg/dLHigh Cholesterol: greater than 239 mg/dL LDL Cholesterol Calculated 115(H) <100 mg/dL [facility] Comment:Desirable LDL: less than 100 mg/dLNear Optimal/Above Optimal LDL: 110- 129 mg/dLBorderline High LDL: 130-159 mg/dLHigh LDL: 160-189 mg/dLVery High LDL: greater than or equal to 190 mg/dL HDL Cholesterol 59 >40 mg/dL [facility] Comment:Desirable HDL: great er than 40 mg/dL Note: This HDL assay may give artificially low results in patients with liver disease. Blood Venous blood specimen / Unknown 01/04/2023 8:42 AM EST 01/04/2023 11:07 AM EST us Elizabeth Hanna BUYING INTERN LAB BLOOD ORDERABLES Final Res ult [facility] [address] [place] [address] [phone] * Pap Smear (07/21/2022 10:20 AM EDT) 07/21/2022 10:2 0 AM EDT 07/23/2022 8:00 AM EDT Narrative [facility] - 08/07/2022 8:50 AM EDT ----- ------- Name: Winnie Ramirez ? Age/Sex: 56/F ? : 1965 Unit#: [id number] ?? Attend Dr: Gail Sam CNM ?Re07/21/22 ?Status: DEP REF ? Location: HO.LNP ?Disch: ? ----- ------- SPEC : [id number] ? RECD: 07/23/22-799 ? STATUS: ??SOUT ? REQ NUM: [id number] ? BRIE: 07/21/22-0 ? SUBM DR: Gail Sam CNM ? ENTERED: ??07/24/22 ?SP TYPE: Pap Smr ?OTHR DR: Elizabeth Hanna BUYING INTERN ? ORDERED: ??Pap Smear ? Interpretation ?? Satisfactory for evaluation. ?? No endocervical cells seen. ?? Negative for intraepithelial lesion or malignancy. ?HPV mRNA E6/E7: ?NOT DETECTED ? This assay detects E6/E7 viral messenger RNA (mRNA) from 14 high-risk HPV types (16, 18, ?? 31, 33, 35, 39, 45, 51, 52, 56, 58, 59, 66, 68) ?? HPV testing performed by [facility] [place], [place]. ??See reference laboratory ?? pion of the EMR for entire report. ?Clinical Information LMP: Postmenopausal Previous PAP test: 11/01/19, Abnormal Other history: 2016, ANA I ? Material Received ?? ThinPrep-Cervical Copies To: ?? Gail Sam CNM ?? [address] ?? [place] [address] ?? [phone] ?? Elizabeth Hanna BUYING INTERN ?? [address] ?? [place] [address] ?? [phone] ----- ------- Signed (signature on file) TETE Carvajal ([facility]) 08/07/22 0850 ? ----- ------- ? END OF REPORT ? [facility] External Provider LAB CYT OLOG ORDERABLES Final Result [facility] [address] [place] [address] [phone] from Last 3 Months or Most Recently Relevant to Health Maintenance Insurance [facility] Care Teams Rcis Relationship Specialty Start Date End Date Elizabeth Hanna FNP [address] [place] [address] PCP - General Family Medicine 08/12/21 Kalpana Liu MD [address] [place] [address] [place] [address] Rheumatology 12/15/23 Good Sinclair MD 596 [place] [address] Cardiology 12/15/23 Mary Unger [address] [place] [address] 3rd Floor [place], [place] Gastroenterology 12/15/23 James Hull 22 [facility] [address] [place] [address] Sleep Medicine 12/21/23
--- OUTSIDE RECORDS SUMMARY | 2024-05-31 15:30 | XMS_ITS | Encounter Summary ---
Author Organization [employer] Address 75 [facility] 7t [place] [address] Care Team Providers Care Launchman Name Role Phone Elizabeth Hnana MAY Primary Care Provider [phone] Kalpana Liu MD Unavailable Good Sinclair MD Unavailable [phone] Mary Unger Unavailable James Hull Unavailable Reason for Visit * Reason Onset Date Comments Results 05/26/2024 Encounter Details Date Type Department Care Team (Late st Contact Info) Description 05/26/2024 Telephone [facility] MED[facility] [address] [place], [place] [phone] Varsha Duque MD 230 [place], [place] [phone] Results Social History Tobacco Use Types Packs/Day Years [...] encounter Miscellaneous Notes * Telephone Encounter - Neetu Sotomayor RN - 05/26/2024 11:34 AM EDT Call returned to patient. Advised her that there was no pneumonia present on her chest x-ray. Advised patient she should continue with the current plan of care. All questions answered. Patient verbalizes understanding and agreement with plan of care at this time[place] [id number] * Telephone Encounter - Reece Meeks - 05/26/2024 9:44 AM EDT Tc from pt returning call regarding prior message. Contact pt at [phone] * Telephone Encounter - Adelina Latham RN - 05/26/2024 9:27 AM EDT TC placed to pt via [employer] pattern cutter (Manuela ID#[id number]) to inform and advise of below provider message. No answer, LVM to call office back and ask to speak to the nurses. ----- Message from Varsha Duque MD sent at 05/25/2024 4:25 PM EDT ----- Please let pt know, no pneumonia on CXR. Continue current plan. Thank you. documented in this encounter Plan of Treatment Upcoming Encounters Date Type Department Care Team (Late st Contact Info) Description 07/12/2024 9:00 AM EDT Office Visit [facility] MEDICINE [address] [place] [address] Elizabeth Hanna FNP [address] [place] [address] documented as of this encounter Visit Diagnoses Not on filedocumented in this encounter Additional Health Concerns Assessment Noted Time PHQ-9 Depression Total Score: 8 12/24/19 23 9:19 AM EST documented as of this encounter Care Teams Launchman Relationship Specialty Start Date End Date Elizabeth Hanna FNP [address] [place] [address] PCP - General Family Medicine 08/12/21 Kalpana Liu MD [address] [address] Rheumatology 12/15/23 Good Sinclair MD 596 [place] [address] Cardiology 12/15/23 Mary Unger [address] [place] [address] Dr 3rd Floor [place], [place] Gastroenterology 12/15/23 James Hull [address] [address] Sleep Medicine 12/21/23 documented as of this encounter
--- OUTSIDE RECORDS SUMMARY | 2024-05-31 15:30 | XMS_ITS | Encounter Summary ---
Author Organization [employer] Address [address] [facility] [address] 7t [place] [address] Care Team Providers Care Director Of Accounting Name Role Phone Elizabeth Hanna MAY Primary Care Provider [phone] Kalpana Liu MD Unavailable Good Sinclair MD Unavailable [phone] Mary Unger Unavailable James Hull Unavailable Encounter Details Date Type Department Care Team (Latest Contact Info) Description 05/30/2024 Travel Social History Tobacco Use Types Packs/Day [...] as of this encounter Plan of Treatment Upcoming Encounters Date Type Department Care Team (Late st Contact Info) Description 07/12/2024 9:00 AM EDT Office Visit [facility] MEDICINE 230 [place] [address] Elizabeth Hanna FNP 505 [place] [address] documented as of this encounter Visit Diagnoses Not on filedocumented in this encounter Additional Health Concerns Assessment Noted Time PHQ-9 Depression Total Score: 8 12/24/19 23 9:19 AM EST documented as of this encounter Care Teams Director Of Accounting Relationship Specialty Start Date End Date Elizabeth Hanna FNP 230 [place] [address] PCP - General Family Medicine 08/12/21 Kalpana Liu MD [address] [place] [address] [place] [address] Rheumatology 12/15/23 Good Sinclair MD 596 [place] [address] Cardiology 12/15/23 Mary Unger [address] [place] [address] Dr 3rd Floor [place], [place] Gastroenterology 12/15/23 James Hull [address] [address] Sleep Medicine 12/21/23 documented as of this encounter
--- OUTSIDE RECORDS SUMMARY | 2024-05-31 15:30 | XMS_ITS | Encounter Summary ---
Author Organization [employer] Address 75 [facility] 7t [place] [address] Care Team Providers Care Rug Backing Stenciler Name Role Phone Elizabeth Hanna MAY Primary Care Provider [phone] Kalpana Liu MD Unavailable Good Sinclair MD Unavailable [phone] Mary Unger Unavailable James Hull Unavailable Encounter Details Date Type Department Care Team (Late st Contact Info) Description 06/17/2023 Orders Only [facility] 230 [place] [address] [place], Gail [address] [address] Social History Tobacco Use Types Packs/Day Years [...] Description 07/12/2024 9:00 AM EDT Office Visit [facility] MEDICINE 230 [place] [address] Elizabeth Hanna FNP 505 [place] [address] documented as of this encounter Procedures Procedure Name Priority Date/Time Associated Diagnosis Comments MAMMOGRAPHY SCREENING Routine 09/29/2022 2:52 PM EDT documented in this encounter Results * MAMMOGRAPHY SCREENING (09/29/2022 2:52 PM EDT) Anatomical Region Laterality Modality Breast Left Mammography Gail [place] IMG BI PROCEDURES Final Result documented in this encounter Visit Diagnoses Not on filedocumented in this encounter Additional Health Concerns Assessment Noted Time PHQ-9 Depression Total Score: 8 12/24/19 23 9:19 AM EST documented as of this encounter Care Teams Rug Backing Stenciler Relationship Specialty Start Date End Date Elizabeth Hanna FNP 230 [place] [address] PCP - General Family Medicine 08/12/21 Kalpana Liu MD [address] [place] [address] [address] [place] [address] Rheumatology 12/15/23 Good Sinclair MD 596 [place] [address] Cardiology 12/15/23 Mary Unger [address] [place] [address] Dr 3rd Floor [place], [place] Gastroenterology 12/15/23 James Hull 22 [facility] [address] [place] [address] Sleep Medicine 12/21/23 documented as of this encounter
--- OUTSIDE RECORDS SUMMARY | 2024-05-31 15:30 | XMS_ITS | Encounter Summary ---
Author Organization [employer] Address 75 [facility] 7t [place] [address] Care Team Providers Care Machine Veneer Repairer Name Role Phone Elizabeth Hanna Primary Care Provider [phone] Kalpana Liu MD Unavailable Good Sinclair MD Unavailable [phone] Mary Unger Unavailable James Hull Unavailable Reason for Visit * Reason Onset Date Comments Referral 07/10/2022 rheumatology Encounter Details Date Type Department Care Team (Late st Contact Info) Description 07/10/2022 Telephone [facility] MEDICINE 230 [place] [address] Elizabeth Hanna FNP 505 [place], [place] [phone] Referral (rheumatology) Social History Tobacco Use Types [...] Scarlett Sullivan - 07/14/2022 2:49 PM EDT New Business Clerk printed and refaxed referral, notes, and labs and faxed it to [facility] Rheumatology. New Business Clerk called and spoke with pt and informed her. She stated she was given an appt for October 05 and felt it was to late. New Business Clerk explained she could be placed on a [...] Description 07/12/2024 9:00 AM EDT Office Visit [facility] MEDICINE 230 [place] [address] Elizabeth Hanna FNP 505 [place] [address] documented as of this encounter Visit Diagnoses Not on filedocumented in this encounter Additional Health Concerns Assessment Noted Time PHQ-9 Depression Total Score: 0 07/08/19 23 10:51 AM EDT documented as of this encounter Care Teams Machine Veneer Repairer Relationship Specialty Start Date End Date Elizabeth Hanna FNP 230 [place] [address] PCP - General Family Medicine 08/12/21 Kalpana Liu MD [address] [place] [address] Rheumatology 12/15/23 Good Sinclair MD 596 [place] [address] Cardiology 12/15/23 Mary Unger [address] [place] [address] Dr 3rd Floor [place], [place] Gastroenterology 12/15/23 James Hull 22 [facility] [address] [place] [address] Sleep Medicine 12/21/23 documented as of this encounter
--- OUTSIDE RECORDS SUMMARY | 2024-05-31 15:30 | XMS_ITS | Encounter Summary ---
Author Organization [employer] Address 75 [facility] 7t [place] [address] Care Team Providers Care Data Analytics Developer Name Role Phone Elizabeth Hanna Primary Care Provider Kalpana Liu MD Unavailable Good Sinclair MD Unavailable [phone] Mary Unger Unavailable James Hull Unavailable Encounter Details Date Type Department Care Team (Late st Contact Info) Description 03/20/2022 Telephone [facility] MEDICINE 230 [place] [address] Elizabeth Hanna FNP [address] [place] [address] Social History Tobacco Use Types Packs/Day Years [...] Description 07/12/2024 9:00 AM EDT Office Visit [facility] MEDICINE 230 [place] [address] Elizabeth Hanna FNP [address] [place] [address] documented as of this encounter Visit Diagnoses Not on filedocumented in this encounter Care Teams Data Analytics Developer Relationship Specialty Start Date End Date Elizabeth Hanna FNP 230 [place] [address] PCP - General Family Medicine 08/12/21 Kalpana Liu MD [address] [place] [address] [place] [address] Rheumatology 12/15/23 Good Sinclair MD 596 [place] [address] Cardiology 12/15/23 Mary Unger [address] [place] [address] 3rd Floor [place], [place] Gastroenterology 12/15/23 James Hull 22 [facility] [address] [place] [address] Sleep Medicine 12/21/23 documented as of this encounter
--- OUTSIDE RECORDS SUMMARY | 2024-05-31 15:30 | XMS_ITS | Encounter Summary ---
Author Organization [employer] Address 75 [facility] 7t [place] [address] Care Team Providers Care Hosting Engineer Name Role Phone Elizabeth Hanna Primary Care Provider [phone] Kalpana Liu MD Unavailable DottieGood larsen MD Unavailable [phone] Mary Unger Unavailable James Hull Unavailable Reason for Visit * Reason Comments Med Refill Encounter Details Date Type Department Care Team (Late st Contact Info) Description 08/04/2022 Refill [facility] MEDICINE 230 [place] [address] Elizabeth Hanna FNP [address] [place], [place] [phone] Social History Tobacco Use Types Packs/Day Years [...] Description 07/12/2024 9:00 AM EDT Office Visit [facility]INE 230 [place] [address] Elizabeth Hanna FNP [address] [place] [address] documented as of this encounter Visit Diagnoses Not on filedocumented in this encounter Additional Health Concerns Assessment Noted Time PHQ-9 Depression Total Score: 0 07/08/19 10:51 AM EDT documented as of this encounter Care Teams Hosting Engineer Relationship Specialty Start Date End Date Elizabeth Hanna FNP 230 [place] [address] PCP - General Family Medicine 08/12/21 Kalpana Liu MD [address] [place] [address] Rheumatology 12/15/23 Good Sinclair MD 596 [place] [address] Cardiology 12/15/23 Mary Unger [address] [place] [address] Dr 3rd Floor [place], [place] Gastroenterology 12/15/23 James Hull 22 [facility] [address] [place] [address] Sleep Medicine 12/21/23 documented as of this encounter
== END 2024-05-31 13:36 | disposition home or self-care (01) ==
LOC: HO.HOS 13:07
PROVIDERS: PCP Registered Nurse
DX: G56.03 Carpal tunnel syndrome, bilateral upper limbs (principal)
CPT/HCPCS: 99024

== ENCOUNTER → 2024-05-31 13:06 | Outpatient (BNVA) | payer MEDICAID, SELFPAY | PROVIDERS: PCP Registered Nurse | DX: G56.01 Carpal tunnel syndrome, right upper limb (principal); Z48.811 Encounter for surgical aftercare following surgery on the nervous system; Z98.890 Other specified postprocedural states | CPT/HCPCS: 99212 ==

== ENCOUNTER 2024-06-27 11:01 | Outpatient (REF) | payer MEDICAID, SELFPAY ==
[2024-06-27 11:14] LABS: MANUAL DIFF FLAG NO
[2024-06-27 12:10] LABS: Basophils Absolute Auto 0.1 X10*3/uL (0.0-0.2); Basophils Percent Auto 0.9 % (0-2); Eosinophils Absolute Auto 0.2 X10*3/uL (0.0-0.4); Eosinophils Percent Auto 2.6 % (0-4); Hematocrit 42.7 % (37.0-47.0); Imm Gran Abs Auto 0.02 X10*3/uL (0.00-0.03); Imm Gran Pct Auto 0.3 % (0.0-0.4); Lymphocytes Percent Auto 30.6 % (20-40); Mean Corpuscular HGB Conc 32.8 g/dl (31.0-35.0); Mean Corpuscular Hemoglobin 27.7 pg (27.0-33.0); Mean Corpuscular Volume 84.6 fL (80.0-98.0); Mean Platelet Volume 11.2 fL (9.4-12.3); Monocytes Absolute Auto 0.6 X10*3/uL (0.1-1.2); Monocytes Percent Auto 8.9 % (2-11); Neutrophils Absolute Auto 3.8 x10*3/uL (2.0-8.3); Neutrophils Percent Auto 56.7 % (45-73); Platelet Count 289 X10*3/uL (160-400); Red Blood Count 5.05 X10*6/uL (4.20-5.50); Red Cell Distribution Width 14.3 % (11.0-16.0); White Blood Count 6.6 X10*3/uL (4.8-10.8)
--- OUTSIDE RECORDS SUMMARY | 2024-06-27 12:20 | XMS_ITS | Encounter Summary ---
Author Organization [employer] Address 75 [facility] 7t [place] [address] Care Team Providers Care Industry Analyst Name Role Phone Elizabeth Hanna MAY Primary Care Provider [phone] Kalpana Liu MD Unavailable Good Sinclair MD Unavailable [phone] Mary Unger Unavailable James Hull Unavailable Encounter Details Date Type Department Care Team (Late st Contact Info) Description 06/17/2023 Orders Only [facility] 230 [place] [address] LevyGail Bueno [address] [phone] Social History Tobacco Use Types Packs/Day Years [...] Description 07/12/2024 9:00 AM EDT Office Visit [facility] MEDICINE 230 [place] [address] Elizabeth Hanna FNP 505 [place] [address] documented as of this encounter Procedures Procedure Name Priority Date/Time Associated Diagnosis Comments MAMMOGRAPHY SCREENING Routine 09/29/2022 2:52 PM EDT documented in this encounter Results * MAMMOGRAPHY SCREENING (09/29/2022 2:52 PM EDT) Anatomical Region Laterality Modality Breast Left Mammography Gail Levy IM BI PROCEDURES Final Result documented in this encounter Visit Diagnoses Not on filedocumented in this encounter Additional Health Concerns Assessment Noted Time PHQ-9 Depression Total Score: 8 12/24/19 23 9:19 AM EST documented as of this encounter Care Teams Industry Analyst Relationship Specialty Start Date End Date Elizabeth Hanna FNP 230 [place] [address] PCP - General Family Medicine 08/12/21 Kalpana Liu MD [address] [place] [address] [address] [place] [address] Rheumatology 12/15/23 Good Sinclair MD 596 [place] [address] Cardiology 12/15/23 Mary Unger [address] [place] [address] Dr 3rd Floor [place], [place] Gastroenterology 12/15/23 James Hull 22 [facility] [address] [place] [address] Sleep Medicine 12/21/23 documented as of this encounter
--- OUTSIDE RECORDS SUMMARY | 2024-06-27 12:20 | XMS_ITS | Encounter Summary ---
Author Organization [employer] Address 75 [facility] 7t [place] [address] Care Team Providers Care Director Of Brand Marketing Name Role Phone Elizabeth Hanna MAY Primary Care Provider [phone] Kalpana Liu MD Unavailable Good Sinclair MD Unavailable [phone] Mary Unger Unavailable James Hull Unavailable Reason for Visit * Reason Comments Med Refill Encounter Details Date Type Department Care Team (Late st Contact Info) Description 06/16/2024 Refill [facility] MEDICINE 230 [place], [place] [phone] Varsha Duque MD 230 [place], [place] [phone] Acute upper respiratory infection; Wheeze Social History Tobacco Use Types Packs/Day Years [...] Description 07/12/2024 9:00 AM EDT Office Visit [facility] MEDICINE 230 [place] [address] Elizabeth Hanna FNP 505 [place] [address] documented as of this encounter Visit Diagnoses Diagnosis Acute upper respiratory infection Acute upper respiratory infections of unspecified site Wheeze Wheezing documented in this encounter Additional Health Concerns Assessment Noted Time PHQ-9 Depression Total Score: 8 12/24/19 23 9:19 AM EST documented as of this encounter Care Teams Director Of Brand Marketing Relationship Specialty Start Date End Date Elizabeth Hanna FNP 230 [place] [address] PCP - General Family Medicine 08/12/21 Kalpana Liu MD [address] [place] [address] Rheumatology 12/15/23 Good Sinclair MD 596 [place] [address] Cardiology 12/15/23 Mary Unger [address] [place] [address] 3rd [place], [place] Gastroenterology 12/15/23 James Hull [address] [address] Sleep Medicine 12/21/23 documented as of this encounter
--- OUTSIDE RECORDS SUMMARY | 2024-06-27 12:20 | XMS_ITS | Encounter Summary ---
Author Organization [employer] Address 75 [facility] 7t [place] [address] Care Team Providers Care Mechanical Artist Name Role Phone Elizabeth Hanna Primary Care Provider [phone] Kalpana Liu MD Unavailable Good Sinclair MD Unavailable [phone] Mary Unger Unavailable James Hull Unavailable Reason for Visit * Reason Onset Date Comments Referral 07/10/2022 rheumatology Encounter Details Date Type Department Care Team (Late st Contact Info) Description 07/10/[address] [facility] MEDICINE 230 [place] [address] Elizabeth Hanna FNP 505 [place], [place] [phone] Referral (rheumatology) Social History Tobacco Use Types [...] Scarlett Sullivan - 07/14/2022 2:49 PM EDT Ceramic Artist printed and refaxed referral, notes, and labs and faxed it to [facility] Rheumatology. Ceramic Artist called and spoke with pt and informed her. She stated she was given an appt for October 05 and felt it was to late. Ceramic Artist explained she could be placed on a [...] Description 07/12/2024 9:00 AM EDT Office Visit [facility] MEDICINE 230 [place] [address] Elizabeth Hanna FNP [address] [place] [address] documented as of this encounter Visit Diagnoses Not on filedocumented in this encounter Additional Health Concerns Assessment Noted Time PHQ-9 Depression Total Score: 0 07/08/19 23 10:51 AM EDT documented as of this encounter Care Teams Mechanical Artist Relationship Specialty Start Date End Date Elizabeth Hanna FNP 230 [place] [address] PCP - General Family Medicine 08/12/21 Kalpana Liu MD [address] [place] [address] Rheumatology 12/15/23 Good Sinclair MD 596 [place] [address] Cardiology 12/15/23 Mary Unger [address] [place] [address] Dr 3rd Floor [place], [place] Gastroenterology 12/15/23 James Hull [address] [address] Sleep Medicine 12/21/23 documented as of this encounter
--- OUTSIDE RECORDS SUMMARY | 2024-06-27 12:20 | XMS_ITS | Clinical Summary ---
Author Organization [employer] Address [address] [facility] 7t [place] [address] Care Team Providers Care Accounts Payable Clerk Name Role Phone Elizabeth Hanna MAY Primary Care Provider [phone] Kalpana Liu MD Unavailable Good Sinclair MD Unavailable [phone] Mary Unger Unavailable James Hull Unavailable Allergies [...] MG tablet Take by mouth at bedtime. [facility] Provider Active Diclofenac Sodium 1 [...] wheezing. 18 g 5 05/26/19 26 Active azithromycin (Zithromax) 250 MG tabletIndications :Acute upper respiratory infection,Wheeze Take 2 tablets (500 mg) by mouth Once per day for 1 day, THEN 1 tablet (250 mg) Once per day for 4 days. 6 tablet 5 05/30/19 25 Active Problems Problem Noted Date Diagnosed Date [...] 20 MG -ordered CXR Rheumatoid arthritis of [facility] sites with negative rheumatoid factor 12/15/2023 Overview (12/21/2023): Diagnosed 2023 - seronegative RA. Following with [facility] Rheum - Dr. Liu August 2023: Methotrexate started, folic acid daily Oct 2023: Methotrexate DC d/t lack of response and SE. PA for Enbrel initiated through Rheum. Dec 2023: Enbrel approved GERD (gastroesophageal reflux disease) Overview (12/15/2023): Followed by [facility] GI - RADIATOR CORE TESTER Cornel Omeprazole PRN Constipation 01/13/2023 Overview (12/21/2023): [facility] GI consult Sep 2023 Cont [...] maintenance 12/23/2022 Overview (12/21/2023): Pap: 07/21/22 by [facility] CNM NILM HPV neg. Hx of abnormal. Following with specialist Mammo: BIRADS 1 in August 2023 Colonoscopy: scheduled Feb 2024 at [facility] Last PE: 12/23/22 ASCVD Risk: [...] Med trials: Celebrex, ibuprofen, topical voltaren Initial [facility] Rhuem consult Sep 2022, suspected [...] murmur, systolic 03/20/2022 Overview (12/15/2023): Followed by [facility] - Dr. Sinclair. Holter completed in fall 2023 - no significant findings per consult note Plan: annual echo through Cards Cervical myopathy 03/18/2022 Overview (03/18/2022): Evaluated Neurosurgery 03/14/2018, recommended surgery due to disc pathology and spinal cord compression, Unclear if surgery was performed TIA (transient ischemic attack) 03/18/2022 Overview (03/18/2022): TIA per patient report around 2007 in [place] Also mentioned as possible hx in Cardiology note from 2011 with potential carotid artery dissection Obesity 04/14/2021 Overview (12/24/2022): ?? Previously following with [facility] Weight Management (H. Pylori breath [...] to follow up appt (with PCP or Pmo Lead) -ED precautions reviewed Follow up in 2-4 [...] Encounters Date Type Department Care Team Description 06/27/2024 Orders Only GENERIC EXTERNAL DATA DEPARTMENT Provider, Generic External Data 06/16/2024 Refill [facility] [address] [place] [address] Varsha Duque MD Acute upper respiratory infection; Wheeze 05/30/2024 Telephone [facility] [address] [place] [address] Elizabeth Hanna FNP Rosey recall 05/30/2024 Travel 05/26/2024 Telephone [facility] [address] [place] [address] Varsha Duque MD Results 05/25/2024 2:20 PM EDT Office Visit [facility] [address] [place] [address] Varsha Duque MD Acute upper respiratory infection (Primary Dx); Wheeze 05/25/2024 Travel 05/25/2024 Telephone [facility] [address] [place] [address] Elizabeth Hanna FNP Nurse Triage 05/19/2024 11:20 AM EDT Office Visit [facility] [address] [place] [address] Guero Mendes MD Acute URI 05/19/2024 Travel 05/19/2024 Telephone [facility] [address] [place] [address] Elizabeth Hanna FNP Nurse Triage from Last 3 Months Immunizations Immunization Administration Dates Next Due Hep B, adult [...] Description 07/12/2024 9:00 AM EDT Office Visit [facility] [address] [place] [address] Elizabeth Hanna, MAY [address] [place] [address] Health Maintenance Due Date Last Done Comments CT Colonography 1965 Colonoscopy 1966 Colorectal Cancer Screening 1966 FIT DNA/Cologuard 1966 FIT 1966 FOBT 1965 Sigmoidoscopy 1965 Disability Screening 1966 Alcohol/Substance Use Screening 1978 Pneumococcal Vaccine: 50+ Years (1 of 1 - PCV) 2016 Zoster Vaccines (1 of 2) 2016 COVID-19 Vaccine (3 - season) 2023 11/13/2020, 10/23/2020 Depression Screening 12/24/2023 12/23/2022, 12/24/19 SDOH Screening 12/24/2023 12/23/2022 Hepatitis B Vaccines [...] patient's age to complete this topic Meningococcal B Vaccine Aged Out No l onger eligible based on patient's age to complete [...] Diagnosis Comments CBC WITH AUTO DIFFERENTIAL Routine 06/27/2024 11:13 AM EDT XR CHEST 2 VIEWS Routine 05/25/2024 3:06 [...] Routine 05/19/2024 11:37 AM EDT Acute URI HEPATITIS PANEL, GENERAL Routine 03/24/2024 11:45 AM EST BI MAMMOGRAM [...] Health Maintenance Results * CBC auto differential (06/27/2024 11:13 AM EDT) White Blood Count 6.6 4.8 - 10.8 X10*3/uL [facility] Red Blood Count 5.05 4.20 - 5.50 X10*6/uL [facility] Hemoglobin 14.0 12.0 - 16.0 g/dl [facility] Hematocrit 42.7 37.0 - 47.0 % [facility] Mean Corpuscular Volume 84.6 80.0 - 98.0 fL [facility] Mean Corpuscular Hemoglobin 27.7 27.0 - 33.0 pg [facility] Mean Corpuscular HGB Conc 32.8 31.0 - 35.0 g/dl [facility] Red Cell Distribution Width 14.3 11.0 - 16.0 % [facility] Platelet Count 289 160 - 400 X10*3/uL [facility] Mean Platelet Volume 11.2 9.4 - 12.3 fL [facility] Neutrophils Percent Auto 56.7 45 - 73 % [facility] Imm Gran Pct Auto 0.3 0.0 - 0.4 % [facility] Lymphocytes Percent Auto 30.6 20 - 40 % [facility] Monocytes Percent Auto 8.9 2 - 11 % [facility] Eosinophils Percent Auto 2.6 0 - 4 % [facility] Basophils Percent Auto 0.9 0 - 2 % [facility] NRBC Pct Auto 0.0 0.0 - 0.2 /100WBC [facility] Neutrophils Absolute Auto 3.8 2.0 - 8.3 x10*3/uL [facility] Imm Gran Abs Auto 0.02 0.00 - 0.03 X10*3/uL [facility] Lymphocytes Absolute Auto 2.0 1.2 - 4.9 X10*3/uL [facility] Monocytes Absolute Auto 0.6 0.1 - 1.2 X10*3/uL [facility] Eosinophils Absolute Auto 0.2 0.0 - 0.4 X10*3/uL [facility] Basophils Absolute Auto 0.1 0.0 - 0.2 X10*3/uL [facility] NRBC Abs Auto 0.000 0.0 - 0.012 X10*3/uL [facility] 06/27/2024 11:1 3 AM EDT 06/27/2024 11:13 AM EDT us Generic External Data Provider LAB BLOOD ORDERAB LES Final Result [facility] [address] [place] [address] [phone] * XR Chest 2 Views (05/25/2024 3:06 PM EDT) Anatomical Region Laterality Modality Chest Radiographic Pili ging 05/25/2024 3:06 PM EDT Narrative 05/25/2024 4:01 PM EDT ?[facility] ?[address] ?[place] [address] ?XRay Report ? Signed ? Patient: Winnie Ramirez ?MR#: MM ?? [id number] ? : 1965 ?Acct:[id number] ? Age/Sex: 58 / F ?ADM Date: 05/25/24 ? Loc: HO.HHCX ? Attending Dr: Varsha Duque MD ? Ordering Physician: Varsha Duque MD ?? Date of Service: 05/25/24 ?? Procedure(s): XR chest 2V ?? Accession Number(s): [id number] ? cc: Varsha Duque MD ? EXAMINATION: [...] DD/ 1506 ? TD/TT: 05/25/24 1506 ? Filer Finish: MSM ? Procedure Note Donotmartinezter, Image - 05/25/2024 [facility] [address] [place] [address] XRay Report Signed Patient: Winnie RamirezMR#: [id number] : 1965Acct:[id number] Age/Sex: 58 / FADM Date: 05/25/24 Loc: HO.HHCX Attending Dr: Varsha Duque MD Ordering Physician: Varsha Duque MD Date of Service: 05/25/24 Procedure(s): XR chest 2V Accession Number(s): [id number] cc: Varsha Duque MD EXAMINATION: XR CHEST [...] 05/25/24 1559 DD/ 1506 TD/TT: 05/25/24 1506 Filer Finish: MSM Varsha Dquue MD IMG XR PROCEDURES Final Re sult * Influenza B (ID NOW Rapid Molecular) (05/25/2024 1:58 PM EDT) Only the most recent of2 resultswithin the time period is included. Influenza B Negative Negative, Indeterminate [facility] Swab 05/25/2024 1:58 PM EDT Varsha Duque MD POINT OF CARE TEST ENTER/E DIT ORDERABLES Final Result Performing Organization Address City/[facility]/ZIP Co de Phone Number [facility] [address] [place] [address] [phone] * Influenza A (ID NOW Rapid Molecular) (05/25/2024 1:58 PM EDT) Only the most recent of2 resultswithin the time period is included. Pathologist [facility] Influenza A Negative Negative, Indeterminate [facility] Swab 05/25/2024 1:58 PM EDT Varsha Duque MD POINT OF CARE TEST ENTER/E DIT ORDERABLES Final Result Performing Organization Address [facility]/ZIP Co de Phone Number [facility] [address] [place] [phone] * POCT Rapid COVID Ag (05/25/2024 1:45 PM EDT) Only the most recent of2 resultswithin the time period is included. [facility] Rapid COVID Ag Negative Swab 05/25/2024 1:45 PM EDT Varsha Duque MD POINT OF CARE TEST ENTER/E DIT ORDERABLES Final Result * Hepatitis Panel, General (03/24/2024 11:45 AM EST) [facility] Hepatitis A IgM Nonreactive Nonreactive [facility] Comment:IgM antibodies to KIM V not detected; does not exclude earlyacute or recovered HAV infection. ~Hepatitis B Surface Antibody NONREACTIVE Nonreactive [facility] Comment:Nonreactive: < 8.00 mIU/mL Hepatitis B Core Antibody Nonreactive Nonreactive [facility] Hepatitis C Antibody Nonreactive Nonreactive [facility] Comment:Antibodies to HCV no t detected; does not exclude early acuteHCV infection. Hepatitis B Surface Ag Negative Negative [facility] 03/24/2024 11:4 5 AM EST 03/24/2024 11:45 AM EST us Generic External Data Provider LAB BLOOD ORDERAB LES Final Result [facility] [address] [facility] [place] [address] [phone] * BI Mammogram Screening Tomosynthesis Bilateral (08/31/2023 12:55 PM EDT) Anatomical Region Laterality Modality Breast Bilateral Mammography 08/31/2023 12:5 5 PM EDT Narrative 09/22/2023 10:57 PM EDT ? [facility] ? [address] ?[place] [address] ? Mammography Report ? Signed ? Patient: Winnie Ramirez ?MR#: MM ?? [id number] ? : 1965 ?Acct:[id number] ? Age/Sex: 57 / F ?ADM Date: 08/31/23 ? Loc: HO.MAMMO ? Attending Dr: Elizabeth Hanna HOSPITAL MONITOR ? Ordering Physician: Cyndi,Elizabeth HOSPITAL MONITOR ?Results: 1Negat ?? charlene ? Date of Service: 08/31/23 ?Follow Up: 1 Year From Orig ?? inal Mammogram ? Procedure(s): MM tomosynthesis screening BI ?? Accession Number(s): [id number] ? cc: Elizabeth Hanna HOSPITAL MONITOR ? EXAMINATION: ?? MM SCREENING DIGITAL BREAST [...] 2254 ? DD/ 1255 ? TD/TT: ? Filer Finish: ? Procedure Note Luluter, Image - 09/22/2023 [facility] [facility] [address] [place] [address] [place] [address] Mammography Report Signed Patient: Winnie Ramirez#: [id number] : 1965Acct:[id number] Age/Sex: 57 / FADM Date: 08/31/23 Loc: [facility] Attending Dr: Elizabeth Hanna HOSPITAL MONITOR Ordering Physician: Elizabeth Hanna FNPResults: 1Negat charlene Date of Service: 08/31/23Follow Up: 1 Year From [facility] Mammogram Procedure(s): MM tomosynthesis screening BI Accession Number(s): [id number] cc: Elizabeth Hanna EXAMINATION: MM SCREENING DIGITAL [...] by Vivian Emmanuel MD in OV> 09/22/23 0315 DD/ 1255 TD/TT: Filer Finish: Elizabeth OLVERA IMG BI PROCEDURES Final Result * HIV-1/2 Antigen and Antibodies, Fourth Generation, with Reflexes (01/04/2023 8:42 AM EST) HIV AB/AG Nonreactive Nonreactive [facility] Comment:HIV-1 p24 Ag and/or HIV-1/HIV-2 Ab not detected.A test result that is nonreactive does not exclude thepossibility of exposure to or infection with HIV-1 and/orHIV-2. Nonreactive results in this assay for individualswith prior exposure to HIV-1 and/or HIV-2 may be due toantigen and antibody levels that are below the limit ofdetection of this assay.The [employer] HIV Ag/Ab Combo assay result andsupplemental assay results should be interpreted inconjunction with the patient's clinical presentation,history and other laboratory results. If the results areinconsistent with clinical evidence, additional testing issuggested to confirm the result. Blood Venous blood specimen / Unknown 01/04/2023 8:42 AM EST 01/04/2023 11:07 AM EST Elizabeth Ángelamanda [facility] LAB BLOOD ORDERABLES Final Res ult Performing Organization Address [facility] de Phone Number [facility] [address] [place] [phone] * (ABNORMAL) Lipid Panel, Standard (01/04/2023 8:42 AM EST) Triglycerides 84 <150 mg/dL [facility] Comment:Desirable Triglyceri de: less than 150 mg/dLBorderline High Triglyceride 150-199 mg/dLHigh Triglyceride: 200-499 mg/dLVery High Triglyceride: greater than or equal to 5OO mg/dL Cholesterol 190 <200 mg/dL [facility] Comment:Desirable Cholestero l: less than 200 mg/dLBorderline High Cholesterol: 200-239 mg/dLHigh Cholesterol: greater than 239 mg/dL LDL Cholesterol Calculated 115(H) <100 mg/dL [facility] Comment:Desirable LDL: less than 100 mg/dLNear Optimal/Above Optimal LDL: 110- 129 mg/dLBorderline High LDL: 130-159 mg/dLHigh LDL: 160-189 mg/dLVery High LDL: greater than or equal to 190 mg/dL HDL Cholesterol 59 >40 mg/dL [facility] Comment:Desirable HDL: great er than 40 mg/dL Note: This HDL assay may give artificially low results in patients with liver disease. Blood Venous blood specimen / Unknown 01/04/2023 8:42 AM EST 01/04/2023 11:07 AM EST Elizabeth Hanna [facility] LAB BLOOD ORDERABLES Final Res ult Performing Organization Address [facility] Co de Phone Number [facility] [address] [place] [phone] * Pap Smear (07/21/2022 10:20 AM EDT) 07/21/2022 10:2 0 AM EDT 07/23/2022 8:00 AM EDT [facility] - 08/07/2022 8:50 AM EDT ----- ------- Name: Winnie Ramirez ? Age/Sex: 56/F ? : 1965 Unit#: [id number] ?? Attend Dr: Gail Sam CNM ?Re07/21/22 ?Status: DEP REF ? Location: HO.LNP ?Disch: ? ----- ------- SPEC : [id number] ? RECD: 07/23/22-799 ? STATUS: ??SOUT ? REQ NUM: [id number] ? BRIE: 07/21/22-1020 ? SUBM DR: Gail Sam CNM ? ENTERED: ??07/24/22-903 ?SP TYPE: Pap Smr ?OTHR DR: Elizabeth Hanna ? ORDERED: ??Pap Smear ? Interpretation ?? Satisfactory for evaluation. ?? No endocervical cells seen. ?? Negative for intraepithelial lesion or malignancy. ?HPV mRNA E6/E7: ?NOT DETECTED ? This assay detects E6/E7 viral messenger RNA (mRNA) from 14 high-risk HPV types (16, 18, ?? 31, 33, 35, 39, 45, 51, 52, 56, 58, 59, 66, 68) ?? HPV testing performed by [facility], [place], [place]. ??See reference laboratory ?? pion of the EMR for entire report. ?Clinical Information LMP: Postmenopausal Previous PAP test: 11/01/19, Abnormal Other history: 2016, ANA I ? Material Received ?? ThinPrep-Cervical Copies To: ?? Gail Sam CNM ?? [address] ?? [place] [address] ?? [phone] ?? Elizabeth Hanna ?? [address] ?? [place] [address] ?? [phone] ----- ------- Signed (signature on file) TETE Carvajal ([facility]) 08/07/22 0850 ? ----- ------- ? END OF REPORT ? [facility] External Provider LAB [facility] ORDERABLES Final Result [facility] [address] [place] [address] [phone] from Last 3 Months or Most Recently Relevant to Health Maintenance Insurance C3 Care Teams Accounts Payable Clerk Relationship Specialty Start Date End Date Elizabeth Hanna FNP [address] [place] [address] PCP - General Family Medicine 08/12/21 Kalpana Liu MD [address] [place] [address] Rheumatology 12/15/23 Good Sinclair MD [address] [place] [address] Cardiology 12/15/23 Mary Unger [address] [place] [address] Dr 3rd Floor [place], [place] Gastroenterology 12/15/23 James Hull [address] [facility] [address] [place] [address] Sleep Medicine 12/21/23
--- OUTSIDE RECORDS SUMMARY | 2024-06-27 12:20 | XMS_ITS | Encounter Summary ---
Author Organization [employer] Address [address] [facility] [address] [place] [address] Care Team Providers Care Slurry Worker Name Role Phone Elizabeth Hanna Primary Care Provider [phone] Kalpana Liu MD Unavailable Good Sinclair MD Unavailable [phone] Mary Unger Unavailable James Hull Unavailable Reason for Visit * Reason Onset Date Comments triage 07/02/2022 Encounter Details Date Type Department Care Team (Late st Contact Info) Description 07/02/2022 Telephone [facility] [address] [place] [address] Elizabeth Hanna FNP [address] [place], [place] [phone] triage Social History Tobacco Use Types Packs/Day [...] 07/02/2022 2:48 PM EDT Triage call with Chase Voip Technician [place] [id number] Pt reports feet, ankles, hands get swollen [...] EDT Office Visit [facility] [address] [place] [address] Elizabeth Hanna FNP [address] [place] [address] documented as of this encounter Visit Diagnoses Not on filedocumented in this encounter Care Teams Slurry Worker Relationship Specialty Start Date End Date Elizabeth Hanna FNP [address] [place] [address] PCP - General Family Medicine 08/12/21 Kalpana Liu MD [address] [place] [address] Rheumatology 12/15/23 Good Sinclair MD [address] [place] [address] Cardiology 12/15/23 Mary Unger [address] [place] [address] Dr 3rd Floor [place], [place] Gastroenterology 12/15/23 James Hull 22 [facility] [address] [place] [address] Sleep Medicine 12/21/23 documented as of this encounter
--- OUTSIDE RECORDS SUMMARY | 2024-06-27 12:20 | XMS_ITS | Encounter Summary ---
Author Organization [employer] Address [address] [facility] [address]t [place] [address] Care Team Providers Care Rn Physician Office Name Role Phone Elizabeth Hanna MAY Primary Care Provider [phone] Kalpana Liu MD Unavailable Good Sinclair MD Unavailable [phone] Mary Unger Unavailable James [place] Unavailable Encounter Details Date Type Department Care Team (Late st Contact Info) Description 06/27/2024 Orders Only GENERIC EXTERNAL DATA [...] Description 07/12/2024 9:00 AM EDT Office Visit [facility] [address] [place] [address] Elizabeth Hanna, DRAWING HAND [address] [place] [address] documented as of this encounter Procedures Procedure Name Priority Date/Time Associated Diagnosis Comments CBC WITH AUTO DIFFERENTIAL Routine 06/27/2024 11:13 AM EDT documented in this encounter Results * CBC auto differential (06/27/2024 11:13 AM EDT) White Blood Count 6.6 4.8 - 10.8 X10*3/uL [facility] Red Blood Count 5.05 4.20 - 5.50 X10*6/uL [facility] Hemoglobin 14.0 12.0 - 16.0 g/dl [facility] Hematocrit 42.7 37.0 - 47.0 % [facility] Mean Corpuscular Volume 84.6 80.0 - 98.0 fL [facility] Mean Corpuscular Hemoglobin 27.7 27.0 - 33.0 pg [facility] Mean Corpuscular HGB Conc 32.8 31.0 - 35.0 g/dl [facility] Red Cell Distribution Width 14.3 11.0 - 16.0 % [facility] Platelet Count 289 160 - 400 X10*3/uL [facility] Mean Platelet Volume 11.2 9.4 - 12.3 fL [facility] Neutrophils Percent Auto 56.7 45 - 73 % [facility] Imm Gran Pct Auto 0.3 0.0 - 0.4 % [facility] Lymphocytes Percent Auto 30.6 20 - 40 % [facility] Monocytes Percent Auto 8.9 2 - 11 % [facility] Eosinophils Percent Auto 2.6 0 - 4 % [facility] Basophils Percent Auto 0.9 0 - 2 % [facility] NRBC Pct Auto 0.0 0.0 - 0.2 /100WBC [facility] Neutrophils Absolute Auto 3.8 2.0 - 8.3 x10*3/uL [facility] Imm Gran Abs Auto 0.02 0.00 - 0.03 X10*3/uL [facility] Lymphocytes Absolute Auto 2.0 1.2 - 4.9 X10*3/uL [facility] Monocytes Absolute Auto 0.6 0.1 - 1.2 X10*3/uL [facility] Eosinophils Absolute Auto 0.2 0.0 - 0.4 X10*3/uL [facility] Basophils Absolute Auto 0.1 0.0 - 0.2 X10*3/uL [facility] NRBC Abs Auto 0.000 0.0 - 0.012 X10*3/uL [facility] 06/27/2024 11:1 3 AM EDT 06/27/2024 11:13 AM EDT us Generic External Data Provider LAB BLOOD ORDERAB LES Final Result [facility] [address] [place] [address] [phone] documented in this encounter Visit Diagnoses Not on filedocumented in this encounter Additional Health Concerns Assessment Noted Time PHQ-9 Depression Total Score: 8 12/24/19 23 9:19 AM EST documented as of this encounter Care Teams Rn Physician Office Relationship Specialty Start Date End Date Elizabeth Hanna FNP [address] [place] [address] PCP - General Family Medicine 08/12/21 Kalpana Liu MD [address] [place] [address] Rheumatology 12/15/23 Good Sinclair MD [address] [place] [address] Cardiology 12/15/23 Mary Unger [address] [place] [address] [address] [place], [place] Gastroenterology 12/15/23 James Hull [address] [facility] [address] [place] [address] Sleep Medicine 12/21/23 documented as of this encounter
--- OUTSIDE RECORDS SUMMARY | 2024-06-27 12:20 | XMS_ITS | Encounter Summary ---
Author Organization [employer] Address [address] [facility] 7t [place] [address] Care Team Providers Care Customs Director Name Role Phone Elizabeth Hanna Primary Care Provider [phone] Kalpana Liu MD Unavailable Good Sinclair MD Unavailable [phone] Mary Unger Unavailable James Hull Unavailable Reason for Visit * Reason Comments Med Refill Encounter Details Date Type Department Care Team (Late st Contact Info) Description 08/04/[address] [facility] MED[facility]INE [address] [place] [address] Elizabeth Hanna FNP [address] [place] [address] Social History Tobacco Use Types Packs/Day Years [...] Description 07/12/2024 9:00 AM EDT Office Visit [facility] MED[facility]INE [address] [place] [address] Elizabeth Hanna FNP [address] [place] [address] documented as of this encounter Visit Diagnoses Not on filedocumented in this encounter Additional Health Concerns Assessment Noted Time PHQ-9 Depression Total Score: 0 07/08/19 10:51 AM EDT documented as of this encounter Care Teams Customs Director Relationship Specialty Start Date End Date Elizabeth Hanna FNP [address] [place] [address] PCP - General Family Medicine 08/12/21 Kalpana Liu MD [address] [place] [id number] Rheumatology 12/15/23 Good Sinclair MD [address] [place] [address] Cardiology 12/15/23 Mary Unger [address] [place] [address] Dr 3rd Floor [place], [place] Gastroenterology 12/15/23 James Hull [address] [facility] [address] [place] [address] Sleep Medicine 12/21/23 documented as of this encounter
--- OUTSIDE RECORDS SUMMARY | 2024-06-27 12:20 | XMS_ITS | Encounter Summary ---
Author Organization [employer] Address [address] [facility] 7t [place] [address] Care Team Providers Care Rotary Operator Name Role Phone Elizabeth Hanna Primary Care Provider [phone] Kalpana Liu MD Unavailable Good Sinclair MD Unavailable [phone] Mary Unger Unavailable James Hull Unavailable Encounter Details Date Type Department Care Team (Late st Contact Info) Description 03/20/2022 Telephone [facility]INE [address] [place] [address] Elizabeth Hanna FNP [address] [place], [place] [id number] Social History Tobacco Use Types Packs/Day Years [...] Description 07/12/2024 9:00 AM EDT Office Visit [facility] [address] [place] [address] Elizabeth Hanna FNP [address] [place] [address] documented as of this encounter Visit Diagnoses Not on filedocumented in this encounter Care Teams Rotary Operator Relationship Specialty Start Date End Date Elizabeth Hanna FNP [address] [place] [address] PCP - General Family Medicine 08/12/21 Kalpana Liu MD [address] [place] [id number] Rheumatology 12/15/23 Good Sinclair MD [address] [place] [address] Cardiology 12/15/23 Mary Unger [address] [place] [address] 3rd Floor [place], [place] Gastroenterology 12/15/[address] [facility] [address] [place] [address] Sleep Medicine 12/21/23 documented as of this encounter
[2024-06-27 12:53] LABS: Erythrocyte Sedimentation Rate 16 MM/HR (0-20)
[2024-06-27 12:58] LABS: Alanine Aminotransferase 23 U/L (0-31); Albumin Level 4.5 g/dL (3.5-5.0); Alkaline Phosphatase 64 U/L (39-117); Anion Gap 9 (12-20); Aspartate Amino Transferase 21 U/L (5-31); Bilirubin Total 0.7 mg/dL (0.0-1.0); Blood Urea Nitrogen 12 mg/dL (9-16); C Reactive Protein 1.35 mg/dL (< or = 0.50); Calcium 9.9 mg/dL (8.4-10.2); Carbon Dioxide 28 mmol/L (22-29); Chloride 106 mmol/L (96-108); Estimated Glomerular Filt Rate > 60; Glucose Random 93 mg/dL (60-115); Potassium 3.8 mmol/L (3.3-5.1); Sodium 139 mmol/L (135-145); Total Protein 8.4 g/dL (6.5-8.0)
[2024-06-30 10:34] LABS: TS Negative Control Passed; TS Panel A 0; TS Panel B 0; TS Positive Control Passed; TSpotTB Negative (Negative)
== END 2024-06-27 11:02 | disposition home or self-care (01) ==
LOC: HO.LAB 11:01
PROVIDERS: PCP Registered Nurse; Visit Provider Student in an Organized Health Care Education/Training Program
DX: Z51.81 Encounter for therapeutic drug level monitoring (principal); Z79.620 Long term (current) use of immunosuppressive biologic; M06.09 Rheumatoid arthritis without rheumatoid factor, multiple sites
CPT/HCPCS: 36415; 80053; 85025; 85652; 86140; 86481

== ENCOUNTER 2024-08-11 16:46 | Emergency (ER) | payer MEDICAID, SELFPAY ==
--- NOTE | ~2024-08-11 | CT_ITS ---
CLINICAL HISTORY: Abdominal pain, diarrhea, blood in stool CT abdomen and pelvis with contrast Comparison: None provided Findings: Atelectasis. Scattered lobulated low-density foci throughout the liver may reflect cysts or hemangiomas. Mildly distended gallbladder. No urolithiasis. Splenule. Yao colonic and diffuse small bowel prominent mural thickening with submucosal edema and mucosal hyperemia. Colonic diverticulosis without focal diverticulitis. Fat containing umbilical hernia. Pelvic contents unremarkable. Normal appendix. Circumferential bladder wall thickening. No acute fracture. Osteopenia with diffuse multilevel spondylosis. Multilevel posterior disc osteophyte complexes. Bilateral hip osteoarthritis. On the left along the acetabular rim are multifocal possibly subchondral cysts with a large subchondral cysts measuring 1.2 cm, with possible tiny foci of air. Although this may be degenerative, other etiologies are not entirely excluded. If clinical concern persists consider follow-up MRI. IMPRESSION: 1. Findings consistent with pancolitis and enteritis. 2. Circumferential bladder wall thickening may be related to degree of underdistention or mild cystitis. 3. Additional findings as described. This document has been electronically signed by: Jose Chavez MD on 08/11/2024 19:03:54
[2024-08-11 16:48] VITALS: BP 138/72; PULSE 91; RESP 18; TEMP 36.4; O2SAT 95; BMI 31.7
--- NOTE | 2024-08-11 16:49 | ED.GENADULT ---
HPI - General Adult General Chief complaint: Abdominal Pain Stated complaint: dry mouth/ D, bleeding in rectal today Time Seen by Provider: 08/11/24 17:10 Source: patient Mode of arrival: ambulatory Limitations: no limitations History of Present Illness ED Provider: Gera Miller HPI narrative: 58-year-old female history of rheumatoid arthritis presents to ED for lower abdominal pain, diarrhea, and blood in diarrhea. patient states taking first dose zepound for weight loss. Patient denies any vaginal bleeding, or dysuria. Related Data Home Medications ?Medication ?Instructions ?Recorded ?Confirmed escitalopram oxalate 10 mg tablet 10 mg PO DAILY 05/08/20 05/15/24 hydrochlorothiazide 25 mg tablet 25 mg PO DAILY 05/08/20 05/15/24 lisinopril 40 mg tablet 40 mg PO DAILY 05/08/20 05/15/24 trazodone 50 mg tablet 50 mg PO BEDTIME PRN Insomnia 05/08/20 05/15/24 duloxetine 30 mg capsule,delayed 30 mg PO DAILY 07/26/23 05/15/24 release Previous Rx's ?Medication ?Instructions ?Recorded psyllium husk 0.52 gram capsule 0.52 g PO DAILY #30 caps 10/26/23 sennosides 8.6 mg tablet (Natural 17.2 mg (2 x 8.6 mg) PO BEDTIME 10/26/23 Senna Laxative) constipation #60 tabs Enbrel SureClick 50 mg/mL (1 mL) 50 mg subcut QWEEK #4 mL 03/24/24 subcutaneous pen injector (etanercept) celecoxib 200 mg capsule 200 mg PO DAILY #90 caps 06/27/24 pantoprazole 40 mg tablet,delayed 40 mg PO QAM #90 tabs 07/27/24 release Allergies Allergy/AdvReac Type Severity Reaction Status Date / Time methotrexate AdvReac Intermediate gerd Verified 08/11/24 16:49 Review of Systems Review of Systems: lower abdominal pain, diarrhea, blod in stool Yes all other systems are reviewed and are negative [facility] Past Medical History Medical History (Updated 08/12/24 @ 00:00 by Sagar Antonio) Bilateral carpal tunnel syndrome Encounter for monitoring of etanercept therapy Erosive esophagitis Tubular adenoma of colon Surgical History History of umbilical hernia repair (~2008) History of ovarian cystectomy History of delivery Family History Family History Father History of hypertension Mother History of hypertension Rheumatoid arthritis Lung cancer Breast cancer Social History Social History Household Members: Significant Other and Children Alcohol intake: current Alcohol intake frequency: does not drink Comment: counts correct Patient Tobacco Use Status: Never used Tobacco Smoked in Last 30 Days: No e-Cigarette/Vaping Use: Never Used Use of substances other than those prescribed or required for medical reasons: No Advance Directives: No Advance Directives Information Provided: No Current occupational status: unemployed 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 Physical Exam ED Vital Signs: Vital Signs - 24 hr 08/11/24 16:48 08/11/24 18:42 Temperature 97.6 F Pulse Rate 91 83 Respiratory Rate 18 18 Blood Pressure 138/72 131/74 Pulse Oximetry 95 97 Oxygen Delivery Method Room Air Room Air BMI result Body Mass Index 31.7 Const General: cooperative, healthy appearing, comfortable, no acute distress, well developed, alert, awake and Physically active [facility] Head: Yes normal to inspection, Yes No palpable skull fracture present, Yes normocephalic and Yes atraumatic Eyes General: appearance normal, both eyes and all related structures Neck Neck: Yes normal visual inspection, Yes full ROM, Yes no lymphadenopathy, Yes no meningeal signs, Yes trachea midline, Yes supple, No anterior neck swelling and No tender Chest Chest palpation & inspection: normal inspection of the chest and normal palpation of entire chest wall Resp Effort & Inspection: normal respiratory effort and able to speak in complete sentences Auscultation: clear to auscultation bilaterally Cardio Jugular venous distension: no JVD Heart sounds: S1 normal heart sound present and S2 normal heart sound present GI Inspection: Yes normal to inspection Palpation (GI): Soft to palpation, not firm, Tenderness to palpation present (GI) in the LLQ and in the RLQ, no guarding and not rigid General: Yes no CVA tenderness Back/Spine/Pelvis Back: no CVA tenderness and No back tenderness Skin General skin exam: no rashes or lesions noted, elasticity normal and turgor normal Neuro General: gait normal, tone normal, moves all extremities, Normal light touch and pain sensation, no meningeal signs, no focal motor deficits, CN's II-XI intact bilaterally and normal sensation to monofilament Extrem General: Yes normal to inspection, Yes full ROM and Yes capillary refill normal Psych Appearance: grossly normal, well kempt and not disheveled Course Course Course Narrative: This is an RME: Additional HPI, ROS, PE not included below will be deferred to primary provider. RME assessment and note performed by: Bailee Wall PA-C This is a 44-obpg-[id number]-Armenian speaking female, with a PMHx of erosive esophagitis, who presents to the ER with complaints of diarrhea x 3 days. Reports that she noticed BRBPR with the bowel movements today. NO hx of similar sxs in the past. Reporting diffuse abdominal pain. Unsure if she is passing clots. Reports that on August 08 she started on Zepbound. She is not on blood thinners. Reports that she is having aheadache. Reports that she has had a rapid heart rate and her PCP change increased metoprolol 25 to 50mg two weeks ago. Had carpal tunnel surgery several months ago. No recent travel. No sick contacts. Reporting that she Divehi rice 3 days ago. Plan: Labs, further ER eval needed Reevaluation(s) Reevaluation #1: 8:08 PM 08/11/2024 (Audelia NEGRON): The patient was signed out at this provider at shift change, in summary the patient is a 58-year-old female presenting to the ED for evaluation of diffuse abdominal pain with associated nausea and diarrhea with bright red blood per rectum without associated fever or vomiting. The patient reportedly just began a GLP 2 inhibitor called Zepbound on 08/08 and has had diarrhea since starting the medication. The patient's laboratory evaluation was reassuring, no leukocytosis, anemia, COLE, or electrolyte deficiency. The patient's troponin was negative x2. The patient's stool was positive for occult blood however there was no obvious hematochezia on SHAHRIAR. The patient has been hemodynamically stable, patient was signed out pending results of CT imaging with the expectation of discharge. The patient's CT imaging has now resulted and shows diffuse colitis with enteritis, no evidence of acute obstruction or other emergent process. The patient will be discharged with supportive care and instructions to to follow up with PCP and discontinue GLP 2 inhibitor until instructed otherwise. Medications Administered Discontinued Medications Generic Name Dose Route Start Last Admin Trade Name Deejayq PRN Reason Stop Dose Admin Sodium Chloride 1,000 mls @ 999 mls/hr 08/11/24 17:31 08/11/24 19:27 Ns IV 08/11/24 18:31 Infused .Q1H1M STA Infusion Iohexol 85 ml 08/11/24 18:04 08/11/24 18:04 Iohexol 350 Mg/Ml 100 Ml Infus..Btl IV 08/11/24 18:05 85 ml ONCE ONE Administration Medical Decision Making Medical Decision Making [facility] Narrative: [age] year year old female presents to ED for lower abdominal pain diarrhea blood in stool after 1 dose of Zepbound for weight loss. Patient denies any recent long travel, recent surgery, new antibiotics, recent hospital admission. Labs are stable. EKG was ordered from triage. CT scan ordered. SIgned out to JAMIL Valdez to follow up CT scan and troponin Differential Diagnosis Differential Diagnoses: The differential diagnosis associated with the presentation includes (Diverticulitis colitis) Admission/Observation Consideration of admission/observation: Escalation of care including admission/observation considered Lab Data [facility] Lab Attestation statement: I reviewed the patient's lab results. 08/11/24 17:13 08/11/24 17:13 Labs: Lab Results 08/11/24 08/11/24 08/11/24 Range/Units 17:13 17:32 19:16 WBC 11.7 H (4.8-10.8) X10*3/uL RBC 4.76 (4.20-5.50) X10*6/uL Hgb 13.1 (12.0-16.0) g/dl Hct 39.2 (37.0-47.0) % MCV 82.4 (80.0-98.0) fL MCH 27.5 (27.0-33.0) pg MCHC 33.4 (31.0-35.0) g/dl RDW 13.9 (11.0-16.0) % Plt Count 264 (160-400) X10*3/uL MPV 10.2 (9.4-12.3) fL Immature Gran % (Auto) 0.3 (0.0-0.4) % Neut % (Auto) 77.4 H (45-73) % Lymph % (Auto) 12.6 L (20-40) % [place] % (Auto) 8.4 (2-11) % Eos % (Auto) 1.0 (0-4) % Baso % (Auto) 0.3 (0-2) % Lymph # (Auto) 1.5 (1.2-4.9) X10*3/uL [place] # (Auto) 1.0 (0.1-1.2) X10*3/uL Eos # (Auto) 0.1 (0.0-0.4) X10*3/uL Baso # (Auto) 0.0 (0.0-0.2) X10*3/uL Abs Immat Gran (auto) 0.04 H (0.00-0.03) X10*3/uL Absolute Neuts (auto) 9.0 H (2.0-8.3) x10*3/uL Absolute Nucleated RBC 0.000 (0.0-0.012) X10*3/uL Nucleated RBC % (auto) 0.0 (0.0-0.2) /100WBC Sodium 139 (135-145) mmol/L Potassium 3.4 (3.3-5.1) mmol/L Chloride 105 (96-108) mmol/L Carbon Dioxide 25 (22-29) mmol/L Anion Gap 12 (12-20) BUN 13 (9-16) mg/dL Creatinine 0.61 (0.5-1.4) mg/dL Estim Creat Clear Calc 110.4 Estimated GFR > 60 Random Glucose 108 (60-115) mg/dL Calcium 9.4 (8.4-10.2) mg/dL Magnesium 2.0 (1.6-2.6) mg/dL Total Bilirubin 1.4 H (0.0-1.0) mg/dL Direct Bilirubin 0.4 (0.0-0.5) mg/dL AST 23 (5-31) U/L ALT 24 (0-31) U/L Alkaline Phosphatase 67 (39-117) U/L Troponin I High Sens < 2.7 3.1 (<3.5-17.0) ng/L Total Protein 8.2 H (6.5-8.0) g/dL Albumin 4.5 (3.5-5.0) g/dL Lipase 27 (8-78) U/L Beta HCG, Quant 3 mIU/mL Urine Color Yellow Urine Appearance Clear Urine pH 6.5 (5.0-9.0) Ur Specific [place] >= 1.030 H (1.005-1.025) Urine Protein Negative (Neg-Trace) mg/dL Urine Glucose (UA) Negative (Negative) mg/dL Urine Ketones Negative (Negative) mg/dL Urine Blood Trace H (Negative) Urine Nitrite Negative (Negative) Ur Leukocyte Esterase Negative (Negative) Urine RBC 0-2 (0-2) /HPF Urine WBC 0-5 (0-5) /HPF Ur Squamous Epith Cells 0-2 (0-2) /HPF Urine Bacteria None Seen (None Seen) Hyaline Casts 0-2 (0-2) /LPF Stool Occult Blood POSITIVE (NEGATIVE) Independent Interpretation I performed an independent interpretation of an: CT Scan Independent Historian Clinical information obtained from an independent historian. History obtained from or confirmed by: Other (Patient) Discharge Plan Discharge Clinical Impression: Gastroenteritis, Colitis Patient Disposition: Home, Self-Care Instructions: Gastroenteritis (ED), Colitis (ED) Additional Instructions: Thank you for choosing [facility]'s Emergency Department for your care today. Thankfully your laboratory evaluation, urinalysis, EKG, and CT today show no evidence of an acute surgical or other emergent process requiring admission to the hospital or continued ED observation, and it is safe to discharge you home. Your CT did show evidence of inflammation of your colon and small bowel, this may be a result of your new medication Zepbound which you began taking 3 days ago when the symptoms began. We recommend you stop taking the Zepbound medication until follow-up and other recommendations from your primary care physician. You may take alternating (staggered) doses of ibuprofen 600mg and Tylenol 1000mg every 4 hours as needed for any additional pain. Please stay well hydrated and get plenty of rest. Please follow up with your primary care physician for re-evaluation, consideration of alternative medications, additional management of your symptoms, and continued preventative care. If you do not have a primary care physician, please call the [facility] at [phone] to establish a new primary care physician. While waiting to establish your new primary care physician, you can call our Walk-in Care [facility] at [phone] for non-emergency needs. Please return to the emergency department if you develop a severe or sudden change in your symptoms, a fever over 100.4 that does not improve with Tylenol or Ibuprofen, recurrent vomiting, or any other new or worsening symptoms or concerns. Prescriptions: No Action celecoxib 200 mg capsule 200 mg PO DAILY Qty: 90 1RF pantoprazole 40 mg tablet,delayed release (DR/EC) 40 mg PO QAM Qty: 90 0RF lisinopril 40 mg tablet 40 mg PO DAILY hydrochlorothiazide 25 mg tablet 25 mg PO DAILY escitalopram oxalate 10 mg tablet 10 mg PO DAILY trazodone 50 mg tablet 50 mg PO BEDTIME PRN (Reason: Insomnia) duloxetine 30 mg capsule,delayed release(DR/EC) 30 mg PO DAILY Enbrel SureClick 50 mg/mL (1 mL) pen injector 50 mg subcut QWEEK Qty: 4 2RF sennosides [Natural Senna Laxative] 8.6 mg tablet 17.2 mg PO BEDTIME Qty: 60 3RF psyllium husk 0.52 gram capsule 0.52 g PO DAILY Qty: 30 4RF Referrals: Elizabeth Hanna FNP [Primary Care Provider, Family Practice] Clinical Impression: Colitis; Gastroenteritis Interventions: ED Discharge Assessment Last Done: 08/11/24 20:31 Discharge Date/Time: 08/11/24 20:32 Print Language: Armenian
--- NOTE | 2024-08-11 16:55 | ECG_ITS ---
Test Reason : palpitations Blood Pressure : */* mmHG Vent. Rate : 85 BPM Atrial Rate : 85 BPM P-R Int : 166 ms QRS Dur : 88 ms QT Int : 388 ms P-R-T Axes : 36 35 23 degrees QTcB Int : 461 ms Normal sinus rhythm Normal ECG When compared with ECG of 08-Mar-2018 15:35, No significant change was found Referred By: Bailee Wall Electronically Signed By: DWAINE GAY MD
[2024-08-11 17:18] LABS: Hematocrit 39.2 % (37.0-47.0); Hemoglobin 13.1 g/dl (12.0-16.0); Imm Gran Abs Auto 0.04 X10*3/uL (0.00-0.03); Imm Gran Pct Auto 0.3 % (0.0-0.4); Lymphocytes Absolute Auto 1.5 X10*3/uL (1.2-4.9); MANUAL DIFF FLAG NO; Mean Corpuscular HGB Conc 33.4 g/dl (31.0-35.0); Mean Corpuscular Hemoglobin 27.5 pg (27.0-33.0); Mean Corpuscular Volume 82.4 fL (80.0-98.0); NRBC Abs Auto 0.000 X10*3/uL (0.0-0.012); NRBC Pct Auto 0.0 /100WBC (0.0-0.2); Platelet Count 264 X10*3/uL (160-400); Red Blood Count 4.76 X10*6/uL (4.20-5.50); White Blood Count 11.7 X10*3/uL (4.8-10.8)
[2024-08-11 17:33] LABS: Alanine Aminotransferase 24 U/L (0-31); Albumin Level 4.5 g/dL (3.5-5.0); Alkaline Phosphatase 67 U/L (39-117); Anion Gap 12 (12-20); Aspartate Amino Transferase 23 U/L (5-31); Blood Urea Nitrogen 13 mg/dL (9-16); Calcium 9.4 mg/dL (8.4-10.2); Carbon Dioxide 25 mmol/L (22-29); Chloride 105 mmol/L (96-108); Creatinine Clr Calc Pharmacy 110.4; Estimated Glomerular Filt Rate > 60; Lipase 27 U/L (8-78); Magnesium 2.0 mg/dL (1.6-2.6); Potassium 3.4 mmol/L (3.3-5.1); Sodium 139 mmol/L (135-145); Total Protein 8.2 g/dL (6.5-8.0)
[2024-08-11 17:40] LABS: OBS Int Ctl Valid YES; OBS1 POSITIVE (NEGATIVE)
[2024-08-11 17:40] LABS: Troponin-I High Sensitivity < 2.7 ng/L (<3.5-17.0)
[2024-08-11] MEDS: iohexoL 350 MG/ML 100 ML INFUS..BTL 85 ML IV (18:04)
[2024-08-11 18:42] VITALS: BP 131/74; PULSE 83; RESP 18; O2SAT 97
[2024-08-11 19:24] LABS: Appearance Urine Clear; Glucose Urine UA Negative (Negative); PH 6.5 (5.0-9.0); Specific Gravity - Urine >= 1.030 (1.005-1.025); UMIC TRIGGER UACC YES
[2024-08-11 19:42] LABS: Troponin-I High Sensitivity 3.1 ng/L (<3.5-17.0)
[2024-08-11 20:31] VITALS: BP 133/75; PULSE 84; RESP 18; TEMP 36.7; O2SAT 97
== END 2024-08-11 20:32 | disposition home or self-care (01) ==
PROVIDERS: Physician Assistant; Physician Assistant Medical; Emergency Provider Internal Medicine; PCP Registered Nurse
DX: K52.9 Noninfective gastroenteritis and colitis, unspecified (principal); K92.1 Melena; R00.2 Palpitations; R11.2 Nausea with vomiting, unspecified; Z79.899 Other long term (current) drug therapy
CPT/HCPCS: 36415; 74177; 80048; 80076; 81001; 82272; 83690; 83735; 84484; 84702; 85025; 93005; 96360; 96361; 99284; 99285; Q9967

== ENCOUNTER → 2024-08-11 16:55 | Outpatient (BNV) | payer MEDICAID, SELFPAY | PROVIDERS: Emergency Provider Internal Medicine; PCP Registered Nurse; Visit Provider Internal Medicine Cardiovascular Disease | DX: R00.2 Palpitations (principal) | CPT/HCPCS: 93010 ==

== ENCOUNTER → 2024-08-11 17:28 | Outpatient (BNV) | payer MEDICAID, SELFPAY | PROVIDERS: Emergency Provider Internal Medicine; PCP Registered Nurse; Visit Provider Radiology Diagnostic Radiology | DX: N32.89 Other specified disorders of bladder (principal) | CPT/HCPCS: 74177 ==

== ENCOUNTER 2024-09-01 11:39 | Outpatient (REF) | payer MEDICAID, SELFPAY ==
[2024-09-01 14:15] LABS: Folate 8.1 ng/mL (> or = 4.0); Vitamin B12 535 pg/mL (200-900)
[2024-09-06 12:54] LABS: Vitamin D 25-OH, D2 <4 ng/mL; Vitamin D 25-OH, D3 21 ng/mL; Vitamin D 25-OH, Total 21 ng/mL (30-100)
== END 2024-09-01 11:40 | disposition home or self-care (01) ==
LOC: HO.LAB 11:39
PROVIDERS: PCP Registered Nurse; Visit Provider Nurse Practitioner Family
DX: K21.00 Gastro-esophageal reflux disease with esophagitis, without bleeding (principal); E55.9 Vitamin D deficiency, unspecified; K59.01 Slow transit constipation; R14.0 Abdominal distension (gaseous); R15.9 Full incontinence of feces; R19.7 Diarrhea, unspecified; R12 Heartburn; N32.89 Other specified disorders of bladder; Z87.898 Personal history of other specified conditions; Z79.899 Other long term (current) drug therapy
CPT/HCPCS: 36415; 82306; 82607; 82746; 99212

== ENCOUNTER 2024-09-01 11:39 | Outpatient (AMB) | payer MEDICAID, SELFPAY ==
--- NOTE | 2024-09-01 11:45 | MHC.OFFVIS ---
Vital Signs 09/01/24 11:54 Height 5 ft 5 in Weight 190 lb BMI 31.6 BP 126/85 Blood Pressure Location Lt brachial Position Sitting Pulse 85 Pulse Oximetry (%) 98 Oxygen Delivery Method Room Air Intake Visit Reasons: heartburn Intake Note: Patient follow up for heartburn. Patient was at the ED for rectal bleeding on 08/11. Patient cc: abdominal pain with bloating on and off, acid reflex with burning sensation, and dizziness. Shoe Puller Required: Yes Accompanied by: Self / Same As Patient Allergies methotrexate Adverse Reaction (Intermediate, Verified 09/01/24 11:47) gerd HPI HPI heartburn: Details: LAST VISIT: None 08/27/2024 Tubular adenoma of colon Erosive esophagitis Constipation GERD (gastroesophageal reflux disease) Diverticulosis Plan Continue pantoprazole daily. Avoid dietary triggers and late night snacking. Staying upright for minimum 3 hours after meals discussed with patient. Patient reports occasional postprandial abdominal bloating depending on what she eats. Low FODMAP diet discussed with patient. List of food recommended as well as list of food to avoid given to patient. Increase fluid intake and activity to promote better bowel motility. Colonoscopy in 5 years, sooner if clinically necessary. Follow-up in 6 months, sooner on as needed basis. Patient is agreeable to this plan and verbalizes understanding of instructions. She was given the opportunity to ask questions and all questions answered. ? ED VISIT: 08/11/2024 Course Course Course Narrative: This is an RME: Additional HPI, ROS, PE not included below will be deferred to primary provider. RME assessment and note performed by: Bailee Wall PA-C This is a 29-qrjb-[id number]-Mauritian speaking female, with a PMHx of erosive esophagitis, who presents to the ER with complaints of diarrhea x 3 days. Reports that she noticed BRBPR with the bowel movements today. NO hx of similar sxs in the past. Reporting diffuse abdominal pain. Unsure if she is passing clots. Reports that on August 08 she started on Zepbound. She is not on blood thinners. Reports that she is having aheadache. Reports that she has had a rapid heart rate and her PCP change increased metoprolol 25 to 50mg two weeks ago. Had carpal tunnel surgery several months ago. No recent travel. No sick contacts. Reporting that she [place] rice 3 days ago. Plan: Labs, further ER eval needed Reevaluation(s) Reevaluation #1: 8:08 PM 08/11/2024 (Audelia NEGRON): The patient was signed out at this provider at shift change, in summary the patient is a 58-year-old female presenting to the ED for evaluation of diffuse abdominal pain with associated nausea and diarrhea with bright red blood per rectum without associated fever or vomiting. The patient reportedly just began a GLP 2 inhibitor called [employer] on 08/08 and has had diarrhea since starting the medication. The patient's laboratory evaluation was reassuring, no leukocytosis, anemia, COLE, or electrolyte deficiency. The patient's troponin was negative x2. The patient's stool was positive for occult blood however there was no obvious hematochezia on SHAHRIAR. The patient has been hemodynamically stable, patient was signed out pending results of CT imaging with the expectation of discharge. The patient's CT imaging has now resulted and shows diffuse colitis with enteritis, no evidence of acute obstruction or other emergent process. The patient will be discharged with supportive care and instructions to to follow up with PCP and discontinue GLP 2 inhibitor until instructed otherwise. TODAY'S VISIT: Patient is here today for follow-up and after ED visit couple weeks ago. Patient was diagnosed with colitis and enteritis. Since then she has been doing better, denies diarrhea, hematochezia, unintentional weight loss or ribbon like stools. Patient however reports that she is still having epigastric pain and burning and abdominal bloating almost no matter what she eats. Patient states that she is moving her bowels does not believe that she empties them completely. Patient is taking senna as needed. Currently she is taking pantoprazole every morning. Denies dyspepsia, dysphagia or odynophagia. Acid reflux and epigastric burning occasionally. Patient denies any nausea or vomiting. [facility] Medical History (Updated 09/06/24 @ 20:46 by Mary Unger, [facility]) GERD (gastroesophageal reflux disease) Bilateral carpal tunnel syndrome Encounter for monitoring of etanercept therapy Erosive esophagitis Tubular adenoma of colon Surgical History (Updated 09/01/24 @ 11:50 by Inna Moody) Hx of hand surgery History of umbilical hernia repair (~2008) History of ovarian cystectomy History of delivery Family History Father History of hypertension Mother History of hypertension Rheumatoid arthritis Lung cancer Breast cancer Social History Household Members: Significant Other and Children Alcohol intake: current Alcohol intake frequency: does not drink Comment: counts correct Patient Tobacco Use Status: Never used Tobacco e-Cigarette/Vaping Use: Never Used Current occupational status: unemployed 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 Review of Systems Const Denies weight gain and Denies weight loss ENT Reports no additional complaints, Denies dysphagia and Denies odynophagia Card Reports no additional complaints Resp Reports no additional complaints GI Denies abdominal pain, Denies belching, Denies melena, Denies bloating, Denies change in bowel habits, Denies dysphagia, Denies excessive flatus, Denies dyspepsia, Denies heartburn, Denies diarrhea, Denies loose stools, Denies nausea, Denies odynophagia and Denies vomiting Musc Reports no additional complaints Neuro Reports no additional complaints Psych Reports no additional complaints Endo Reports no additional complaints Physical Exam Vital Signs: Last Vital Signs Pulse 85 09/01/24 11:54 BP 126/85 09/01/24 11:54 Pulse Ox 98 09/01/24 11:54 Oxygen Delivery Method Room Air 09/01/24 11:54 BMI result Body Mass Index 31.6 Results Reviewed Results Reviewed: CT SCAN OF ABDOMEN AND PELVIS IMPRESSION: 1. Findings consistent with pancolitis and enteritis. 2. Circumferential bladder wall thickening may be related to degree of underdistention or mild cystitis. 3. Additional findings as described. Assessment & Plan Assessment & Plan (1) GERD (gastroesophageal reflux disease): Code(s): K21.9 - Gastro-esophageal reflux disease without esophagitis Category: Medical Qualifiers: Esophagitis presence: with esophagitis Esophagitis bleeding: without hemorrhage Qualified Code(s): K21.00 - Gastro-esophageal reflux disease with esophagitis, without bleeding (2) Postprandial abdominal bloating: Code(s): R14.0 - Abdominal distension (gaseous) (3) Constipation: Code(s): K59.00 - Constipation, unspecified Qualifiers: Constipation type: slow transit constipation Qualified Code(s): K59.01 - Slow transit constipation Plan Patient will continue PPI. Avoid dietary triggers only 10 snacking. Staying upright for minimum 3 hours after meals discussed with patient. Patient will continue taking senna. Possible cystitis seen on CT scan. Patient will be referred to Urology. Check calprotectin fecal to rule out inflammatory bowel disease. Will check vitamin B12, folate and vitamin-D levels to rule out malabsorption. Discussed with patient will FODMAP diet. List of food recommended as well as list of food to avoid given to patient. Patient will follow-up in our office in 2-3 months, sooner on as needed basis. She is agreeable to this plan and verbalizes understanding of instructions. She was given the opportunity to ask questions and all questions answered. Orders: Orders Calprotectin, Fecal 09/02/24 R15.9 - Full incontinence of feces Vitamin B12 and Folate 09/01/24 R19.7 - Diarrhea, unspecified Vitamin D 25-OH (D2 and D3) 09/01/24 E55.9 - Vitamin D deficiency, unspecified Referrals Urology Referral N32.89 - Other specified disorders of bladder, Z87.898 - Personal history of other specified conditions Coding Level of Care Code Est Pt Level 4 (55530) Complex EM visit Add On G2211 Diagnoses Gastroesophageal reflux disease with esophagitis without hemorrhage K21.00 Esophagitis presence: with esophagitis Esophagitis bleeding: without hemorrhage Postprandial abdominal bloating R14.0 Slow transit constipation K59.01 Constipation type: slow transit constipation Time Spent (min) 40 Comment 25 minutes spent with patient and additional 15 minutes spent reviewing her records
[2024-09-01 11:54] VITALS: BP 126/85; PULSE 85; O2SAT 98; BMI 31.6
== END 2024-09-01 12:39 | disposition home or self-care (01) ==
LOC: HO.HGI 11:39
PROVIDERS: PCP Registered Nurse; Visit Provider Nurse Practitioner Family
DX: K21.00 Gastro-esophageal reflux disease with esophagitis, without bleeding (principal); R14.0 Abdominal distension (gaseous); K59.01 Slow transit constipation
CPT/HCPCS: 99214

== ENCOUNTER 2024-09-02 12:02 | Outpatient (REF) | payer MEDICAID, SELFPAY ==
[2024-09-09 11:39] LABS: Calprotectin, Fecal 12 mcg/g
== END 2024-09-02 12:03 | disposition home or self-care (01) ==
LOC: HO.LNP 12:02
PROVIDERS: Visit Provider Nurse Practitioner Family
DX: R15.9 Full incontinence of feces (principal)
CPT/HCPCS: 83993

== ENCOUNTER 2024-09-08 08:01 | Outpatient (AMB) | payer MEDICAID, SELFPAY ==
--- OUTSIDE RECORDS SUMMARY | 2024-09-08 08:03 | XMS_ITS | Encounter Summary ---
Author Organization [employer] Address [address] [facility] [address] [place] [address] Care Team Providers Care Polisher And Buffer Name Role Phone Elizabeth Hanna Primary Care Provider [phone] Kalpana Liu MD Unavailable DottieGood larsen MD Unavailable [phone] Mary Unger Unavailable James Hull Unavailable Encounter Details Date Type Department Care Team (Late st Contact Info) Description 06/17/2023 Orders Only [facility] [address] [place] [address] Gail Sam [address] [address] Social History Tobacco Use Types Packs/Day Years [...] Care Team (Late st Contact Info) Description 10/18/2024 10:00 AM EDT Office Visit [facility] MEDICINE [address] [place] [address] Elizabeth Hanna FNP [address] [place] [address] documented as of this encounter Procedures Procedure Name Priority Date/Time Associated Diagnosis Comments MAMMOGRAPHY SCREENING Routine 09/29/2022 2:52 PM EDT documented in this encounter Results * MAMMOGRAPHY SCREENING (09/29/2022 2:52 PM EDT) Anatomical Region Laterality Modality Breast Left Mammography [facility] [facility] BI PROCEDURES Final Result documented in this encounter Visit Diagnoses Not on filedocumented in this encounter Additional Health Concerns Assessment Noted Time PHQ-9 Depression Total Score: 8 12/24/19 23 9:19 AM EST documented as of this encounter Care Teams Polisher And Buffer Relationship Specialty Start Date End Date Elizabeth Hanna FNP [address] [place] [address] PCP - General Family Medicine 08/12/21 Kalpana Liu MD [address] [place] [address] Rheumatology 12/15/23 Good Sinclair MD [address] [place] [address] Cardiology 12/15/23 Mary Unger [address] [place] [address] Dr [address] Floor [place], [place] Gastroenterology 12/15/23 James Hull [address] [facility] [address] [place] [address] Sleep Medicine 12/21/23 documented as of this encounter
--- NOTE | 2024-09-08 08:17 | A.OFFVIS_ITS ---
Vital Signs 09/08/24 08:24 Height 5 ft 3 in Weight 195 lb 5.273 oz BMI 34.6 BP 130/84 Blood Pressure Location Lt brachial Position Sitting Pulse 58 Pulse Source Pulse Oximeter Pulse Oximetry (%) 98 Oxygen Delivery Method Room Air Intake Visit Reasons: RA Intake Note: Patient presents for RA follow up. Checker Cashier Required: Yes Checker Cashier Language: Bee Rancher Services: Checker Cashier Present Checker Cashier Name: Angelo [id number] Information Interpreted: non-clinical & clinical Allergies methotrexate Adverse Reaction (Intermediate, Verified 09/08/24 08:23) gerd Medication List - Last Reconciled 09/08/24 by Augusta Aguilar MD celecoxib 200 mg PO DAILY duloxetine 30 mg PO DAILY Enbrel SureClick (etanercept) 50 mg subcut QWEEK NS escitalopram oxalate 10 mg PO DAILY hydrochlorothiazide 25 mg PO DAILY lisinopril 40 mg PO DAILY metoprolol succinate ER 50 mg PO DAILY pantoprazole 40 mg PO QAM psyllium husk 0.52 grams PO DAILY sennosides (Natural Senna Laxative) 17.2 mg (2 x 8.6 mg) PO BEDTIME trazodone 50 mg PO BEDTIME PRN HPI Comments Details: Patient is a 58-year-old female with hypertension, GERD complicated by erosive esophagitis, polyarticular osteoarthritis involving the hip knees, and seronegative rheumatoid arthritis here today for follow up Interval History: Patient last seen 03/24/24 with me. - On Enbrel 50mg every week - C/o pain to bilateral hands and exam consistent with a flare - Not on Enbrel consistently due to not contacting pharmacy for further refills - advised compliance with Enbrel Today, - On Enbrel 50mg every week - Patient now consistently taking it - Feels it is helping about 30% with the pain - Still having pain in her joints: hands, wrists, and feet. Not able to close her fist Rheumatologic History: -ve RF -ve CCP dx 08/2023 MTX 08/2023 DC 10/2023 ineffective and caused GERD Enbrel 12/2023 Current Rheumatology Medication(s): Enbrel 50mg SC every week [facility] Medical History (Updated 09/06/24 @ 20:46 by Mary Unger, [facility] GERD (gastroesophageal reflux disease) Bilateral carpal tunnel syndrome Encounter for monitoring of etanercept therapy Erosive esophagitis Tubular adenoma of colon Surgical History Hx of hand surgery History of umbilical hernia repair (~2008) History of ovarian cystectomy History of delivery Family History Father History of hypertension Mother History of hypertension Rheumatoid arthritis Lung cancer Breast cancer Social History Household Members: Significant Other and Children Alcohol intake: current Alcohol intake frequency: does not drink Comment: counts correct Patient Tobacco Use Status: Never used Tobacco e-Cigarette/Vaping Use: Never Used Current occupational status: unemployed 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 Review of Systems Const Details: Review of Systems Constitutional: Denies fever, chills, weight loss ENT: Denies vision changes, eye pain or eye redness, dental caries, dry mouth GI: Denies nausea, vomiting, diarrhea, abdominal pain, change in BM Pulm: Denies SOB, COLE, hemoptysis, wheezing Cards: Denies chest pain, palpitations Skin: Denies Raynaud's, rash, nail changes, photosensitivity, STATE EPIDEMIOLOGIST: Denies headaches, weakness, paresthesias, recurrent falls MSK: as per HPI All other systems reviewed and are unremarkable except noted above Physical Exam Exam Exam: Vital signs reviewed Physical Examination CONSTITUITIONAL Patient alert and cooperative. Well appearing and in no apparent painful distress MSK Hands * Right Hand: Not able to make a fist. Swelling and TTP of the MCPs and PIPs. Herbedens nodes noted jyotsna on the 2nd PIP * Left Hand: Able to make a fist. No significant swelling but TTP of the MCPs and PIPs. Herbedens nodes noted Wrists * Right Wrist: Full ROM. Mild swelling and TTP * Left Wrist: Full ROM. No swelling but TTP Elbows * Right Elbow: Full ROM. No swelling or TTP. No TTP of the medial and lateral epicondyles * Left Elbow: Full ROM. No swelling or TTP. No TTP of the medial and lateral epicondyles Shoulders * Right shoulder: Decreased ROM. No swelling noted. No TTP of the AC joint, sub acromial bursa. TTP of the posterior shoulder * Left shoulder: Decreased ROM. No swelling noted. No TTP of the AC joint, subacromial bursa or posterior shoulder Hip bursa: Tenderness to palpation bilaterally Knees * Right knee: Full ROM. No swelling noted. TTP of the knee joint lie and pes anserine bursa * Left knee: Full ROM. No swelling noted. TTP of the knee joint lie and pes anserine bursa. Ankles * Right ankle: Good ankle dorsiflexion and plantar flexion. No swelling. No TTP of the ankle joint * Left ankle: Good ankle dorsiflexion and plantar flexion. No swelling. No TTP of the ankle joint Feet * Right foot: Positive squeeze test * Left foot: Positive squeeze test Tender points? * No tenderness to palpation of the bilateral trapezius, supraspinatus, anterior costochondral junctions, bilateral suboccipital muscle insertions SKIN No rashes Vital Signs: Last Vital Signs Pulse 58 09/08/24 08:24 BP 130/84 09/08/24 08:24 Pulse Ox 98 09/08/24 08:24 Oxygen Delivery Method Room Air 09/08/24 08:24 BMI result Body Mass Index 34.6 Results Reviewed Results Reviewed: Laboratory Tests 06/27/24 08/11/24 11:13 17:13 WBC 11.7 H RBC 4.76 Hgb 13.1 Hct 39.2 Plt Count 264 ESR 16 Sodium 139 Potassium 3.4 Chloride 105 Carbon Dioxide 25 BUN 13 Creatinine 0.61 AST 23 ALT 24 C-Reactive Protein 1.35 H Rheumatology Labs 07/13/22 06/09/23 07/26/23 10:12 11:46 10:51 Rheumatoid Factor < 13.0 Cycl Citrul Peptide IgG <16 FRANTZ Screen POSITIVE A FRANTZ Titer 1:80 H SS-A/Ro Antibody <1.0 NEG SS-B/La Antibody <1.0 NEG Sm ([place]) Antibody <1.0 NEG SM/MEDICAL LAB TECHNICIAN IgG Antibody <1.0 NEG Double Strand DNA Ab 1 Complement C3 166 Complement C4 16 Infectious serologies 03/24/24 06/27/24 11:45 11:13 Hepatitis A IgM Ab Nonreactive Hep Bs Antigen Negative Hep Bs Antibody NONREACTIVE Hep B Core Total Ab Nonreactive Hepatitis C Ab (EIA) Nonreactive TB Test (T-Spot) Com Negative Assessment & Plan Assessment & Plan (1) Rheumatoid arthritis: Comment: -ve RF -ve CCP dx 08/2023 MTX 08/2023 DC 10/2023 ineffective and caused GERD Enbrel 12/2023 Code(s): M06.9 - Rheumatoid arthritis, unspecified Category: Medical Qualifiers: Rheumatoid arthritis location: multiple sites Rheumatoid factor presence: without rheumatoid factor Qualified Code(s): M06.09 - Rheumatoid arthritis without rheumatoid factor, multiple sites Plan: #Seronegative RA Patient is a 58-year-old female with seronegative rheumatoid arthritis here today for follow up Had about 30% improvement on Enbrel but still with synovitis to her hands and wrists Will change medication Plan - Stop Enbrel - Start Adalimumab 40mg SC every 2 weeks - RTC 4 months - Labs before visit: CBC, CMP, ESR, CRP (2) Encounter for monitoring of adalimumab therapy: Code(s): Z51.81 - Encounter for therapeutic drug level monitoring; Z79.620 - terminal make up operator (current) use of immunosuppressive biologic Plan: #Long-term Use of TNF Inhibitors: Adalimumab Discussed with the patient the benefits and risks of TNF inhibitors for the management of the rheumatic condition Benefits include reduce pain, maintenance of remission and reduction of flares as well as progression of the disease Risks include injection sites/infusion reactions, serious infections (such as bacterial infections, opportunistic infections), malignancy, delaminating syndromes, autoimmune phenomena, CHF exacerbations, palmar plantar psoriasis and cytopenias Recommended rotating injection sites, and holding medication during and for up to 1 week after resolution of a febrile illness or open skin wound Plan I spent 35 minutes reviewing the record and labs, taking a history, examining the patient, discussing the treatment plan and documenting in the medical record Orders: Orders Complete Blood Count Auto Diff 4 Months M06.09 - Rheumatoid arthritis without rheumatoid factor, multiple sites Comprehensive Met. Panel 4 Months M06.09 - Rheumatoid arthritis without rheumatoid factor, multiple sites C Reactive Protein 4 Months M06.09 - Rheumatoid arthritis without rheumatoid factor, multiple sites Erythrocyte Sedimentation Rate 4 Months M06.09 - Rheumatoid arthritis without rheumatoid factor, multiple sites Medications: New adalimumab-aaty 40 mg (0.4 mL) subcut Q2W 2 ea 5RF M06.09 - Rheumatoid arthritis without rheumatoid factor, multiple sites Discontinued Enbrel SureClick (etanercept) Discontinued Reason: Doctor's Order 50 mg subcut QWEEK 4 mL 2RF NS M06.09 - Rheumatoid arthritis without rheumatoid factor, multiple sites, Z51.81 - Encounter for therapeutic drug level monitoring, Z79.620 - residential (current) use of immunosuppressive biologic Coding Level of Care Code Est Pt Level 4 (64759) Complex EM visit Add On G2211 Diagnoses Rheumatoid arthritis of multiple sites with negative rheumatoid factor M06.09 Rheumatoid arthritis location: multiple sites Rheumatoid factor presence: without rheumatoid factor Encounter for monitoring of adalimumab therapy Z51.81; Z79.620
[2024-09-08 08:24] VITALS: BP 130/84; PULSE 58; O2SAT 98; BMI 34.6
== END 2024-09-08 09:01 | disposition home or self-care (01) ==
LOC: HO.RHE 08:02
PROVIDERS: PCP Registered Nurse; Visit Provider Student in an Organized Health Care Education/Training Program
DX: M06.09 Rheumatoid arthritis without rheumatoid factor, multiple sites (principal); Z51.81 Encounter for therapeutic drug level monitoring; Z79.620 Long term (current) use of immunosuppressive biologic
CPT/HCPCS: 99214

== ENCOUNTER → 2024-09-08 08:01 | Outpatient (BNVA) | payer MEDICAID, SELFPAY | PROVIDERS: PCP Registered Nurse; Visit Provider Student in an Organized Health Care Education/Training Program | DX: M06.09 Rheumatoid arthritis without rheumatoid factor, multiple sites (principal); Z51.81 Encounter for therapeutic drug level monitoring; Z79.620 Long term (current) use of immunosuppressive biologic | CPT/HCPCS: 99212 ==

== ENCOUNTER 2024-11-01 09:25 | Outpatient (AMB) | payer MEDICAID, SELFPAY ==
--- NOTE | 2024-11-01 09:41 | A.OFFVIS_ITS ---
Intake Visit Reasons: Cystitis Intake Note: New Patient is present for cystitis Urology Rx:none PVR:0 mls Blood Thinners:none Imaging completed: Abd CT 08/11/2024 Voice Over Announcer Required: Yes Accompanied by: Self / Same As Patient Allergies methotrexate Adverse Reaction (Intermediate, Verified 11/01/24 09:42) gerd HPI Comments Details: Winnie is a pleasant Eritrean-speaking female. She is a patient of . She is seen for the following urologic conditions - chronic cystitis Eritrean translation provided by qualified medical driver Chronic cystitis Does have difficulty with bowel habits Discussed addition more fiber and fluid On immunosuppression for management of rheumatoid arthritis This contributes to cystitis Trial vitamin-C with methenamine PFS Medical History (Updated 11/01/24 @ 10:18 by Cachorro Fry MD) GERD (gastroesophageal reflux disease) Bilateral carpal tunnel syndrome Encounter for monitoring of etanercept therapy Erosive esophagitis Tubular adenoma of colon Surgical History Hx of hand surgery History of umbilical hernia repair (~2008) History of ovarian cystectomy History of delivery Family History Father History of hypertension Mother History of hypertension Rheumatoid arthritis Lung cancer Breast cancer Social History Household Members: Significant Other and Children Alcohol intake: current Alcohol intake frequency: does not drink Comment: counts correct Patient Tobacco Use Status: Never used Tobacco e-Cigarette/Vaping Use: Never Used Current occupational status: unemployed 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 Review of Systems Const Denies chills and Denies fever(s) Card Reports no additional complaints and Denies syncope Resp Denies cough GI Denies abdominal pain and Denies heartburn Reports as per HPI and Denies change in libido Neuro Denies syncope Psych Denies change in libido Endo Denies change in libido Physical Exam Const General: cooperative, healthy appearing, comfortable and no acute distress Orientation/consciousness: patient oriented x3 HEENT Face and sinus: Yes normal facial exam Mouth: moist mucous membranes Neck Neck: Yes normal visual inspection, Yes full ROM and Yes trachea midline Chest Chest palpation & inspection: normal inspection of the chest Resp Effort & Inspection: normal respiratory effort, able to speak in complete se ntences and no respiratory distress GI Inspection: Yes normal to inspection Back/Spine/Pelvis Cervical Spine: normal cervical lordosis Thoracic/Lumbar Spine: thoracic and lumbar spine normal to inspection Skin General skin exam: no rashes or lesions noted Neuro General: patient oriented x3, gait normal, tone normal and moves all extremities Extrem General: Yes normal to inspection and Yes capillary refill normal Assessment & Plan Assessment & Plan (1) Cystitis cystica: Code(s): N30.80 - Other cystitis without hematuria Category: Medical Plan Trial ascorbic acid methenamine Six-month follow-up Medications: New ascorbic acid (vitamin C) 1,000 mg PO DAILY 90 tabs 1RF 90 days N30.80 - Other cystitis without hematuria methenamine hippurate 1 g PO DAILY 90 tabs 1RF 90 days N30.80 - Other cystitis without hematuria Patient Instructions: This note is constructed using voice recognition software. While every effort has been made to ensure accuracy superintendent nonselling errors may have been included. Imaging studies, laboratory and physical exam results were discussed and reviewed in detail. No major barriers to patient understanding were identified. An opportunity to ask questions regarding the treatment plan was provided. All questions were answered. The patient expressed understanding and agreement with the above treatment plan. The patient is aware they should contact our office by phone for worsening of their current condition or the appearance of new urologic symptoms. Compliance is encouraged with any medications and followup testing that is ordered. It is a privilege to participate in the urologic care of your patient. If you have any questions or concerns regarding treatment for the above conditions, or other urologic issues, please do not hesitate to contact me. The office telephone contact is [phone]. Sincerely, Dr Cachorro Fry MD, [facility] - Urology Compassionate Specialist Care for the Genitourinary System Coding Level of Care Code New Pt Level 4 (76608) Diagnoses Cystitis cystica N30.80
--- OUTSIDE RECORDS SUMMARY | 2024-11-01 11:14 | XMS_ITS | Encounter Summary ---
Author Organization [employer] Address [address] 7[address] [place] [address] Care Team Providers Care Hand Ii Blocker Name Role Phone Elizabeth Hanna Primary Care Provider [phone] Kalpana Liu MD Unavailable Good Sinclair MD Unavailable [phone] Mary Unger Unavailable James Hull Unavailable Reason for Visit * Reason Comments Med Refill Encounter Details Date Type Department Care Team (Late st Contact Info) Description 08/04/2022 Refill [facility]INE [address] [place] [address] Elizabeth Hanna FNP [address] [place], [place] [phone] Social History Tobacco Use Types Packs/Day Years [...] documented as of this encounter Care Teams Hand Ii Blocker Relationship Specialty Start Date End Date Elizabeth Hanna FNP [address] [place] [address] PCP - General Family Medicine 08/12/21 Kalpana Liu MD [address] [place] [address] Rheumatology 12/15/23 Good Sinclair MD 596 [place] [address] Cardiology 12/15/23 Mary Unger [address] [place] [address] 3rd Floor [place], [place] Gastroenterology 12/15/23 James Hull [address] [facility] [address] [place] [address] Sleep Medicine 12/21/23 documented as of this encounter
--- OUTSIDE RECORDS SUMMARY | 2024-11-01 11:14 | XMS_ITS | Encounter Summary ---
Author Organization [employer] Address [address] 7t [place] [address] Care Team Providers Care Cylinder Block Hole Reliner Name Role Phone Elizabeth Hanna TICKET PRINTER AND TAGGER Primary Care Provider [phone] Kalpana Liu MD Unavailable Good Sinclair MD Unavailable [phone] Mary Unger Unavailable James Hull Unavailable Encounter Details Date Type Department Care Team (Late st Contact Info) Description 07/12/2024 Orders Only [facility] [address] [place], [place] [phone] Provider, MD Mario Social History Tobacco Use Types Packs/Day Years Used Date Smoking Tobacco: Never Smokeless Tobacco: Never Alcohol Use Standard Drinks/Week Comments Yes 0 (1 standard drink = 0.6 oz pur e alcohol) occasionally Depression Answer Date Recorded Patient Health Questionnaire-9 Score 10 07/12/2024 Patient Health Questionnaire-9 Score 10 07/12/2024 Last PHQ-9: Questionnaire Data Not on file 0 07/12/2024 Housing Stability Answer Date Recorded What is your housing situation today? I have scott preciado 07/12/[address] you li ve. Do you have problems with any of the following? None of the above 07/12/2024 Food Insecurity Answer Date Recorded Within the past 12 months, y ou worried that your food would run out before you got money to buy more: Never True 07/12/2024 Within the past 12 months,th e food you bought just didn't last and you didn't have enough money to get more: Never True 05/2024 Transportation Answer Date Recorded In the past 12 months, has l ack of transportation kept you from medical appts, meetings, work or from getting things needed for daily living? Yes, it has kept me from medical appointments or getting medications. 07/12/2024 Utilities Answer Date Recorded In the past 12 months, has t he electric, gas, oil or water company threatened to shut off services in your home? I am not sure 07/12/2024 Depression Answer Date Recorded Patient Health Questionnaire-2 Score 2 07/12/2024 Internet Access Answer Date Recorded Internet Access Q1 Yes 07/12/2024 Internet Access Q2 Not on file 07/12/2024 Comments Unknown Sex and Gender Information Value Date Recorded Sex Assigned at Female 12/08/2021 10:20 AM EDT Legal Sex Female 10:20 AM EDT Gender Identity Female 12/08/2021 10:20 AM EDT Sexual Orientation Straight 12/08/2021 10 :20 AM EDT documented as of this encounter Functional Status * Over the past 2 weeks, how often have you been bothered by any of the following problems? Question Answer Date of Assessment Author Patient Health Questionnaire-2 Score 2 07/12/2024 9:34 AM EDT Arely Wray [place] * Little interest or pleasure in doing things Answer Date of Assessment Author Several days 07/12/2024 9:34 AM EDT Arely Morgan [place] * Feeling down, depressed, or hopeless Answer Date of Assessment Author Several days 07/12/2024 9:34 AM EDT Arely Morgan [place] * Trouble falling or staying asleep, or sleeping too much Answer Date of Assessment Author Several days 07/12/2024 9:34 AM EDT Arely Morgan [place] * Feeling tired or having little energy Answer Date of Assessment Author More than half the days 07/12/2024 9:34 AM EDT Arely Llanos [place] * Poor appetite or overeating Answer Date of Assessment Author Several days 07/12/2024 9:34 AM EDT Arely Morgan [place] * Feeling bad about yourself - or that you are a failure or have let yourself or your family down Answer Date of Assessment Author Not at all 07/12/2024 9:34 AM EDT Arely Morgan [place] * Trouble concentrating on things, such as reading the newspaper or watching television Answer Date of Assessment Author More than half the days 07/12/2024 9:34 AM EDT Arely Llanos [place] * Moving or speaking so slowly that other people could have noticed? Or the opposite - being so fidgety or restless that you have been moving around a lot more than usual. Answer Date of Assessment Author More than half the days 07/12/2024 9:34 AM EDT Arely Llanos [place] * Thoughts that you would be better off or hurting yourself in some way Answer Date of Assessment Author Not at all 07/12/2024 9:34 AM EDT Arely Morgan [place] * Patient Health Questionnaire-9 Score Answer Date of Assessment Author 10 07/12/2024 9:34 AM EDT Arely Morgan [place] * How difficult have these problems made it for you to do your work, take care of things at home, or get along with other people? Answer Date of Assessment Author Somewhat difficult 07/12/2024 9:34 AM EDT Arely Deutsch [place] documented as of this encounter Plan of Treatment Not on file documented as of this encounter Procedures Procedure Name Priority Date/Time Associated Diagnosis Comments HM COLONOSCOPY Routine 02/24/2024 3:22 PM EST documented in this encounter Results * Hm Colonoscopy (02/24/2024 3:22 PM EST) us Historical Provider HEALTH MAINTENANCE Final Result documented in this encounter Visit Diagnoses Not on filedocumented in this encounter Additional Health Concerns Assessment Noted Time PHQ-9 Depression Total Score: 10 025 9:34 AM EDT documented as of this encounter Care Teams Cylinder Block Hole Reliner Relationship Specialty Start Date End Date Elizabeth Hanna FNP [address] [place] [address] PCP - General Family Medicine 08/12/21 Kalpana Liu MD [address] [place] [address] Rheumatology 12/15/23 Good Sinclair MD 596 [place] [address] Cardiology 12/15/23 Mary Unger [address] [place] [address] 3rd Floor [place], [place] Gastroenterology 12/15/23 James Hull [address] [facility] [address] [place] [address] Sleep Medicine 12/21/23 documented as of this encounter
--- OUTSIDE RECORDS SUMMARY | 2024-11-01 11:14 | XMS_ITS | Encounter Summary ---
Author Organization [employer] Address [address] [facility] 7t [place] [address] Care Team Providers Care Switch Crew Supervisor Name Role Phone Elizabeth Hanna Primary Care Provider Kalpana Liu MD Unavailable DottieGood larsen MD Unavailable [phone] Mary Unger Unavailable James Hull Unavailable Encounter Details Date Type Department Care Team (Late st Contact Info) Description 06/17/2023 Orders Only [facility] [address] [place] [address] Gail Sam [address] [address] Social History Tobacco Use Types Packs/Day Years [...] Region Laterality Modality Breast Left Mammography Gail [place] IM BI PROCEDURES Final Result documented in this encounter Visit Diagnoses Not on filedocumented in this encounter Additional Health Concerns Assessment Noted Time PHQ-9 Depression Total Score: 8 12/24/19 23 9:19 AM EST documented as of this encounter Care Teams Switch Crew Supervisor Relationship Specialty Start Date End Date Elizabeth Hanna FNP [address] [place] [address] PCP - General Family Medicine 08/12/21 Kalpana Liu MD [address] [place] [address] Rheumatology 12/15/23 Good Sinclair MD [address] [place] [address] Cardiology 12/15/23 Mary Unger [address] [place] [address] Dr 3rd Floor [place], [place] Gastroenterology 12/15/23 James Hull [address] [address] Sleep Medicine 12/21/23 documented as of this encounter
--- OUTSIDE RECORDS SUMMARY | 2024-11-01 11:14 | XMS_ITS | Encounter Summary ---
Author Organization [employer] Address [address] [facility] [address] 7t [place] [address] Care Team Providers Care Varnish Maker Name Role Phone Elizabeth Hanna Primary Care Provider Kalpana Liu MD Unavailable Good Sinclair MD Unavailable [phone] Mary Unger Unavailable James Hull Unavailable Reason for Visit * Reason Comments Med Refill Encounter Details Date Type Department Care Team (Late st Contact Info) Description 06/16/2024 Refill [facility] MEDICINE [address] [place], [place] [phone] Varsha Duque MD 230 [place], [place] [phone] Acute upper respiratory infection; Wheeze Social History [...] documented as of this encounter Care Teams Varnish Maker Relationship Specialty Start Date End Date Elizabeth Hanna FNP [address] [place] [address] PCP - General Family Medicine 08/12/21 Kalpana Liu MD [address] [place] [address] Rheumatology 12/15/23 Good Sinclair MD 596 [place] [address] Cardiology 12/15/23 Mary Unger [address] [place] [address] Dr 3rd Floor [place], [place] Gastroenterology 12/15/23 James Hull [address] [address] Sleep Medicine 12/21/23 documented as of this encounter
--- OUTSIDE RECORDS SUMMARY | 2024-11-01 11:14 | XMS_ITS | Encounter Summary ---
Author Organization [employer] Address [address] [facility] [address] 7[address] [place] [address] Care Team Providers Care Service Desk Technician Name Role Phone Elizabeth Hanna Primary Care Provider [phone] Kalpana Liu MD Unavailable DottieGood larsen MD Unavailable [phone] Mary Unger Unavailable James Hull Unavailable Reason for Visit * Reason Onset Date Comments triage 07/02/2022 Encounter Details Date Type Department Care Team (Late st Contact Info) Description 07/02/2022 Telephone [facility] MEDICINE [address] [place] [address] Elizabeth Hanna FNP [address] [place], [place] [phone] triage Social History Tobacco Use Types Packs/Day [...] 07/02/2022 2:48 PM EDT Triage call with Hand Assistant Director Of Financial Aid [place] [id number] Pt reports feet, ankles, hands get swollen [...] on filedocumented in this encounter Care Teams Service Desk Technician Relationship Specialty Start Date End Date Elizabeth Hanna FNP [address] [place] [address] PCP - General Family Medicine 08/12/21 Kalpana Liu MD [address] [place] [address] [place] [address] Rheumatology 12/15/23 Good Sinclair MD 596 [place] [address] Cardiology 12/15/23 Mary Unger [address] [place] [address] 3rd [place], [place] Gastroenterology 12/15/23 James Hull [address] [address] Sleep Medicine 12/21/23 documented as of this encounter
--- OUTSIDE RECORDS SUMMARY | 2024-11-01 11:14 | XMS_ITS | Clinical Summary ---
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 BHN provider Active traZODone (Desyrel) 50 MG tablet Take by mouth at bedtime. N Provider Active Diclofenac Sodium 1 % gel APPLY ONCE A DAY TO AFFECTED JOINT 100 g 3 3 Active topiramate (Topamax) 25 MG tabletIndication s:Chronic migraine without aura without status migrainosus, not intractable Take 1 tablet (25 mg) by mouth at bedtime. (For Migraines) 90 tablet 3 3 Active lisinopril 40 MG tablet Take 1 tablet (40 mg) by mouth Once per day. 90 tablet 3 4 12/15/19 25 Active cholecalciferol (Vitamin D-3) 25 MCG (1000 UT) tablet Take 1 tablet (25 mcg) by mouth Once per day. 90 tablet 3 4 Active Calcium Carb-Cholecalcif cata (Calcium+D3) 600-20 MG-MCG tabletIndication s:Vitamin D deficiency Take 1 tablet by mouth Once daily. 90 tablet 3 4 Active albuterol 108 (90 Base) MCG/ACT inhalerIndicatio ns:Acute upper respiratory infection,Wheeze Inhale 2 puffs every 4 (four) hours if needed for wheezing. 18 g 5 05/26/19 26 Active triamcinolone (Kenalog) 0.1 % cream Apply topically if needed in the morning and at bedtime (Irritation/r edness). 30 g 5 Active chlorthalidone (Hygroton) 25 MG tabletIndication s:Essential hypertension TAKE 1 TABLET BY MOUTH EVERY DAY FOR BLOOD PRESSURE 90 tablet 1 5 Active famotidine (Heartburn Relief) 10 MG tabletIndication s:Gastroesophage al reflux disease, unspecified whether esophagitis present TAKE 1 TO 2 TABLETS BY MOUTH EVERY 12 HOURS NEEDED FOR ACID REFLUX 360 tablet 1 5 Active celecoxib (CeleBREX) 200 MG capsule Take 1 capsule (200 mg) by mouth if needed in the morning and at bedtime (pain). 100 capsule 2 5 10/19/19 26 Active metoprolol succinate XL (Toprol-XL) 50 MG 24 hr tablet Take 50 mg by mouth Once per day. Do not crush or chew. Active metoprolol succinate XL (Toprol XL) 25 MG 24 hr tabletIndication s:Essential hypertension Take 1 tablet (25 mg) by mouth Once per day. Do not crush or chew. 90 tablet 3 5 10/19/19 25 Discontin ued(Thera py completed ) Active Problems Problem Noted Date Diagnosed Date Candidiasis, intertrigo 07/25/2024 Assessment & Plan (07/25/2024 5:35 PM EDT): Secondary to skin irritation due to adhesive. Keep area clean and dry, apply clotrimazole cream twice daily to affected area + triamcinolone cream x 1 to 2 weeks. Can continue Enbrel injection as usual, hold off if she develops fever or worsening of rash [facility] with negative rheumatoid factor 12/15/2023 Overview (10/18/2024): Diagnosed 2023 - seronegative RA. Following with [facility] Rheum - Dr. Liu August 2023: Methotrexate started, folic acid daily Oct 2023: Methotrexate DC d/t lack of response and SE. PA for Enbrel initiated through Rheum. Dec 2023: Enbrel approved Sep 2024: Enbrel DC and initiated on Adalimumab 40mg subcutaneous Q2 weeks - Cont Adalimumab 40mg subcutaneous Q2 weeks GERD (gastroesophageal reflux disease) Overview (12/15/2023): Followed by [facility] GI - TRANSPORTATION COORDINATOR Cornel Omeprazole PRN Constipation 01/13/2023 Overview (12/21/2023): [facility] GI consult Sep 2023 Cont metamucil in [...] -Encouraged lifestyle modifications Healthcare maintenance 12/23/2022 Overview (07/12/2024): Pap: 07/21/22 by [facility] CNM NILM HPV neg. Hx of abnormal. Following with specialist Mammo: BIRADS 1 in August 2023 Colonoscopy: Completed Feb 2024 at [facility]. Repeat due 5 years. Last PE: 12/23/22 ASCVD Risk: 2.1% (PCE [...] Med trials: Celebrex, ibuprofen, topical voltaren Initial [facility] Rhuem consult Sep 2022, suspected OA. July [...] radiculopathy 03/22/2022 Palpitations 03/20/2022 Assessment & Plan (10/18/2024 4:28 PM EDT): Holter completed fall 2023 through Cards w/o significant findings Consult note from Dr. Sinclair Nov 2023: less than half a percent of PACs and PVCs Consult June 2024 with [facility]- Dr. Sinclair. Plan for 15-day loop monitor - demonstrated 41 seconds of A-fib. Increased beta-gautam to 50mg daily. Continues with metoprolol 50mg daily with noted symptom improvement Assessment & Plan (07/12/2024 7:00 AM EDT): Holter completed fall 2023 through [facility] w/o significant findings Consult note from Dr. Sinclair Nov 2023: less than half a percent of PACs and PVCs Consult June 2024 with [facility]- Dr. Sinclair. Plan for 15-day loop monitor. Assessment & Plan (12/21/2023 5:36 PM EST): Holter completed fall 2023 through [facility] w/o significant findings Consult note from Dr. Sinclair Nov 2023: less than half a percent of PACs and PVCs Heart murmur, systolic 03/20/2022 Overview (07/12/2024): Followed by [facility] - Dr. Sinclair. Holter completed in fall 2023 - no significant findings per consult note Plan: annual echo through Cards Echo 06/20/2024 w/ EF > 70%. Mild to moderate tricuspid regurgitation. Stable. Cervical myopathy 03/18/2022 Overview (03/18/2022): Evaluated Neurosurgery 03/14/2018, recommended surgery due to disc pathology and spinal cord compression, Unclear if surgery was performed TIA (transient ischemic attack) 03/18/2022 Overview (03/18/2022): TIA per patient report around 2007 in [place] Also mentioned as possible hx in Cardiology note from 2011 with potential carotid artery dissection Obesity 04/14/2021 Overview (10/18/2024): Previously following with [facility] Weight Management (H. Pylori breath test negat 09/10/22) Referral to RD 12/24/22 w/o goal for bariatric surgery at this time Cont lifestyle interventions 08/08/24: Trial of Zepbound - significant GI SE. Med discontinued. Wt Readings from Last 5 Encounters: 10/18/24 197 lb 6.4 oz (89.5 kg) 07/25/24 199 lb (90.3 kg) 07/12/24 200 lb (90.7 kg) 05/25/24 199 lb 6.4 oz (90.4 kg) 05/19/24 199 lb 9.6 oz (90.5 kg) Assessment & Plan (07/13/2024 5:15 PM EDT): She had lost down to 180lbs with lifestyle interventions, but current weight back at 200lbs. She has tried lifestyle interventions in the past. She is interested in incorporation of pharmacotherapy for weight management. With hx of anxiety and elevated BP with hx hypertension despite med management, would NOT recommend trial of phentermine. Request PA for Zepbound. Follow up pending insurance response. Assessment & Plan (12/24/2022 11:14 AM EST): Pt has lost approx 15 lbs over the past 4 months through intentional changes in healthy lifestyle interventions Essential hypertension 08/16/2017 Overview (10/18/2024): Established with [facility] (Dr. Sinclair) Echo 05/22/22: EF 60-65%, mild pulm hypertension Echo 05/25/23: EF 65-70%, trace mitral regurg and mild pulm hypertension Med regimen: Lisinopril 40 mg daily Metoprolol 50 mg nightly Chlorthalidone 25 mg daily Previous med trials: -Amlodipine discontinued due to leg swelling. -Losartan discontinued due to palpitation -hydrochlorothiazide discontinued excessive urination Assessment & Plan (10/18/2024 4:45 PM EDT): -Elevated in office, encouraged to record home BP readings and f/up if above goal -Encouraged lifestyle interventions Assessment & Plan (07/13/2024 5:16 PM EDT): -Elevated in office, encouraged to record home BP readings and f/up if above goal -Encouraged lifestyle interventions Assessment & Plan (12/21/2023 5:42 PM EST): [...] to follow up appt (with PCP or Veneer Sander) -ED precautions reviewed Follow up in 2-4 weeks for HTN, sooner as needed. Will also need TP. Pt in agreement with plan. Obstructive sleep apnea syndrome 08/16/2017 Assessment & Plan (10/18/2024 4:29 PM EDT): [facility] 01/25/24: Home sleep study ordered by Dr. Hull. AHI 47.6, with only minimal hypoxemia. Dx: severe MAYRA. Rec starting on AutoCPAP 8-20 H20. DME company: [facility] Good symptom improvement after CPAP initiation, cont current therapy Assessment & Plan (07/13/2024 3:55 PM EDT): [facility] by [facility]. 01/25/24: Home sleep study ordered by Dr. Hull. AHI 47.6, with only minimal hypoxemia. Dx: severe MAYRA. Rec starting on AutoCPAP 8-20 H20. DME company: [facility] Vitamin D deficiency 07/02/2016 Overview (01/13/2023): Vit D 04/28/22: 11ng/mL Initiated on ergocalciferol 50,000 units weekly x 8 weeks starting 06/04/22 Repeat Vit D 40ng/mL on 07/31/22 Cont daily prevention dose of Calcium 600mg + Vit D 20 mcg (800 units) Assessment & Plan (07/31/2022 9:41 AM EDT): Will check Vit D level again today 07/31/22 If still low, will continue daily supplementation Followup PRN Assessment & Plan (06/14/2022 9:22 AM EDT): Vit D 04/28/22: 11ng/mL Initiated on ergocalciferol 50,000 units weekly x 8 weeks starting 06/04/22 Recurrent major depression in partial remission 12/27/2014 Migraine 09/12/2014 Overview (12/24/2022): -Cont Topamax 25mg 1 tablet nightly for migraine prevention -Well controlled Anxiety state 04/13/2014 Resolved Problems Problem Noted Date Diagnosed Date Resolved Date Acute upper respiratory infection 05/25/2024 07/12/2024 Assessment & Plan (05/25/2024 2:34 PM EDT): Worsening symptoms of congestion and cough x10 day. Wheezing today on exam today. Suspect bronchitis versus atypical pneumonia. -ordered CXR 05/25/24 -prescribed azithromycin (Zithromax) 250 MG, will change if CXR shows consolidation -prescribed lbuterol 108 (90 Base) MCG/ACT inhaler -prescribed predniSONE (Deltasone) 20 MG Wheeze 05/25/2024 07/12/2024 Assessment & Plan (05/25/2024 2:34 PM EDT): Diffuse wheezing on exam. Given albuterol treatment in clinic. Pt improved after treatment with faint residual wheeze. -prescribed lbuterol 108 (90 Base) MCG/ACT inhaler -prescribed predniSONE (Deltasone) 20 MG -ordered CXR Encounters Date Type Department Care Team Description 10/18/2024 10:00 AM EDT Office Visit [facility] [address] [place] [phone] Elizabeth Hanna FNP Palpitations (Primary Dx); Dietary counseling; Exercise counseling; Obstructive sleep apnea syndrome; Left leg pain; Obesity without serious comorbidity, unspecified class, unspecified obesity type; GI symptoms; Rheumatoid arthritis of multiple sites with negative rheumatoid factor ([facility]); Essential hypertension 10/18/2024 Travel 10/17/2024 Telephone [facility] [address] [place] [phone] Elizabeth Hanna FNP CHART PREP 10/11/2024 Travel 09/18/2024 Refill [facility] [address] [place] [address] Elizabeth Hanna FNP Essential hypertension; Gastroesophageal reflux disease, unspecified whether esophagitis present 09/01/2024 Orders Only GENERIC EXTERNAL DATA DEPARTMENT Provider, Generic External Data 08/17/2024 Telephone [facility] [address] [place] [address] Elizabeth Hanna FNP ER Follow-up 08/14/2024 Telephone [facility] [address] [place] [phone] Elizabeth Hanna FNP nurse triage 08/11/2024 Orders Only GENERIC EXTERNAL DATA DEPARTMENT Provider, Generic External Data from Last 3 Months Immunizations Immunization Administration [...] Sign Reading Time Taken Comments Blood Pressure 160/100 10/18/2024 10:16 AM EDT Pulse 72 10/18/2024 10:16 AM EDT Temperature 36.2 C (97.1 F) 10/18/2024 10:16 AM EDT Respiratory Rate 15 10/18/2024 10:16 AM EDT Oxygen Saturation 97% 10/18/2024 10:16 AM EDT Inhaled Oxygen Concentration - - Weight 89.5 kg (197 lb 6.4 oz) 10/18/2024 10:16 AM EDT Height 160 cm (5' 3 ) 10/18/2024 10:16 AM EDT Body Mass Index 34.97 10/18/2024 10:16 AM EDT Plan of Treatment Health Maintenance Due Date Last Done Comments CT Colonography 1965 FIT DNA/Cologuard 1965 FIT 1965 FOBT 1965 Sigmoidoscopy 1965 Pneumococcal Vaccine: 50+ Years (1 of 1 - PCV) 2016 Zoster Vaccines (1 of 2) 2016 Hepatitis B Vaccines (2 of 3 - 19+ 3-dose series) 01/12/2024 12/15/2023 Mammogram 08/30/2024 08/31/2023, 09/13/2020 COVID-19 Vaccine (3 - season) 2024 11/13/2020, 10/23/2020 Influenza Vaccine (#1) 2024 , 05/02/2020, 12/27/2014, Additional history exists Depression Monitoring 01/11/2025 07/12/2024, 025 SDOH Screening 07/12/2025 07/12/2024 Tobacco Screening 07/12/2025 07/12/2024 Disability Screening 10/11/2025 10/11/2024 Alcohol/Substance Use Screening 10/18/2025 10/18/2024 Cervical Cancer Screening 07/22/2027 HPV/Cotest 07/22/2027 07/21/2022, 04/09, 12/18/2016 Pap Smear 07/22/2027 07/21/2022 Lipid Panel 01/05/2028 01/04/2023, 04/09, 04/10/2021, Additional history exists Colonoscopy 02/23/2029 02/24/2024 Colorectal Cancer Screening 02/23/2029 DTaP/Tdap/Td Vaccines (3 - Td or Tdap) 09/28/2032 09/28/2022, 07/20/2012 RSV Patients and Patients Aged 60 years or older (1 - 1-dose 75+ series) 2041 HIV Screening Completed 01/04/2023, 04/28/2022 Hepatitis C Screening Completed 03/24/2024 , 01/04/2023, [...] Procedure Name Priority Date/Time Associated Diagnosis Comments VITAMIN D 25-OH (D2 AND D3) Routine 09/01/2024 12:43 PM EDT VITAMIN B12/FOLATE, SERUM PANEL Routine 09/01/2024 12:43 PM EDT HIGH SENSITIVITY TROPONIN I Routine 08/11/2024 7:16 PM EDT URINALYSIS, COMPLETE, WITH REFLEX TO CULTURE Routine 08/11/2024 7:[address] ABDOMEN PELVIS W CONTRAST Routine 08/11/2024 7:03 PM EDT OBSX1 Routine 08/11/2024 5:32 PM EDT HCG, TOTAL, QN Routine 08/11/2024 5:13 PM EDT HIGH SENSITIVITY TROPONIN I Routine 08/11/2024 5:13 PM EDT LIPASE Routine 08/11/2024 5:13 PM EDT MAGNESIUM Routine 08/11/2024 5:13 PM EDT BASIC METABOLIC PANEL Routine 08/11/2024 5:13 PM EDT HEPATIC FUNCTION PANEL Routine 5:13 PM EDT CBC WITH AUTO DIFFERENTIAL Routine 08/11/2024 5:13 PM EDT HEPATITIS PANEL, GENERAL Routine 03/24/2024 11:45 AM EST HM COLONOSCOPY Routine 02/24/2024 3:22 PM EST BI MAMMOGRAM SCREENING TOMOSYNTHESIS BILATERAL Routine [...] Recently Relevant to Health Maintenance Results * (ABNORMAL) VITAMIN D 25-OH (D2 AND D3) (09/01/2024 12:43 PM EDT) Vitamin D, 25-OH, D2 <4 ng/mL [facility] Comment:This test was silvia coleman and its analytical performancecharacteristics have been determined by [employer] [place], [place]. It hasnot been cleared or approved by the U.S. Food and DrugAdministration. This assay has been validated pursuantto the CLIA regulations and is used for clinicalpurposes.THIS TEST WAS PERFORMED AT:[id number] [place] [id number] AGEE MD,PHD Vitamin D, 25-OH, D3 21 ng/mL [facility] Comment:This test was develo ped and its analytical performancecharacteristics have been determined by [employer] [place], [place]. It hasnot been cleared or approved by the U.S. Food and DrugAdministration. This assay has been validated pursuantto the CLIA regulations and is used for clinicalpurposes. Vitamin D, 25-OH, Total 21(A) 30 - 100 ng/mL [facility] Comment:Vitamin D, 25-Hydrox y reports concentrations of twocommon forms, 25-OHD2 and 25-OHD3. 25-OHD3 indicatesboth endogenous production and supplementation.25-OHD2 is an indicator of exogenous sources such asdiet or supplementation. Therapy is based onmeasurement of Total 25-OHD, with levels <20 ng/mLindicative of Vitamin D deficiency, while levelsbetween 20 ng/mL and 30 ng/mL suggest insufficiency.Optimal levels are > or = 30 ng/mL.For additional information, please refer tohttp://education.[employer].Nanali/faq/IWU566(This link is being provided for informational/educational purposes only.) 09/01/2024 12:4 3 PM EDT 09/01/2024 12:43 PM EDT us Generic External Data Provider LAB BLOOD ORDERAB LES Final Result [facility] [address] [place] [phone] * Vitamin B12 (Cobalamin) and Folate Panel, Serum (09/01/2024 12:43 PM EDT) Vitamin B12 535 200 - 900 pg/mL [facility] Comment:NORMAL 200-900 PG/ML INDETERMINATE 160-199 PG/ML DEFICIENT < 160 PG/ML Folate 8.1 > or = 4.0 ng/mL [facility] Comment:Reference Values:> o r = 4.0 ng/mL< 4.0 ng/mL suggests folate deficiency Methotrexate, aminopterin and folinic acid(leucovorin) are chemotherapeutic agents whose molecularstructures are similar to folate; therefore, the Architectfolate assay cannot be used for patients using these drugs. 09/01/2024 12:4 3 PM EDT 09/01/2024 12:43 PM EDT Generic External Data Provider LAB BLOOD ORDERAB LES Final Result Performing Organization Address [facility]/ZIP Co de Phone Number [facility] [address] [place] [address] [phone] * High Sensitivity Troponin I (08/11/2024 7:16 PM EDT) Only the most recent of2 resultswithin the time period is included. [facility] TROPONIN I HIGH SENSITIVITY 3.1 <3.5 - 17.0 ng/L [facility] Comment:The [facility] high sens itivity Troponin-I results should beused in conjunction with other diagnostic information suchas ECG, clinical observations and information, and patientsymptoms to aid in the diagnosis of PA. 08/11/2024 7:16 PM EDT 08/11/2024 7:20 PM EDT us Generic External Data Provider LAB BLOOD ORDERAB LES Final Result Performing Organization Address [facility]/ZIP Co de Phone Number [facility] [address] [place] [phone] * (ABNORMAL) Urinalysis, Complete, with Reflex to Culture (08/11/2024 7:16 PM EDT) Pathologist [facility] Color Urine Yellow [facility] Appearance Urine Clear [facility] PH 6.5 5.0 - 9.0 [facility] Glucose Urine UA Negative Negative mg/dL [facility] Urine Blood Trace(A) Negative [facility] Specific Burns - Urine >=1.030(H) 1.005 - 1.025 [facility] Urine Protein Negative Neg-Trace mg/dL [facility] Urine Ketones Negative Negative mg/dL [facility] Nitrite Urine Negative Negative [facility] Leukocyte Esterase Urine Negative Negative [facility] RBC Urine 0-2 0 - 2 /HPF [facility] Urine WBC 0-5 0 - 5 /HPF [facility] Urine Squamous Epithelial Cell 0-2 0 - 2 /HPF [facility] Urine Bacteria None Seen None Seen [facility] Hyaline Casts, Urine 0-2 0 - 2 /LPF [facility] 08/11/2024 7:16 PM EDT 08/11/2024 7:20 PM EDT Narrative [facility] - 08/11/2024 7:30 PM EDT [id number], [employer] us Generic External Data Provider LAB URINE ORDERAB LES Final Result Performing Organization Address City/State/[facility] Co de Phone Number [facility] [address] [place] [address] [phone] * CT Abdomen Pelvis w/ Contrast (08/11/2024 7:03 PM EDT) Anatomical Region Laterality Modality Body, Pelvis, Abdomen Computed T omography 08/11/2024 7:03 PM EDT Narrative 08/11/2024 7:05 PM EDT [address] [address] [address] Scan Report Signed Patient: Winnie Ramirez MR#: [id number] : 1965 Acct:[id number] Age/Sex: 58 / F ADM Date: 08/11/24 Loc: HO.ED Attending Dr: Ordering Physician: Gera Sarah Date of Service: 08/11/24 Procedure(s): CT abdomen pelvis w IV con Accession Number(s): [id number] cc: Gera Sarah; Elizabeth Hanna [facility] Report Number: [id number]: Total DLP = 629.00 mGy-cm CLINICAL HISTORY: Abdominal pain, diarrhea, blood in stool CT abdomen and pelvis with contrast Comparison: None provided Findings: Atelectasis. Scattered lobulated low-density foci throughout the liver may reflect cysts or hemangiomas. Mildly distended gallbladder. No urolithiasis. Splenule. Yao colonic and diffuse small bowel prominent mural thickening with submucosal edema and mucosal hyperemia. Colonic diverticulosis without focal diverticulitis. Fat containing umbilical hernia. Pelvic contents unremarkable. Normal appendix. Circumferential bladder wall thickening. No acute fracture. Osteopenia with diffuse multilevel spondylosis. Multilevel posterior disc osteophyte complexes. Bilateral hip osteoarthritis. On the left along the acetabular rim are multifocal possibly subchondral cysts with a large subchondral cysts measuring 1.2 cm, with possible tiny foci of air. Although this may be degenerative, other etiologies are not entirely excluded. If clinical concern persists consider follow-up MRI. IMPRESSION: 1. Findings consistent with pancolitis and enteritis. 2. Circumferential bladder wall thickening may be related to degree of underdistention or mild cystitis. 3. Additional findings as described. This document has been electronically signed by: Jose Chavez MD on 08/11/2024 19:03:54 Dictated By: Jose Chavez MD Signed By: <Electronically signed by Jose Chavez MD in OV> 08/11/241904 DD/ 02 TD/TT: 08/11/241902 [employer] Sales Representative: Procedure Note Donotuseinterpreter, Image - 08/11/[address] [address] [address] Scan Report Signed Patient: Winnie Ramirez#: [id number] : 1965Acct:[id number] Age/Sex: 58 / FADM Date: 08/11/24 Loc: HO.ED Attending Dr: Ordering Physician: Gera Sarah Date of Service: 08/11/24 Procedure(s): CT abdomen pelvis w IV con Accession Number(s): [id number] cc: Gera Sarah; Elizabeth Hanna [facility] Report Number: [id number]: Total DLP = 629.00 mGy-cm CLINICAL HISTORY: Abdominal pain, diarrhea, blood in stool CT abdomen and pelvis with contrast Comparison: None provided Findings: Atelectasis. Scattered lobulated low-density foci throughout the liver may reflect cysts or hemangiomas. Mildly distended gallbladder. No urolithiasis. Splenule. Yao colonic and diffuse small bowel prominent mural thickening with submucosal edema and mucosal hyperemia. Colonic diverticulosis without focal diverticulitis. Fat containing umbilical hernia. Pelvic contents unremarkable. Normal appendix. Circumferential bladder wall thickening. No acute fracture. Osteopenia with diffuse multilevel spondylosis. Multilevel posterior disc osteophyte complexes. Bilateral hip osteoarthritis. On the left along the acetabular rim are multifocal possibly subchondral cysts with a large subchondral cysts measuring 1.2 cm, with possible tiny foci of air. Although this may be degenerative, other etiologies are not entirely excluded. If clinical concern persists consider follow-up MRI. IMPRESSION: 1. Findings consistent with pancolitis and enteritis. 2. Circumferential bladder wall thickening may be related to degree of underdistention or mild cystitis. 3. Additional findings as described. This document has been electronically signed by: Jose Chavez MD on 08/11/2024 19:03:54 Dictated By: Jose Chavez MD Signed By: <Electronically signed by Jose Chavez MD in OV> 08/11/241904 DD/ 02 TD/TT: 08/11/241902 [employer] Sales Representative: [facility] External Provider IMG CT PROCEDURES Edited Result - Final * OBSX1 (08/11/2024 5:32 PM EDT) OBS1 POSITIVE NEGATIVE [facility] 08/11/2024 5:32 PM EDT 08/11/2024 5:37 PM EDT Generic External Data Provider LAB BLOOD ORDERAB LES Final Result [facility] [address] [place] [phone] * (ABNORMAL) CBC auto differential (08/11/2024 5:13 PM EDT) White Blood Count 11.7(H) 4.8 - 10.8 X10*3/uL [facility] Red Blood Count 4.76 4.20 - 5.50 X10*6/uL [facility] Hemoglobin 13.1 12.0 - 16.0 g/dl [facility] Hematocrit 39.2 37.0 - 47.0 % [facility] Mean Corpuscular Volume 82.4 80.0 - 98.0 fL [facility] Mean Corpuscular Hemoglobin 27.5 27.0 - 33.0 pg [facility] Mean Corpuscular HGB Conc 33.4 31.0 - 35.0 g/dl [facility] Red Cell Distribution Width 13.9 11.0 - 16.0 % [facility] Platelet Count 264 160 - 400 X10*3/uL [facility] Mean Platelet Volume 10.2 9.4 - 12.3 fL [facility] Neutrophils Percent Auto 77.4(H) 45 - 73 % [facility] Imm Gran Pct Auto 0.3 0.0 - 0.4 % [facility] Lymphocytes Percent Auto 12.6(L) 20 - 40 % [facility] Monocytes Percent Auto 8.4 2 - 11 % [facility] Eosinophils Percent Auto 1.0 0 - 4 % [facility] Basophils Percent Auto 0.3 0 - 2 % [facility] NRBC Pct Auto 0.0 0.0 - 0.2 /100WBC [facility] Neutrophils Absolute Auto 9.0(H) 2.0 - 8.3 x10*3/uL [facility] Imm Gran Abs Auto 0.04(H) 0.00 - 0.03 X10*3/uL [facility] Lymphocytes Absolute Auto 1.5 1.2 - 4.9 X10*3/uL [facility] Monocytes Absolute Auto 1.0 0.1 - 1.2 X10*3/uL [facility] Eosinophils Absolute Auto 0.1 0.0 - 0.4 X10*3/uL [facility] Basophils Absolute Auto 0.0 0.0 - 0.2 X10*3/uL [facility] NRBC Abs Auto 0.000 0.0 - 0.012 X10*3/uL [facility] 08/11/2024 5:13 PM EDT 08/11/2024 5:16 PM EDT us Generic External Data Provider LAB BLOOD ORDERAB LES Final Result Performing Organization Address [facility]/ZIP Co de Phone Number [facility] [address] [place] [phone] * hCG, Total, Quantitative (08/11/2024 5:13 PM EDT) HCG Quantitative 3 mIU/mL [facility] Comment:Weeks post LMP Appr oximate hCG(Last Menstrual Period) Range (mIU/ml)3 - 4 weeks 9 - 1304 - 5 weeks 75 - 2,6005 - 6 weeks 850 - 20,8006 - 7 weeks 4000 - 100,2007 - 12 weeks 11,500 - 289,16806 - 16 weeks 18,300 - 137,18202 - 29 weeks (2nd trimester) 1,400 - 53,22406 - 41 weeks (3rd trimester) 940 - 60,000The Farias B- hCG assay is used for the early detection ofpregnancy; it cannot be used to diagnose any conditionunrelated to . If a B-hCG level is not supportedby the clinical evidence, results should be confirmed by analternative method (qualitative urine hCG, for example). 08/11/2024 5:13 PM EDT 08/11/2024 5:16 PM EDT us Generic External Data Provider LAB BLOOD ORDERAB LES Final Result Performing Organization Address [facility]/ZIP Co de Phone Number [facility] [address] [place] [phone] * Magnesium (08/11/2024 5:13 PM EDT) Magnesium 2.0 1.6 - 2.6 mg/dL [facility] 08/11/2024 5:13 PM EDT 08/11/2024 5:16 PM EDT Generic External Data Provider LAB BLOOD ORDERAB LES Final Result Performing Organization Address City/[facility]/ZIP Co de Phone Number [facility] [address] [place] [phone] * Lipase (08/11/2024 5:13 PM EDT) Pathologist [facility] Lipase 27 8 - 78 U/L [facility] 08/11/2024 5:13 PM EDT 08/11/2024 5:16 PM EDT Generic External Data Provider LAB BLOOD ORDERAB LES Final Result Performing Organization Address City/[facility] Co de Phone Number [facility] [address] [place] [phone] * (ABNORMAL) Hepatic Function Panel (08/11/2024 5:13 PM EDT) Bilirubin, Total 1.4(H) 0.0 - 1.0 mg/dL [facility] Bilirubin, Direct 0.4 0.0 - 0.5 mg/dL [facility] Aspartate Amino Transferase 23 5 - 31 U/L [facility] Alanine Aminotransferase 24 0 - 31 U/L [facility] Total Protein 8.2(H) 6.5 - 8.0 g/dL [facility] Albumin Level 4.5 3.5 - 5.0 g/dL [facility] Alkaline Phosphatase 67 39 - 117 U/L [facility] 08/11/2024 5:13 PM EDT 08/11/2024 5:16 PM EDT us Generic External Data Provider LAB BLOOD ORDERAB LES Final Result Performing Organization Address City/[facility]/ZIP Co de Phone Number [facility] [address] [place] [phone] * Basic Metabolic Panel (08/11/2024 5:13 PM EDT) Sodium 139 135 - 145 mmol/L [facility] Potassium 3.4 3.3 - 5.1 mmol/L [facility] Chloride 105 96 - 108 mmol/L [facility] Carbon Dioxide 25 22 - 29 mmol/L [facility] Anion Gap 12 12 - 20 [facility] Urea Nitrogen (BUN) 13 9 - 16 mg/dL [facility] Creatinine, Serum 0.61 0.5 - 1.4 mg/dL [facility] Creatinine Clr Calc Pharmacy 110.4 [facility] Comment:Provided height and weight: 165.1 cm,86.4 kg.eGFR (calculated from the MDRD study equation) and eCrCl(calculated from the Cockcroft-Gault equation) are based ondifferent parameters and may not yield comparable results.If eCrCl result is absurd, please check patient'sheight/weight. Estimated Glomerular Filt Rate >60 [facility] Comment:Chronic Kidney Disea se: Estimated GFR < 60 mL/min/1.37q6Rnubsn Kidney Disease: Estimated GFR < 15 mL/min/1.73m2 Glucose 108 60 - 115 mg/dL [facility] Calcium 9.4 8.4 - 10.2 mg/dL [facility] 08/11/2024 5:13 PM EDT 08/11/2024 5:16 PM EDT us Generic External Data Provider LAB BLOOD ORDERAB LES Final Result Performing Organization Address City/[facility]/ZIP Co de Phone Number [facility] [address] [place] [phone] * Hepatitis Panel, General (03/24/2024 11:45 AM EST) Hepatitis A IgM Nonreactive Nonreactive [facility] Comment:IgM antibodies to KIM V not detected; does not exclude earlyacute or recovered HAV infection. ~Hepatitis B Surface Antibody NONREACTIVE Nonreactive [facility] Comment:Nonreactive: < 8.00 mIU/mL Hepatitis B Core Antibody Nonreactive Nonreactive [facility] Hepatitis C Antibody Nonreactive Nonreactive [facility] Comment:Antibodies to HCV no t detected; does not exclude early acuteHCV infection. Hepatitis B Surface Ag Negative Negative [facility] 03/24/2024 11:4 5 AM EST 03/24/2024 11:45 AM EST Generic External Data Provider LAB BLOOD ORDERAB LES Final Result [facility] [address] [place] [phone] * Hm Colonoscopy (02/24/2024 3:22 PM EST) Historical Provider HEALTH MAINTENANCE Final Result * BI Mammogram Screening Tomosynthesis Bilateral (08/31/2023 12:55 PM EDT) Anatomical Region Laterality Modality Breast Bilateral Mammography 08/31/2023 12:5 5 PM EDT Narrative 09/22/2023 10:57 PM EDT [facility] [address] [place] [address] Mammography Report Signed Patient: Winnie Ramirez MR#: [id number] : 1965 Acct:[id number] Age/Sex: 57 / F ADM Date: 08/31/23 Loc: HO.MAMMO Attending Dr: Elizabeth Hanna CHEMICAL SUPERVISOR Ordering Physician: Elizabeth Hanna Results: 1Negat charlene Date of Service: 08/31/23 Follow Up: 1 Year From Orig inal Mammogram Procedure(s): MM tomosynthesis screening BI Accession Number(s): [id number] cc: Elizabeth Hanna CHEMICAL SUPERVISOR EXAMINATION: MM SCREENING DIGITAL BREAST TOMOSYNTHESIS, BILATERAL [...] in OV> 09/22/23 2254 DD/ 1255 TD/TT: Bottling Equipment Sales Representative: Procedure Note Donotuseinterpreter, Image - 09/22/2023 [facility] [address] [place], [place] [address] Mammography Report Signed Patient: Winnie RamirezMR#: [id number] : 1965Acct:[id number] Age/Sex: 57 / FADM Date: 08/31/23 Loc: MAMMO Attending Dr: Elizabeth Hanna CHEMICAL SUPERVISOR Ordering Physician: Elizabeth HannaPResults: 1Negat charlene Date of Service: 08/31/23Follow Up: 1 Year From Orig inal Mammogram Procedure(s): MM tomosynthesis screening BI Accession Number(s): [id number] cc: Elizabeth Hanna EXAMINATION: MM SCREENING DIGITAL [...] in OV> 09/22/23 2254 DD/ 1255 TD/TT: Bottling Equipment Sales Representative: us Elizabeth OLVERA IMG BI PROCEDURES Final Result * HIV-1/2 Antigen and Antibodies, Fourth Generation, with Reflexes (01/04/2023 8:42 AM EST) HIV AB/AG Nonreactive Nonreactive [facility] Comment:HIV-1 p24 Ag and/or HIV-1/HIV-2 Ab not detected.A test result that is nonreactive does not exclude thepossibility of exposure to or infection with HIV-1 and/orHIV-2. Nonreactive results in this assay for individualswith prior exposure to HIV-1 and/or HIV-2 may be due toantigen and antibody levels that are below the limit ofdetection of this assay.The Videobot HIV Ag/Ab Combo assay result andsupplemental assay results should be interpreted inconjunction with the patient's clinical presentation,history and other laboratory results. If the results areinconsistent with clinical evidence, additional testing issuggested to confirm the result. Blood Venous blood specimen / Unknown 01/04/2023 8:42 AM EST 01/04/2023 11:07 AM EST us Elizabeth OLVERA LAB BLOOD ORDERABLES Final Res ult Performing Organization Address [facility] de Phone Number [facility] [address] [place] [phone] * (ABNORMAL) Lipid Panel, Standard (01/04/2023 8:42 AM EST) Triglycerides 84 <150 mg/dL [facility] Comment:Desirable Triglyceri de: less than 150 mg/dLBorderline High Triglyceride 150-199 mg/dLHigh Triglyceride: 200-499 mg/dLVery High Triglyceride: greater than or equal to 5OO mg/dL Cholesterol 190 <200 mg/dL [facility] Comment:Desirable Cholestero l: less than 200 mg/dLBorderline High Cholesterol: 200-239 mg/dLHigh Cholesterol: greater than 239 mg/dL LDL Cholesterol Calculated 115(H) <100 mg/dL [facility] Comment:Desirable LDL: less than 100 mg/dLNear Optimal/Above Optimal LDL: 110- 129 mg/dLBorderline High LDL: 130-159 mg/dLHigh LDL: 160-189 mg/dLVery High LDL: greater than or equal to 190 mg/dL HDL Cholesterol 59 >40 mg/dL [facility] Comment:Desirable HDL: great er than 40 mg/dL Note: This HDL assay may give artificially low results in patients with liver disease. Blood Venous blood specimen / Unknown 01/04/2023 8:42 AM EST 01/04/2023 11:07 AM EST Elizabeth Hanna CHEMICAL SUPERVISOR LAB BLOOD ORDERABLES Final Res ult Performing Organization Address [facility] Co de Phone Number [facility] [address] [place] [phone] * Pap Smear (07/21/2022 10:20 AM EDT) 07/21/2022 10:2 0 AM EDT 07/23/2022 8:00 AM EDT Narrative [facility] - 08/07/2022 8:50 AM EDT ----- ------- Name: Winnie Ramirez Age/Sex: 56/F : 1965 Unit#: [id number] Attend Dr: Gail Sam Re07/21/22 Status: DEP REF Location: [facility] Disch: ----- ------- SPEC : [id number] RECD: 07/23/22 STATUS: MIKIE TREJO NUM: [id number] BRIE: 07/21/22-1020 [facility] DR: Gail Sam ENTERED: 07/24/22-903 SP TYPE: Pap Smr OTHR DR: Elizabeth Hanna ORDERED: Pap Smear Interpretation Satisfactory for evaluation. No endocervical cells seen. Negative for intraepithelial lesion or malignancy. HPV mRNA E6/E7: NOT DETECTED This assay detects E6/E7 viral messenger RNA (mRNA) from 14 high-risk HPV types (16, 18, 31, 33, 35, 39, 45, 51, 52, 56, 58, 59, 66, 68) HPV testing performed by [facility], [place], [place]. See reference laboratory pion of the EMR for entire report. Clinical Information LMP: Postmenopausal Previous PAP test: 11/01/19, Abnormal Other history: 2016, ANA I Material Received ThinPrep-Cervical Copies To: Gail Sam[address] Rocha [address] [place] [address] [phone] Elizabeth Hanna [address] [place] [address] ----- ------- Signed (signature on file) TETE Carvajal ([facility]) 08/07/22 0850 ----- ------- END OF REPORT [facility] External Provider LAB [facility] ORDERABLES Final Result [facility] [address] [place] [address] [phone] from Last 3 Months or Most Recently Relevant to Health Maintenance Insurance [facility]Rip [facility] Wafels C3 Care Teams Projection Camera Operator Relationship Specialty Start Date End Date Elizabeth Hanna FNP [address] [place] [address] PCP - General Family Medicine 08/12/21 Kalpana Liu MD [address] [place] [phone] Rheumatology 12/15/23 Good Sinclair MD [address] [place] [address] Cardiology 12/15/23 Mary Unger [address] [place] [address] [address] [place], [place] Gastroenterology 12/15/23 James Hull [address] [address] Sleep Medicine 12/21/23
--- OUTSIDE RECORDS SUMMARY | 2024-11-01 11:14 | XMS_ITS | Encounter Summary ---
Author Organization [employer] Address [address] [facility] 7t [place] [address] Care Team Providers Care V Belt Coverer Name Role Phone Elizabeth Hanna Primary Care Provider [phone] Kalpana Liu MD Unavailable Good Sinclair MD Unavailable [phone] Mary Unger Unavailable James Hull Unavailable Reason for Visit * Reason Onset Date Comments Referral 07/10/2022 rheumatology Encounter Details Date Type Department Care Team (Late st Contact Info) Description 07/10/2022 Telephone [facility] [address] [place] [address] Elizabeth Hanna FNP [address] [place], [place] [phone] Referral (rheumatology) Social History Tobacco Use Types [...] Scarlett Sullivan - 07/14/2022 2:49 PM EDT Roller Leveler printed and refaxed referral, notes, and labs and faxed it to [facility] Rheumatology. Roller Leveler called and spoke with pt and informed her. She stated she was given an appt for October 05 and felt it was to late. Roller Leveler explained she could be placed on a [...] documented as of this encounter Care Teams V Belt Coverer Relationship Specialty Start Date End Date Elizabeth Hanna FNP [address] [place] [address] PCP - General Family Medicine 08/12/21 Kalpana Liu MD [address] [phone] Rheumatology 12/15/23 Good Sinclair MD [address] [place] [address] Cardiology 12/15/23 Mary Unger [address] [place] [address] Dr 3[address] Floor [place] Gastroenterology 12/15/23 James Hull [address] [address] Sleep Medicine 12/21/23 documented as of this encounter
--- OUTSIDE RECORDS SUMMARY | 2024-11-01 11:14 | XMS_ITS | Encounter Summary ---
Author Organization [employer] Address [address] [facility] [address] 7[address] [place] [address] Care Team Providers Care Equipment Oiler Name Role Phone Elizabeth Hanna Primary Care Provider [phone] Kalpana Liu MD Unavailable DottieGood larsen MD Unavailable [phone] Mary Unger Unavailable James Hull Unavailable Encounter Details Date Type Department Care Team (Late st Contact Info) Description 03/20/2022 Telephone [facility] [address] [place] [address] Elizabeth Hanna FNP [address] [place], [place] [phone] Social History Tobacco Use Types Packs/Day Years [...] Miscellaneous Notes * Telephone Encounter - Manuela Rosa - 03/20/2022 1:58 PM EST Tc from pt would like update on referral for cardiology . documented in this encounter Plan of Treatment Not on file documented as of this encounter Visit Diagnoses Not on filedocumented in this encounter Care Teams Equipment Oiler Relationship Specialty Start Date End Date Elizabeth Hanna FNP [address] [place] [address] PCP - General Family Medicine 08/12/21 Kalpana Liu MD [address] [place] [address] Rheumatology 12/15/23 Good Sinclair MD [address] [place] [address] Cardiology 12/15/23 Mary Unger [address] [place] [address] Dr [address] Floor [place], [place] Gastroenterology 12/15/23 James Hull 22 [facility] [address] [place] [address] Sleep Medicine 12/21/23 documented as of this encounter
== END 2024-11-01 10:25 | disposition home or self-care (01) ==
LOC: HO.HUSH 09:26
PROVIDERS: PCP Registered Nurse; Visit Provider Urology
DX: Z13.9 Encounter for screening, unspecified (principal); N30.80 Other cystitis without hematuria
CPT/HCPCS: 99204

== ENCOUNTER → 2024-11-01 09:25 | Outpatient (BNVA) | payer MEDICAID, SELFPAY | PROVIDERS: PCP Registered Nurse; Visit Provider Urology | DX: N30.80 Other cystitis without hematuria (principal); Z13.9 Encounter for screening, unspecified | CPT/HCPCS: 51798; 81003; 99202 ==

== ENCOUNTER 2024-11-24 08:45 | Outpatient (AMB) | payer MEDICAID, SELFPAY ==
--- NOTE | 2024-11-24 08:52 | MHC.OFFVIS ---
Vital Signs 11/24/24 08:53 Height 5 ft 3 in Weight 200 lb BMI 35.4 BP 165/78 H Blood Pressure Location Rt brachial Position Sitting Pulse 90 Intake Visit Reasons: 3 mos FUV, GERD mgmt. Intake Note: follow up for heartburn. Patient cc: abdominal pain with bloating on and off. Est pt for mgmt of GERD + diverticulosis. Reports bleeding after BM has improved since last visit. No longer on Zepbound. Patient c/o: abdomen inflammation and colon. Reports some improvement w/ pantoprazole and psyllium husk. Currently taking Methenamine 1gm QD. for abdominal inflammation. Prescribed by pipe line maintenance supervisor. Sharepoint Designer Developer Required: No Accompanied by: Self / Same As Patient Allergies methotrexate Adverse Reaction (Intermediate, Verified 11/24/24 09:03) gerd HPI HPI 3 mos FUV, GERD mgmt.: Details: LAST VISIT: GERD (gastroesophageal reflux disease) Postprandial abdominal bloating Constipation Plan Patient will continue PPI. Avoid dietary triggers and late night snacking. Staying upright for minimum 3 hours after meals discussed with patient. Patient will continue taking senna. Possible cystitis seen on CT scan. Patient will be referred to Urology. Check calprotectin fecal to rule out inflammatory bowel disease. Will check vitamin B12, folate and vitamin-D levels to rule out malabsorption. Discussed with patient will FODMAP diet. List of food recommended as well as list of food to avoid given to patient. Patient will follow-up in our office in 2-3 months, sooner on as needed basis. She is agreeable to this plan and verbalizes understanding of instructions. She was given the opportunity to ask questions and all questions answered. Orders Calprotectin, Fecal 09/02/24 R15.9 Vitamin B12 and Folate 09/01/24 R19.7 Vitamin D 25-OH (D2 and D3) 09/01/24 E55.9 Referrals Urology Referral N32.89, Z87.898 TODAY'S VISIT Patient is here today for follow-up. Patient reports that she has been doing fairly well since last visit. Occasional symptoms of epigastric pain, bloating still patient reports that she encounters. Pain in the lower pelvic area. Diagnosed with cystitis when seen by urologist, patient was placed on Methenamine and has been taking it daily. Patient denies any nausea or vomiting. Feels like pantoprazole is helping with her reflux. She is no longer taking famotidine at bedtime. Stool calprotectin normal. Patient reports that she has been moving bowels better now that she takes senna. She also takes fiber supplements daily. Patient reports that since she started taking the fiber and taking senna rectal bleeding has subsided. Patient had colonoscopy in February of this year to polyps found 1 tubular adenoma on 1 hyperplastic polyp. Patient was found to have small hemorrhoids. Patient denies any dyspepsia, dysphagia or odynophagia. Denies melena, unintentional weight loss or ribbon like stools. Patient reports that she is trying to eat healthier and lose weight. Small dietary changes made, interested in working on weight loss and better diet [facility] Medical History (Updated 11/01/24 @ 10:18 by Cachorro Fry MD) GERD (gastroesophageal reflux disease) Bilateral carpal tunnel syndrome Encounter for monitoring of etanercept therapy Erosive esophagitis Tubular adenoma of colon Surgical History Hx of hand surgery History of umbilical hernia repair (~2008) History of ovarian cystectomy History of delivery Family History Father History of hypertension Mother History of hypertension Rheumatoid arthritis Lung cancer Breast cancer Social History Household Members: Significant Other and Children Alcohol intake: current Alcohol intake frequency: does not drink Comment: counts correct Patient Tobacco Use Status: Never used Tobacco e-Cigarette/Vaping Use: Never Used Current occupational status: unemployed 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 Review of Systems Const Denies weight gain and Denies weight loss ENT Reports no additional complaints, Denies dysphagia and Denies odynophagia Card Reports no additional complaints Resp Reports no additional complaints GI Denies abdominal pain, Denies belching, Denies melena, Denies bloating, Denies change in bowel habits, Denies dysphagia, Denies excessive flatus, Denies dyspepsia, Denies heartburn, Denies diarrhea, Denies loose stools, Denies nausea, Denies odynophagia and Denies vomiting Musc Reports no additional complaints Neuro Reports no additional complaints Psych Reports no additional complaints Endo Reports no additional complaints Physical Exam Vital Signs: Last Vital Signs Pulse 90 11/24/24 08:53 BP 165/78 H 11/24/24 08:53 BMI result Body Mass Index 35.4 Const General: healthy appearing and no acute distress Nutritional Appearance: obese Orientation/consciousness: patient oriented x3 Resp Effort & Inspection: normal respiratory effort, able to speak in complete sentences, no tracheal deviation and symmetric chest movement Auscultation: clear to auscultation bilaterally Cardio Rate: regular rate GI Inspection: Yes normal to inspection, No distended and Yes obesity Palpation (GI): Soft to palpation, not firm, nontender and No hepatosplenomegaly present Auscultation: normal bowel sounds General: Yes no CVA tenderness Back/Spine/Pelvis Back: no CVA tenderness Skin General skin exam: elasticity normal, turgor normal and dry skin Neuro General: patient oriented x3 Psych Appearance: grossly normal Mental Status: mental status grossly normal Results Reviewed Results Reviewed: Laboratory Tests 09/01/24 09/02/24 12:43 09:36 Vitamin B12 535 25-OH Vitamin D Total 21 L Folate 8.1 Stool Calprotectin 12 Assessment & Plan Assessment & Plan (1) GERD (gastroesophageal reflux disease): Code(s): K21.9 - Gastro-esophageal reflux disease without esophagitis Category: Medical Qualifiers: Esophagitis presence: with esophagitis Esophagitis bleeding: without hemorrhage Qualified Code(s): K21.00 - Gastro-esophageal reflux disease with esophagitis, without bleeding (2) Postprandial abdominal bloating: Code(s): R14.0 - Abdominal distension (gaseous) (3) Constipation: Code(s): K59.00 - Constipation, unspecified Qualifiers: Constipation type: slow transit constipation Qualified Code(s): K59.01 - Slow transit constipation (4) Postprandial epigastric pain: Code(s): R10.13 - Epigastric pain Plan Patient will continue taking pantoprazole in the morning. Avoid dietary triggers and late night snacking. Staying upright for minimum 3 hours after meals discussed with patient. Patient will continue taking senna and fiber. Increase fluid intake and activity to promote better bowel motility. Continue low FODMAP diet. Continue low-fat, low carb, high-protein diet. Patient was encouraged to exercise to help to lose weight. Smaller meals more often. Follow-up in the office in 3 months, sooner on as needed basis. She is agreeable to this plan and verbalizes understanding of instructions. She was given the opportunity to ask questions and all questions answered. Thank you for allowing me to participate in her care Medications: Refilled sennosides (Natural Senna Laxative) 17.2 mg (2 x 8.6 mg) PO BEDTIME 180 tabs 3RF constipation K59.00 - Constipation, unspecified Coding Level of Care Code Est Pt Level 4 (56256) Complex EM visit Add On G2211 Diagnoses Gastroesophageal reflux disease with esophagitis without hemorrhage K21.00 Esophagitis presence: with esophagitis Esophagitis bleeding: without hemorrhage Postprandial abdominal bloating R14.0 Slow transit constipation K59.01 Constipation type: slow transit constipation Postprandial epigastric pain R10.13 Time Spent (min) 35 Comment 25 minutes spent with patient and additional 10 minutes spent reviewing her records
[2024-11-24 08:53] VITALS: BP 165/78; PULSE 90; BMI 35.4
--- OUTSIDE RECORDS SUMMARY | 2024-11-24 09:11 | XMS_ITS | Encounter Summary ---
Author Organization [employer] Address [address] [facility] [address] 7t [place] [address] Care Team Providers Care Glove Cuffer Name Role Phone Elizabeth Hanna Primary Care Provider [phone] Kalpana Liu MD Unavailable DottieGood larsen MD Unavailable [phone] Mary Unger Unavailable James Hull Unavailable Reason for Visit * Reason Onset Date Comments triage 07/02/2022 Encounter Details Date Type Department Care Team (Late st Contact Info) Description 07/02/2022 Telephone [facility] MEDICINE [address] [place] [address] Elizabeth Hanna FNP [address] [place], [place] [phone] triage Social History Tobacco Use Types Packs/Day [...] 07/02/2022 2:48 PM EDT Triage call with [place] [id number] Pt reports feet, ankles, hands get swollen [...] on filedocumented in this encounter Care Teams Glove Cuffer Relationship Specialty Start Date End Date Elizabeth Hanna FNP [address] [place] [address] PCP - General Family Medicine 08/12/21 Kalpana Liu MD [address] [place] [address] [place] [address] Rheumatology 12/15/23 Good Sinclair MD 596 [place] [address] Cardiology 12/15/23 Mary Unger [address] [place] [address] 3rd [place], [place] Gastroenterology 12/15/23 James Hull [address] [address] Sleep Medicine 12/21/23 documented as of this encounter
--- OUTSIDE RECORDS SUMMARY | 2024-11-24 09:11 | XMS_ITS | Encounter Summary ---
Author Organization [employer] Address [address] [facility] [address] 7t [place] [address] Care Team Providers Care Quarry Plug And Feather Driller Name Role Phone Elizabeth Hanna Primary Care Provider [phone] Kalpana Liu MD Unavailable DottieGood larsen MD Unavailable [phone] Mary Unger Unavailable James Hull Unavailable Encounter Details Date Type Department Care Team (Late st Contact Info) Description 03/20/2022 Telephone [facility] MEDICINE 230 [place] [address] Elizabeth Hanna FNP [address] [place], [place] [phone] Social History Tobacco Use Types Packs/Day Years [...] on filedocumented in this encounter Care Teams Quarry Plug And Feather Driller Relationship Specialty Start Date End Date Elizabeth Hanna FNP 230 [place] [address] PCP - General Family Medicine 08/12/21 Kalpana Liu MD [address] [place] [address] Rheumatology 12/15/23 Good Sinclair MD 596 [place] [address] Cardiology 12/15/23 Mary Unger [address] [place] [address] Dr 3rd Floor [place], [place] Gastroenterology 12/15/23 James Hull 22 [facility] [address] [place] [address] Sleep Medicine 12/21/23 documented as of this encounter
--- OUTSIDE RECORDS SUMMARY | 2024-11-24 09:11 | XMS_ITS | Encounter Summary ---
Author Organization [employer] Address 75 [facility] 7t [place] [address] Care Team Providers Care Tape Calender Name Role Phone Elizabeth Hanna Primary Care Provider [phone] Kalpana Liu MD Unavailable Good Sinclair MD Unavailable [phone] Mary Unger Unavailable James Hull Unavailable Reason for Visit * Reason Onset Date Comments Referral 07/10/2022 rheumatology Encounter Details Date Type Department Care Team (Late st Contact Info) Description 07/10/2022 Telephone [facility] MEDICINE 230 [place] [address] Elizabeth Hanna FNP [address] [place], [place] [phone] Referral (rheumatology) Social History Tobacco Use Types [...] Scarlett Sullivan - 07/14/2022 2:49 PM EDT Laboratory Development Technician printed and refaxed referral, notes, and labs and faxed it to [facility]. Laboratory Development Technician called and spoke with pt and informed her. She stated she was given an appt for October 05 and felt it was to late. Laboratory Development Technician explained she could be placed on a [...] documented as of this encounter Care Teams Tape Calender Relationship Specialty Start Date End Date Elizabeth Hanna FNP 230 [place] [address] PCP - General Family Medicine 08/12/21 Kalpana Liu MD [address] [address] Rheumatology 12/15/23 Good Sinclair MD [address] [place] [address] Cardiology 12/15/23 Mary Unger [address] [place] [address] Dr 3rd Floor [place] Gastroenterology 12/15/23 James Hull [address] [address] Sleep Medicine 12/21/23 documented as of this encounter
--- OUTSIDE RECORDS SUMMARY | 2024-11-24 09:11 | XMS_ITS | Encounter Summary ---
Author Organization [employer] Address [address] [facility] [address] 7t [place] [address] Care Team Providers Care Oral Surgery Physician Name Role Phone Elizabeth Hanna Primary Care Provider [phone] Kalpana Liu MD Unavailable Good Sinclair MD Unavailable [phone] Mary Unger Unavailable James Hull Unavailable Reason for Visit * Reason Comments Med Refill Encounter Details Date Type Department Care Team (Late st Contact Info) Description 08/04/2022 Refill [facility] MEDICINE 230 [place] [address] Elizabeth Hanna FNP [address] [place], [place] [phone] Social History Tobacco Use Types Packs/Day Years [...] documented as of this encounter Care Teams Oral Surgery Physician Relationship Specialty Start Date End Date Elizabeth Hanna FNP 230 [place] [address] PCP - General Family Medicine 08/12/21 Kalpana Liu MD [address] [place] [address] Rheumatology 12/15/23 Good Sinclair MD 596 [place] [address] Cardiology 12/15/23 Mary Unger [address] [place] [address] 3rd Floor [place], [place] Gastroenterology 12/15/23 James Hull 22 [facility] [address] [place] [address] Sleep Medicine 12/21/23 documented as of this encounter
--- OUTSIDE RECORDS SUMMARY | 2024-11-24 09:11 | XMS_ITS | Encounter Summary ---
Author Organization [employer] Address [address] [facility] [address] 7t [place] [address] Care Team Providers Care Keno Manager Name Role Phone Elizabeth Hanna REIMBURSEMENT DIRECTOR Primary Care Provider [phone] Kalpana Liu MD Unavailable Good Sinclair MD Unavailable [phone] Mary Unger Unavailable James Hull Unavailable Encounter Details Date Type Department Care Team (Late st Contact Info) Description 07/12/2024 Orders Only [facility] [address] [place], [place] [phone] Provider, MD Mario Social History Tobacco Use [...] documented as of this encounter Care Teams Keno Manager Relationship Specialty Start Date End Date Elizabeth Hanna FNP [address] [place] [address] PCP - General Family Medicine 08/12/21 Kalpana Liu MD [address] [place] [address] Rheumatology 12/15/23 Good Sinclair MD 596 [place] [address] Cardiology 12/15/23 Mary Unger [address] [place] [address] 3rd Floor [place], [place] Gastroenterology 12/15/23 James Hull 22 [facility] [address] [place] [address] Sleep Medicine 12/21/23 documented as of this encounter
--- OUTSIDE RECORDS SUMMARY | 2024-11-24 09:11 | XMS_ITS | Encounter Summary ---
Author Organization [employer] Address 75 [facility] 7t [place] [address] Care Team Providers Care Automatic Line Set Up Mechanic Name Role Phone Elizabeth Hanna Primary Care Provider Kalpana Liu MD Unavailable DottieGood larsen MD Unavailable [phone] Mary Unger Unavailable James Hull Unavailable Encounter Details Date Type Department Care Team (Late st Contact Info) Description 06/17/2023 Orders Only [facility] 230 [place] [address] Gail Sam [address] [address] Social History Tobacco Use Types Packs/Day Years [...] Region Laterality Modality Breast Left Mammography Gail Carrizozo IM BI PROCEDURES Final Result documented in this encounter Visit Diagnoses Not on filedocumented in this encounter Additional Health Concerns Assessment Noted Time PHQ-9 Depression Total Score: 8 12/24/19 23 9:19 AM EST documented as of this encounter Care Teams Automatic Line Set Up Mechanic Relationship Specialty Start Date End Date Elizabeth Hanna FNP 230 [place] [address] PCP - General Family Medicine 08/12/21 Kalpana Liu MD [address] [place] [address] Rheumatology 12/15/23 Good Sinclair MD [address] [place] [address] Cardiology 12/15/23 Mary Unger [address] [place] [address] Dr 3rd Floor [place], [place] Gastroenterology 12/15/23 James Hull [address] [address] Sleep Medicine 12/21/23 documented as of this encounter
--- OUTSIDE RECORDS SUMMARY | 2024-11-24 09:11 | XMS_ITS | Encounter Summary ---
Author Organization [employer] Address [address] [facility] [address] 7t [place] [address] Care Team Providers Care Mail Caller Name Role Phone Elizabeth Hanna Primary Care Provider [phone] Kalpana Liu MD Unavailable Good Sinclair MD Unavailable [phone] Mary Unger Unavailable James Hull Unavailable Reason for Visit * Reason Comments Med Refill Encounter Details Date Type Department Care Team (Late st Contact Info) Description 06/16/2024 Refill [facility] MEDICINE 230 [place], [place] [phone] Varsha Duque MD 230 [place], [place] [phone] Acute upper respiratory infection; Wheeze Social History [...] documented as of this encounter Care Teams Mail Caller Relationship Specialty Start Date End Date Elizabeth Hanna FNP 230 [place] [address] PCP - General Family Medicine 08/12/21 Kalpana Liu MD [address] [place] [address] Rheumatology 12/15/23 Good [place] MD 596 [place] [address] Cardiology 12/15/23 Mary Unger [address] [place] [address] Dr 3rd Floor [place], [place] Gastroenterology 12/15/23 James Hull [address] [address] Sleep Medicine 12/21/23 documented as of this encounter
--- OUTSIDE RECORDS SUMMARY | 2024-11-24 09:11 | XMS_ITS | Clinical Summary ---
Author Organization [employer] Address [address] [facility] [address] 7t [place] [address] Care Team Providers Care Utility Pipe Layer Name Role Phone Elizabeth Hanna Primary Care Provider [phone] Kalpana Liu MD Unavailable Good Sinclair MD Unavailable [phone] Mary Unger Unavailable James Hull Unavailable Allergies [...] 4 Active albuterol 108 (90 Base) MCG/ACT inhalerIndication s:Acute upper respiratory infection,Wheeze Inhale 2 puffs every 4 (four) hours if needed for wheezing. 18 g 5 05/26/19 26 Active triamcinolone (Kenalog) 0.1 % cream Apply topically if needed in the morning and at bedtime (Irritation/re dness). 30 g 5 Active chlorthalidone (Hygroton) 25 MG tabletIndications :Essential hypertension TAKE 1 TABLET BY MOUTH EVERY DAY FOR BLOOD PRESSURE 90 tablet 1 5 Active famotidine (Heartburn Relief) 10 MG tabletIndications [...] day. Do not crush or chew. Active Active Problems Problem Noted Date Diagnosed Date [...] or worsening of rash [facility]) 12/15/2023 Overview (10/18/2024): Diagnosed 2023 - seronegative RA. Following with [facility] - Dr. Liu August 2023: Methotrexate started, folic acid daily Oct 2023: Methotrexate DC d/t lack of response and SE. PA for Enbrel initiated through Rheum. Dec 2023: Enbrel approved Sep 2024: Enbrel DC and initiated on Adalimumab 40mg subcutaneous Q2 weeks - Cont Adalimumab 40mg subcutaneous Q2 weeks GERD (gastroesophageal reflux disease) Overview (12/15/2023): Followed by [facility] - CCNP Cornel Omeprazole PRN Constipation 01/13/2023 Overview (12/21/2023): [facility] consult Sep 2023 Cont metamucil in [...] maintenance 12/23/2022 Overview (07/12/2024): Pap: 07/21/22 by [facility] CNM NILM HPV neg. Hx of abnormal. Following with specialist Mammo: BIRADS 1 in August 2023 Colonoscopy: Completed Feb 2024 at [facility]. Repeat due 5 years. Last PE: 12/23/22 [...] Celebrex, ibuprofen, topical voltaren Initial [facility] Rhuem consult Sep 2022, suspected OA. July [...] TIA per patient report around 2007 in [place] Also mentioned as possible hx in Cardiology note from 2012 with potential carotid artery dissection Obesity 04/14/2021 Overview (10/18/2024): Previously following with [facility] Weight Management (H. Pylori breath test negat [...] to follow up appt (with PCP or Comb Tender) -ED precautions reviewed Follow up in 2-4 weeks for HTN, sooner as needed. Will also need TP. Pt in agreement with plan. Obstructive sleep apnea syndrome 08/16/2017 Assessment & Plan (10/18/2024 4:29 PM EDT): Followed by [facility] - Dr. [place]. 01/25/24: Home sleep study ordered by Dr. [place]. AHI 47.6, with only minimal hypoxemia. Dx: severe MAYRA. Rec starting on AutoCPAP 8-20 H20. DME company: [facility] Good symptom improvement after CPAP initiation, cont current therapy Assessment & Plan (07/13/2024 3:55 PM EDT): [facility] 01/25/24: Home sleep study ordered by Dr. Hull. AHI 47.6, with only minimal hypoxemia. Dx: severe MAYRA. Rec starting on AutoCPAP 8-20 H20. DME company: [facility] Vitamin D deficiency 07/02/2016 Overview (01/13/2023): Vit [...] Description 10/18/2024 10:00 AM EDT Office Visit [facility] MEDICINE [address] [place] [address] Elizabeth Hanna FNP Palpitations (Primary Dx); Dietary counseling; Exercise counseling; Obstructive sleep apnea syndrome; Left leg pain; Obesity without serious comorbidity, unspecified class, unspecified obesity type; GI symptoms; Rheumatoid arthritis of multiple sites with negative rheumatoid factor ([facility]); Essential hypertension 10/18/2024 Travel 10/17/2024 Telephone [facility] MEDICINE [address] [place] [address] Elizabeth Hanna FNP CHART PREP 10/11/2024 Travel 09/18/2024 Refill [facility] PEDS [address] [place], [place] [phone] Elizabeth Hanna FNP Essential hypertension; Gastroesophageal reflux [...] SERUM PANEL Routine 09/01/2024 12:43 PM EDT HEPATITIS PANEL, GENERAL Routine 03/24/2024 [...] EDT) Vitamin D, 25-OH, D2 <4 ng/mL [facility] Comment:This test was develo ped and its analytical performancecharacteristics have been determined by [employer] [place], [place]. It hasnot been cleared or approved by the U.S. Food and DrugAdministration. This assay has been validated pursuantto the CLIA regulations and is used for clinicalpurposes.THIS TEST WAS PERFORMED AT:[employer] [id number] [place] [address]BNRBOVTRIC AGEE MD,PHD Vitamin D, 25-OH, D3 21 ng/mL [facility] Comment:This test was develo ped and its analytical performancecharacteristics have been determined by [employer] [place], [place]. It hasnot been cleared or approved by the U.S. Food and DrugAdministration. This assay has been validated pursuantto the CLIA regulations and is used for clinicalpurposes. Vitamin D, 25-OH, Total 21(A) 30 - 100 ng/mL [facility] Comment:Vitamin D, 25-Hydrox y reports [...] = 30 ng/mL.For additional information, please refer tohttp://education.[employer]/faq/BYA600(This link is being provided for informational/educational purposes only.) 09/01/2024 12:4 3 PM EDT 09/01/2024 12:43 PM EDT us Generic External Data Provider LAB BLOOD ORDERAB LES Final Result [facility] [address] [place] [phone] * Vitamin B12 (Cobalamin) and Folate Panel, Serum (09/01/2024 12:43 PM EDT) Vitamin B12 535 200 - 900 pg/mL [facility] Comment:NORMAL 200-900 PG/ML INDETERMINATE 160-199 PG/ML DEFICIENT < 160 PG/ML Folate 8.1 > or = 4.0 ng/mL [facility] Comment:Reference Values:> o r = 4.0 ng/mL< 4.0 ng/mL suggests folate deficiency Methotrexate, aminopterin and folinic acid(leucovorin) are chemotherapeutic agents whose molecularstructures are similar to folate; therefore, the Architectfolate assay cannot be used for patients using these drugs. 09/01/2024 12:4 3 PM EDT 09/01/2024 12:43 PM EDT [employer] External Data Provider LAB BLOOD ORDERAB LES Final Result Performing Organization Address [facility] de Phone Number [facility] [address] [place] [phone] * Hepatitis Panel, General (03/24/2024 11:45 AM EST) Hepatitis A IgM Nonreactive Nonreactive [facility] Comment:IgM antibodies to KIM V not detected; does not exclude earlyacute or recovered HAV infection. ~Hepatitis B Surface Antibody NONREACTIVE Nonreactive [facility] Comment:Nonreactive: < 8.00 mIU/mL Hepatitis B Core Antibody Nonreactive Nonreactive [facility] Hepatitis C Antibody Nonreactive Nonreactive [facility] Comment:Antibodies to HCV no t detected; does not exclude early acuteHCV infection. Hepatitis B Surface Ag Negative Negative [facility] 03/24/2024 11:4 5 AM EST 03/24/2024 11:45 AM EST Generic External Data Provider LAB BLOOD ORDERAB LES Final Result Performing Organization Address [facility] Co de Phone Number [facility] [address] [place] [phone] * Hm Colonoscopy (02/24/2024 3:22 PM EST) us Historical Provider HEALTH MAINTENANCE Final Result * BI Mammogram Screening Tomosynthesis Bilateral (08/31/2023 12:55 PM EDT) Anatomical Region Laterality Modality Breast Bilateral Mammography 08/31/2023 12:5 5 PM EDT Narrative 09/22/2023 10:57 PM EDT [facility] [address] [place] [address] Mammography Report Signed Patient: Winnie Ramirez MR#: [id number] : 1965 Acct:[id number] Age/Sex: 57 / F ADM Date: 08/31/23 Loc: HO.MAMMO Attending Dr: Elizabeth Hanna ACCOUNT DEVELOPMENT MANAGER Ordering Physician: Elizabeth Hanna Results: 1Negat charlene Date of Service: 08/31/23 Follow Up: 1 Year From Orig ina Mammogram Procedure(s): MM tomosynthesis screening BI Accession Number(s): [id number] cc: Elizabeth Hanna EXAMINATION: MM SCREENING DIGITAL [...] signed by Vivian Emmanuel MD in OV> 08/2253 DD/ 1255 TD/TT: District Plant Supervisor: Procedure Note Donotuseinterpreter, Image - 09/22/2023 [facility] [address] [place], [place] [address] Mammography Report Signed Patient: Winnie RamirezMR#: [id number] : 1965Acct:[id number] Age/Sex: 57 / FADM Date: 08/31/23 Loc: HO.MAMMO Attending Dr: Elizabeth Hanna ACCOUNT DEVELOPMENT MANAGER Ordering Physician: Elizabeth HannaPResults: 1Negat charlene Date of Service: 08/31/23Follow Up: 1 Year From Orig inal Mammogram Procedure(s): MM tomosynthesis screening BI Accession Number(s): [id number] cc: Elizabeth Hanna EXAMINATION: MM SCREENING DIGITAL [...] signed by Vivian Emmanuel MD in OV> 09/22/232253 DD/ 1255 TD/TT: District Plant Supervisor: Elizabeth Hanna ACCOUNT DEVELOPMENT MANAGER IMG BI PROCEDURES Final Result * HIV-1/2 Antigen and Antibodies, Fourth Generation, with Reflexes (01/04/2023 8:42 AM EST) HIV AB/AG Nonreactive Nonreactive [facility] Comment:HIV-1 p24 Ag and/or HIV-1/HIV-2 Ab not detected.A test result that is nonreactive does not exclude thepossibility of exposure to or infection with HIV-1 and/orHIV-2. Nonreactive results in this assay for individualswith prior exposure to HIV-1 and/or HIV-2 may be due toantigen and antibody levels that are below the limit ofdetection of this assay.The El[employer] HIV Ag/Ab Combo assay result andsupplemental assay results should be interpreted inconjunction with the patient's clinical presentation,history and other laboratory results. If the results areinconsistent with clinical evidence, additional testing issuggested to confirm the result. Blood Venous blood specimen / Unknown 01/04/2023 8:42 AM EST 01/04/2023 11:07 AM EST us Elizabeth Hanna ACCOUNT DEVELOPMENT MANAGER LAB BLOOD ORDERABLES Final Res ult [facility] [address] [place] [address] [phone] * (ABNORMAL) Lipid Panel, Standard (01/04/2023 8:42 AM EST) Triglycerides 84 <150 mg/dL [facility] Comment:Desirable Triglyceri de: less than 150 mg/dLBorderline High Triglyceride 150-199 mg/dLHigh Triglyceride: 200-499 mg/dLVery High Triglyceride: greater than or equal to 5OO mg/dL Cholesterol 190 <200 mg/dL [facility] Comment:Desirable Cholestero l: less than 200 mg/dLBorderline High Cholesterol: 200-239 mg/dLHigh Cholesterol: greater than 239 mg/dL LDL Cholesterol Calculated 115(H) <100 mg/dL [facility] Comment:Desirable LDL: less than 100 mg/dLNear Optimal/Above Optimal LDL: 110- 129 mg/dLBorderline High LDL: 130-159 mg/dLHigh LDL: 160-189 mg/dLVery High LDL: greater than or equal to 190 mg/dL HDL Cholesterol 59 >40 mg/dL [facility] Comment:Desirable HDL: great er than 40 mg/dL Note: This HDL assay may give artificially low results in patients with liver disease. Blood Venous blood specimen / Unknown 01/04/2023 8:42 AM EST 01/04/2023 11:07 AM EST us Elizabeth Hanna ACCOUNT DEVELOPMENT MANAGER LAB BLOOD ORDERABLES Final Res ult [facility] [address] [place] [phone] * Pap Smear (07/21/2022 10:20 AM EDT) 07/21/2022 10:2 0 AM EDT 07/23/2022 8:00 AM EDT Narrative [facility] - 08/07/2022 8:50 AM EDT ----- ------- Name: Winnie Ramirez Age/Sex: 56/F : 1965 Unit#: [id number] Attend Dr: Gail Sam CNM Re07/21/22 Status: DEP REF Location: [facility] Disch: ----- ------- SPEC : [id number] RECD: 07/23/22 STATUS: MIKIE TREJO NUM: [id number] BRIE: 07/21/22-1020 [facility]: 07/24/22 SP TYPE: Pap Smr OTHR DR: Elizabeth Hanna ORDERED: Pap Smear Interpretation Satisfactory for evaluation. No endocervical cells seen. Negative for intraepithelial lesion or malignancy. HPV mRNA E6/E7: NOT DETECTED This assay detects E6/E7 viral messenger RNA (mRNA) from 14 high-risk HPV types (16, 18, 31, 33, 35, 39, 45, 51, 52, 56, 58, 59, 66, 68) HPV testing performed by [employer], [place], [place]. See reference laboratory pion of the EMR for entire report. Clinical Information LMP: Postmenopausal Previous PAP test: 11/01/19, Abnormal Other history: 2016, ANA I Material Received ThinPrep-Cervical Copies To: Gail Sam [address] [place] [address] Elizabeth Hanna ACCOUNT DEVELOPMENT MANAGER [address] [place] [address] ----- ------- Signed (signature on file) TETE Carvajal (ASCP) 08/07/22 0850 ----- ------- END OF REPORT [facility] External Provider LAB CYT OLOGY ORDERABLES Final Result [facility] [address] [place] [address] [phone] from Last 3 Months or Most Recently Relevant to Health Maintenance Insurance [employer] C3 Care Teams Utility Pipe Layer Relationship Specialty Start Date End Date Elizabeth Hanna FNP [address] [place] [address] PCP - General Family Medicine 08/12/21 Kalpana Liu MD [address] [place] [address] [place] [address] Rheumatology 12/15/23 Good [place] MD [address] [place] [address] Cardiology 12/15/23 Mary Unger [address] [place] [address] [address] [place], [place] Gastroenterology 12/15/23 James [place] [address] [address] Sleep Medicine 12/21/23
== END 2024-11-24 09:30 | disposition home or self-care (01) ==
LOC: HO.HGI 08:46
PROVIDERS: PCP Registered Nurse; Visit Provider Nurse Practitioner Family
DX: K21.00 Gastro-esophageal reflux disease with esophagitis, without bleeding (principal); R14.0 Abdominal distension (gaseous); K59.01 Slow transit constipation; R10.13 Epigastric pain
CPT/HCPCS: 99214

== ENCOUNTER → 2024-11-24 08:45 | Outpatient (BNVA) | payer MEDICAID, SELFPAY | PROVIDERS: PCP Registered Nurse; Visit Provider Nurse Practitioner Family | DX: K21.00 Gastro-esophageal reflux disease with esophagitis, without bleeding (principal); R14.0 Abdominal distension (gaseous); K59.01 Slow transit constipation; R10.13 Epigastric pain | CPT/HCPCS: 99212 ==

== ENCOUNTER 2025-01-10 15:08 | Outpatient (REF) | payer MEDICAID, SELFPAY ==
[2025-01-10 15:22] LABS: MANUAL DIFF FLAG NO
[2025-01-10 15:47] LABS: Hematocrit 40.5 % (37.0-47.0); Hemoglobin 13.2 g/dl (12.0-16.0); Imm Gran Abs Auto 0.04 X10*3/uL (0.00-0.03); Imm Gran Pct Auto 0.4 % (0.0-0.4); Lymphocytes Absolute Auto 2.1 X10*3/uL (1.2-4.9); Mean Corpuscular HGB Conc 32.6 g/dl (31.0-35.0); Mean Corpuscular Hemoglobin 27.6 pg (27.0-33.0); Mean Corpuscular Volume 84.7 fL (80.0-98.0); NRBC Abs Auto 0.000 X10*3/uL (0.0-0.012); NRBC Pct Auto 0.0 /100WBC (0.0-0.2); Platelet Count 288 X10*3/uL (160-400); Red Blood Count 4.78 X10*6/uL (4.20-5.50); White Blood Count 9.4 X10*3/uL (4.8-10.8)
[2025-01-10 16:26] LABS: Alanine Aminotransferase 22 U/L (0-31); Albumin Level 4.5 g/dL (3.5-5.0); Alkaline Phosphatase 65 U/L (39-117); Anion Gap 10 (12-20); Aspartate Amino Transferase 18 U/L (5-31); Blood Urea Nitrogen 16 mg/dL (9-16); Calcium 9.9 mg/dL (8.4-10.2); Carbon Dioxide 28 mmol/L (22-29); Chloride 108 mmol/L (96-108); Estimated Glomerular Filt Rate > 60; Potassium 4.2 mmol/L (3.3-5.1); Sodium 142 mmol/L (135-145); Total Protein 8.0 g/dL (6.5-8.0)
--- OUTSIDE RECORDS SUMMARY | 2025-01-10 18:14 | XMS_ITS | Encounter Summary ---
Author Organization [employer] Address 75 [facility] 7t [place] [address] Care Team Providers Care Tomographic Tech Name Role Phone Elizabeth Hanna Primary Care Provider [phone] Kalpana Liu MD Unavailable DottieGood larsen MD Unavailable [phone] Mary Unger Unavailable James Hull Unavailable Encounter Details Date Type Department Care Team (Late st Contact Info) Description 06/17/2023 Orders Only [facility] [address] [place] [address] Gail Sam [address] [address] Social History Tobacco Use Types Packs/Day Years [...] Care Team (Late st Contact Info) Description 02/14/2025 9:15 AM EST Office Visit [facility] MEDICINE 230 [place] [address] Elizabeth Hanna FNP 505 [place] [address] documented as of this encounter Procedures Procedure Name Priority Date/Time Associated Diagnosis Comments MAMMOGRAPHY SCREENING Routine 09/29/2022 2:52 PM EDT documented in this encounter Results * MAMMOGRAPHY SCREENING (09/29/2022 2:52 PM EDT) Anatomical Region Laterality Modality Breast Left Mammography Gail FryeGregory IM BI PROCEDURES Final Result documented in this encounter Visit Diagnoses Not on filedocumented in this encounter Additional Health Concerns Assessment Noted Time PHQ-9 Depression Total Score: 8 12/24/19 23 9:19 AM EST documented as of this encounter Care Teams Tomographic Tech Relationship Specialty Start Date End Date Elizabeth Hanna FNP 230 [place] [address] PCP - General Family Medicine 08/12/21 Kalpana Liu MD [address] [place] [address] Rheumatology 12/15/23 Good Sinclair MD 596 [place] [address] Cardiology 12/15/23 Mary Unger [address] [place] [address] Dr 3rd Floor [place], [place] Gastroenterology 12/15/23 James Hull 22 [facility] [address] [place] [address] Sleep Medicine 12/21/23 documented as of this encounter
--- OUTSIDE RECORDS SUMMARY | 2025-01-10 18:14 | XMS_ITS | Encounter Summary ---
Author Organization [employer] Address [address] [facility] [address] 7t [place] [address] Care Team Providers Care Personal Care Aid Name Role Phone Elizabeth Hanna Primary Care Provider Kalpana Liu MD Unavailable DottieGood larsen MD Unavailable [phone] Mary Unger Unavailable James Hull Unavailable Encounter Details Date Type Department Care Team (Late st Contact Info) Description 03/20/2022 Telephone [facility] MEDICINE 230 [place] [address] Elizabeth Hanna FNP [address] [place], [place] [phone] Social History Tobacco Use Types Packs/Day Years [...] Description 02/14/2025 9:15 AM EST Office Visit [facility] MEDICINE 230 [place] [address] Elizabeth Hanna FNP 505 [place] [address] documented as of this encounter Visit Diagnoses Not on filedocumented in this encounter Care Teams Personal Care Aid Relationship Specialty Start Date End Date Elizabeth Hanna FNP 230 [place] [address] PCP - General Family Medicine 08/12/21 Kalpana Liu MD [address] [place] [address] 402 [place] [address] Rheumatology 12/15/23 Good Sinclair MD 596 [place] [address] Cardiology 12/15/23 Mary Unger [address] [place] [address] 3rd Floor [place], [place] Gastroenterology 12/15/23 James Hull 22 [facility] [address] [place] [address] Sleep Medicine 12/21/23 documented as of this encounter
--- OUTSIDE RECORDS SUMMARY | 2025-01-10 18:14 | XMS_ITS | Encounter Summary ---
Author Organization [employer] Address [address] [facility] [address] 7t [place] [address] Care Team Providers Care Vacuum Kettle Cook Name Role Phone Elizabeth Hanna Primary Care Provider [phone] Kalpana Liu MD Unavailable Good Sinclair MD Unavailable [phone] Mary Unger Unavailable James Hull Unavailable Reason for Visit * Reason Comments Med Refill Encounter Details Date Type Department Care Team (Late st Contact Info) Description 08/04/2022 Refill [facility] MEDICINE 230 [place] [address] Elizabeth Hanna FNP [address] [place], [place] [phone] Social History Tobacco Use Types Packs/Day Years [...] Description 02/14/2025 9:15 AM EST Office Visit [facility] MEDICINE 230 [place] [address] Elizabeth Hanna FNP 505 [place] [address] documented as of this encounter Visit Diagnoses Not on filedocumented in this encounter Additional Health Concerns Assessment Noted Time PHQ-9 Depression Total Score: 0 07/08/19 10:51 AM EDT documented as of this encounter Care Teams Vacuum Kettle Cook Relationship Specialty Start Date End Date Elizabeth Hanna FNP 230 [place] [address] PCP - General Family Medicine 08/12/21 Kalpana Liu MD [address] [place] [address] Rheumatology 12/15/23 Good Sinclair MD 596 [place] [address] Cardiology 12/15/23 Mary Unger [address] [place] [address] Dr 3rd Floor [place], [place] Gastroenterology 12/15/23 James Hull 22 [facility] [address] [place] [address] Sleep Medicine 12/21/23 documented as of this encounter
--- OUTSIDE RECORDS SUMMARY | 2025-01-10 18:14 | XMS_ITS | Encounter Summary ---
Author Organization [employer] Address [address] [facility] [address] 7t [place] [address] Care Team Providers Care Nail Expert Name Role Phone Elizabeth Hanna Primary Care Provider [phone] Kalpana Liu MD Unavailable Good Sinclair MD Unavailable [phone] Mary Unger Unavailable James Hull Unavailable Reason for Visit * Reason Comments Med Refill Encounter Details Date Type Department Care Team (Late st Contact Info) Description 06/16/2024 Refill [facility] MEDICINE 230 [place], [place] [phone] Varsha Duque MD 230 [employer] [place], [place] [phone] Acute upper respiratory infection; Wheeze Social History [...] Description 02/14/2025 9:15 AM EST Office Visit [facility] MEDICINE 230 [place] [address] Elizabeth Hanna FNP 505 [place] [address] documented as of this encounter Visit Diagnoses Diagnosis Acute upper respiratory infection Acute upper respiratory infections of unspecified site Wheeze Wheezing documented in this encounter Additional Health Concerns Assessment Noted Time PHQ-9 Depression Total Score: 8 12/24/19 23 9:19 AM EST documented as of this encounter Care Teams Nail Expert Relationship Specialty Start Date End Date Elizabeth Hanna FNP 230 [place] [address] PCP - General Family Medicine 08/12/21 Kalpana Liu MD [address] [place] [address] Rheumatology 12/15/23 Good Sinclair MD 596 [place] [address] Cardiology 12/15/23 Mary Unger [address] [place] [address] 3rd [place], [place] Gastroenterology 12/15/23 James Hull [address] [address] Sleep Medicine 12/21/23 documented as of this encounter
--- OUTSIDE RECORDS SUMMARY | 2025-01-10 18:14 | XMS_ITS | Encounter Summary ---
Author Organization [employer] Address 75 [facility] 7t [place] [address] Care Team Providers Care Evp Strategy Name Role Phone Elizabeth Hanna Primary Care Provider [phone] Kalpana Liu MD Unavailable Good Sinclair MD Unavailable [phone] Mary Unger Unavailable James Hull Unavailable Encounter Details Date Type Department Care Team (Late st Contact Info) Description 01/10/2025 Orders Only GENERIC EXTERNAL DATA DEPARTMENT Provider, [...] is your housing situation today? I have csott preciado 07/12/[address] you [...] Description 02/14/2025 9:15 AM EST Office Visit [facility] MEDICINE 230 [place] [address] Elizabeth Hanna, WRAPPER REWINDER 505 [place] [address] documented as of this encounter Procedures Procedure Name Priority Date/Time Associated Diagnosis Comments CBC WITH AUTO DIFFERENTIAL Routine 01/10/2025 3:20 PM EST SED RATE BY MODIFIED WESTERGREN Routine 01/10/2025 3:20 PM EST C-REACTIVE PROTEIN Routine 01/10/2025 3: 20 PM EST COMPREHENSIVE METABOLIC PANEL Routine 01/10/2025 3:20 PM EST documented in this encounter Results * (ABNORMAL) Sed Rate by Modified Westergren (01/10/2025 3:20 PM EST) Erythrocyte Sedimentation Rate 22(H) 0 - 20 MM/HR [facility] Comment:Patients with polycy themia and many hemoglobin abnormalitiesmay have depressed sed rates whereas patients with anemiamay have elevated sed rates. 01/10/2025 3:20 PM EST 01/10/2025 3:20 PM EST us Generic External Data Provider LAB BLOOD ORDERAB LES Final Result Performing Organization Address [facility] Co de Phone Number [facility] [address] [place] [phone] * (ABNORMAL) C-reactive Protein (01/10/2025 3:20 PM EST) C Reactive Protein 2.20(H) < or = 0.50 mg/dL [facility] 01/10/2025 3:20 PM EST 01/10/2025 3:20 PM EST Generic External Data Provider LAB BLOOD ORDERAB LES Final Result Performing Organization Address [facility] de Phone Number [facility] [address] [place] [phone] * (ABNORMAL) Comprehensive Metabolic Panel (01/10/2025 3:20 PM EST) Sodium 142 135 - 145 mmol/L [facility] Potassium 4.2 3.3 - 5.1 mmol/L [facility] Chloride 108 96 - 108 mmol/L [facility] Carbon Dioxide 28 22 - 29 mmol/L [facility] Anion Gap 10(L) 12 - 20 [facility] Urea Nitrogen (BUN) 16 9 - 16 mg/dL [facility] Creatinine, Serum 0.51 0.5 - 1.4 mg/dL [facility] Estimated Glomerular Filt Rate >60 [facility] Comment:Chronic Kidney Disea se: Estimated GFR < 60 mL/min/[id number] Kidney Disease: Estimated GFR < 15 mL/min/1.73m2 Glucose 87 60 - 115 mg/dL [facility] Calcium 9.9 8.4 - 10.2 mg/dL [facility] Bilirubin, Total 0.7 0.0 - 1.0 mg/dL [facility] Aspartate Amino Transferase 18 5 - 31 U/L [facility] Alanine Aminotransferase 22 0 - 31 U/L [facility] Total Protein 8.0 6.5 - 8.0 g/dL [facility] Albumin Level 4.5 3.5 - 5.0 g/dL [facility] Alkaline Phosphatase 65 39 - 117 U/L [facility] 01/10/2025 3:20 PM EST 01/10/2025 3:20 PM EST us Generic External Data Provider LAB BLOOD ORDERAB LES Final Result Performing Organization Address City/State/[facility] Co de Phone Number [facility] [address] [place] [phone] * (ABNORMAL) CBC auto differential (01/10/2025 3:20 PM EST) White Blood Count 9.4 4.8 - 10.8 X10*3/uL [facility] Red Blood Count 4.78 4.20 - 5.50 X10*6/uL [facility] Hemoglobin 13.2 12.0 - 16.0 g/dl [facility] Hematocrit 40.5 37.0 - 47.0 % [facility] Mean Corpuscular Volume 84.7 80.0 - 98.0 fL [facility] Mean Corpuscular Hemoglobin 27.6 27.0 - 33.0 pg [facility] Mean Corpuscular HGB Conc 32.6 31.0 - 35.0 g/dl [facility] Red Cell Distribution Width 14.1 11.0 - 16.0 % [facility] Platelet Count 288 160 - 400 X10*3/uL [facility] Mean Platelet Volume 10.6 9.4 - 12.3 fL [facility] Neutrophils Percent Auto 64.8 45 - 73 % [facility] Imm Gran Pct Auto 0.4 0.0 - 0.4 % [facility] Lymphocytes Percent Auto 22.3 20 - 40 % [facility] Monocytes Percent Auto 9.8 2 - 11 % [facility] Eosinophils Percent Auto 2.1 0 - 4 % [facility] Basophils Percent Auto 0.6 0 - 2 % [facility] NRBC Pct Auto 0.0 0.0 - 0.2 /100WBC [facility] Neutrophils Absolute Auto 6.1 2.0 - 8.3 x10*3/uL [facility] Imm Gran Abs Auto 0.04(H) 0.00 - 0.03 X10*3/uL [facility] Lymphocytes Absolute Auto 2.1 1.2 - 4.9 X10*3/uL [facility] Monocytes Absolute Auto 0.9 0.1 - 1.2 X10*3/uL [facility] Eosinophils Absolute Auto 0.2 0.0 - 0.4 X10*3/uL [facility] Basophils Absolute Auto 0.1 0.0 - 0.2 X10*3/uL [facility] NRBC Abs Auto 0.000 0.0 - 0.012 X10*3/uL [facility] 01/10/2025 3:20 PM EST 01/10/2025 3:20 PM EST us Generic External Data Provider LAB BLOOD ORDERAB LES Final Result [facility] [address] [place] [phone] documented in this encounter Visit Diagnoses Not on filedocumented in this encounter Additional Health Concerns Assessment Noted Time PHQ-9 Depression Total Score: 10 07/12/ 025 9:34 AM EDT documented as of this encounter Care Teams Evp Strategy Relationship Specialty Start Date End Date Elizabeth Hanna FNP [address] [place] [address] PCP - General Family Medicine 08/12/21 Kalpana Liu MD [address] [place] [address] [address] [place] [address] Rheumatology 12/15/23 Good Sinclair MD [address] [place] [address] Cardiology 12/15/23 Mary Unger [address] [place] [address] 3rd Floor [place], [place] Gastroenterology 12/15/23 James Hull [address] [address] Sleep Medicine 12/21/23 documented as of this encounter
--- OUTSIDE RECORDS SUMMARY | 2025-01-10 18:14 | XMS_ITS | Encounter Summary ---
Author Organization [employer] Address 75 [facility] 7t [place] [address] Care Team Providers Care Talent Acquisition Associate Name Role Phone Elizabeth Hanna Primary Care Provider [phone] Kalpana Liu MD Unavailable Good Sinclair MD Unavailable [phone] Mary Unger Unavailable James Hull Unavailable Reason for Visit * Reason Comments Care Coordination CHW outreach for SDO H PT-1 and food needs-referral completed Encounter Details Date Type Department Care Team (Latest Contact Info) Description 01/08/2025 Patient Outreach [facility] MEDICINE [address] [place] [address] Elizabeth Hanna FNP [address] [place], [place] [phone] Care Coordination (CHW outreach for SDOH PT-1 and food needs-referral completed /) Social History Tobacco Use Types Packs/Day Years [...] as of this encounter Progress Notes * Chetan Delacruz - 01/08/2025 2:31 PM EST CHW Chetan Delacruz, placed outbound call to patient for assistance with SDOH as a referral was received by the provider. Patient's name and were confirmed. Patient screened positive for the following SDOH food insecurities. Patient states family in on SNAP program at this time. CHW referral patient to the local list of pantries in the area for help. PT-1 requested was send out in behalf of patient for futures appt. Patient verbalizes understanding, and able to agree with plan to follow up.Patient educated on extended clinic hours on Mondays through Wednesdays, and [facility]. Patient provided with after-hours line for [facility], , which offer night time triage service and option to transfer to sharepoint application architect provider if needed. documented in this encounter Plan of Treatment Upcoming Encounters Date Type Department Care Team (Late st Contact Info) Description 02/14/2025 9:15 AM EST Office Visit [facility] MEDICINE [address] [place] [address] Elizabeth Hanna FNP [address] [place] [address] documented as of this encounter Visit Diagnoses Not on filedocumented in this encounter Additional Health Concerns Assessment Noted Time PHQ-9 Depression Total Score: 10 025 9:34 AM EDT documented as of this encounter Care Teams Talent Acquisition Associate Relationship Specialty Start Date End Date Elizabeth Hanna FNP [address] [place] [address] PCP - General Family Medicine 08/12/21 Kalpana Liu MD [address] [address] Rheumatology 12/15/23 Good Sinclair MD 596 [place] [address] Cardiology 12/15/23 Mary Unger [address] [place] [address] Dr 3rd Floor [place], [place] Gastroenterology 12/15/23 James Hull 22 [facility] [address] [place] [address] Sleep Medicine 12/21/23 documented as of this encounter
--- OUTSIDE RECORDS SUMMARY | 2025-01-10 18:14 | XMS_ITS | Clinical Summary ---
Author Organization [employer] Address [address] [facility] 7t [place] [address] Care Team Providers Care Production Operations Engineer Name Role Phone Elizabeth Hanna Primary Care Provider [phone] Kalpana Liu MD Unavailable Good Sinclair MD Unavailable [phone] Mary Unger Unavailable James Hull Unavailable Allergies [...] Migraines) 90 tablet 3 01/14/20 23 Active Calcium Carb-Cholecalcif cata (Calcium+D3) 600-20 MG-MCG tabletIndication s:Vitamin D deficiency Take 1 tablet by mouth Once daily. 90 tablet 3 12/15/19 24 Active albuterol 108 (90 Base) MCG/ACT inhalerIndicatio ns:Acute upper respiratory infection,Wheeze Inhale 2 puffs every 4 (four) hours if needed for wheezing. 18 g 05/26/19 25 026 Active chlorthalidone (Hygroton) 25 MG tabletIndication s:Essential hypertension TAKE 1 TABLET BY MOUTH EVERY DAY FOR BLOOD PRESSURE 90 tablet 1 09/20/19 25 Active famotidine (Heartburn Relief) 10 MG tabletIndication s:Gastroesophage al reflux disease, unspecified whether esophagitis present TAKE 1 TO 2 TABLETS BY MOUTH EVERY 12 HOURS NEEDED FOR ACID REFLUX 360 tablet 1 09/20/19 25 Active celecoxib (CeleBREX) 200 MG capsule Take 1 capsule (200 mg) by mouth if needed in the morning and at bedtime (pain). 100 capsule 2 10/19/19 25 026 Active metoprolol succinate XL (Toprol-XL) 50 MG 24 hr tablet Take 50 mg by mouth Once per day. Do not crush or chew. Active cholecalciferol (Vitamin D3) 25 MCG (1000 UT) tablet TAKE 1 TABLET BY MOUTH ONCE PER DAY. 90 tablet 3 12/09/19 25 Active triamcinolone (Kenalog) 0.1 % cream Apply topically if needed in the morning and at bedtime (Irritation/r edness). Use for up to 2 weeks maximum. 30 g 12/12/19 25 Active lisinopril 40 MG tablet TAKE 1 TABLET BY MOUTH ONCE DAILY 90 tablet 3 01/10/20 25 Active lisinopril 40 MG tablet Take 1 tablet (40 mg) by mouth Once per day. 90 tablet 3 12/15/19 24 025 Discontinued Active Problems Problem Noted [...] or worsening of rash Rheumatoid arthritis of mult iple sites with negative rheumatoid factor ([facility]) 12/15/2023 Overview (10/18/2024): Diagnosed 2023 - seronegative RA. Following with [facility] - Dr. Liu August 2023: Methotrexate started, folic acid daily Oct 2023: Methotrexate DC d/t lack of response and SE. PA for Enbrel initiated through Rheum. Dec 2023: Enbrel approved Sep 2024: Enbrel DC and initiated on Adalimumab 40mg subcutaneous Q2 weeks - Cont Adalimumab 40mg subcutaneous Q2 weeks GERD (gastroesophageal reflux disease) Overview (12/15/2023): Followed by [facility] GI - [employer] TE[employer]ER Cornel Omeprazole PRN Constipation 01/13/2023 Overview (12/21/2023): [facility] consult Sep 2023 Cont metamucil in [...] maintenance 12/23/2022 Overview (07/12/2024): Pap: 07/21/22 by [facility] CNM NILM HPV neg. Hx of abnormal. Following with specialist Mammo: BIRADS 1 in August 2023 Colonoscopy: Completed Feb 2024 at [facility]. Repeat due 5 years. Last PE: 12/23/22 [...] trials: Celebrex, ibuprofen, topical voltaren Initial [facility] Rhuem consult Sep 2022, suspected OA. July [...] TIA per patient report around 2007 in [place] Also mentioned as possible hx in Cardiology note from 2011 with potential carotid artery dissection Obesity 04/14/2021 Overview (10/18/2024): Previously following with [facility] Weight Management (H. Pylori breath test negat [...] to follow up appt (with PCP or Side Framer) -ED precautions reviewed Follow up in 2-4 weeks for HTN, sooner as needed. Will also need TP. Pt in agreement with plan. Obstructive sleep apnea syndrome 08/16/2017 Assessment & Plan (10/18/2024 4:29 PM EDT): Followed by MART Hull. 01/25/24: Home sleep study ordered by Dr. Hull. AHI 47.6, with only minimal hypoxemia. Dx: severe MAYRA. Rec starting on AutoCPAP 8-20 H20. DME company: [facility] Good symptom improvement after CPAP initiation, cont current therapy Assessment & Plan (07/13/2024 3:55 PM EDT): Followed by YVAN Hull. 01/25/24: Home sleep study ordered by Dr. Hull. AHI 47.6, with only minimal hypoxemia. Dx: severe MAYRA. Rec starting on AutoCPAP 8-20 H20. DME company: [facility] Vitamin D deficiency 07/02/2016 Overview [...] Encounters Date Type Department Care Team Description 01/10/2025 Orders Only GENERIC EXTERNAL DATA DEPARTMENT Provider, Generic External Data 01/08/2025 Patient Outreach [facility] [address] [place] [phone] Elizabeth Hanna FNP Care Coordination (CHW outreach for SDOH PT-1 and food needs-referral completed /) 01/08/2025 Telephone [facility] [address] [place], [place] [phone] Elizabeth Hanna FNP Appointment Request 01/08/2025 Telephone [facility] [address] [place], [place] [phone] Elizabeth Hanna FNP pt1 01/08/2025 Refill [facility] [address] [place] [address] Elizabeth Hanna FNP 12/09/2024 Refill [facility] [address] [place] [address] Frantz Amos MD 12/07/2024 Refill [facility] [address] [place] [address] Elizabeth Hanna FNP 10/18/2024 10:00 AM EDT Office Visit [facility] [address] [place] [address] Elizabeth Hanna FNP Palpitations (Primary Dx); Dietary counseling; Exercise counseling; Obstructive sleep apnea syndrome; Left leg pain; Obesity without serious comorbidity, unspecified class, unspecified obesity type; GI symptoms; Rheumatoid arthritis of multiple sites with negative rheumatoid factor ([facility]); Essential hypertension 10/18/2024 Travel 10/17/2024 Telephone [facility] [address] [place] [phone] Elizabeth Hanna FNP CHART PREP 10/11/2024 Travel from Last 3 Months Immunizations Immunization Administration [...] 10/18/2024 10:16 AM EDT Plan of Treatment Upcoming Encounters Date Type Department Care Team (Late st Contact Info) Description 02/14/2025 9:15 AM EST Office Visit [facility] [address] [place] [address] Elizabeth Hanna, MAY [address] [place] [address] Health Maintenance Due Date Last Done Comments CT Colonography 1965 FIT DNA/Cologuard 1965 FIT 1965 FOBT 1965 Sigmoidoscopy 1965 Pneumococcal Vaccine: 50+ Years (1 of 1 - PCV) 2016 Zoster Vaccines (1 of 2) 2016 Hepatitis B Vaccines (2 of 3 - 19+ 3-dose series) 01/12/2024 12/15/2023 Mammogram 08/30/2024 08/31/2023, 08/03/2022, 09/13/2020 COVID-19 Vaccine (3 - 2024- season) 2024 11/13/2020, 10/23/2020 Influenza Vaccine (#1) 2024 , 05/02/2020, 12/27/2014, Additional history exists Depression Monitoring 01/11/2025 07/12/2024, 025 SDOH Screening 07/12/2025 07/12/2024 Tobacco Screening 07/12/2025 07/12/2024 Disability Screening 10/11/2025 10/11/2024 Alcohol/Substance Use Screening 10/18/2025 10/18/2024 Cervical Cancer Screening 07/22/2027 HPV/Cotest 07/22/2027 07/21/2022, 04/09, 12/18/2016 Pap Smear 07/22/2027 07/21/2022 Lipid Panel 01/05/2028 01/04/2023, 04/09, 04/10/2021, Additional history exists Colonoscopy 02/23/2029 02/24/2024, 02/24/2024 Colorectal Cancer Screening 02/23/2029 DTaP/Tdap/Td Vaccines [...] Procedure Name Priority Date/Time Associated Diagnosis Comments SED RATE BY MODIFIED WESTERGREN Routine 01/10/2025 3:20 PM EST C-REACTIVE PROTEIN Routine 01/10/2025 3: 20 PM EST COMPREHENSIVE METABOLIC PANEL Routine 01/10/2025 3:20 PM EST CBC WITH AUTO DIFFERENTIAL Routine 01/10/2025 3:20 PM EST HEPATITIS PANEL, GENERAL Routine 03/24/2024 11:45 [...] Relevant to Health Maintenance Results * (ABNORMAL) CBC auto differential (01/10/2025 3:20 PM EST) White Blood Count 9.4 4.8 - 10.8 X10*3/uL [facility] Red Blood Count 4.78 4.20 - 5.50 X10*6/uL [facility] Hemoglobin 13.2 12.0 - 16.0 g/dl [facility] Hematocrit 40.5 37.0 - 47.0 % [facility] Mean Corpuscular Volume 84.7 80.0 - 98.0 fL [facility] Mean Corpuscular Hemoglobin 27.6 27.0 - 33.0 pg [facility] Mean Corpuscular HGB Conc 32.6 31.0 - 35.0 g/dl [facility] Red Cell Distribution Width 14.1 11.0 - 16.0 % [facility] Platelet Count 288 160 - 400 X10*3/uL [facility] Mean Platelet Volume 10.6 9.4 - 12.3 fL [facility] Neutrophils Percent Auto 64.8 45 - 73 % [facility] Imm Gran Pct Auto 0.4 0.0 - 0.4 % [facility] Lymphocytes Percent Auto 22.3 20 - 40 % [facility] Monocytes Percent Auto 9.8 2 - 11 % [facility] Eosinophils Percent Auto 2.1 0 - 4 % [facility] Basophils Percent Auto 0.6 0 - 2 % [facility] NRBC Pct Auto 0.0 0.0 - 0.2 /100WBC [facility] Neutrophils Absolute Auto 6.1 2.0 - 8.3 x10*3/uL [facility] Imm Gran Abs Auto 0.04(H) 0.00 - 0.03 X10*3/uL [facility] Lymphocytes Absolute Auto 2.1 1.2 - 4.9 X10*3/uL [facility] Monocytes Absolute Auto 0.9 0.1 - 1.2 X10*3/uL [facility] Eosinophils Absolute Auto 0.2 0.0 - 0.4 X10*3/uL [facility] Basophils Absolute Auto 0.1 0.0 - 0.2 X10*3/uL [facility] NRBC Abs Auto 0.000 0.0 - 0.012 X10*3/uL [facility] 01/10/2025 3:20 PM EST 01/10/2025 3:20 PM EST us Generic External Data Provider LAB BLOOD ORDERAB LES Final Result [facility] [address] [place] [address] [phone] * (ABNORMAL) Sed Rate by Modified Carol (01/10/2025 3:20 PM EST) Erythrocyte Sedimentation Rate 22(H) 0 - 20 MM/HR [facility] Comment:Patients with polycy themia and many hemoglobin abnormalitiesmay have depressed sed rates whereas patients with anemiamay have elevated sed rates. 01/10/2025 3:20 PM EST 01/10/2025 3:20 PM EST Generic External Data Provider LAB BLOOD ORDERAB LES Final Result Performing Organization Address [facility] Co de Phone Number [facility] [address] [place] [phone] * (ABNORMAL) C-reactive Protein (01/10/2025 3:20 PM EST) C Reactive Protein 2.20(H) < or = 0.50 mg/dL [facility] 01/10/2025 3:20 PM EST 01/10/2025 3:20 PM EST Generic External Data Provider LAB BLOOD ORDERAB LES Final Result Performing Organization Address [facility] de Phone Number [facility] [address] [place] [phone] * (ABNORMAL) Comprehensive Metabolic Panel (01/10/2025 3:20 PM EST) Sodium 142 135 - 145 mmol/L [facility] Potassium 4.2 3.3 - 5.1 mmol/L [facility] Chloride 108 96 - 108 mmol/L [facility] Carbon Dioxide 28 22 - 29 mmol/L [facility] Anion Gap 10(L) 12 - 20 [facility] Urea Nitrogen (BUN) 16 9 - 16 mg/dL [facility] Creatinine, Serum 0.51 0.5 - 1.4 mg/dL [facility] Estimated Glomerular Filt Rate >60 [facility] Comment:Chronic Kidney Disea se: Estimated GFR < 60 mL/min/1.81r9Rrxian Kidney Disease: Estimated GFR < 15 mL/min/1.73m2 Glucose 87 60 - 115 mg/dL [facility] Calcium 9.9 8.4 - 10.2 mg/dL [facility] Bilirubin, Total 0.7 0.0 - 1.0 mg/dL [facility] Aspartate Amino Transferase 18 5 - 31 U/L [facility] Alanine Aminotransferase 22 0 - 31 U/L [facility] Total Protein 8.0 6.5 - 8.0 g/dL [facility] Albumin Level 4.5 3.5 - 5.0 g/dL [facility] Alkaline Phosphatase 65 39 - 117 U/L [facility] 01/10/2025 3:20 PM EST 01/10/2025 3:20 PM EST [employer] External Data Provider LAB BLOOD ORDERAB LES Final Result Performing Organization Address [facility] Phone Number [facility] [address] [place] [phone] * Hepatitis Panel, General (03/24/2024 11:45 AM EST) Hepatitis A IgM Nonreactive Nonreactive [facility] Comment:IgM antibodies to KIM V not detected; does not exclude earlyacute or recovered HAV infection. ~Hepatitis B Surface Antibody NONREACTIVE Nonreactive [facility] Comment:Nonreactive: < 8.00 mIU/mL Hepatitis B Core Antibody Nonreactive Nonreactive [facility] Hepatitis C Antibody Nonreactive Nonreactive [facility] Comment:Antibodies to HCV no t detected; does not exclude early acuteHCV infection. Hepatitis B Surface Ag Negative Negative [facility] 03/24/2024 11:4 5 AM EST 03/24/2024 11:45 AM EST Generic External Data Provider LAB BLOOD ORDERAB LES Final Result Performing Organization Address [facility] Co de Phone Number [facility] [address] [place] [phone] * Hm Colonoscopy (02/24/2024 3:22 PM EST) us Historical Provider HEALTH MAINTENANCE Final Result * BI Mammogram Screening Tomosynthesis Bilateral (08/31/2023 12:55 PM EDT) Anatomical Region Laterality Modality Breast Bilateral Mammography 08/31/2023 12:5 5 PM EDT Narrative 09/22/2023 10:57 PM EDT [facility] [address] [place], [place] [address] Mammography Report Signed Patient: Winnie Ramirez MR#: [id number] : 1965 Acct:[id number] Age/Sex: 57 / F ADM Date: 08/31/23 Loc: HO.MAMMO Attending Dr: Elizabeth Hanna DRILL PRESS OPERATOR NUMERICAL CONTROL Ordering Physician: Elizabeth Hanna Results: 1Negat charlene Date of Service: 08/31/23 Follow Up: 1 Year From Orig inal Mammogram Procedure(s): MM tomosynthesis screening BI Accession Number(s): [id number] cc: Elizabeth Hanna DRILL PRESS OPERATOR NUMERICAL CONTROL EXAMINATION: MM SCREENING DIGITAL BREAST TOMOSYNTHESIS, BILATERAL [...] by Vivian Emmanuel MD in OV> 09/22/23 4924 DD/ 1255 TD/TT: Tank Riveter: Procedure Note Donotuseinterpreter, Image - 09/22/2023 [facility] [address] [place], [place] [address] Mammography Report Signed Patient: Winnie RamirezMR#: [id number] : 1965Acct:[id number] Age/Sex: 57 / FADM Date: 08/31/23 Loc: HO.MAMMO Attending Dr: Elizabeth Hanna DRILL PRESS OPERATOR NUMERICAL CONTROL Ordering Physician: Elizabeth HannaPResults: 1Negat charlene Date of Service: 08/31/23Follow Up: 1 Year From Orig inal Mammogram Procedure(s): MM tomosynthesis screening BI Accession Number(s): [id number] cc: Elizabeth Hanna EXAMINATION: MM SCREENING DIGITAL [...] in OV> 09/22/23 2254 DD/ 1255 TD/TT: Tank Riveter: Elizabeth BATRESP IMG BI PROCEDURES Final Result * HIV-1/2 Antigen and Antibodies, Fourth Generation, with Reflexes (01/04/2023 8:42 AM EST) HIV AB/AG Nonreactive Nonreactive [facility] Comment:HIV-1 p24 Ag and/or HIV-1/HIV-2 Ab not detected.A test result that is nonreactive does not exclude thepossibility of exposure to or infection with HIV-1 and/orHIV-2. Nonreactive results in this assay for individualswith prior exposure to HIV-1 and/or HIV-2 may be due toantigen and antibody levels that are below the limit ofdetection of this assay.The [employer] HIV Ag/Ab Combo assay result andsupplemental assay results should be interpreted inconjunction with the patient's clinical presentation,history and other laboratory results. If the results areinconsistent with clinical evidence, additional testing issuggested to confirm the result. Blood Venous blood specimen / Unknown 01/04/2023 8:42 AM EST 01/04/2023 11:07 AM EST us Elizabeth Hanna [facility] LAB BLOOD ORDERABLES Final Res ult [facility] [address] [place] [address] [phone] * (ABNORMAL) Lipid Panel, Standard (01/04/2023 8:42 AM EST) Triglycerides 84 <150 mg/dL [facility] Comment:Desirable Triglyceri de: less than 150 mg/dLBorderline High Triglyceride 150-199 mg/dLHigh Triglyceride: 200-499 mg/dLVery High Triglyceride: greater than or equal to 5OO mg/dL Cholesterol 190 <200 mg/dL [facility] Comment:Desirable Cholestero l: less than 200 mg/dLBorderline High Cholesterol: 200-239 mg/dLHigh Cholesterol: greater than 239 mg/dL LDL Cholesterol Calculated 115(H) <100 mg/dL [facility] Comment:Desirable LDL: less than 100 mg/dLNear Optimal/Above Optimal LDL: 110- 129 mg/dLBorderline High LDL: 130-159 mg/dLHigh LDL: 160-189 mg/dLVery High LDL: greater than or equal to 190 mg/dL HDL Cholesterol 59 >40 mg/dL [facility] Comment:Desirable HDL: great er than 40 mg/dL Note: This HDL assay may give artificially low results in patients with liver disease. Blood Venous blood specimen / Unknown 01/04/2023 8:42 AM EST 01/04/2023 11:07 AM EST us Elizabeth Hanna DRILL PRESS OPERATOR NUMERICAL CONTROL LAB BLOOD ORDERABLES Final Res ult [facility] [address] [place] [phone] * Pap Smear (07/21/2022 10:20 AM EDT) 07/21/2022 10:2 0 AM EDT 07/23/2022 8:00 AM EDT Gabe [facility] - 08/07/2022 8:50 AM EDT ----- ------- Name: Winnie Ramirez Age/Sex: 56/F : 1965 Unit#: [id number] Attend Dr: Gail Sam Libby Re07/21/22 Status: DEP REF Location: HO.LNP Disch: ----- ------- SPEC : [id number] RECD: 07/23/22 STATUS: MIKIE TREJO NUM: [id number] BRIE: 07/21/22-1020 [facility] DR: Gail Sam [facility] ENTERED: 07/24/22 SP TYPE: Pap Smr OTHR DR: Elizabeth Hanna ORDERED: Pap Smear Interpretation Satisfactory for evaluation. No endocervical cells seen. Negative for intraepithelial lesion or malignancy. HPV mRNA E6/E7: NOT DETECTED This assay detects E6/E7 viral messenger RNA (mRNA) from 14 high-risk HPV types (16, 18, 31, 33, 35, 39, 45, 51, 52, 56, 58, 59, 66, 68) HPV testing performed by [facility], [place], [place]. See reference laboratory pion of the EMR for entire report. Clinical Information LMP: Postmenopausal Previous PAP test: 11/01/19, Abnormal Other history: 2016, ANA I Material Received ThinPrep-Cervical Copies To: Gail Sam [address] [place] [address] Elizabeth Hanna [facility] [address] [place] [address] ----- ------- Signed (signature on file) TETE Carvajal (ASCP) 08/07/22 0850 ----- ------- END OF REPORT [facility] External Provider LAB CYT OLOGY ORDERABLES Final Result [facility] [address] [place] [address] [phone] from Last 3 Months or Most Recently Relevant to Health Maintenance Insurance [employer] C3 Care Teams Production Operations Engineer Relationship Specialty Start Date End Date Elizabeth Hanna FNP [address] [place] [phone] PCP - General Family Medicine 08/12/21 Kalpana Liu MD [address] [place] [address] [place] [address] Rheumatology 12/15/23 Good Sinclair MD [address] [place] [address] Cardiology 12/15/23 Mary Unger [address] [place] [address] [address] [place], [place] Gastroenterology 12/15/23 James Hull [address] [place] [phone] Sleep Medicine 12/21/23
--- OUTSIDE RECORDS SUMMARY | 2025-01-10 18:14 | XMS_ITS | Encounter Summary ---
Author Organization [employer] Address [address] [facility] 7t [place] [address] Care Team Providers Care Parquet Floor Layer Name Role Phone Elizabeth Hanna Primary Care Provider [phone] Kalpana Liu MD Unavailable DottieGood larsen MD Unavailable [phone] Mary Unger Unavailable James Hull Unavailable Reason for Visit * Reason Onset Date Comments triage 07/02/2022 Encounter Details Date Type Department Care Team (Late st Contact Info) Description 07/02/2022 Telephone [facility] [address] [place] [address] Elizabeth Hanna FNP [address] [place], [place] [phone] triage Social History Tobacco Use Types Packs/Day [...] 07/02/2022 2:48 PM EDT Triage call with [place] [id number] Pt reports feet, ankles, hands get swollen [...] Description 02/14/2025 9:15 AM EST Office Visit [facility] [address] [place] [address] Elizabeth Hanna FNP [address] [place] [address] documented as of this encounter Visit Diagnoses Not on filedocumented in this encounter Care Teams Parquet Floor Layer Relationship Specialty Start Date End Date Elizabeth Hanna FNP [address] [place] [address] PCP - General Family Medicine 08/12/21 Kalpana Liu MD [address] [place] [address] Rheumatology 12/15/23 Good Sinclair MD [address] [place] [address] Cardiology 12/15/23 Mary Unger [address] [place] [address] 3rd Floor [place], [place] Gastroenterology 12/15/23 James Hull [address] [facility] [address] [place] [address] Sleep Medicine 12/21/23 documented as of this encounter
--- OUTSIDE RECORDS SUMMARY | 2025-01-10 18:14 | XMS_ITS | Encounter Summary ---
Author Organization [employer] Address [address] [facility] 7t [place] [address] Care Team Providers Care Social Media Intern Name Role Phone Elizabeth Hanna Primary Care Provider [phone] Kalpana Liu MD Unavailable oGod Sinclair MD Unavailable [phone] Mary Unger Unavailable James Hull Unavailable Reason for Visit * Reason Onset Date Comments Appointment Request 01/08/2025 Encounter Details Date Type Department Care Team ([facility] st Contact Info) Description 01/08/2025 Telephone [facility] [address] [place], [place] [phone] Elizabeth Hanna FNP [address] [place], [place] [phone] Appointment Request Social History Tobacco Use Types Packs/Day Years [...] encounter Miscellaneous Notes * Telephone Encounter - June Zapata [place] - 01/08/2025 4:23 PM EST Booked an appointment on 02/14/25 with Scott OLVERA at the [facility]. Agreed with date and location. * Telephone Encounter - Lexis Salmon - 01/08/2025 2:07 PM EST Tc from pt requesting a call back too book f/u apt , Contact pt at [phone] (cape verdean) documented in this encounter Plan of Treatment Upcoming Encounters Date Type Department Care Team ([facility] st Contact Info) Description 02/14/2025 9:15 AM EST Office Visit [facility] [address] [place] [address] Elizabeth Hanna FNP [address] [place] [address] documented as of this encounter Visit Diagnoses Not on filedocumented in this encounter Additional Health Concerns Assessment Noted Time PHQ-9 Depression Total Score: 10 07/12/ 025 9:34 AM EDT documented as of this encounter Care Teams Social Media Intern Relationship Specialty Start Date End Date Elizabeth Hanna FNP [address] [place] [address] PCP - General Family Medicine 08/12/21 Kalpana Liu MD [address] [place] [phone] Rheumatology 12/15/23 Good Sinclair MD [address] [place] [address] Cardiology 12/15/23 Mary Unger [address] [place] [address] 3rd Floor [place], [place] Gastroenterology 12/15/23 James Hull [address] [facility] [address] [place] [address] Sleep Medicine 12/21/23 documented as of this encounter
--- OUTSIDE RECORDS SUMMARY | 2025-01-10 18:14 | XMS_ITS | Encounter Summary ---
Author Organization [employer] Address [address] [facility] [address] 7[address] [place] [address] Care Team Providers Care Statuary Painter Name Role Phone Elizabeth Hanna PATENT LAW SPECIALIST Primary Care Provider [phone] Kalpana Liu MD Unavailable Good Sinclair MD Unavailable [phone] Mary Unger Unavailable James Hull Unavailable Encounter Details Date Type Department Care Team (Late st Contact Info) Description 07/12/2024 Orders Only [facility] MED & PEDS [address] [place], [place] [phone] Provider, MD Mario Social History Tobacco Use [...] Description 02/14/2025 9:15 AM EST Office Visit [facility] MEDICINE [address] [place] [address] Elizabeth Hanna FNP [address] [place] [address] documented as of this encounter Procedures Procedure [...] documented as of this encounter Care Teams Statuary Painter Relationship Specialty Start Date End Date Elizabeth Hanna FNP [address] [place] [address] PCP - General Family Medicine 08/12/21 Kalpana Liu MD [address] [place] [address] Rheumatology 12/15/23 Good Sinclair MD 5[address] [place] [address] Cardiology 12/15/23 Mary Unger [address] [place] [address] Dr 3rd Floor [place], [place] Gastroenterology 12/15/23 James Hull [address] [facility] [address] [place] [address] Sleep Medicine 12/21/23 documented as of this encounter
--- OUTSIDE RECORDS SUMMARY | 2025-01-10 18:14 | XMS_ITS | Encounter Summary ---
Author Organization [employer] Address [address] [facility] 7t [place] [address] Care Team Providers Care Emergency Room Physician Assistant Name Role Phone Elizabeth Hanna Primary Care Provider [phone] Kalpana Liu MD Unavailable Good Sinclair MD Unavailable [phone] Mary Unger Unavailable Jmaes Hull Unavailable Reason for Visit * Reason Onset Date Comments pt1 01/08/2025 Encounter Details Date Type Department Care Team ([facility] st Contact Info) Description 01/08/2025 Telephone [facility] CHC MED & PEDS [address] [place], [place] [phone] Elizabeth Hanna FNP [address] [place], [place] [phone] pt1 Social History Tobacco Use Types Packs/Day Years [...] encounter Miscellaneous Notes * Telephone Encounter - Lexis Salmon - 01/08/2025 2:04 PM EST Patient calling requesting PT1 Home Address verified: Y/N: Yes Provider name or facility name: [address] [place] [address] Escort needed: Y/N: No Do you have a wheelchair: Y/N: No If yes- Manual or electric: Visits: 2x a month documented in this encounter Plan of Treatment Upcoming Encounters Date Type Department Care Team (Late st Contact Info) Description 02/14/2025 9:15 AM EST Office Visit [facility] MEDICINE [address] [place] [address] Elizabeth Hanna FNP 505 [place] [address] documented as of this encounter Visit Diagnoses Not on filedocumented in this encounter Additional Health Concerns Assessment Noted Time PHQ-9 Depression Total Score: 10 025 9:34 AM EDT documented as of this encounter Care Teams Emergency Room Physician Assistant Relationship Specialty Start Date End Date Elizabeth Hanna FNP 230 [place] [address] PCP - General Family Medicine 08/12/21 Kalpana Liu MD [address] [place] [address] Rheumatology 12/15/23 Good Sinclair MD 596 [place] [address] Cardiology 12/15/23 Mary Unger [address] [place] [address] 3rd Floor [place], [place] Gastroenterology 12/15/23 James Hull 22 [facility] [address] [place] [address] Sleep Medicine 12/21/23 documented as of this encounter
--- OUTSIDE RECORDS SUMMARY | 2025-01-10 18:14 | XMS_ITS | Encounter Summary ---
Author Organization [employer] Address [address] [facility] [address] 7[address] [place] [address] Care Team Providers Care Data Analysis Intern Name Role Phone Elizabeth Hanna Primary Care Provider [phone] Kalpana Liu MD Unavailable DottieGood larsen MD Unavailable [phone] Mary Unger Unavailable James Hull Unavailable Reason for Visit * Reason Comments Med Refill Encounter Details Date Type Department Care Team (Late st Contact Info) Description 01/08/2025 Refill [facility] MEDICINE [address] [place] [address] Elizabeth Hanna FNP [address] [place], [place] [phone] Social History Tobacco Use Types Packs/Day Years [...] the past 12 months, has t he [employer] gas, oil or water [employer] threatened to shut off services in your [...] Description 02/14/2025 9:15 AM EST Office Visit [facility] MEDICINE [address] [place] [address] Elizabeth Hanna FNP 505 [place] [address] documented as of this encounter Visit Diagnoses Not on filedocumented in this encounter Additional Health Concerns Assessment Noted Time PHQ-9 Depression Total Score: 10 025 9:34 AM EDT documented as of this encounter Care Teams Data Analysis Intern Relationship Specialty Start Date End Date Elizabeth Hanna FNP [address] [place] [address] PCP - General Family Medicine 08/12/21 Kalpana Liu MD [address] [place] [address] [place] [address] Rheumatology 12/15/23 Good Sinclair MD 596 [place] [address] Cardiology 12/15/23 Mary Unger [address] [place] [address] 3[address] [place], [place] Gastroenterology 12/15/23 James Hull [address] [address] Sleep Medicine 12/21/23 documented as of this encounter
--- OUTSIDE RECORDS SUMMARY | 2025-01-10 18:14 | XMS_ITS | Encounter Summary ---
Author Organization [employer] Address [address] [facility] 7t [place] [address] Care Team Providers Care Perianesthesia Nurse Name Role Phone Elizabeth Hanna Primary Care Provider Kalpana Liu MD Unavailable Good Sinclair MD Unavailable [phone] Mary Unger Unavailable James Hull Unavailable Reason for Visit * Reason Onset Date Comments Referral 07/10/2022 rheumatology Encounter Details Date Type Department Care Team (Late st Contact Info) Description 07/10/2022 Telephone [facility] MEDICINE [address] [place] [address] Elizabeth Hanna FNP [address] [place], [place] [phone] Referral (rheumatology) Social History Tobacco Use Types [...] Scarlett Sullivan - 07/14/2022 2:49 PM EDT [employer] printed and refaxed referral, notes, and labs and faxed it to [facility] Rheumatology. Merch[employer] called and spoke with pt and informed her. She stated she was given an appt for October 05 and felt it was to late. Merch[employer] explained she could be placed on a [...] Description 02/14/2025 9:15 AM EST Office Visit [facility] MEDICINE [address] [place] [address] Elizabeth Hanna FNP [address] [place] [address] documented as of this encounter Visit Diagnoses Not on filedocumented in this encounter Additional Health Concerns Assessment Noted Time PHQ-9 Depression Total Score: 0 07/08/19 23 10:51 AM EDT documented as of this encounter Care Teams Perianesthesia Nurse Relationship Specialty Start Date End Date Elizabeth Hanna FNP [address] [place] [address] PCP - General Family Medicine 08/12/21 Kalpana Liu MD [address] [place], [place] [address] [address] [place] [address] Rheumatology 12/15/23 Good Sinclair MD 5[address] [place] [address] Cardiology 12/15/23 Mary Unger [address] [place] [address] Dr 3rd Floor [place], [place] Gastroenterology 12/15/23 James Hull 22 [facility] [address] [place] [address] Sleep Medicine 12/21/23 documented as of this encounter
== END 2025-01-10 15:09 | disposition home or self-care (01) ==
LOC: HO.LAB 15:08
PROVIDERS: PCP Registered Nurse; Visit Provider Student in an Organized Health Care Education/Training Program
DX: M06.09 Rheumatoid arthritis without rheumatoid factor, multiple sites (principal)
CPT/HCPCS: 36415; 80053; 85025; 85652; 86140

== ENCOUNTER 2025-01-12 10:07 | Outpatient (AMB) | payer MEDICAID, SELFPAY ==
--- NOTE | 2025-01-12 10:37 | A.OFFVIS_ITS ---
Vital Signs 01/12/25 10:49 Height 5 ft 3 in Weight 199 lb 11.821 oz BMI 35.4 BP 142/84 H Blood Pressure Location Lt brachial Position Sitting Pulse 65 Pulse Source Pulse Oximeter Pulse Oximetry (%) 97 Oxygen Delivery Method Room Air Intake Visit Reasons: RA Intake Note: Patient presents for RA. Mobile Patrol Officer Required: Yes Mobile Patrol Officer Language: Oracle Application Consultant Services: Mobile Patrol Officer Present Mobile Patrol Officer Name: Lizandro [phone] Information Interpreted: non-clinical & clinical Accompanied by: Self / Same As Patient Allergies methotrexate Adverse Reaction (Intermediate, Verified 01/12/25 10:46) gerd Medication List - Last Reconciled 01/16/25 by Augusta Aguilar MD adalimumab (Humira(CF) Pen) 40 mg (0.4 mL) subcut QWEEK ascorbic acid (vitamin C) 1,000 mg PO DAILY 90 days celecoxib 200 mg PO DAILY duloxetine 30 mg PO DAILY escitalopram oxalate 10 mg PO DAILY hydrochlorothiazide 25 mg PO DAILY lisinopril 40 mg PO DAILY methenamine hippurate 1 g PO DAILY 90 days metoprolol succinate ER 50 mg PO DAILY pantoprazole 40 mg PO QAM psyllium husk 0.52 grams PO DAILY sennosides (Natural Senna Laxative) 17.2 mg (2 x 8.6 mg) PO BEDTIME trazodone 50 mg PO BEDTIME PRN HPI Comments Details: Patient is a 59-year-old female with hypertension, GERD complicated by erosive esophagitis, polyarticular osteoarthritis involving the hip knees, and seronegative rheumatoid arthritis here today for follow up Interval History: Patient last seen 09/08/24 with me - On Enbrel 50mg every week - Patient now consistently taking it - Feels it is helping about 30% with the pain - Still having pain in her joints: hands, wrists, and feet. Not able to close her fist - Changed to Humira Today - On Humira 40mg SC every 2 weeks - Due to the limited efficacy of Enbrel, her medication was changed to Humira, which is administered as an injection every two weeks. - She reports still having some inflammation on her blood work. Rheumatologic History: -ve RF -ve CCP dx 08/2023 MTX 08/2023 DC 10/2023 ineffective and caused GERD Enbrel 12/2023 - 09/2024 Current Rheumatology Medication(s): Humira 40mg SC every 2 weeks PFSH Medical History (Updated 11/01/24 @ 10:18 by Cachorro Fry MD) GERD (gastroesophageal reflux disease) Bilateral carpal tunnel syndrome Encounter for monitoring of etanercept therapy Erosive esophagitis Tubular adenoma of colon Surgical History Hx of hand surgery History of umbilical hernia repair (~2008) History of ovarian cystectomy History of delivery Family History Father History of hypertension Mother History of hypertension Rheumatoid arthritis Lung cancer Breast cancer Social History Household Members: Significant Other and Children Alcohol intake: current Alcohol intake frequency: does not drink Comment: counts correct Patient Tobacco Use Status: Never used Tobacco e-Cigarette/Vaping Use: Never Used Current occupational status: unemployed 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 All other systems reviewed and are unremarkable except noted above Physical Exam Exam Exam: Vital signs reviewed Physical Examination CONSTITUITIONAL Patient alert and cooperative. Well appearing and in no apparent painful distress MSK Hands * Right Hand: Swelling noted to the MCPs with TTP. No swelling noted to the PIPs but TTP. No TTP of the DIPs. Herbedens nodes noted * Left Hand: No TTP or swelling of the PIPs of DIPs. Mild TTP of the MCPs Wrists * Right Wrist: Full ROM to flexion and extension. No swelling but TTP * Left Wrist: Full ROM to flexion and extension. No swelling but TTP Elbows * Right Elbow: Full ROM. No swelling or TTP. No TTP of the medial epicondyle. No TTP of the lateral epicondyle * Left Elbow: Full ROM. No swelling or TTP. No TTP of the medial epicondyle. No TTP of the lateral epicondyle Shoulders * Right shoulder: Decreased ROM. No swelling noted. No TTP of the AC joint. TTP of the subacromial bursa. No TTP of the posterior shoulder * Left shoulder: Full ROM. No swelling noted. No TTP of the AC joint. No TTP of the subacromial bursa. No TTP of the posterior shoulder Knees * Right knee: Good ROM. No swelling noted. TTP of the knee joint line. No TTP of pes anserine bursa * Left knee: Good ROM. No swelling noted. TTP of the knee joint line. No TTP of pes anserine bursa. * Crepitations felt bilaterally Ankles * Right ankle: Good ankle dorsiflexion and plantar flexion. No swelling. No TTP of the ankle joint * Left ankle: Good ankle dorsiflexion and plantar flexion. No swelling. No TTP of the ankle joint Feet * Right foot: Negative squeeze test * Left foot: Negative squeeze test Tender points? * No tenderness to palpation of the bilateral trapezius, supraspinatus, anterior costochondral junctions, bilateral suboccipital muscle insertions SKIN No rashes Vital Signs: Last Vital Signs Pulse 65 01/12/25 10:49 BP 142/84 H 01/12/25 10:49 Pulse Ox 97 01/12/25 10:49 Oxygen Delivery Method Room Air 01/12/25 10:49 BMI result Body Mass Index 35.4 Office Procedures AMB Joint Injection/Aspiration Joint Injection/Aspiration Details: Procedure was explained to the patient and informed consent was obtained. ? Risks associated with the procedure were discussed with the patient including but not limited to bleeding, infection, drug reactions and reactions to the topical anesthetic. Patient made aware of signs to look out for infectious complications. The area of interest was identified and confirmed with patient. ?This was subsequently cleaned with chlorhexidine x 2. ? The area was then anesthetized using ethyl chloride spray. 40 mg Kenalog with 1 cc 1% lidocaine was injected without issue. ?Minimal to no bleeding. ?Patient tolerated procedure. Primary Site: Right Shoulder Injected: 40 mg of, Kenalog, with 1 mL of, 1% plain Lidocaine and in the subcromial space Procedure: The patient tolerated the procedure well Coding 50302 - Glenohumeral/Tronchanteric Bursa/Intraarticular Procedure code (CPT) selection complete Office Meds lidocaine (PF) 10 mg/mL (1 %) injection solution Performing Provider: Augusta Aguilar MD Performing Location: [facility] Rheumatology-[facility] Administered by: Augusta Aguilar MD on 01/12/25 11:52 Dose Route Admin Location Dispensed Lot Number Expiration Date [facility] Billet Checker 1 mL Infiltration right subacromial bursa 2 mL [id number] 10/09/27 63 [id number] [employer] Total Dispensed Waste 2 mL 50 % Kenalog 40 mg/mL suspension for injection Performing Provider: Aguusta Aguilar MD Performing Location: [facility] Administered by: Augusta Aguilar MD on 01/12/25 11:52 Dose Route Admin Location Dispensed Lot Number Expiration Date [employer] Billet Checker 40 mg intrabursal Right shoulder 1 mL [id number] 08/07/26 [id number]- 1 [employer] Total Dispensed Waste 1 mL 0 % Results Reviewed Results Reviewed: Laboratory Tests 06/27/24 08/11/24 11:13 17:13 WBC 11.7 H RBC 4.76 Hgb 13.1 Hct 39.2 Plt Count 264 ESR 16 Sodium 139 Potassium 3.4 Chloride 105 Carbon Dioxide 25 BUN 13 Creatinine 0.61 AST 23 ALT 24 C-Reactive Protein 1.35 H Rheumatology Labs 07/13/22 06/09/23 07/26/23 10:12 11:46 10:51 Rheumatoid Factor < 13.0 Cycl Citrul Peptide IgG <16 FRANTZ Screen POSITIVE A FRANTZ Titer 1:80 H SS-A/Ro Antibody <1.0 NEG SS-B/La Antibody <1.0 NEG Sm (Townsend) Antibody <1.0 NEG SM/MANUAL TRAINING TEACHER IgG Antibody <1.0 NEG Double Strand DNA Ab 1 Complement C3 166 Complement C4 16 Infectious serologies 03/24/24 06/27/24 11:45 11:13 Hepatitis A IgM Ab Nonreactive Hep Bs Antigen Negative Hep Bs Antibody NONREACTIVE Hep B Core Total Ab Nonreactive Hepatitis C Ab (EIA) Nonreactive TB Test (T-Spot) Com Negative Assessment & Plan Assessment & Plan (1) Rheumatoid arthritis: Comment: -ve RF -ve CCP dx 08/2023 MTX 08/2023 DC 10/2023 ineffective and caused GERD Enbrel 12/2023 Code(s): M06.9 - Rheumatoid arthritis, unspecified Category: Medical Qualifiers: Rheumatoid arthritis location: multiple sites Rheumatoid factor presence: without rheumatoid factor Qualified Code(s): M06.09 - Rheumatoid arthritis without rheumatoid factor, multiple sites Plan: #Seronegative RA Patient is a 59-year-old female with seronegative rheumatoid arthritis here today for follow up The patient's current Humira regimen of one injection every two weeks is providing insufficient relief, as she continues to experience joint pain and her blood work indicates persistent inflammation. The plan is to increase the frequency of Humira to weekly injections to achieve better symptom control. Insurance authorization will be sought for this change in dosing frequency. The patient will have repeat blood work before her next follow-up visit in four months to assess the new dosage's effect on inflammation. Plan - Adalimumab 40mg SC every week - RTC 4 months - Labs before visit: CBC, CMP, ESR, CRP (2) Subacromial bursitis of right shoulder joint: Code(s): M75.51 - Bursitis of right shoulder Plan: #Right Subacromial bursitis To address acute shoulder pain, an injection was administered in the office today. The patient was advised that she should experience pain improvement within 3 to 5 days. She was also instructed to continue with shoulder exercises. (3) Encounter for monitoring of adalimumab therapy: Code(s): Z51.81 - Encounter for therapeutic drug level monitoring; Z79.620 - longterm (current) use of immunosuppressive biologic Plan: #Long-term Use of TNF Inhibitors: Adalimumab Discussed with the patient the benefits and risks of TNF inhibitors for the management of the rheumatic condition Benefits include reduce pain, maintenance of remission and reduction of flares as well as progression of the disease Risks include injection sites/infusion reactions, serious infections (such as bacterial infections, opportunistic infections), malignancy, delaminating syndromes, autoimmune phenomena, CHF exacerbations, palmar plantar psoriasis and cytopenias Recommended rotating injection sites, and holding medication during and for up to 1 week after resolution of a febrile illness or open skin wound Plan I discussed with the patient that her previous treatment with Enbrel provided only minimal relief. We reviewed her current treatment with Humira every two weeks and her persistent symptoms. Given her ongoing joint pain and the inflammation noted in her recent blood work, I recommended increasing the Humira frequency to weekly to see if that would provide additional benefit. I explained that we would seek insurance approval for this increased dosage. For her acute shoulder pain, I administered an injection in the office today and informed her that it should start helping within 3 to 5 days. I also emphasized the importance of continuing her shoulder exercises. We will follow up in four months, and she will need to have repeat blood work done before that visit. I spent 30 minutes reviewing the record and labs, taking a history, examining the patient, discussing the treatment plan and documenting in the medical record Orders: Orders AMB Joint Injection/Aspiration 01/12/25 M75.51 - Bursitis of right shoulder Erythrocyte Sedimentation Rate 4 Months Z79.899 - Other regional intermodal truck driver (current) drug therapy Complete Blood Count Auto Diff 4 Months Z79.899 - Other regional intermodal truck driver (current) drug therapy Comprehensive Met. Panel 4 Months Z79.89 - Other regional intermodal truck driver (current) drug therapy C Reactive Protein 4 Months Z79.89 - Other regional intermodal truck driver (current) drug therapy Coding Level of Care Code Est Pt Level 4 (52648) Complex visit Add On G2211 Diagnoses Rheumatoid arthritis of multiple sites with negative rheumatoid factor M06.09 Rheumatoid arthritis location: multiple sites Rheumatoid factor presence: without rheumatoid factor Subacromial bursitis of right shoulder joint M75.51 Encounter for monitoring of adalimumab therapy Z51.81; Z79.620 CPT Codes Coding - Joint 7: 12347 - Glenohumeral/Tronchanteric Bursa/Intraarticular ([id number])
[2025-01-12 10:49] VITALS: BP 142/84; PULSE 65; O2SAT 97; BMI 35.4
== END 2025-01-12 11:19 | disposition home or self-care (01) ==
LOC: HO.RHES 10:07
PROVIDERS: PCP Registered Nurse; Visit Provider Student in an Organized Health Care Education/Training Program
DX: M75.51 Bursitis of right shoulder (principal)
CPT/HCPCS: 20610; 99214

== ENCOUNTER → 2025-01-12 10:07 | Outpatient (BNVA) | payer MEDICAID, SELFPAY | PROVIDERS: PCP Registered Nurse; Visit Provider Student in an Organized Health Care Education/Training Program | DX: M06.09 Rheumatoid arthritis without rheumatoid factor, multiple sites (principal); M75.51 Bursitis of right shoulder; Z51.81 Encounter for therapeutic drug level monitoring; Z79.620 Long term (current) use of immunosuppressive biologic | CPT/HCPCS: 20610; 99212; J2003; J3301 ==